=== PATIENT | female | born 1955 | race Caucasian/White ===

== ENCOUNTER → 2016-09-02 | Outpatient (CLI) | payer BC ==
[~2016-09-02] MED LIST: ACDPT PO; ACHD5005 PO; ALBU8.5H2 IH; ALPR.25T PO; ATR20T PO; AZIT-21 PO; AZTH250C PO; CLAR-19 PO; CLARITIN; CODE-54 PO; DIPH1TAB25 PO; FLC100T1 PO; HYDR-3720 PO; HYDR-700 PO; HYDR-707 PO; HYDR-757 PO; IBP200T PO; LEVO500T69 PO; LNZ600T PO; LTRS15C TOP; MAGN300S PO; METF-380 PO; NF-ESOM40C PO; NFPRILOC40 PO; OMEP20CA12 PO; ONDA8TAB13 PO; OXYC-12 PO; OXYC-197 PO; POLY119P PO; PRCD5U PO; PRD20T PO; PROP1TAB77 PO; SMV20T PO; TR1C15 TOP
[2016-09-02 07:05] LABS: ALANINE AMINOTRANSFERASE 11 U/L (0-55); ALBUMIN 4.5 G/DL (3.2-4.5); ANION GAP 13 MMOL/L (5-14); ASPARTATE AMINO TRANSFERASE 16 U/L (5-34); BILIRUBIN,TOTAL 0.6 MG/DL (0.1-1.0); BLOOD UREA NITROGEN 7 MG/DL (7-18); BUN/CREATININE RATIO 10; CALCIUM 9.3 MG/DL (8.5-10.1); CARBON DIOXIDE 21 MMOL/L (21-32); CHLORIDE 106 MMOL/L (98-107); CHOLESTEROL 189 MG/DL (< 200); CREATININE SERUM 0.71 MG/DL (0.60-1.30); DIRECT LDL 87 MG/DL (1-129); GFR ESTIMATED > 60; GLUCOSE 147 MG/DL (70-105); POTASSIUM 3.9 MMOL/L (3.6-5.0); SODIUM 140 MMOL/L (135-145); TOTAL PROTEIN 7.5 G/DL (6.4-8.2); TRIGLYCERIDES 277 MG/DL (<150); VLDL CHOLESTEROL 55 MG/DL (5-40)
== END ==
LOC: LAB 06:18
PROVIDERS: ATTEND Family Medicine
DX: E11.9 Type 2 diabetes mellitus without complications (principal); N15.9 Renal tubulo-interstitial disease, unspecified
CPT/HCPCS: 36415; 80053; 80061; 83036

== ENCOUNTER → 2016-09-07 | Outpatient (CLI) | payer BC ==
[~2016-09-07] MED LIST changes: +CATHETER FLUSH 10 ML SYR IV PRN; +IOHEXOL 350 MG/ML 100 ML (OMNIPAQUE 350) VIAL IV ONE; +NS 100 ML (IVPB) BAG IV ONE
--- NOTE | 2016-09-07 11:05 | Diagnostic Imaging Report ---
PROCEDURE: CT chest with contrast only. TECHNIQUE: Multiple contiguous axial images were obtained through the chest after administration of intravenous contrast. INDICATION: Pulmonary nodule followup. 75 mL of Omnipaque 350 is administered intravenously. COMPARISON: 10/01/2014 FINDINGS: There are new nodules when compared to 2015 exam measuring up to 5 mm seen in the right upper lobe with small surrounding halo around these nodules. Such halo is in favor of an infectious process. There are nodules in the medial aspect of the right lower lobe measuring up to 1.4 cm in size without change from prior studies compatible with benign etiology. There is no solid consolidation. The mediastinum demonstrate no mass or significantly enlarged lymph nodes. No axillary lymphadenopathy. There are minimally enlarged lymph nodes in the right hilum up to 1 cm in size similar to 2015 of questionable significance. The heart size is normal. No pericardial or pleural effusion. Coronary artery calcifications are seen. The thoracic aorta is normal in caliber. The osseous structures appear grossly unremarkable. The sections in the upper abdomen appear grossly unremarkable. IMPRESSION: 1. There are right upper lobe pulmonary nodules up to 5 mm in size with surrounding halo not seen on the prior exam, may relate to an atypical infection. Correlate clinically. 2. Previously seen right lower lobe pulmonary nodules up to 1.4 cm in size are stable from prior exams compatible with benign etiology. Dictated by: Dictated on workstation # [id number]
== END ==
LOC: RAD 09:49
PROVIDERS: ATTEND Family Medicine
DX: R91.8 Other nonspecific abnormal finding of lung field (principal)
CPT/HCPCS: 71260

== ENCOUNTER → 2016-09-11 | Outpatient (CLI) | payer BC ==
[~2016-09-11] MED LIST changes: -CATHETER FLUSH 10 ML SYR IV PRN; -IOHEXOL 350 MG/ML 100 ML (OMNIPAQUE 350) VIAL IV ONE; -NS 100 ML (IVPB) BAG IV ONE
== END ==
LOC: PREOP 06:16
PROVIDERS: ATTEND Surgery
DX: Z01.818 Encounter for other preprocedural examination (principal); K22.2 Esophageal obstruction; R13.10 Dysphagia, unspecified

== ENCOUNTER 2016-09-14 06:47 | Day surgery (SDC) | payer BC ==
[~2016-09-14] VITALS: Ht 167.6 cm; Wt 59.0 kg
[2016-09-14] MEDS ORDERED: MIDAZOLAM 2 MG/2 ML (VERSED) VIAL IVP PRN (07:00)
[2016-09-14] MEDS ORDERED: NALOXONE 0.4 MG/ML 1 ML (NARCAN) VIAL IVP PRN (07:00)
[2016-09-14] MEDS ORDERED: NS IV 500 ML 500 ML IV SCH (07:00)
[2016-09-14] MEDS ORDERED: FLUMAZENIL (ROMAZICON) 0.1 MG/ML 5 ML VIAL INJ PRN (07:00)
[2016-09-14] MEDS ORDERED: HURRICAINE EXT TUBE (BENZOCAINE) XX PRN (07:00)
[2016-09-14] MEDS ORDERED: fentaNYL INJECTION 100 MCG/2 ML AMP IVP PRN (07:00)
[2016-09-14] MEDS ORDERED: NS IV 500 ML 500 ML ONE (07:02)
[2016-09-14] MEDS ORDERED: proPOfol 200 MG/20 ML (DIPRIVAN) VIAL IV ONE (07:19)
[2016-09-14 07:20] VITALS: BP 150/85
[2016-09-14] MEDS ORDERED: LIDOCAINE PF 2% 5 ML (XYLOCAINE) VIAL ONE (07:20)
[2016-09-14] MEDS ORDERED: HURRICAINE EXT TUBE (BENZOCAINE) ONE (08:11)
--- NOTE | 2016-09-14 08:32 | Endoscopy Procedure Report ---
Endoscopy Report Date: Sep 14, 2016 Preoperative Diagnosis: dysphagia. Allan's esophagitis Study Performed: Upper Endoscopy Procedure Instrument: Endoscope Endo Procedure/Findings Findings 1.: Hiatal Hernia, Stricture, Allan's Esophagus Copy Copies To 1: VLADIMIR GALO XAVIER M MD Sep 14, 2016 8:32 am
[2016-09-14 08:35] VITALS: BP 137/72
--- NOTE | 2016-09-14 08:35 | Discharge Inst-Simple/Standard ---
Discharge Inst-Standard Discharge Medications New, Converted or Re-Newed RX: Other Patient Instructions/Follow Up Plan of Care/Instructions/FU: follow-up with her primary Activity as Tolerated: Yes Discharge Diet: No Restrictions BERE ROSARIO MD Sep 14, 2016 8:35 am
[2016-09-14 09:05] VITALS: BP 146/83
[2016-09-14 09:20] VITALS: BP 146/83
--- NOTE | 2016-09-14 09:50 | OPERATIVE REPORT ---
DATE OF SERVICE: 09/14/2016 PROCEDURES: 1. Upper GI endoscopy with antral biopsy. 2. Balloon dilatation of esophageal stricture. 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 She presented with dysphagia, possibly due to a stricture. Therefore, an upper endoscopy with potential balloon dilatation was felt to be reasonable. Informed consent was obtained after reviewing the procedure in detail. DESCRIPTION OF PROCEDURE: She was placed in left lateral decubitus position and her vital signs were monitored. Conscious sedation was achieved using propofol infusion by our [employer]. The flexible gastroscope was then introduced down the esophagus, past the stomach, into the proximal duodenum. FINDINGS: ESOPHAGUS: Changes of previous Allan esophagitis with a smooth stricture at the end. It was dilated to 20 mm with the balloon. STOMACH: Multiple erosions were found along the distal stomach. An antral biopsy was obtained for Helicobacter status. DUODENUM: Shallow ulcers and erosions were found. She tolerated the procedure well and was taken back to the nursing area in a stable condition. IMPRESSION: Allan esophagitis with stricture. Balloon dilation completed. Job ID: [id number] DocumentID: [id number] Dictated Date: 09/14/2016 08:31:18 [employer] Date: 09/14/2016 09:50:23 Dictated By: BERE ROSARIO MD [facility]
== END 2016-09-14 09:20 | disposition home or self-care (01) ==
LOC: ENDO 06:47
PROVIDERS: ATTEND Surgery
DX: K22.70 Barrett's esophagus without dysplasia (principal); K22.2 Esophageal obstruction; Z79.899 Other long term (current) drug therapy; F17.210 Nicotine dependence, cigarettes, uncomplicated

== ENCOUNTER 2016-10-20 10:50 | Outpatient (CLI) | payer BC, OTHER ==
[~2016-10-20] VITALS: Ht 167.6 cm; Wt 61.2 kg
[2016-10-20] MEDS ORDERED: CYCL10TA9 PO ×2 (14:09)
[2016-10-20] MEDS ORDERED: LORA10TA7 PO ×2 (14:09)
[2016-10-20] MEDS ORDERED: NF-ESOM40C PO ×2 (14:09)
[2016-10-20] MEDS ORDERED: HYDR-3816 PO ×2 (14:10)
== END 2016-10-20 14:11 ==
LOC: PREOP 10:50
PROVIDERS: ATTEND Internal Medicine Critical Care Medicine
DX: Z01.818 Encounter for other preprocedural examination (principal); R91.8 Other nonspecific abnormal finding of lung field

== ENCOUNTER 2016-10-21 06:48 | Day surgery (SDC) | payer BC, OTHER ==
[~2016-10-21] VITALS: Ht 167.6 cm; Wt 61.2 kg
[~2016-10-21 06:48] MED LIST changes: +CYCL10TA9 PO; +HYDR-3816 PO; +LORA10TA7 PO
[2016-10-21] MEDS ORDERED: NS IV 1000 ML 1,000 ML IV STA (06:58)
[2016-10-21] MEDS ORDERED: FLUMAZENIL (ROMAZICON) 0.1 MG/ML 5 ML VIAL INJ PRN (07:00)
[2016-10-21] MEDS ORDERED: MIDAZOLAM 2 MG/2 ML (VERSED) VIAL IVP PRN (07:00)
[2016-10-21] MEDS ORDERED: NALOXONE 0.4 MG/ML 1 ML (NARCAN) VIAL IVP PRN (07:00)
[2016-10-21] MEDS ORDERED: LIDOCAINE 4% INJ (XYLOCAINE) 5ML AMP INH ONE (07:12)
[2016-10-21] MEDS ORDERED: RT-ALBUTEROL SULF 2.5 MG/3 ML PRE-MIX VIAL IH SCH (07:15)
[2016-10-21 07:18] VITALS: BP 151/82
[2016-10-21] MEDS ORDERED: RT-ALBUTEROL SULF 2.5 MG/3 ML PRE-MIX VIAL ONE (07:18)
[2016-10-21] MEDS ORDERED: MIDAZOLAM 2 MG/2 ML (VERSED) VIAL ONE (07:19)
--- NOTE | 2016-10-21 07:28 | Pre-Op Note & Conscious Sedat ---
Pre-Operative Progress Note H&P Reviewed The H&P was reviewed, patient examined and no changes noted. Date H&P Reviewed: Oct 21, 2016 Time H&P Reviewed: 07:28 Conscious Sedation Pre-Proced Time Reviewed: ASA Class: 3 Airway Mallampati Classification: ([place] appropriate class) I. II. III, IV Lungs Heart ASA score ASA 1: a normal healthy patient ASA 2: a patient with a mild systemic disease (mid diabetes, controlled hypertension, obesity ASA 3: a patient with a severe systemic disease that limits activity (angina , COPD, prior Myocardial infarction) ASA 4: a patient with an incapacitating disease that is a constant threat to life (CHF, renal failure) ASA 5: a moribund patient not expected to survive 24 hrs. (ruptured aneurysm) ASA 6: a declared brain patient whose organs are being harvested. For emergent operations, add the letter E after the classification Grade 3 Sedation Plan: Analgesia, Amnesia, Plan communicated to team members, Discussed options with patient/fam, Discussed risks with patient/fam Note The patient is an appropriate candidate to undergo the planned procedure, sedation, and anesthesia. The patient immediately re-assessed prior to indication. ODETTE FERNANDEZ DO Oct 21, 2016 07:28
--- NOTE | 2016-10-21 07:28 | Progress Note-Pre Operative ---
Pre-Operative Progress Note H&P Reviewed The H&P was reviewed, patient examined and no changes noted. Date Seen by Provider: Oct 21, 2016 Time Seen by Provider: : Date H&P Reviewed: Oct 21, 2016 Time H&P Reviewed: : Pre-Operative Diagnosis: ODETTE Luna DO Oct 21, 2016 07:28
[2016-10-21] MEDS ORDERED: proPOfol 200 MG/20 ML (DIPRIVAN) VIAL IV ONE (07:41)
[2016-10-21] MEDS: fentaNYL INJECTION 100 MCG/2 ML AMP IVP PRN ×2 (07:47→07:56)
[2016-10-21 08:30] VITALS: BP 140/78
[2016-10-21] MEDS ORDERED: LIDOCAINE PF 1% 2 ML AMP IJ ONE (08:44)
[2016-10-21] MEDS ORDERED: LIDOCAINE JELLY 2% (XYLOCAINE) 30 ML TUBE TOP ONE (08:44)
[2016-10-21] MEDS ORDERED: LIDOCAINE 4% INJ (XYLOCAINE) 5ML AMP INJ ONE (08:44)
[2016-10-21 09:00] VITALS: BP 126/77
--- NOTE | 2016-10-21 09:15 | Diagnostic Imaging Report ---
Supine portable radiograph of the chest. INDICATION: Pulmonary nodule. Bronchoscopy performed. FINDINGS: There is right upper lobe patchy consolidation. The left lung is clear. The heart size is normal. No effusion or pneumothorax. The mediastinum and leonarda appear unremarkable. IMPRESSION: Right upper lobe consolidation. Dictated by: Dictated on workstation # [id number]
[2016-10-21 09:29] VITALS: BP 126/77
--- NOTE | 2016-10-21 18:06 | Diagnostic Imaging Report ---
EXAMINATION: Intraoperative view of the chest. FLUOROSCOPY TIME: 42 seconds. INDICATION: Pulmonary nodule. IMPRESSION: Provided image demonstrates bronchoscope projecting over the right upper lobe. Dictated by: Dictated on workstation # [id number]
--- OUTSIDE RECORDS SUMMARY | 2016-10-28 21:34 | XMS REPORT | Continuity of Care Document ---
Author Author [facility] Organization [facility] Address Unknown Phone Unavailable Allergies Active Description Code Type Severity Reaction Onset Reported/Identified Relationship to Patient Clinical Status Yes Doxycycline Doxycycline Moderate tongue swelling 09/14/2011 Yes Levaquin Levaquin Moderate Tongue swelling 09/14/2011 Yes doxycycline [id number] Drug Allergy Severe TONGUE SWELLING 10/20/2016 Yes levofloxacin [id number] Drug Allergy Severe TONGUE SWELLING 10/20/2016 Yes aspirin [id number] Drug Allergy Mild advised not to 10/20/2016 Yes ibuprofen [id number] Drug Allergy Mild advised not to 10/20/2016 Yes sumatriptan [id number] Drug Allergy Unknown N/A 10/20/2016 Medications Problems Date Dx Coded Attending Type Code Diagnosis Diagnosed By 03/20/2011 Ot 173.31 BASAL CELL CARCINOMA OF SKIN OF OTH UN 03/25/2011 Ot 250.00 DIAB BLANCA WO COMPL, TYPE II OR UNSPEC TY 03/25/2011 Ot 682.3 CELLULITIS OF ARM 03/25/2011 Ot 998.59 OTH POSTOPER INFECTION 03/25/2011 Ot V58.69 OT MED,LT,CURRENT USE 04/16/2011 Ot 782.0 SKIN SENSATION DISTURB 04/16/2011 Ot E930.1 ADV EFF ANTIFUNG ANTBIOT 04/16/2011 Ot E930.8 ADV EFF ANTIBIOTICS NEC 09/14/2011 Ot 787.91 DIARRHEA 10/19/2011 Ot 530.85 VALDIVIA'S ESOPHAGUS 10/19/2011 Ot 787.91 DIARRHEA 10/19/2011 Ot V12.72 PERSONAL HISTORY OF COLONIC POLYPS 10/19/2011 Ot V58.69 OTH MED,LT,CURRENT USE 12/14/2011 Ot 787.91 DIARRHEA 02/26/2012 Ot 466.0 ACUTE BRONCHITIS 02/26/2012 Ot 786.50 CHEST PAIN NOS 02/26/2012 Ot 786.52 PAINFUL RESPIRATION 02/26/2012 Ot 793.19 OTHER NONSPECIFIC ABNORMAL FINDING OF OSMIN 05/03/2012 Ot 305.1 TOBACCO USE DISORDER 05/03/2012 Ot 490 BRONCHITIS NOS 05/03/2012 Ot 786.2 COUGH 09/10/2012 GE MARTIN MD Ot 786.50 CHEST PAIN NOS 09/10/2012 MARIO MULLIGAN, GE Mckinney Ot V58.69 OT MED,LT,CURRENT USE 10/24/2012 ABRAHAM MULLIGAN, BERE Jacobson Ot 530.85 VALDIVIA'S ESOPHAGUS 10/24/2012 COLTEN MULLIGAN, KELLY Glez Ot 250.00 10/24/2012 COLTEN MULLIGAN, KELLY Glez Ot 305.1 10/24/2012 COLTEN MULLIGAN, KELLY Glez Ot 346.90 10/24/2012 COLTEN MULLIGAN, KELLY Glez Ot 473.9 10/24/2012 COLTEN MULLIGAN, KELLY Glez Ot 530.81 10/24/2012 COLTEN MULLIGAN, KELLY Glez Ot 530.85 10/24/2012 COLTEN MULLIGAN, KELLY Glez Ot 786.50 01/06/2013 ANNIE MEHTA MD Ot 490 BRONCHITIS NOS 01/06/2013 ANNIE MEHTA MD Ot 786.2 COUGH 06/14/2013 ROSE MARIE WILD DO Ot 250.00 DIAB BLANCA WO COMPL, TYPE II OR UNSPEC TY 06/14/2013 ROSE MARIE WILD DO Ot 305.1 TOBACCO USE DISORDER 06/14/2013 ROSE MARIE WILD DO Ot 530.81 ESOPHAGEAL REFLUX 06/14/2013 ROSE MARIE WILD DO Ot 575.0 ACUTE CHOLECYSTITIS 10/09/2013 ROSE MARIE WILD DO Ot 787.91 DIARRHEA 10/09/2013 ROSE MARIE WILD DO Ot 789.00 ABDOMINAL PAIN, UNSPECIFIED SITE 01/03/2014 DINA LEOS Ot 564.00 UNSPEC CONSTIPATION 01/03/2014 DINA LEOS Ot 724.2 LUMBAGO 01/03/2014 DINA LEOS Ot 789.00 ABDOMINAL PAIN, UNSPECIFIED SITE 04/17/2014 Ot 250.00 04/17/2014 Ot 791.9 04/17/2014 Ot 173.31 04/17/2014 Ot V72.63 04/17/2014 Ot V74.8 04/17/2014 Ot V58.31 04/17/2014 Ot 250.00 04/17/2014 Ot V72.84 04/17/2014 Ot 787.91 04/17/2014 Ot 518.89 04/17/2014 LEAH CARTER, NEGRITO Mckinney Ot 793.11 04/17/2014 GELLENDER DO, VLADIMIR Nunez Ot 250.00 04/17/2014 GELLENDER DO, VLADIMIR Nunez Ot 783.21 04/17/2014 GELLENDER DO, VLADIMIR Nunez Ot 786.9 04/17/2014 ABRAHAM MULLIGAN, BERE Jacobson Ot V72.84 04/17/2014 GELLENDER DO, VLADIMIR Nunez Ot 250.00 04/17/2014 GELLENDER DO, VLADIMIR Nunez Ot 786.2 04/17/2014 GELLENDER DO, VLADIMIR Nunez Ot 783.21 04/17/2014 GELLENDER DO, VLADIMIR Nunez Ot 793.19 04/17/2014 Ot 787.91 04/17/2014 Ot 789.00 04/17/2014 SULEMA ROBB APPRAISER Ot 250.00 DIAB BLANCA WO COMPL, TYPE II OR UNSPEC TY 04/17/2014 SULEMA ROBB APPRAISER Ot 723.4 BRACHIAL NEURITIS NOS 04/17/2014 SULEMA ROBB APPRAISER Ot 729.5 PAIN IN LIMB 05/21/2014 Ot 518.89 05/21/2014 GELLENDER DO, VLADIMIR Nunez Ot 250.00 05/21/2014 GELLENDER DO, VLADIMIR Nunez Ot 783.21 05/21/2014 GELLENDER DO, VLADIMIR Nunez Ot 786.9 05/21/2014 GELLENDER DO, VLADIMIR Nunez Ot 250.00 05/21/2014 GELLENDER DO, VLADIMIR Nunez Ot 786.2 05/21/2014 GELLENDER DO, VLADIMIR Nunez Ot 783.21 05/21/2014 GELLENDER DO, VLADIMIR Nunez Ot 793.19 05/21/2014 Ot 787.91 05/21/2014 Ot 789.00 06/25/2014 Ot 250.00 06/25/2014 Ot 791.9 06/25/2014 Ot 173.31 06/25/2014 Ot V72.63 06/25/2014 Ot V74.8 06/25/2014 Ot V58.31 06/25/2014 Ot 250.00 06/25/2014 Ot V72.84 06/25/2014 Ot 787.91 06/25/2014 Ot 518.89 06/25/2014 NEGRITO STRANGE Ot 793.11 06/25/2014 GELLENDER DO, VLADIMIR A Ot 250.00 06/25/2014 GELLENDER DO, VLADIMIR A Ot 783.21 06/25/2014 GELLENDER DO, VLADIMIR A Ot 786.9 06/25/2014 ABRAHAM MULLIGAN, BERE Jacobson Ot V72.84 06/25/2014 GELLENDER DO, VLADIMIR Nunez Ot 250.00 06/25/2014 GELLENDER DO, VLADIMIR A Ot 786.2 06/25/2014 GELLENDER DO, VLADIMIR A Ot 783.21 06/25/2014 GELLENDER DO, VLADIMIR Nunez Ot 793.19 06/25/2014 Ot 787.91 06/25/2014 Ot 789.00 07/02/2014 Ot 787.91 07/02/2014 Ot 787.91 07/02/2014 Ot 789.00 09/19/2014 Ot 250.00 09/19/2014 Ot 791.9 09/19/2014 Ot 173.31 09/19/2014 Ot V72.63 09/19/2014 Ot V74.8 09/19/2014 Ot V58.31 09/19/2014 Ot 250.00 09/19/2014 Ot V72.84 09/19/2014 Ot 787.91 09/19/2014 Ot 518.89 09/19/2014 NEGRITO STRANGE Ot 793.11 09/19/2014 GELLENDER DO, VLADIMIR Nunez Ot 250.00 09/19/2014 GELLENDER DO, VLADIMIR A Ot 783.21 09/19/2014 GELLENDER DO, VLADIMIR A Ot 786.9 09/19/2014 ABRAHAM MULLIGAN, BERE Jacobson Ot V72.84 09/19/2014 GELLENDER DO, VLADIMIR Nunez Ot 250.00 09/19/2014 GELLENDER DO, VLADIMIR A Ot 786.2 09/19/2014 GELLENDER DO, VLADIMIR A Ot 783.21 09/19/2014 GELLENDER DO, VLADIMIR Nunez Ot 793.19 09/19/2014 Ot 787.91 09/19/2014 Ot 789.00 09/19/2014 GELLENDER DO, VLADIMIR Nunez Ot 723.0 09/19/2014 GELLENDER DO, VLADIMIR Nunez Ot 723.1 09/19/2014 GELLENDER DO, VLADIMIR Nunez Ot 784.2 09/19/2014 GELLENDER DO, VLADIMIR Nunez Ot 593.9 09/20/2014 Ot 250.00 09/20/2014 Ot 791.9 09/20/2014 Ot 173.31 09/20/2014 Ot V72.63 09/20/2014 Ot V74.8 09/20/2014 Ot V58.31 09/20/2014 Ot 250.00 09/20/2014 Ot V72.84 09/20/2014 Ot 787.91 09/20/2014 Ot 518.89 09/20/2014 LEAH CARTER, NEGRITO Mckinney Ot 793.11 09/20/2014 GELLENDER DO, VLADIMIR Nunez Ot 250.00 09/20/2014 GELLENDER DO, VLADIMIR Nunez Ot 783.21 09/20/2014 GELLENDER DO, VLADIMIR Nunez Ot 786.9 09/20/2014 ABRAHAM MULLIGAN, BERE Jacobson Ot V72.84 09/20/2014 GELLENDER DO, VLADIMIR Nunez Ot 250.00 09/20/2014 GELLENDER DO, VLADIMIR Nunez Ot 786.2 09/20/2014 GELLENDER DO, VLADIMIR Nunez Ot 783.21 09/20/2014 GELLENDER DO, VLADIMIR Nunez Ot 793.19 09/20/2014 Ot 787.91 09/20/2014 Ot 789.00 09/20/2014 GELLENDER DO, VLADIMIR Nunez Ot 723.0 09/20/2014 GELLENDER DO, VLADIMIR Nunez Ot 723.1 09/20/2014 GELLENDER DO, VLADIMIR Nunez Ot 784.2 09/20/2014 GELLENDER DO, VLADIMIR Nunez Ot 593.9 10/02/2014 GELLENDER DO, VLADIMIR Nunez Ot 593.9 10/02/2014 GELLENDER DO, VLADIMIR Nunez Ot 793.19 10/19/2014 GELLENDER DO, VLADIMIR Nunez Ot 593.9 10/19/2014 GELLENDER DO, VLADIMIR Nunez Ot 793.19 04/20/2015 Ot 250.00 04/20/2015 Ot 791.9 04/20/2015 Ot 173.31 04/20/2015 Ot V72.63 04/20/2015 Ot V74.8 04/20/2015 Ot V58.31 04/20/2015 Ot 250.00 04/20/2015 Ot V72.84 04/20/2015 Ot 787.91 04/20/2015 Ot 518.89 04/20/2015 LEAH CARTER, NEGRITO Mckinney Ot 793.11 04/20/2015 GELLENDER DO, VLADIMIR Nunez Ot 250.00 04/20/2015 GELLENDER DO, VLADIMIR Nunez Ot 783.21 04/20/2015 GELLENDER DO, VLADIMIR Nunez Ot 786.9 04/20/2015 ABRAHAM MULLIGAN, BERE M Ot V72.84 04/20/2015 GELLENDER DO, VLADIMIR Nunez Ot 250.00 04/20/2015 GELLENDER DO, VLADIMIR Nunez Ot 786.2 04/20/2015 GELLENDER DO, VLADIMIR Nunez Ot 783.21 04/20/2015 GELLENDER DO, VLADIMIR Nunez Ot 793.19 04/20/2015 Ot 787.91 04/20/2015 Ot 789.00 04/20/2015 GELLENDER DO, VLADIMIR Nunez Ot 723.0 04/20/2015 GELLENDER DO, VLADIMIR Nunez Ot 723.1 04/20/2015 GELLENDER DO, VLADIMIR Nunez Ot 784.2 04/20/2015 GELLENDER DO, VLADIMIR Nunez Ot 593.9 04/20/2015 GELLENDER DO, VLADIMIR Nunez Ot 593.9 04/20/2015 GELLENDER DO, VLADIMIR Nunez Ot 793.19 04/20/2015 DINA LEOS Ot F17.210 NICOTINE DEPENDENCE, CIGARETTES, UNCOMPL 04/20/2015 DINA LEOS Ot G43.909 MIGRAINE, UNSP, NOT INTRACTABLE, WITHOUT 06/24/2015 DINA LEOS Ot F17.210 NICOTINE DEPENDENCE, CIGARETTES, UNCOMPL 06/24/2015 DINA LEOS Ot S82.62XA DISP FX OF LATERAL MALLEOLUS OF LEFT FIB 06/24/2015 DINA LEOS Ot S92.255A NONDISP FX OF NAVICULAR OF LEFT FOOT , IN 06/24/2015 DINA LEOS Ot W17.89XA OTHER FALL FROM ONE LEVEL TO ANOTHER , IN 06/24/2015 DINA LEOS Ot Y92.[address] IN SINGLE-FAMILY (PRIVATE) EPIFANIO 06/24/2015 DENY CARTERDINA Ot Y99.8 OTHER EXTERNAL CAUSE STATUS 06/24/2015 DENY CARTER DINA Pedro Ot Z85.820 PERSONAL HISTORY OF MALIGNANT MELANOMA O 06/26/2015 DENY CARTER DINA Pedro Ot F17.210 06/26/2015 DENY CARTER DINA Pedro Ot S82.62XA 06/26/2015 DENY CARTER DINA Pedro Ot S92.255A 06/26/2015 DENY CARTER DINA Pedro Ot W17.89XA 06/26/2015 DENY CARTER DINA Pedro Ot Y92.018 06/26/2015 DENY CARTER DINA Pedro Ot Y99.8 06/26/2015 DENY CARTER DINA Pedro Ot Z85.820 08/05/2015 SULEMA ROBB APRN Ot S92.252D DISP FX OF NAVICULAR OF LEFT FOOT, SUBS 08/06/2015 SULEMA ROBB APPRAISER Ot S92.252D DISP FX OF NAVICULAR OF LEFT FOOT, SUBS 09/04/2015 Ot 250.00 DIAB BLANCA WO COMPL, TYPE II OR UNSPEC TY 09/04/2015 Ot 791.9 ABN URINE FINDINGS NEC 09/04/2015 Ot 173.31 BASAL CELL CARCINOMA OF SKIN OF OTH UN 09/04/2015 Ot V72.63 PRE-PROCEDURAL LABORATORY EXAMINATION 09/04/2015 Ot V74.8 SCREEN-BACTERIAL DIS NEC 09/04/2015 Ot V58.31 ENCOUNTER FOR CHANGE OR REMOVAL OF SURGI 09/04/2015 Ot 250.00 DIAB BLANCA WO COMPL, TYPE II OR UNSPEC TY 09/04/2015 Ot V72.84 EXAM PRE-OPERATIVE NOS 09/04/2015 Ot 787.91 DIARRHEA 09/04/2015 Ot 518.89 OTHER DISEASES OF LUNG, NEC 09/04/2015 LEAH CARTER, NEGRITO Mckinney Ot 793.11 SOLITARY PULMONARY NODULE 09/04/2015 VLADIMIR GALO DO Ot 250.00 DIAB BLANCA WO COMPL, TYPE II OR UNSPEC TY 09/04/2015 VLADIMIR GALO DO Ot 783.21 LOSS OF WEIGHT 09/04/2015 VLADIMIR GALO DO Ot 786.9 RESP SYS/CHEST SYMP NEC 09/04/2015 ABRAHAM MULLIGAN, BERE Jacobson Ot V72.84 EXAM PRE-OPERATIVE NOS 09/04/2015 GELLENDER DO, VLADIMIR Nunez Ot 250.00 DIAB BLANCA WO COMPL, TYPE II OR UNSPEC TY 09/04/2015 GELLENDER DO, VLADIMIR Nunez Ot 786.2 COUGH 09/04/2015 GELLENDER DO, VLADIMIR Nunez Ot 783.21 LOSS OF WEIGHT 09/04/2015 GELLENDER DO, VLADIMIR Nunez Ot 793.19 OTHER NONSPECIFIC ABNORMAL FINDING OF OSMIN 09/04/2015 Ot 787.91 DIARRHEA 09/04/2015 Ot 789.00 ABDOMINAL PAIN, UNSPECIFIED SITE 09/04/2015 GELLENDER DO, VLADIMIR Nunez Ot 723.0 CERVICAL SPINAL STENOSIS 09/04/2015 GELLENDER DO, VLADIMIR Nunez Ot 723.1 CERVICALGIA 09/04/2015 GELLENDER DO, VLADIMIR Nunez Ot 784.2 SWELLING IN HEAD NECK 09/04/2015 GELLENDER DO, VLADIMIR Nunez Ot 593.9 RENAL URETERAL DIS NOS 09/04/2015 GELLENDER DO, VLADIMIR Nunez Ot 593.9 RENAL URETERAL DIS NOS 09/04/2015 GELLENDER DO, VLADIMIR Nunez Ot 793.19 OTHER NONSPECIFIC ABNORMAL FINDING OF OSMIN 09/05/2015 GELLENDER DO, VLADIMIR Nunez Ot M54.2 CERVICALGIA 09/26/2015 GELLENDER DO, VLADIMIR Nunez Ot M54.2 CERVICALGIA 09/02/2016 Ot 173.31 BASAL CELL CARCINOMA OF SKIN OF OTH UN 09/02/2016 Ot V72.63 PRE-PROCEDURAL LABORATORY EXAMINATION 09/02/2016 Ot V74.8 SCREEN-BACTERIAL DIS NEC 09/02/2016 Ot V58.31 ENCOUNTER FOR CHANGE OR REMOVAL OF SURGI 09/02/2016 Ot 250.00 DIAB BLANCA WO COMPL, TYPE II OR UNSPEC TY 09/02/2016 Ot V72.84 EXAM PRE-OPERATIVE NOS 09/02/2016 Ot 787.91 DIARRHEA 09/02/2016 Ot 518.89 OTHER DISEASES OF LUNG, NEC 09/02/2016 NEGRITO STRANGE Ot 793.11 SOLITARY PULMONARY NODULE 09/02/2016 GELLENDER DO, VLADIMIR Nunez Ot 250.00 DIAB BLANCA WO COMPL, TYPE II OR UNSPEC TY 09/02/2016 GELLENDER DO, VLADIMIR Nunez Ot 783.21 LOSS OF WEIGHT 09/02/2016 GELLENDER DOVLADIMIR Ot 786.9 RESP SYS/CHEST SYMP NEC 09/02/2016 ABRAHAM MULLIGAN, BERE Jacobson Ot V72.84 EXAM PRE-OPERATIVE NOS 09/02/2016 IRAJ JOSEPH, VLADIMIR Nunez Ot 250.00 DIAB BLANCA WO COMPL, TYPE II OR UNSPEC TY 09/02/2016 IRAJ JOSEPHVLADIMIR Ot 786.2 COUGH 09/02/2016 IRAJ JOSEPHVLADIMIR Ot 783.21 LOSS OF WEIGHT 09/02/2016 IRAJ JOSEPHVLADIMIR Ot 793.19 OTHER NONSPECIFIC ABNORMAL FINDING OF OSMIN 09/02/2016 Ot 787.91 DIARRHEA 09/02/2016 Ot 789.00 ABDOMINAL PAIN, UNSPECIFIED SITE 09/02/2016 IRAJ JOSEPHVLADIMIR Ot 723.0 CERVICAL SPINAL STENOSIS 09/02/2016 IRAJ JOSEPHVLADIMIR Ot 723.1 CERVICALGIA 09/02/2016 IRAJ JOSEPHVLADIMIR Ot 784.2 SWELLING IN HEAD NECK 09/02/2016 IRAJ JOSEPHVLADIMIR Ot 593.9 RENAL URETERAL DIS NOS 09/02/2016 IRAJ JOSEPHVLADIMIR Ot 593.9 RENAL URETERAL DIS NOS 09/02/2016 IRAJ JOSEPHVLADIMIR Ot 793.19 OTHER NONSPECIFIC ABNORMAL FINDING OF OSMIN 09/02/2016 IRAJ JOSEPHVLADIMIR Ot M54.2 CERVICALGIA 09/08/2016 IRAJ JOSEPHVLADIMIR Ot R91.8 OTHER NONSPECIFIC ABNORMAL FINDING OF OSMIN 09/14/2016 ABRAHAM MULLIGAN, BERE Jacobson Ot F17.210 NICOTINE DEPENDENCE, CIGARETTES, UNCOMPL 09/14/2016 BERE ROSARIO MD Ot K22.2 ESOPHAGEAL OBSTRUCTION 09/14/2016 BERE ROSARIO MD Ot K22.70 VALDIVIA'S ESOPHAGUS WITHOUT DYSPLASIA 09/14/2016 BERE ROSARIO MD Ot Z79.899 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 SUBSTATION ELECTRICIAN (CURRENT) DRUG THERAPY 09/14/2016 BERE ROSARIO MD Ot K22.2 ESOPHAGEAL OBSTRUCTION 09/14/2016 BERE ROSARIO MD Ot R13.10 DYSPHAGIA, UNSPECIFIED 09/14/2016 BERE ROSARIO MD Ot Z01.818 ENCOUNTER FOR OTHER PREPROCEDURAL EXAMIN 09/15/2016 BERE ROSARIO MD Ot F17.210 NICOTINE DEPENDENCE, CIGARETTES, UNCOMPL 09/15/2016 BERE ROSARIO MD Ot K22.2 ESOPHAGEAL OBSTRUCTION 09/15/2016 ABRAHAM MULLIGAN, BERE Jacobson Ot K22.70 VALDIVIA'S ESOPHAGUS WITHOUT DYSPLASIA 09/15/2016 ABRAHAM MULLIGAN, BERE Jacobson Ot Z79.899 OTHER LONGTERM (CURRENT) DRUG THERAPY 09/16/2016 GELLENDER DO, VLADIMIR Nunez Ot E11.9 TYPE 2 DIABETES MELLITUS WITHOUT COMPLIC 09/16/2016 GELLENDER DO, VLADIMIR Nunez Ot 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, UNSPE 09/24/2016 GELLENDER DO, VLADIMIR Nunez Ot R91.8 OTHER NONSPECIFIC ABNORMAL FINDING OF OSMIN 10/20/2016 GELLENDER DO, VLADIMIR Nunez Ot R91.8 OTHER NONSPECIFIC ABNORMAL FINDING OF OSMIN 10/20/2016 GELLENDER DO, VLADIMIR Nunez Ot E11.9 TYPE 2 DIABETES MELLITUS WITHOUT COMPLIC 10/20/2016 GELLENDER DO, VLADIMIR Nunez Ot 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, UNSPE 10/20/2016 Ot 250.00 DIAB BLANCA WO COMPL, TYPE II OR UNSPEC TY 10/20/2016 Ot V72.84 EXAM PRE-OPERATIVE NOS 10/20/2016 Ot 787.91 DIARRHEA 10/20/2016 Ot 518.89 OTHER DISEASES OF LUNG, NEC 10/20/2016 NEGRITO STRANGE Ot 793.11 SOLITARY PULMONARY NODULE 10/20/2016 GELLENDER DO, VLADIMIR Nunez Ot 250.00 DIAB BLANCA WO COMPL, TYPE II OR UNSPEC TY 10/20/2016 GELLENDER DO, VLADIMIR Nunez Ot 783.21 LOSS OF WEIGHT 10/20/2016 GELLENDER DO, VLADIMIR Nunez Ot 786.9 RESP SYS/CHEST SYMP NEC 10/20/2016 ABRAHAM MULLIGAN, BERE Jacobson Ot V72.84 EXAM PRE-OPERATIVE NOS 10/20/2016 GELLENDER DO, VLADIMIR Nunez Ot 250.00 DIAB BLANCA WO COMPL, TYPE II OR UNSPEC TY 10/20/2016 GELLENDER DO, VLADIMIR Nunez Ot 786.2 COUGH 10/20/2016 GELLENDER DO, VLADIMIR Nunez Ot 783.21 LOSS OF WEIGHT 10/20/2016 GELLENDER DO, VLADIMIR Nunez Ot 793.19 OTHER NONSPECIFIC ABNORMAL FINDING OF OSMIN 10/20/2016 Ot 787.91 DIARRHEA 10/20/2016 Ot 789.00 ABDOMINAL PAIN, UNSPECIFIED SITE 10/20/2016 VLADIMIR GALO DO Ot 723.0 CERVICAL SPINAL STENOSIS 10/20/2016 IRAJ JOSEPH VLADIMIR Nunez Ot 723.1 CERVICALGIA 10/20/2016 IRAJ JOSEPH VLADIMIR Nunez Ot 784.2 SWELLING IN HEAD NECK 10/20/2016 IRAJ JOSEPH VLADIMIR Nunez Ot 593.9 RENAL URETERAL DIS NOS 10/20/2016 VLADIMIR GALO DO Ot 593.9 RENAL URETERAL DIS NOS 10/20/2016 VLADIMIR GALO DO Ot 793.19 OTHER NONSPECIFIC ABNORMAL FINDING OF OSMIN 10/20/2016 VLADIMIR GALO DO Ot M54.2 CERVICALGIA 10/20/2016 IRAJ JOSEPH VLADIMIR Nunez Ot R91.8 OTHER NONSPECIFIC ABNORMAL FINDING OF OSMIN 10/20/2016 IRAJ JOSEPH VLADIMIR Nunez Ot E11.9 TYPE 2 DIABETES MELLITUS WITHOUT COMPLIC 10/20/2016 IRAJ JOSEPH VLADIMIR Enrique Ot 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, UNSPE 10/20/2016 ABRAHAM MULLIGAN, BERE Jacobson Ot K22.2 ESOPHAGEAL OBSTRUCTION 10/20/2016 ABRAHAM MULLIGAN, BERE Jacobson Ot R13.10 DYSPHAGIA, UNSPECIFIED 10/20/2016 ABRAHAM MULLIGAN, BERE Jacobson Ot Z01.818 ENCOUNTER FOR OTHER PREPROCEDURAL EXAMIN 10/20/2016 Ot 787.91 DIARRHEA 10/20/2016 Ot 787.91 DIARRHEA 10/20/2016 Ot 789.00 ABDOMINAL PAIN, UNSPECIFIED SITE 10/22/2016 IRAJ JOSEPH VLADIMIR Nunez Ot R91.8 OTHER NONSPECIFIC ABNORMAL FINDING OF OSMIN 10/22/2016 IRAJ JOSEPH VLADIMIR Nunez Ot E11.9 TYPE 2 DIABETES MELLITUS WITHOUT COMPLIC 10/22/2016 IRAJ JOSEPHVLADIMIR Ot 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, UNSPE Procedures Code Description Performed By Performed On 17.42 LAPAROSCOPIC ROBOTIC ASSISTED PROCEDURE 06/12/2013 51.23 LAPAROSCOPIC CHOLECYSTECTOMY 06/12/2013 Results Test Result Range Comprehensive metabolic panel - 09/02/16 06:34 Serum or plasma sodium measurement (moles/volume) 140 mmol/ L 135-145 Serum or plasma potassium measurement (moles/volume) 3.9 mmol/L 3.6-5.0 Serum or plasma chloride measurement (moles/volume) 106 mmol /L 98-107 Carbon dioxide 21 mmol/L 21-32 Serum or plasma anion gap determination (moles/volume) 13 mmol/L 5-14 Serum or plasma urea nitrogen measurement (mass/volume) 7 mg /dL 7-18 Serum or plasma creatinine measurement (mass/volume) 0.71 mg /dL 0.60-1.30 Serum or plasma urea nitrogen/creatinine mass ratio 10 NRG Serum or plasma creatinine measurement with calculation of estimated glomerular filtration rate > NRG Serum or plasma glucose measurement (mass/volume) 147 mg/dL 70-105 Serum or plasma calcium measurement (mass/volume) 9.3 mg/dL 8.5-10.1 Serum or plasma total bilirubin measurement (mass/volume) 0.6 mg/dL 0.1-1.0 Serum or plasma alkaline phosphatase measurement (enzymatic activity/volume) 59 U/L 40-136 Serum or plasma aspartate aminotransferase measurement (enzymatic activity/ volume) 16 U/L 5-34 Serum or plasma alanine aminotransferase measurement (enzymatic activity/volume ) 11 U/L 0-55 Serum or plasma protein measurement (mass/volume) 7.5 g/dL 6.4-8.2 Serum or plasma albumin measurement (mass/volume) 4.5 g/dL 3.2-4.5 Lipid 1996 panel - 09/02/16 06:34 Serum or plasma triglyceride measurement (mass/volume) 277 mg/dL <150 Serum or plasma cholesterol measurement (mass/volume) 189 mg /dL < 200 Serum or plasma cholesterol in HDL measurement (mass/volume) 42 mg/dL 40-60 Cholesterol in LDL [mass/volume] in serum or plasma by direct assay 87 mg/dL 1-129 Serum or plasma cholesterol in VLDL measurement (mass/volume) 55 mg/dL 5-40 Hemoglobin A1c - 09/02/16 06:34 Hemoglobin A1c 6.7 % 4.5-6.2 Sputum Gram stain - 10/21/16 08:00 GRAM STAIN SPUTUM NO BACTERIA NRG Bacteria identification in bronchial specimen by aerobe culture - 10/21/16 08: 00 QUANTITY OF GROWTH Scant Growth NRG Bacteria identification in bronchial specimen by aerobe culture [id number] NRG FTX;REPORTABLE BETA LACTAMASE POSITIVE NRG FREE TEXT ENTRY 2 NO OTHER ERIC NRG Sputum Gram stain - 10/21/16 08:00 GRAM STAIN SPUTUM NO WBC'S OBSERVED NRG Bacteria identification in bronchial specimen by aerobe culture - 10/21/16 08: 00 QUANTITY OF GROWTH Scant Growth NRG Bacteria identification in bronchial specimen by aerobe culture [id number] NRG FTX;REPORTABLE BETA LACTAMASE POSITIVE NRG FREE TEXT ENTRY 2 NO OTHER ERIC NRG Mycobacterium species detection by organism specific culture - 10/21/16 08:00 Mycobacterium species detection by organism specific culture FOOTNOTE NRG Fungus culture - 10/21/16 08:00 FUNGUS REPORT NO FUNGUS GROWTH OBSERVED NRG Fungus culture - 10/21/16 08:00 FUNGUS REPORT NO FUNGUS GROWTH OBSERVED NRG Encounters ACCT No. Visit Date/Time Discharge Status Pt. Type Provider Facility Loc./Unit Complaint [id number] 10/21/2016 06:48:00 2016 09:30:00 DIS Outpatient ODETTE FERNANDEZ DO [facility] ENDO PULMONARY NODULES [id number] 10/20/2016 10:50:00 2016 14:11:00 DIS Outpatient ODETTE FERNANDEZ DO [facility] PREOP PULMONARY NODULES [id number] 09/14/2016 06:47:00 2016 09:20:00 DIS Outpatient BERE ROSARIO MD [facility] ENDO DYSPHAGIA, ESOPHAGEAL STRICTURE [id number] 08/05/2015 15:48:00 2015 16:20:00 DIS Emergency SULEMA ROBB APRN [facility] ER L ANKLE PAIN [id number] 06/24/2015 15:47:00 2015 17:44:00 DIS Emergency DINA LEOS [facility] ER L ANKLE INJ [id number] 04/20/2015 12:47:00 2015 15:34:00 DIS Emergency DINA LEOS [facility] ER MIGRAINE [id number] 10/01/2014 08:59:00 2014 23:59:59 CLS Outpatient VLAIDMIR GALO DO [facility] RAD PULMONARY NODULES,RENAL INSUF [id number] 07/02/2014 08:34:00 2014 23:59:59 CLS Outpatient VLADIMIR GALO DO [facility] RAD RIGHT NECK PAIN AND SWELLING [id number] 06/29/2014 14:15:00 2014 23:59:59 CLS Outpatient VLADIMIR GALO DO [facility] LAB RENAL INSUF [id number] 06/26/2014 15:02:00 2014 23:59:59 CLS Outpatient VLADIMIR GALO DO [facility] RAD NECK PAIN, TINGLING [id number] 04/17/2014 13:52:00 2014 14:51:00 DIS Emergency SULEMA ROBB APRN [facility] ER RIGHT ARM PAIN/TINGLING [id number] 01/03/2014 14:56:00 2013 17:37:00 DIS Emergency DINA LEOS [facility] ER LOW BACK PAIN RADIATING TO ABDOMEN [id number] 07/12/2013 13:14:00 2013 00:01:00 DIS Outpatient ROSE MARIE WILD DO [facility] RAD ABD PAIN,DIARRHEA [id number] 06/12/2013 13:57:00 2013 14:45:00 DIS Inpatient ROSE MARIE WILD DO [facility] SURGICAL INTRACTABLE RUQ PX, POSTPRANDIAL NAUSEA, DIARRHEA [id number] 04/17/2013 07:54:00 2013 23:59:59 CLS Outpatient VLADIMIR GALO DO [facility] RAD WEIGHT LOSS,PULMONARY NODULES [id number] 04/13/2013 06:38:00 2013 23:59:59 CLS Outpatient VLADIMIR GALO DO [facility] LAB WT LOSS,COUGH [id number] 04/06/2013 14:10:00 2013 23:59:59 CLS Outpatient CARLOSPHANI VLADIMIR JOSEPH [facility] RAD COUGH,CONJESTION [id number] 01/06/2013 18:58:00 2012 20:52:00 DIS Emergency ANNIE MEHTA MD [facility] ER COUGH, CONGESTION, FEVER [id number] 10/24/2012 10:27:00 2012 23:59:59 CLS Outpatient IRAJ VLADIMIR JOSEPH [facility] LAB DM [id number] 10/24/2012 17:00:00 2012 18:17:00 DIS Emergency COLTEN MULLIGAN, KELLY Glez [facility] ER [id number] 10/24/2012 10:22:00 2012 14:20:00 DIS Outpatient BERE ROSARIO MD [facility] SDC BARRETTS ESOPHAGUS [id number] 10/20/2012 11:20:00 2012 23:59:59 CLS Outpatient ABRAHAM MULLIGAN, BERE Jacobson [facility] PREOP BARRX [id number] 09/10/2012 12:12:00 2012 14:45:00 DIS Emergency MARIO MULLIGAN, GE Mckinney [facility] ER CHEST PAIN [id number] 08/18/2012 08:05:00 2012 23:59:59 CLS Outpatient NEGRITO STRANGE [facility] RAD RT LOWER LOBE OF LUNG NODULE [id number] 09/11/2016 06:16:00 ACT Outpatient BERE ROSARIO MD [facility] PREOP EGD [id number] 09/07/2016 09:49:00 ACT Outpatient IRAJ JOSEPH VLADIMIR Nunez [facility] RAD PULMONARY NODULE [id number] 09/02/2016 06:18:00 ACT Outpatient IRAJ JOSEPH VLADIMIR Enrique [facility] LAB DIABETES [id number] 09/04/2015 07:07:00 ACT Outpatient VLADIMIR GALO DO [facility] RAD NECK PAIN [id number] 03/22/2015 12:03:00 ACT Outpatient PETER VILLALOBOS DO [facility] OCC [id number] 10/10/2013 07:45:00 Document Registration [id number] 05/12/2012 08:22:00 Document Registration [id number] 05/03/2012 12:05:00 Document Registration [id number] 02/26/2012 15:00:00 Document Registration [id number] 12/15/2011 00:00:00 Document Registration [id number] 10/19/2011 09:30:00 Document Registration [id number] 10/16/2011 08:34:00 Document Registration [id number] 09/15/2011 05:00:00 Document Registration [id number] 09/14/2011 17:20:00 Document Registration [id number] 06/08/2011 07:25:00 Document Registration [id number] 04/16/2011 14:53:00 Document Registration [id number] 03/21/2011 23:00:00 Document Registration [id number] 03/20/2011 14:18:00 Document Registration [id number] 03/20/2011 05:34:00 Document Registration [id number] 03/18/2011 12:29:00 Document Registration [id number] 11/18/2010 06:47:00 Document Registration
--- NOTE | 2016-11-04 12:02 | Pulmonary Procedures ---
Pulmonary Procedures Date of Procedure Date of Service: Nov 04, 2016 Bronch Bronchoscopy with bronchoalveolar lavage (BAL), transbronchial washes and, brushes. Preop DX mucous plugging Postop DX: same Complications: none After informed consent obtained and formal time out pt was sedated using Fentanyl and Versed. Bronchoscope was advanced through the nare and vocal cords. 1% lidocaine was used to anesthetize vocal cords, epiglottis, gian, and left/right main stem bronchus. An anatomical tour was undertaken down to the segmental bronchi bilaterally. No endobronchial lesions noted. From the RUL a bronchoalveolar lavage (BAL), transbronchial washes and, brushes were obtained. Pt tolerated procedure well. No complications noted. Stat CXR is pending. ODETTE FERNANDEZ DO Nov 04, 2016 12:02
== END 2016-10-21 09:30 | disposition home or self-care (01) ==
LOC: ENDO 06:48
PROVIDERS: ATTEND Internal Medicine Critical Care Medicine
DX: R19.8 Other specified symptoms and signs involving the digestive system and abdomen (principal); F17.210 Nicotine dependence, cigarettes, uncomplicated; K21.9 Gastro-esophageal reflux disease without esophagitis; E11.9 Type 2 diabetes mellitus without complications; J30.2 Other seasonal allergic rhinitis; Z79.899 Other long term (current) drug therapy
CPT/HCPCS: 71010; 87070; 87077; 87101; 87116; 87205; 88112; 88305; 88312; 94640

== ENCOUNTER 2017-06-28 10:21 | Day surgery (SDC) | payer OTHER ==
[~2017-06-28] VITALS: Ht 167.6 cm; Wt 61.2 kg
[~2017-06-28 10:21] MED LIST changes: +HYDR-34 PO; -HYDR-3816 PO
[2017-06-28 10:45] VITALS: BP 128/90
[2017-06-28] MEDS ORDERED: NS IV 500 ML 500 ML IV PRN (10:47)
[2017-06-28] MEDS ORDERED: HURRICAINE EXT TUBE (BENZOCAINE) XX PRN (11:00)
[2017-06-28] MEDS ORDERED: MIDAZOLAM 2 MG/2 ML (VERSED) VIAL IVP PRN (11:00)
[2017-06-28] MEDS ORDERED: fentaNYL INJECTION 100 MCG/2 ML AMP IVP PRN (11:00)
[2017-06-28] MEDS ORDERED: NS IV 500 ML 500 ML ONE (11:20)
--- NOTE | 2017-06-28 12:01 | History & Physicial ---
History of Present Illness History of Present Illness Reason for visit/HPI to undergo an upper endoscopy regarding epigastric pain and symptoms of reflux Date of Admission 06/28/17 Date Seen by Provider: Jun 28, 2017 Time Seen by Provider: 11:59 I consulted on this patient on 06/28/17 11:58 Attending Physician Bere Rosario MD Admitting Physician Homero Ho MD Consult Allergies and Home Medications Allergies Coded Allergies: doxycycline (Unverified Allergy, Severe, TONGUE SWELLING, 10/20/16) levofloxacin (Unverified Allergy, Severe, TONGUE SWELLING, BLISTERS, ) sumatriptan (Verified Allergy, Unknown, 10/20/16) aspirin (Verified Adverse Reaction, Mild, advised not to take after throat surgery, 10/20/16) ibuprofen (Verified Adverse Reaction, Mild, advised not to take after throat surgery, 10/20/16) Home Medications Albuterol 8.5 Gm Hfa.aer.ad, 2 PUFF IH Q4H PRN, (Reported) NEEDED FOR SHORTNESS OF BREATH Alprazolam 0.25 Mg Tablet, 0.25 MG PO BID PRN, (Reported) NEEDED FOR ANXIETY Cyclobenzaprine HCl 10 Mg Tablet, 10 MG PO TID PRN for SPASMS, (Reported) Esomeprazole Magnesium 40 Mg Cap, 40 MG PO DAILY, (Reported) Hydrocodone Bit/Acetaminophen 1 Each Tablet, 1 EACH PO TID PRN for PAIN-MODERATE , (Reported) Loratadine 10 Mg Tablet, 10 MG PO DAILY, (Reported) Metformin Hcl 1,000 Mg Tablet, 1,000 MG PO BID, (Reported) Patient Home Medication List Home Medication List Reviewed: Yes Past Atesbjd-Hdmgrk-Otuddy Hx Patient Social History Marrital Status: Employed/Student: unemployed Alcohol Use: Denies Use Recreational Drug Use: No (tobacco) Smoking Status: Current Everyday Smoker Type Used: Cigarettes Recent Foreign Travel: No Contact w/other who traveled: No Recent Hopitalizations: No Recent Infectious Disease Expo: No Immunizations Up To Date Date of Pneumonia Vaccine: Jun 03, 2013 Date of Influenza Vaccine: Jan 13, 2016 Seasonal Allergies Seasonal Allergies: Yes Surgeries Yes Gallbladder, Hysterectomy, Orthopedic Neurological Yes Headaches /Migraines Reproductive System Hx Reproductive Disorders: No Sexually Transmitted Disease: No HIV/AIDS: No 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 Gastrointestinal Yes Gastroesophageal Reflux, Allan's Esophagus Musculoskeletal Yes Degenerate Disk Disease, Chronic Back Pain Endocrine History of Endocrine Disorders: Yes Endocrine Disorders: Diabetes, Non-Insulin dep HEENT Loss of Vision: Bilateral Hearing Impairment: Denies Cancer Yes Skin, Melanoma Psychosocial History of Psychiatric Problem: Yes Behavioral Health Disorders: Anxiety Blood Transfusions Adverse Reaction to a Blood Tr: No (N/A) Family Medical History Significant Family History: No Pertinent Family Hx Family Hx: Alcoholism 09 BROTHER 09 BROTHER Cancer pa-aunt (breast cancer) Cataract 03 FATHER Chest pain 03 FATHER 09 BROTHER Congenital heart disease 03 MOTHER Congestive heart failure 03 MOTHER Family history: Arthritis 03 FATHER Family history: Breast disease 09 BROTHER 09 SISTER pa-aunt Family history: Cardiovascular disease 03 FATHER 09 BROTHER 09 SISTER Family history: Coronary thrombosis 03 FATHER (WRONG DISEASE CHARTED) 09 BROTHER (WRONG DISEASE CHARTED) 09 SISTER (wrong disease chated) Family history: Diabetes mellitus 03 FATHER Family history: Glaucoma 03 FATHER History of - respiratory disease 03 MOTHER (COPD) 09 SISTER (COPD) Myocardial infarction 03 FATHER 09 BROTHER Seizure disorder NEPHEW ( FROM SEIZURE AT AGE 23 YRS.) No Family History of: Abdominal aortic aneurysm Nelsonia's disease Cancer of colon Constitutional: no symptoms reported EENTM: no symptoms reported Respiratory: no symptoms reported Cardiovascular: no symptoms reported Gastrointestinal: see HPI Genitourinary: no symptoms reported Musculoskeletal: no symptoms reported Skin: no symptoms reported Psychiatric/Neurological: Anxiety Physical Exam Vital Signs Vital Signs - First Documented 06/28/17 10:45 Temp 97.9 Pulse 80 Resp 20 B/P (MAP) 128/90 (103) Pulse Ox 95 O2 Delivery Room Air Capillary Refill : General Appearance: No Apparent Distress Neck: Normal Inspection Respiratory: Lungs Clear Cardiovascular: Regular Rate, Rhythm Gastrointestinal: Non Tender, Soft Neurologic/Psychiatric: Alert, Oriented x3 Skin: Warm/Dry Assessment/Plan Assessment and Plan lady with epigastric pain and symptoms of reflux disease. For upper endoscopy. Problems: Admission Diagnosis Admission Status: Other (Outpt Proc) BERE ROSARIO MD Jun 28, 2017 12:01 pm
--- NOTE | 2017-06-28 12:02 | Conscious Sedation/ASA ---
Conscious Sedation Pre-Proced Time Reviewed: 12:02 ASA Class: 2 Airway Mallampati Classification: (tribal appropriate class) I. II. III, IV Lungs Heart ASA score ASA 1: a normal healthy patient ASA 2: a patient with a mild systemic disease (mid diabetes, controlled hypertension, obesity ASA 3: a patient with a severe systemic disease that limits activity (angina , COPD, prior Myocardial infarction) ASA 4: a patient with an incapacitating disease that is a constant threat to life (CHF, renal failure) ASA 5: a moribund patient not expected to survive 24 hrs. (ruptured aneurysm) ASA 6: a declared brain patient whose organs are being harvested. For emergent operations, add the letter E after the classification Grade 2 Sedation Plan: Discussed options with patient/fam Note The patient is an appropriate candidate to undergo the planned procedure, sedation, and anesthesia. The patient immediately re-assessed prior to indication. BERE ROSARIO MD Jun 28, 2017 12:02 pm
[2017-06-28] MEDS ORDERED: proPOfol 200 MG/20 ML (DIPRIVAN) VIAL IV ONE (12:52)
[2017-06-28] MEDS ORDERED: HURRICAINE EXT TUBE (BENZOCAINE) ONE (12:52)
--- NOTE | 2017-06-28 13:14 | Endo Procedure Record ---
Endo Procedure Report Date of Procedure Last Colonoscopy: Yes (2012) Jun 28, 2017 Surgeon (s) BERE ROSARIO MD Post Procedure/Op Diagnosis Changes of Allan's esophagitis. 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 In September 2016, an associated stricture was dilated with resolution of her symptoms. Distal gastric ulcers were also found. She returned for a follow-up endoscopy with a history of intermittent symptoms. Informed consent was obtained after reviewing the procedure in detail. Description of the procedure: She was placed in left lateral decubitus position and her vital signs were monitored. Conscious sedation was achieved using propofol infusion by our MACHINE MOLDER. The flexible gastroscope was introduced down the esophagus, past the stomach, into the proximal duodenum. Findings: Esophagus: Changes of Allan's esophagitis, with strips of gastric mucosa creeping up the distal esophagus up to about 38 cm. There was no stricture. Stomach and duodenum appeared to be normal, with complete healing of the ulcers noticed before. She tolerated the procedure well and was taken back to the nursing area in a stable condition. Impression: Established Allan's esophagitis. Healed gastric ulcers. No recurrent stricture. Copies To: JARVIS HERNANDEZ MD, XAVIER M MD Jun 28, 2017 1:14 pm
--- NOTE | 2017-06-28 13:15 | Discharge Inst-Simple/Standard ---
Discharge Inst-Standard Discharge Medications New, Converted or Re-Newed RX: Other Patient Instructions/Follow Up Plan of Care/Instructions/FU: Follow-up with her primary Activity as Tolerated: Yes Discharge Diet: No Restrictions BERE ROSARIO MD Jun 28, 2017 1:15 pm
[2017-06-28 13:40] VITALS: BP 124/78
[2017-06-28 14:05] VITALS: BP 150/84
[2017-06-28 14:20] VITALS: BP 150/84
--- NOTE | 2017-06-28 14:44 | Anesthesia-General Post-Op ---
MAC Patient Condition Mental Status/LOC: Same as Preop Cardiovascular: Satisfactory Nausea/Vomiting: Absent Respiratory: Satisfactory Pain: Controlled Complications: Absent Post Op Complications Complications None Follow Up Care/Instructions Patient Instructions None needed. Anesthesiology Discharge Order Discharge Order Patient is doing well, no complaints, stable vital signs, no apparent adverse anesthesia problems. No complications reported per nursing. PK RIDLEY CRNA Jun 28, 2017 14:44
== END 2017-06-28 14:20 | disposition home or self-care (01) ==
LOC: ENDO 10:21
PROVIDERS: ATTEND Surgery
DX: K22.70 Barrett's esophagus without dysplasia (principal); E11.9 Type 2 diabetes mellitus without complications; K21.9 Gastro-esophageal reflux disease without esophagitis; G43.909 Migraine, unspecified, not intractable, without status migrainosus; F17.210 Nicotine dependence, cigarettes, uncomplicated; Z79.84 Long term (current) use of oral hypoglycemic drugs; Z88.1 Allergy status to other antibiotic agents; Z88.8 Allergy status to other drugs, medicaments and biological substances
CPT/HCPCS: 82962

== ENCOUNTER 2018-05-06 16:17 | Inpatient (IN) | payer OTHER ==
[~2018-05-06] VITALS: Ht 167.6 cm; Wt 58.7 kg
[2018-05-06 07:00] VITALS: BP 162/97
[~2018-05-06 16:17] MED LIST changes: -OXYC-197 PO; +OXYC1TAB87 PO
[2018-05-06 16:43] LABS: BASOPHILS % (AUTO) 0 % (0-10); EOSINOPHILS % (AUTO) 0 % (0-10); HEMATOCRIT 38 % (35-52); HEMOGLOBIN 12.7 G/DL (11.5-16.0); LYMPHOCYTES # (AUTO) 2.7 X 10^3 (1.0-4.0); LYMPHOCYTES % (AUTO) 11 % (12-44); MEAN CORPUSCULAR HEMOGLOBIN 31 PG (25-34); MEAN CORPUSCULAR HGB CONC 34 G/DL (32-36); MEAN CORPUSCULAR VOLUME 91 FL (80-99); MEAN PLATELET VOLUME 9.5 FL (7.4-10.4); MONOCYTES # (AUTO) 1.8 X 10^3 (0.0-1.0); MONOCYTES % (AUTO) 7 % (0-12); NEUTROPHILS # (AUTO) 19.9 X 10^3 (1.8-7.8); NEUTROPHILS % (AUTO) 81 % (42-75); PLATELET COUNT 614 10^3/uL (130-400); RED CELL DISTRIBUTION WIDTH 18.2 % (10.0-14.5); WHITE BLOOD COUNT 24.5 10^3/uL (4.3-11.0)
[2018-05-06 16:55] LABS: ALANINE AMINOTRANSFERASE 75 U/L (0-55); ALBUMIN 3.2 GM/DL (3.2-4.5); ALKALINE PHOSPHATASE 1048 U/L (40-136); BILIRUBIN,TOTAL 1.1 MG/DL (0.1-1.0); BUN/CREATININE RATIO 16; CALCIUM 8.8 MG/DL (8.5-10.1); CARBON DIOXIDE 25 MMOL/L (21-32); CHLORIDE 91 MMOL/L (98-107); CREATININE SERUM 0.74 MG/DL (0.60-1.30); GFR ESTIMATED > 60; GLUCOSE 379 MG/DL (70-105); POTASSIUM 3.4 MMOL/L (3.6-5.0); SODIUM 132 MMOL/L (135-145); TOTAL PROTEIN 6.6 GM/DL (6.4-8.2)
[2018-05-06 17:03] LABS: BAND NEUTROPHILS 9 %; BASOPHILS % (MANUAL) 0 %; EOSINOPHILS % (MANUAL) 0 %; LYMPHOCYTES % (MANUAL) 18 %; MONOCYTES % (MANUAL) 4 %; NEUTROPHILS % (MANUAL) 69 %; RBC MORPH NORMAL
--- NOTE | 2018-05-06 17:03 | Diagnostic Imaging Report ---
INDICATION: Shortness of breath. COMPARISON: 10/21/2016. FINDINGS: Single view of the chest demonstrates new infiltrate in the right lung base, likely pneumonia. The heart is prominent without pulmonary edema. There is no pneumothorax or effusion. Osseous structures are normal. IMPRESSION: Right lower lobe pneumonia. Followup recommended. Dictated by: Dictated on workstation # [id number]
--- NOTE | 2018-05-06 17:30 | ED General ---
General Chief Complaint: Respiratory Problems Stated Complaint: SOB/WEAKNESS Nursing Triage Note: Patient advises shortness of breath that began earlier this week that has become progressively worse. She advises swelling and pain to her lower extremities. Nursing Sepsis Screen: No Definite Risk History of Present Illness Date Seen by Provider: May 06, 2018 Time Seen by Provider: 17:25 Initial Comments The patient reports that she had begun to have increasing shortness of breath beginning earlier in the week. She had been to [facility] and they sent her here for further evaluation. She reports that there is right-sided chest pain. She has not been aware of a fever. She also notes that her feet have been swollen for several weeks. They seem to be somewhat less swollen in the morning but increasingly so through the day. Timing/Duration: 3-4 Days Allergies and Home Medications Allergies Coded Allergies: doxycycline (Unverified Allergy, Severe, TONGUE SWELLING, 10/20/16) levofloxacin (Unverified Allergy, Severe, TONGUE SWELLING, BLISTERS, ) sumatriptan (Verified Allergy, Unknown, 10/20/16) aspirin (Verified Adverse Reaction, Mild, advised not to take after throat surgery, 10/20/16) ibuprofen (Verified Adverse Reaction, Mild, advised not to take after throat surgery, 10/20/16) Home Medications Albuterol Sulfate 1 Puff Puff, 2 PUFF IH Q4H PRN for SHORTNESS OF BREATH, ( Reported) 1 PUFF = 90 MCG Atorvastatin Calcium 40 Mg Tablet, 40 MG PO DAILY, (Reported) Glipizide 10 Mg Tablet, 10 MG PO DAILY, (Reported) Loratadine 10 Mg Tablet, 10 MG PO DAILY, (Reported) Metformin HCl 1,000 Mg Tab.er.24, 1,000 MG PO BID, (Reported) Omeprazole 40 Mg Capsule.dr, 40 MG PO DAILY, (Reported) Patient Home Medication List Home Medication List Reviewed: Yes Review of Systems Review of Systems Constitutional: see HPI EENTM: no symptoms reported Respiratory: cough, dyspnea on exertion, short of breath, other (right-sided chest pain) Cardiovascular: no symptoms reported Gastrointestinal: no symptoms reported Genitourinary: no symptoms reported Musculoskeletal: no symptoms reported Skin: no symptoms reported Psychiatric/Neurological: No Symptoms Reported Reports swelling of both ankles for several weeks. This is somewhat less in the morning and increases as the day goes on. There is no pain or warmth. 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 Sexually Transmitted Disease: No HIV/AIDS: No Gastrointestinal: Yes Gastroesophageal Reflux, Allan's Esophagus Musculoskeletal: Yes Degenerate Disk Disease, Chronic Back Pain Endocrine: Yes Diabetes, Non-Insulin dep Loss of Vision: Bilateral Hearing Impairment: Denies Cancer: Yes Skin, Melanoma Psychosocial: Yes Anxiety Adverse Reaction/Blood Tranf: No (N/A) Family Medical History Alcoholism 09 BROTHER 09 BROTHER Cancer pa-aunt (breast cancer) Cataract 03 FATHER Chest pain 03 FATHER 09 BROTHER Congenital heart disease 03 MOTHER Congestive heart failure 03 MOTHER Family history: Arthritis 03 FATHER Family history: Breast disease 09 BROTHER 09 SISTER pa-aunt Family history: Cardiovascular disease 03 FATHER 09 BROTHER 09 SISTER Family history: Coronary thrombosis 03 FATHER (WRONG DISEASE CHARTED) 09 BROTHER (WRONG DISEASE CHARTED) 09 SISTER (wrong disease chated) Family history: Diabetes mellitus 03 FATHER Family history: Glaucoma 03 FATHER History of - respiratory disease 03 MOTHER (COPD) 09 SISTER (COPD) Myocardial infarction 03 FATHER 09 BROTHER Seizure disorder NEPHEW ( FROM SEIZURE AT AGE 23 YRS.) No Family History of: Abdominal aortic aneurysm Randolph's disease Cancer of colon No Pertinent Family Hx Physical Exam Vital Signs Vital Signs - First Documented 05/19/18 05/23/18 00:15 08:22 Temp 97.6 Pulse 82 Resp 20 B/P (MAP) 170/80 (110) Pulse Ox 96 O2 Delivery High Flow N/C O2 Flow Rate 4.00 FiO2 100 Capillary Refill : Less Than 3 Seconds Height, Weight, BMI Height: 5'6.00" Weight: 136lbs. 0.0oz. [id number]; 21.8 BMI Method:Stated General Appearance: Mild Distress Eyes: Bilateral Eye Normal Inspection HEENT: Normal ENT Inspection Neck: Normal Inspection Respiratory: Decreased Breath Sounds (distant) Cardiovascular: Regular Rate, Rhythm, No Edema, No Gallop Gastrointestinal: Normal Bowel Sounds, No Organomegaly, No Pulsatile Mass, Non Tender, Soft Back: Normal Inspection, No CVA Tenderness, No Vertebral Tenderness Neurologic/Psychiatric: Alert, Oriented x3, No Motor/Sensory Deficits, Normal Mood/Affect Skin: Normal Color, Warm/Dry Lymphatic: No Adenopathy Progress/Results/Core Measures Suspected Sepsis Recent Fever Within 48 Hours: No Infection Criteria Present: None New/Unexplained Altered Menta: No Sepsis Screen: No Definite Risk SIRS Temperature:97.8 Pulse: 120 Respiratory Rate: 20 Laboratory Tests 05/24/18 05:17: White Blood Count 2.9L 05/25/18 05:35: White Blood Count 7.4 Blood Pressure 146 /81 Mean: 102 Laboratory Tests 05/24/18 05:17: Creatinine 0.48L, Platelet Count 195, Total Bilirubin 1.0 05/25/18 05:35: Creatinine 0.44L, Platelet Count 267, Total Bilirubin 0.9, INR Comment 1.0 Results/Orders Lab Results Laboratory Tests Test 05/23/18 11:02 05/23/18 15:58 05/23/18 20:56 05/24/18 05:17 Range/Units Glucometer 328 H 352 H 310 H 70-110 MG/DL White Blood Count 2.9 L 4.3-11.0 10^3/uL Red Blood Count 3.25 L 4.35-5.85 10^6/uL Hemoglobin 10.0 L 11.5-16.0 G/DL Hematocrit 29 L 35-52 % Mean Corpuscular Volume 90 80-99 FL Mean Corpuscular Hemoglobin 31 25-34 PG Mean Corpuscular Hemoglobin Concent 34 32-36 G/DL Red Cell Distribution Width 15.1 H 10.0-14.5 % Platelet Count 195 130-400 10^3/uL Mean Platelet Volume 9.5 7.4-10.4 FL Neutrophils (%) (Auto) 26 L 42-75 % Lymphocytes (%) (Auto) 58 H 12-44 % Monocytes (%) (Auto) 15 H 0-12 % Eosinophils (%) (Auto) 1 0-10 % Basophils (%) (Auto) 0 0-10 % Neutrophils # (Auto) 0.7 L 1.8-7.8 X 10^3 Lymphocytes # (Auto) 1.7 1.0-4.0 X 10^3 Monocytes # (Auto) 0.4 0.0-1.0 X 10^3 Eosinophils # (Auto) 0.0 0.0-0.3 10^3/uL Basophils # (Auto) 0.0 0.0-0.1 10^3/uL Sodium Level 125 *L 135-145 MMOL/L Potassium Level 4.1 3.6-5.0 MMOL/L Chloride Level 87 L 98-107 MMOL/L Carbon Dioxide Level 28 21-32 MMOL/L Anion Gap 10 5-14 MMOL/L Blood Urea Nitrogen 7 7-18 MG/DL Creatinine 0.48 L 0.60-1.30 MG/DL Estimat Glomerular Filtration Rate > 60 BUN/Creatinine Ratio 15 Glucose Level 179 H 70-105 MG/DL Calcium Level 8.4 L 8.5-10.1 MG/DL Corrected Calcium 9.3 8.5-10.1 MG/DL Total Bilirubin 1.0 0.1-1.0 MG/DL Aspartate Amino Transf (AST/SGOT) 54 H 5-34 U/L Alanine Aminotransferase (ALT/SGPT) 106 H 0-55 U/L Alkaline Phosphatase 617 H 40-136 U/L Total Protein 5.5 L 6.4-8.2 GM/DL Albumin 2.9 L 3.2-4.5 GM/DL Test 05/24/18 11:11 05/24/18 16:04 05/24/18 16:51 05/24/18 22:01 Range/Units Glucometer 251 H 222 H 227 H 328 H 70-110 MG/DL Test 05/25/18 05:35 Range/Units White Blood Count 7.4 4.3-11.0 10^3/uL Red Blood Count 3.23 L 4.35-5.85 10^6/uL Hemoglobin 9.8 L 11.5-16.0 G/DL Hematocrit 29 L 35-52 % Mean Corpuscular Volume 91 80-99 FL Mean Corpuscular Hemoglobin 30 25-34 PG Mean Corpuscular Hemoglobin Concent 33 32-36 G/DL Red Cell Distribution Width 15.4 H 10.0-14.5 % Platelet Count 267 130-400 10^3/uL Mean Platelet Volume 9.8 7.4-10.4 FL Neutrophils (%) (Auto) 54 42-75 % Lymphocytes (%) (Auto) 32 12-44 % Monocytes (%) (Auto) 14 H 0-12 % Eosinophils (%) (Auto) 1 0-10 % Basophils (%) (Auto) 0 0-10 % Neutrophils # (Auto) 4.0 1.8-7.8 X 10^3 Lymphocytes # (Auto) 2.3 1.0-4.0 X 10^3 Monocytes # (Auto) 1.0 0.0-1.0 X 10^3 Eosinophils # (Auto) 0.0 0.0-0.3 10^3/uL Basophils # (Auto) 0.0 0.0-0.1 10^3/uL Neutrophils % (Manual) 17 % Lymphocytes % (Manual) 39 % Monocytes % (Manual) 12 % Eosinophils % (Manual) 0 % Basophils % (Manual) 0 % Metamyelocytes % 1 % Band Neutrophils 23 % Reactive Lymphocytes 8 % Polychromasia SLIGHT Poikilocytosis SLIGHT Anisocytosis SLIGHT Schistocytes SLIGHT Prothrombin Time 12.7 12.2-14.7 SEC INR Comment 1.0 0.8-1.4 Sodium Level 127 L 135-145 MMOL/L Potassium Level 3.9 3.6-5.0 MMOL/L Chloride Level 90 L 98-107 MMOL/L Carbon Dioxide Level 28 21-32 MMOL/L Anion Gap 9 5-14 MMOL/L Blood Urea Nitrogen 8 7-18 MG/DL Creatinine 0.44 L 0.60-1.30 MG/DL Estimat Glomerular Filtration Rate > 60 BUN/Creatinine Ratio 18 Glucose Level 127 H 70-105 MG/DL Calcium Level 8.5 8.5-10.1 MG/DL Corrected Calcium 9.5 8.5-10.1 MG/DL Total Bilirubin 0.9 0.1-1.0 MG/DL Aspartate Amino Transf (AST/SGOT) 59 H 5-34 U/L Alanine Aminotransferase (ALT/SGPT) 97 H 0-55 U/L Alkaline Phosphatase 583 H 40-136 U/L Total Protein 5.2 L 6.4-8.2 GM/DL Albumin 2.8 L 3.2-4.5 GM/DL My Orders Vital Signs/I&O 05/24/18 05/25/18 05/25/18 05/25/18 23:23 00:00 03:26 06:40 Temp 98.1 Pulse 89 Resp 18 B/P (MAP) 126/62 (83) Pulse Ox 98 97 96 97 O2 Delivery Nasal Cannula High Flow N/C Nasal Cannula O2 Flow Rate 2.00 1.50 2.00 2.00 05/25/18 05/25/18 08:00 08:22 Temp 98.4 Pulse 96 Resp 20 B/P (MAP) 126/62 (83) Pulse Ox 95 96 O2 Delivery High Flow N/C High Flow N/C O2 Flow Rate 1.50 2.00 Capillary Refill : Less Than 3 Seconds Blood Pressure Mean: 102 Departure Communication (Admissions) Chest x-ray shows a right lower lobe pneumonia. The white blood count is 24, 000. Discussed with Dr. Flores who is on-call for [facility] at 1720. The patient will be admitted. Impression Primary Impression: right lower lobe pneumonia Disposition: ADMITTED INPATIENT Condition: Stable/Unchanged Admissions Decision to Admit Reason: Admit from ER (General) Decision to Admit/Date: May 06, 2018 Time/Decision to Admit Time: 17:31 Departure-Patient Inst. Referrals: JARVIS HERNANDEZ MD (PCP/Family) Primary Care Physician Patient Instructions: Acute Bronchitis, Adult (DC) GE MARTIN MD May 06, 2018 17:30
[2018-05-06] MEDS ORDERED: cefTRIAXone FOR IV USE 1,000 MG in WATER (STERILE) FOR INJECTION 50 ML IV ONE (17:45)
[2018-05-06] MEDS ORDERED: AZITHROMYCIN INJECTION 500 MG in NS (IVPB) 250 ML IV ONE (17:45)
[2018-05-06] MEDS ORDERED: NS 100 ML (IVPB) BAG IV ONE (17:45)
[2018-05-06] MEDS ORDERED: diphenhydrAMINE 25 MG TAB (BENADRYL) PO PRN (17:45)
[2018-05-06] MEDS ORDERED: DOCUSATE SODIUM 100 MG (COLACE) CAP PO PRN (17:45)
[2018-05-06] MEDS ORDERED: IOHEXOL 350 MG/ML 100 ML (OMNIPAQUE 350) VIAL IV ONE (17:45)
[2018-05-06] MEDS ORDERED: CALCIUM CARBONATE 500 MG (TUMS) TAB.CHEW PO PRN (17:45)
[2018-05-06] MEDS ORDERED: RECEIVED CONTRAST (Hold Metformin) IV SCH (17:45)
[2018-05-06 17:54] VITALS: BP 155/76
[2018-05-06] MEDS ORDERED: cefTRIAXone FOR IV USE 1,000 MG in NS (IVPB) 50 ML IV ONE (18:00)
[2018-05-06 18:29] LABS: BILIRUBIN,URINE NEGATIVE (NEGATIVE); CLARITY,URINE CLEAR; COLOR,URINE YELLOW; GLUCOSE, URINE (UA) 4+ (NEGATIVE); KETONES,URINE NEGATIVE (NEGATIVE); LEUKOCYTE ESTERASE ,URINE 1+ (NEGATIVE); NITRITE,URINE POSITIVE (NEGATIVE); PH,URINE 6.5 (5-9); PROTEIN,URINE 2+ (NEGATIVE); UROBILINOGEN,URINE 1 MG/DL (NORMAL)
[2018-05-06 18:44] LABS: BACTERIA,URINE FEW /HPF
--- NOTE | 2018-05-06 18:49 | Diagnostic Imaging Report ---
EXAMINATION: CT chest, abdomen, and pelvis, 05/06/2018. TECHNIQUE: Multiple contiguous axial images were obtained through the chest, abdomen, and pelvis after the administration of intravenous contrast. INDICATION: Bilateral foot swelling for the last two weeks. Difficulty breathing for three months. Prior appendectomy, hysterectomy, and cholecystectomy. Three prior esophageal surgeries. Basal cell carcinoma. COMPARISON: CT chest 10/01/2014 and abdomen and pelvis CT 01/03/2014. FINDINGS: CHEST: There is a large airspace opacity noted within the posterior aspect of the right lower lobe. This is most likely diffuse pneumonia, although an underlying metastatic process is not excluded. Similar findings noted throughout the right middle lobe. Tiny nodularity is noted within the superior segment of the right lower lobe as well. Remaining lungs demonstrate coarsened markings bilaterally, likely a chronic process. Very tiny nodules at the left lung base posteriorly noted and nonspecific. These could be reevaluated at the time of followup as well. There is diffuse mediastinal adenopathy with large lymph nodes in the precarinal region and superior mediastinum. These findings have markedly worsened since the previous examination. There is a large subcarinal lymph node. Adenopathy throughout the right hilum is also seen inseparable from the airspace opacities in the right lung. There is a prominent lymph node anterior to the sternum right paracentrally. The axilla is unremarkable. Atherosclerotic disease is seen along the aorta. No significant pericardial effusion or pleural effusions appreciated. The osseous structures demonstrate diffuse degenerative findings. IMPRESSION: 1. Diffuse adenopathy throughout the mediastinum and right hilum likely on the basis of a metastatic process. Diffuse airspace opacities in the right lung could represent pneumonia with a metastatic process not excluded, and followup recommended to assure resolution. If no symptoms of pneumonia, metastatic disease or even primary carcinoma likely. 2. Prominent density in the right aspect of the anterior chest, perhaps an enlarged lymph node although not significantly changed from previous. Other findings as above. CT ABDOMEN AND PELVIS: The liver is markedly enlarged and heterogeneous with innumerable low-density lesions, likely all metastatic lesions. The spleen is unremarkable. Adrenal glands are both prominent. This is a new finding from previous, therefore suspicious for a metastatic process. The pancreas is normal. Kidneys are unremarkable. There is no ascites or free air in the abdomen. Within the pelvis, diffuse narrowing of the distal colon is noted, nonspecific. A stricture is not excluded. No surrounding inflammatory change is seen. There is diffuse atherosclerotic disease in the abdomen. No free fluid in the pelvis. No free air. The osseous structures are intact. IMPRESSION: 1. Hepatomegaly with diffuse suspected metastatic lesions throughout the liver. 2. Enlarged adrenal glands, likely on the basis of a metastatic process as well. 3. Stricture-like appearance to the sigmoid colon which could be due to timing of peristalsis with a true stricture not excluded; correlate with symptoms. No surrounding inflammatory process is appreciated. Other findings as above. Dictated by: Dictated on workstation # [id number]
[2018-05-06 19:00] VITALS: BP 162/97
--- NOTE | 2018-05-06 19:00 | NUR ---
LAN PRADHAN S admitted to room 430-1, with an admitting diagnosis of pneumonia , on 05/06/18 from [place] via , accompanied by STAFF.LAN PRADHAN introduced to surroundings, call light, bed controls, phone, TV, temperature control, lights, meal times, smoking policy, visitor policy, side rail policy, bathrooms and showers. Patient Rights given to patient in the handbook. LAN PRADHAN verbalizes understanding that [facility] is not responsible for the loss or damage to any personal effects or valuables that are kept in the patients posession during their hospitalization.
[2018-05-06] MEDS: HYDROcodone/APAP 5 MG/325 MG (LORTAB) TAB PO PRN (20:15)
[2018-05-06] MEDS: POLYETHYLENE GLYCOL 17 GM (MIRALAX) PACK PO SCH (20:19)
[2018-05-06] MEDS: inSUlin ASPART (NovoLOG) 1 UNIT/0.01 ML (CHARGE PER UNIT) SC SCH (20:19)
[2018-05-06] MEDS ORDERED: NS IV 1000 ML 1,000 ML ONE (21:04)
[2018-05-06] MEDS ORDERED: inSUlin DETERMIR 1 UNIT/0.01 ML (LEVEMIR) CHARGE PER UNIT SQ SCH (21:30)
[2018-05-06] MEDS ORDERED: NS IV 1000 ML 1,000 ML IV SCH (22:15)
--- NOTE | 2018-05-06 23:42 | NUR ---
THIS RN CONTACTED DR. KOWALSKI IN REGARDS TO THE PT'S BLOOD PRESSURE BEING 165/74 AND HEART RATE BEING 112. ORDERS RECEIVED TO MONITOR ONLY, DR. KOWALSKI WILL EVALUATE IN THE AM. WILL CONTINUE TO MONITOR.
[2018-05-06 23:56] VITALS: BP 165/74
[2018-05-07 04:00] VITALS: BP 157/74
[2018-05-07] MEDS: ACETAMINOPHEN 500 MG TAB (TYLENOL) PO PRN (04:31)
[2018-05-07 04:43] LABS: BASOPHILS % (AUTO) 0 % (0-10); EOSINOPHILS % (AUTO) 0 % (0-10); HEMATOCRIT 36 % (35-52); LYMPHOCYTES % (AUTO) 17 % (12-44); MEAN CORPUSCULAR HEMOGLOBIN 30 PG (25-34); MEAN CORPUSCULAR HGB CONC 33 G/DL (32-36); MEAN CORPUSCULAR VOLUME 92 FL (80-99); MEAN PLATELET VOLUME 9.1 FL (7.4-10.4); MONOCYTES # (AUTO) 1.9 X 10^3 (0.0-1.0); MONOCYTES % (AUTO) 8 % (0-12); NEUTROPHILS # (AUTO) 17.1 X 10^3 (1.8-7.8); NEUTROPHILS % (AUTO) 74 % (42-75); PLATELET COUNT 616 10^3/uL (130-400); RED CELL DISTRIBUTION WIDTH 18.4 % (10.0-14.5); WHITE BLOOD COUNT 23.1 10^3/uL (4.3-11.0)
[2018-05-07 04:57] LABS: ALANINE AMINOTRANSFERASE 79 U/L (0-55); ALKALINE PHOSPHATASE 973 U/L (40-136); BILIRUBIN,TOTAL 0.9 MG/DL (0.1-1.0); BUN/CREATININE RATIO 25; CALCIUM 8.7 MG/DL (8.5-10.1); CARBON DIOXIDE 29 MMOL/L (21-32); CHLORIDE 98 MMOL/L (98-107); CREATININE SERUM 0.51 MG/DL (0.60-1.30); GFR ESTIMATED > 60; POTASSIUM 2.7 MMOL/L (3.6-5.0); SODIUM 140 MMOL/L (135-145); TOTAL PROTEIN 6.1 GM/DL (6.4-8.2)
[2018-05-07 05:01] LABS: GLUCOSE 48 MG/DL (70-105)
[2018-05-07] MEDS: inSUlin ASPART (NovoLOG) 1 UNIT/0.01 ML (CHARGE PER UNIT) SC SCH ×5 (05:41→20:56)
--- NOTE | 2018-05-07 05:42 | NUR ---
0500: CRITICAL BLOOD GLUCOSE OF 48 CALLED TO THIS RN. PT GIVEN ORANGE JUICE X2, PEANUT BUTTER X2, MILK CARTON X1, AND BA CRACKERS X2. 0540: FINGER STICK BLOOD GLUCOSE 146.
[2018-05-07] MEDS ORDERED: POTASSIUM CHLORIDE INJ 10 MEQ in NS IV 1000 ML 1,000 ML IV SCH (05:57)
[2018-05-07 08:00] VITALS: BP_SYST 140; BP_SYST 191; BP_DIAS 90; BP_DIAS 98
[2018-05-07] MEDS ORDERED: FLU QUADRIvalent (5+ YOA) 2018-2019 (AFLURIA) 0.5 ML IM ONE (08:15)
[2018-05-07] MEDS: POLYETHYLENE GLYCOL 17 GM (MIRALAX) PACK PO SCH ×2 (08:31→20:57)
[2018-05-07] MEDS: amLODIPine 5 MG (NORVASC) TAB PO SCH (08:31)
[2018-05-07] MEDS ORDERED: meTOprolol TARTRATE 25 MG (LOPRESSOR) TABLET PO SCH (09:00)
--- NOTE | 2018-05-07 10:29 | NUR ---
NOTE THAT PT VOICED SHE WANTED FLU VACCINE BUT NOT TODAY
--- NOTE | 2018-05-07 11:14 | History & Physical-Hospitalist ---
History of Present Illness HPI/Chief Complaint CC: Pneumonia right lower lobe HPI: This is a 63-year-old [facility] with a past medical history of lung nodules with continued smoking who presented to the ER with chest pain who was found to have right lower lobe pneumonia with leukocytosis. Upon further assessment alkaline phosphatase elevation noted with mild elevation of liver enzymes making it suspicious for bone involvement so CT scans were obtained revealing likely primary lung cancer with widespread metastasis. Patient was placed on empiric antibiotics with nebulizer treatments. 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 Source: patient Exam Limitations: no limitations Date Seen 05/07/18 Time Seen by a Provider: 12:00 Attending Physician Mary Lou Flores David F MD Referring Physician Date of Admission May 06, 2018 at 17:00 Home Medications & Allergies Home Medications Reviewed patient Home Medication Reconciliation performed by pharmacy medication reconciliations cryptographic technician and/or nursing. Patients Allergies have been reviewed. Allergies Allergies Coded Allergies doxycycline (Unverified Allergy, Severe, TONGUE SWELLING, 10/20/16) levofloxacin (Unverified Allergy, Severe, TONGUE SWELLING, BLISTERS, 10/20/16) sumatriptan (Verified Allergy, Unknown, 10/20/16) aspirin (Verified Adverse Reaction, Mild, advised not to take after throat surgery, 10/20/16) ibuprofen (Verified Adverse Reaction, Mild, advised not to take after throat surgery, 10/20/16) Past Rpebfhq-Nbilcw-Whukkq Hx Past Med/Social Hx: Reviewed Nursing Past Med/Soc Hx, Reviewed and Corrections made Patient Social History Marrital Status: single Employed/Student: retired Alcohol Use: Denies Use Recreational Drug Use: No Smoking Status: Current Everyday Smoker Type Used: Cigarettes Recent Foreign Travel: No Contact w/other who traveled: No Recent Hopitalizations: No Recent Infectious Disease Expo: No Immunizations Up To Date Date of Pneumonia Vaccine: Jun 03, 2013 Date of Influenza Vaccine: Jan 13, 2016 Seasonal Allergies Seasonal Allergies: Yes Past Medical History Surgeries: Gallbladder, Hysterectomy, Orthopedic Respiratory: COPD, Pneumonia Neurological: Headaches /Migraines : No Reproductive: No Sexually Transmitted Disease: No HIV/AIDS: No Female Reproductive Disorders: Denies Hysterectomy Gastrointestinal: Gastroesophageal Reflux, Allan's Esophagus Musculoskeletal: Degenerate Disk Disease, Chronic Back Pain Endocrine: Diabetes, Non-Insulin dep Loss of Vision: Bilateral Hearing Impairment: Denies Cancer: Skin, Melanoma Psychosocial: Anxiety Adverse Reaction to Blood Martínez: No (N/A) Family History Alcoholism 09 BROTHER 09 BROTHER Cancer pa-aunt (breast cancer) Cataract 03 FATHER Chest pain 03 FATHER 09 BROTHER Congenital heart disease 03 MOTHER Congestive heart failure 03 MOTHER Family history: Arthritis 03 FATHER Family history: Breast disease 09 BROTHER 09 SISTER pa-aunt Family history: Cardiovascular disease 03 FATHER 09 BROTHER 09 SISTER Family history: Coronary thrombosis 03 FATHER (WRONG DISEASE CHARTED) 09 BROTHER (WRONG DISEASE CHARTED) 09 SISTER (wrong disease chated) Family history: Diabetes mellitus 03 FATHER Family history: Glaucoma 03 FATHER History of - respiratory disease 03 MOTHER (COPD) 09 SISTER (COPD) Myocardial infarction 03 FATHER 09 BROTHER Seizure disorder NEPHEW ( FROM SEIZURE AT AGE 22 YRS.) No Family History of: Abdominal aortic aneurysm [place]'s disease Cancer of colon No Pertinent Family Hx Review of Systems Constitutional: see HPI, weakness EENTM: no symptoms reported Respiratory: cough, dyspnea on exertion, short of breath, wheezing Cardiovascular: no symptoms reported Gastrointestinal: loss of appetite Genitourinary: no symptoms reported Musculoskeletal: no symptoms reported Skin: no symptoms reported Psychiatric/Neurological: No Symptoms Reported All Other Systems Reviewed Negative Unless Noted: Yes Physical Exam Physical Exam Vital Signs Vital Signs - First Documented 05/06/18 16:28 Temp 97.8 Pulse 120 Resp 20 B/P (MAP) 146/81 (102) Pulse Ox 94 O2 Delivery Nasal Cannula O2 Flow Rate 2.00 FiO2 100 Capillary Refill : Less Than 3 Seconds Height, Weight, BMI Height: 5'6.00" Weight: 135lbs. 9.0oz. [id number]; 21.9 BMI Method:Stated General Appearance: No Apparent Distress, WD/WN, Chronically ill, Thin Eyes: Bilateral Eye Normal Inspection, Bilateral Eye PERRL HEENT: PERRL/EOMI, Normal ENT Inspection, Pharynx Normal Neck: Full Range of Motion, Normal Inspection, Non Tender, Supple, Carotid Bruit Respiratory: Chest Non Tender, No Accessory Muscle Use, No Respiratory Distress , Decreased Breath Sounds, Wheezing Cardiovascular: Regular Rate, Rhythm, No Edema, No Gallop, No JVD, No Murmur, Normal Peripheral Pulses Gastrointestinal: Normal Bowel Sounds, No Organomegaly, No Pulsatile Mass, Non Tender, Soft Back: Normal Inspection, No CVA Tenderness, No Vertebral Tenderness Extremity: Normal Capillary Refill, Normal Inspection, Normal Range of Motion, Non Tender, No Calf Tenderness, No Pedal Edema Neurologic/Psychiatric: Alert, Oriented x3, No Motor/Sensory Deficits, Normal Mood/Affect Skin: Normal Color, Warm/Dry Lymphatic: No Adenopathy Results Results/Procedures Labs Laboratory Tests 05/06/18 16:28 05/07/18 04:10 Patient resulted labs reviewed. Assessment/Plan Admission Diagnosis Assessment: Right lower lobe pneumonia postobstructive type New diagnosis of presumed lung cancer with widespread metastasis Current smoker Plan: Abx Monitor labs HLIVF Ambulate Lovenox Presumed lung cancer evaluation with biopsy to confirm Admission Status: Inpatient Order (span 2 midnights) Reason for Inpatient Admission: Pneumonia with lung cancer and mets Diagnosis/Problems Diagnosis/Problems (1) Pneumonia Status: Acute Qualifiers: Pneumonia type: due to unspecified organism Laterality: right Lung location: lower lobe of lung Qualified Codes: J18.1 - Lobar pneumonia, unspecified organism (2) Cancer, metastatic to bone Status: Acute (3) Smoker Status: Chronic (4) COPD (chronic obstructive pulmonary disease) Status: Chronic Qualifiers: COPD type: unspecified COPD Qualified Codes: J44.9 - Chronic obstructive pulmonary disease, unspecified (5) Alkaline phosphatase elevation Status: Acute (6) Liver enzyme elevation Status: Acute Clinical Quality Measures DVT/VTE Risk/Contraindication: Risk Factor Score Per Nursin RFS Level Per Nursing on Admit: 4+=Very High MARY LOU FLORES DO May 07, 2018 11:14
[2018-05-07] MEDS: RT-ALBUTEROL SULF 2.5 MG/3 ML PRE-MIX VIAL INH SCH ×3 (11:17→19:14)
[2018-05-07 12:00] VITALS: BP 140/70
[2018-05-07] MEDS: HYDROcodone/APAP 5 MG/325 MG (LORTAB) TAB PO PRN ×3 (12:38→22:04)
[2018-05-07] MEDS: fentaNYL INJECTION 100 MCG/2 ML AMP IVP PRN ×2 (13:26→20:55)
[2018-05-07 15:58] VITALS: BP 148/56
[2018-05-07] MEDS: ENOXAPARIN 40 MG/0.4 ML (LOVENOX) SYR SC SCH (16:38)
--- NOTE | 2018-05-07 18:04 | Consultation-Cardiology ---
HPI-Cardiology Cardiology Consultation: Date of Consultation 05/07/18 Time Seen by a Provider: 17:40 Date of Admission Attending Physician Mary Lou Flores DO Admitting Physician Homero Ho MD Consulting Physician GENA LOPES MD, MA, FACP, FACC, FSCAI, CCDS HPI: Chief Complaint: Reason for consultation: Chest discomfort HPI: 63 yo woman admitted to Dr Flores with chest discomfort: onset 2 weeks ago, continuous, waxes and wanes but does not resolve, mild to mod, present in mid chest, nonradiating, w/o any aggravating or relieving factors, no radiation, not experienced before. Also, chronic, slowly progressive exertional shortness of breath. Chronic intermittent leg swelling. No palp or syncope Review of Systems-Cardiology Review of Systems Constitutional: malaise, tiredness; No weight loss Eyes: No vision change Ears/Nose/Throat: No ear discharge, No nasal drainage, No recent hearing loss Respiratory: As described under HPI Cardiovascular: As described under HPI Gastrointestinal: No diarrhea, No nausea Genitourinary: No dysuria, No flank pain, No urine frequency changes Musculoskeletal: back pain (chronic); No joint pain Psychiatric/Neurological: No focal weakness, No syncope Hematologic: No bleeding abnormalities All Other Systems Reviewed Negative Unless Noted: Yes GZA-Yawema-Kkieyx Hx Patient Social History Marrital Status: single Employed/Student: retired Alcohol Use: Denies Use Recreational Drug Use: No Smoking Status: Current Everyday Smoker Type Used: Cigarettes Recent Foreign Travel: No Recent Infectious Disease Expo: No Immunizations Up To Date Date of Pneumonia Vaccine: Jun 03, 2013 Date of Influenza Vaccine: Jan 13, 2016 Past Medical History PMH As described under Assessment. Family Medical History Family History: Alcoholism 09 BROTHER 09 BROTHER Cancer pa-aunt (breast cancer) Cataract 03 FATHER Chest pain 03 FATHER 09 BROTHER Congenital heart disease 03 MOTHER Congestive heart failure 03 MOTHER Family history: Arthritis 03 FATHER Family history: Breast disease 09 BROTHER 09 SISTER pa-aunt Family history: Cardiovascular disease 03 FATHER 09 BROTHER 09 SISTER Family history: Coronary thrombosis 03 FATHER (WRONG DISEASE CHARTED) 09 BROTHER (WRONG DISEASE CHARTED) 09 SISTER (wrong disease chated) Family history: Diabetes mellitus 03 FATHER Family history: Glaucoma 03 FATHER History of - respiratory disease 03 MOTHER (COPD) 09 SISTER (COPD) Myocardial infarction 03 FATHER 09 BROTHER Seizure disorder NEPHEW ( FROM SEIZURE AT AGE 23 YRS.) No Family History of: Abdominal aortic aneurysm [place]'s disease Cancer of colon Allergies and Home Medications Allergies Coded Allergies: doxycycline (Unverified Allergy, Severe, TONGUE SWELLING, 10/20/16) levofloxacin (Unverified Allergy, Severe, TONGUE SWELLING, BLISTERS, ) sumatriptan (Verified Allergy, Unknown, 10/20/16) aspirin (Verified Adverse Reaction, Mild, advised not to take after throat surgery, 10/20/16) ibuprofen (Verified Adverse Reaction, Mild, advised not to take after throat surgery, 10/20/16) Home Medications Albuterol 8.5 Gm Hfa.aer.ad, 2 PUFF IH Q4H PRN, (Reported) NEEDED FOR SHORTNESS OF BREATH Alprazolam 0.25 Mg Tablet, 0.25 MG PO BID PRN, (Reported) NEEDED FOR ANXIETY Cyclobenzaprine HCl 10 Mg Tablet, 10 MG PO TID PRN for SPASMS, (Reported) Esomeprazole Magnesium 40 Mg Cap, 40 MG PO DAILY, (Reported) Hydrocodone Bit/Acetaminophen 1 Each Tablet, 1 EACH PO TID PRN for PAIN-MODERATE , (Reported) Loratadine 10 Mg Tablet, 10 MG PO DAILY, (Reported) Metformin Hcl 1,000 Mg Tablet, 1,000 MG PO BID, (Reported) Patient Home Medication List Home Medication List Reviewed: Yes Physical Exam-Cardiology Physical Exam Vital Signs/I&O 05/07/18 05/07/18 05/07/18 05/07/18 08:00 08:00 09:06 11:17 Temp 95.3 Pulse 119 103 Resp 18 B/P (MAP) 140/90 (107) Pulse Ox 91 92 89 92 O2 Delivery Room Air Room Air Nasal Cannula O2 Flow Rate 2.00 2.00 FiO2 100 21 05/07/18 05/07/18 05/07/18 05/07/18 12:00 13:26 15:17 15:58 Temp 97.7 95.3 97.2 Pulse 109 65 Resp 18 20 B/P (MAP) 140/70 (93) 148/56 (86) Pulse Ox 92 92 95 O2 Delivery Room Air Nasal Cannula Nasal Cannula O2 Flow Rate 2.00 2.00 05/07/18 00:00 Intake Total 900 ml Balance 900 ml Capillary Refill : Less Than 3 Seconds Constitutional: AAO x 3, well-developed, well-nourished HEENT: PERRL, EOMI; No xanthelasmas are seen Neck: carotid pulses are 2 + bilaterally, with good upstrokes Respiratory: No accessory muscle use; other (fair air entry, diminished at the bases, exp wheezes, prolonged exp) Cardiovascular: regular rate-rhythm, S1 and S2, systolic murmur (faint ABRAHAM at card base) Gastrointestinal: No tender; soft; No guarding, No rebound; audible bowel sounds Extremities: No clubbing, No cyanosis, No significant edema Neurologic/Psychiatric: oriented x 3, grossly intact, power is 5/5 both on sides Skin: No rash on exposed areas, No ulcerations on exposed areas Data Review Labs Laboratory Tests 05/06/18 18:16: Urine Color YELLOW, Urine Clarity CLEAR, Urine pH 6.5, Urine Specific [place] 1.010L, Urine Protein 2+H, Urine Glucose (UA) 4+H, Urine Ketones NEGATIVE, Urine Nitrite POSITIVEH, Urine Bilirubin NEGATIVE, Urine Urobilinogen 1, Urine Leukocyte Esterase 1+H, Urine RBC (Auto) 2+H, Urine RBC 5-10H, Urine WBC 10-25H , Urine Squamous Epithelial Cells 5-10, Urine Crystals NONE, Urine Bacteria FEWH , Urine Casts NONE, Urine Mucus NEGATIVE, Urine Culture Indicated CULTURE PENDING 05/06/18 19:34: Lactic Acid Level 1.74 05/06/18 20:15: Glucometer 369H 05/06/18 22:06: Glucometer 312H 05/07/18 04:10: White Blood Count 23.1H, Red Blood Count 3.97L, Hemoglobin 12.0, Hematocrit 36, Mean Corpuscular Volume 92, Mean Corpuscular Hemoglobin 30, Mean Corpuscular Hemoglobin Concent 33, Red Cell Distribution Width 18.4H, Platelet Count 616H, Mean Platelet Volume 9.1, Neutrophils (%) (Auto) 74, Lymphocytes (%) (Auto) 17, Monocytes (%) (Auto) 8, Eosinophils (%) (Auto) 0, Basophils (%) (Auto) 0, Neutrophils # (Auto) 17.1H, Lymphocytes # (Auto) 4.0, Monocytes # (Auto) 1.9H, Eosinophils # (Auto) 0.0, Basophils # (Auto) 0.0, Sodium Level 140, Potassium Level 2.7L, Chloride Level 98, Carbon Dioxide Level 29, Anion Gap 13, Blood Urea Nitrogen 13, Creatinine 0.51L, Estimat Glomerular Filtration Rate > 60, BUN /Creatinine Ratio 25, Glucose Level 48*L, Calcium Level 8.7, Corrected Calcium 9.5, Total Bilirubin 0.9, Aspartate Amino Transf (AST/SGOT) 133H, Alanine Aminotransferase (ALT/SGPT) 79H, Alkaline Phosphatase 973H, Total Protein 6.1L, Albumin 3.0L 05/07/18 05:39: Glucometer 146H 05/07/18 12:02: Glucometer 301H 05/07/18 16:09: Glucometer 309H Microbiology 05/06/18 Blood Culture - Preliminary, Resulted No growth Laboratory Tests 05/06/18 16:28 05/07/18 04:10 A/P-Cardiology Assessment/Admission Diagnosis Chest discomfort likely due to pneumonia (likely post-obstructive) Metastatic CA of unknown primary, based on w/u by Dr Flores Chronic tobacco use DM II Hypokalemia Sinus arrhythmia and PACs on ECG of 05/06/18 Chronic tobacco use Fam h/o CAD (father had [place] at age 68) Discussion and Recomendations * Multiple issues reviewed and discussed with patient * No evidence of ACS, but does have risk factors * Risk factor mod discussed, including importance of smoking cessation * Treat with ASA and bb * Replenish K * Monitor labs * Echo Clinical Quality Measures DVT/VTE Risk/Contraindication: Risk Factor Score Per Nursin RFS Level Per Nursing on Admit: 4+=Very High GENA LOPES MD FACP FAC CCDS May 07, 2018 18:04
[2018-05-07] MEDS ORDERED: KCL 20 MEQ TAB (K-DUR) PO ONE ×2 (18:15→20:47)
[2018-05-07 20:10] VITALS: BP 163/84
--- NOTE | 2018-05-07 20:15 | NUR ---
THIS RN CALLED DR. KOWALSKI IN REGARDS TO THE PT'S FINGER STICK BLOOD GLUCOSE BEING 408. ORDERS RECEIVED TO GIVE TOP DOSE OF SLIDING SCALE A NOVOLOG, 8 UNITS OF LEVEMIR SQ NOW, 8 UNITS OF LEVEMIR SQ NIGHTLY, AND REMOVE THE CALL PHYSICIAN IF ABOVE 400 ON THE SLIDING SCALE A. ORDERS READ BACK AND VERIFIED.
[2018-05-07] MEDS ORDERED: inSUlin DETERMIR 1 UNIT/0.01 ML (LEVEMIR) CHARGE PER UNIT SQ ONE (20:25)
[2018-05-07] MEDS: ALPRAZolam 0.25 MG (XANAX) TAB PO PRN (21:01)
--- NOTE | 2018-05-07 22:47 | NUR ---
2240: THIS RN ENTERED THE PT'S ROOM TO ANSWER CALL LIGHT, PT REQUESTED TO GO TO THE BATHROOM. PT LEANED FORWARD, EYE FLUTTERED AND LAID BACK DOWN. PT WAS UNRESPONSIVE FOR 10 SECONDS. PT CAME TO AND ASKED WHAT HAPPENED. PT STATED SHE FELT HOT, SWEATY, AND CLAMY. BLOOD PRESSURE: 181/94, HEART RATE: 94, O2 SAT.: 94% ON 2L NC, TEMPERATURE 99.4 TYMPANIC, AND FINGER STICK BLOOD GLUCOSE READ 262. PT ALERT AND ORIENTED X4. 2247: THIS RN NOTIFIED DR. KOWALSKI OF THE SITUATION LISTED ABOVE, ORDERS RECEIVED TO CONTINUE TO MONITOR.
[2018-05-07 23:00] VITALS: BP 161/82
[2018-05-08] MEDS: HYDROcodone/APAP 5 MG/325 MG (LORTAB) TAB PO PRN ×5 (03:10→23:27)
[2018-05-08 03:50] VITALS: BP 153/78
[2018-05-08 04:45] LABS: BASOPHILS % (AUTO) 0 % (0-10); EOSINOPHILS % (AUTO) 0 % (0-10); HEMATOCRIT 34 % (35-52); HEMOGLOBIN 11.3 G/DL (11.5-16.0); LYMPHOCYTES # (AUTO) 2.2 X 10^3 (1.0-4.0); LYMPHOCYTES % (AUTO) 11 % (12-44); MEAN CORPUSCULAR HEMOGLOBIN 31 PG (25-34); MEAN CORPUSCULAR HGB CONC 34 G/DL (32-36); MEAN CORPUSCULAR VOLUME 92 FL (80-99); MEAN PLATELET VOLUME 9.2 FL (7.4-10.4); MONOCYTES # (AUTO) 1.4 X 10^3 (0.0-1.0); MONOCYTES % (AUTO) 7 % (0-12); NEUTROPHILS # (AUTO) 16.4 X 10^3 (1.8-7.8); NEUTROPHILS % (AUTO) 82 % (42-75); PLATELET COUNT 527 10^3/uL (130-400); RED CELL DISTRIBUTION WIDTH 18.2 % (10.0-14.5)
[2018-05-08 05:03] LABS: ALANINE AMINOTRANSFERASE 75 U/L (0-55); ALBUMIN 2.8 GM/DL (3.2-4.5); ALKALINE PHOSPHATASE 976 U/L (40-136); BILIRUBIN,TOTAL 0.9 MG/DL (0.1-1.0); BUN/CREATININE RATIO 24; CALCIUM 8.1 MG/DL (8.5-10.1); CARBON DIOXIDE 28 MMOL/L (21-32); CHLORIDE 94 MMOL/L (98-107); CREATININE SERUM 0.49 MG/DL (0.60-1.30); GFR ESTIMATED > 60; GLUCOSE 172 MG/DL (70-105); POTASSIUM 3.1 MMOL/L (3.6-5.0); SODIUM 135 MMOL/L (135-145); TOTAL PROTEIN 5.5 GM/DL (6.4-8.2)
[2018-05-08] MEDS: fentaNYL INJECTION 100 MCG/2 ML AMP IVP PRN ×6 (05:31→22:17)
[2018-05-08] MEDS: inSUlin ASPART (NovoLOG) 1 UNIT/0.01 ML (CHARGE PER UNIT) SC SCH ×4 (05:32→20:50)
[2018-05-08 07:50] VITALS: BP 164/88
[2018-05-08] MEDS: ALPRAZolam 0.25 MG (XANAX) TAB PO PRN ×2 (07:53→20:53)
[2018-05-08] MEDS: POLYETHYLENE GLYCOL 17 GM (MIRALAX) PACK PO SCH ×2 (08:38→20:49)
[2018-05-08] MEDS: amLODIPine 5 MG (NORVASC) TAB PO SCH (08:38)
[2018-05-08] MEDS ORDERED: MAGNESIUM 1 GM/100 ML IVPB 100 ML IV NR (08:45)
[2018-05-08] MEDS: RT-ALBUTEROL SULF 2.5 MG/3 ML PRE-MIX VIAL INH SCH ×4 (08:54→20:07)
[2018-05-08] MEDS: NS IV 500 ML 500 ML IV SCH (10:06)
[2018-05-08] MEDS: POTASSIUM CL 10MEQ/50ML IVPB 50 ML IV SCH ×4 (11:12→15:34)
[2018-05-08 12:10] VITALS: BP 153/79
--- NOTE | 2018-05-08 12:16 | Progress Note-Hospitalist ---
Subjective HPI/CC On Admission Date Seen by Provider: May 08, 2018 Time Seen by Provider: 11:30 CC: Pneumonia right lower lobe HPI: This is a 63-year-old white female [facility] with a past medical history of lung nodules with continued smoking who presented to the ER with chest pain who was found to have right lower lobe pneumonia with leukocytosis. Upon further assessment alkaline phosphatase elevation noted with mild elevation of liver enzymes making it suspicious for bone involvement so CT scans were obtained revealing likely primary lung cancer with widespread metastasis. Patient was placed on empiric antibiotics with nebulizer treatments. 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 Subjective/Events-last exam Answered a lot of questions Daughter at the bedside Checked meds and labs Pain meds are given Pre-syncope episode noted at times Focused Exam Lactate Level 05/06/18 17:30: Lactic Acid Level 2.32*H 05/06/18 19:34: Lactic Acid Level 1.74 Objective Exam Vital Signs Vital Signs Date Time Temp Pulse Resp B/P (MAP) Pulse Ox O2 Delivery O2 Flow Rate FiO2 05/08/18 12:10 98.5 100 26 153/79 (103) 92 Nasal Cannula 2.00 05/07/18 09:06 21 Capillary Refill : Less Than 3 Seconds General Appearance: No Apparent Distress, WD/WN, Chronically ill Respiratory: Chest Non Tender, No Accessory Muscle Use, No Respiratory Distress , Crackles, Decreased Breath Sounds Cardiovascular: Regular Rate, Rhythm, No Edema, No Gallop, No JVD, No Murmur, Normal Peripheral Pulses Neurologic/Psychiatric: Alert, Oriented x3, No Motor/Sensory Deficits, Normal Mood/Affect Results/Procedures Lab Laboratory Tests 05/08/18 04:30 Patient resulted labs reviewed. Assessment/Plan Assessment and Plan Assess & Plan/Chief Complaint Assessment: Right lower lobe pneumonia postobstructive type New diagnosis of presumed lung cancer with widespread metastasis Current smoker Plan: Abx Monitor labs HLIVF Ambulate Lovenox Presumed lung cancer evaluation with biopsy to confirm Diagnosis/Problems Diagnosis/Problems (1) Pneumonia Status: Acute Qualifiers: Pneumonia type: due to unspecified organism Laterality: right Lung location: lower lobe of lung Qualified Codes: J18.1 - Lobar pneumonia, unspecified organism (2) Cancer, metastatic to bone Status: Acute (3) COPD (chronic obstructive pulmonary disease) Status: Chronic Qualifiers: COPD type: unspecified COPD Qualified Codes: J44.9 - Chronic obstructive pulmonary disease, unspecified (4) Alkaline phosphatase elevation Status: Acute (5) Liver enzyme elevation Status: Acute (6) Chronic GERD (7) Smoker Status: Chronic Clinical Quality Measures DVT/VTE Risk/Contraindication: Risk Factor Score Per Nursin RFS Level Per Nursing on Admit: 4+=Very High SUE KOWALSKI DO May 08, 2018 12:16
[2018-05-08] MEDS: ENOXAPARIN 40 MG/0.4 ML (LOVENOX) SYR SC SCH (12:42)
--- NOTE | 2018-05-08 14:50 | Progress Note-Cardiology ---
Cardiology SOAP Progress Note Subjective: Notes gen malaise and shortness of breath and discomfort in the upper back and in the back of the chest wall (worse with deep insp, at times) No palp or syncope Objective: I&O/Vital Signs 05/08/18 05/08/18 05/08/18 05/08/18 03:50 07:50 08:00 08:30 Temp 97.0 98.2 98.2 Pulse 90 102 Resp 20 22 B/P (MAP) 153/78 (103) 164/88 (113) Pulse Ox 94 92 O2 Delivery Nasal Cannula Nasal Cannula Nasal Cannula O2 Flow Rate 2.00 2.00 2.00 05/08/18 05/08/18 05/08/18 05/08/18 08:55 11:26 11:45 12:10 Temp 98.5 98.5 Pulse 100 Resp 26 B/P (MAP) 153/79 (103) Pulse Ox 90 92 92 O2 Delivery Nasal Cannula Nasal Cannula Nasal Cannula O2 Flow Rate 2.00 2.00 2.00 05/08/18 05/08/18 13:56 14:19 Temp 98.5 Pulse Ox 90 O2 Delivery Nasal Cannula O2 Flow Rate 2.00 05/08/18 00:00 Intake Total 4100 ml Balance 4100 ml Weight (Pounds): 135 Weight (Ounces): 9.0 Weight (Calculated Kilograms): 61.822278 Constitutional: AAO x 3, well-developed, well-nourished Respiratory: No accessory muscle use; other (fair air entry, diminished at the bases, exp wheezes, prolonged exp) Cardiovascular: regular rate-rhythm, S1 and S2, systolic murmur (faint ABRAHAM at card base) Gastrointestional: No tender; soft; No guarding, No rebound; audible bowel sounds Extremities: No clubbing, No cyanosis, No significant edema Neurologic/Psychiatric: oriented x 3, grossly intact, power is 5/5 both on sides Skin: No rash on exposed areas, No ulcerations on exposed areas Results/Procedures: Labs Laboratory Tests 05/07/18 16:09: Glucometer 309H 05/07/18 20:13: Glucometer 408*H 05/07/18 22:36: Glucometer 262H 05/08/18 04:30: White Blood Count 20.0H, Red Blood Count 3.63L, Hemoglobin 11.3L, Hematocrit 34L , Mean Corpuscular Volume 92, Mean Corpuscular Hemoglobin 31, Mean Corpuscular Hemoglobin Concent 34, Red Cell Distribution Width 18.2H, Platelet Count 527H, Mean Platelet Volume 9.2, Neutrophils (%) (Auto) 82H, Lymphocytes (%) (Auto) 11L , Monocytes (%) (Auto) 7, Eosinophils (%) (Auto) 0, Basophils (%) (Auto) 0, Neutrophils # (Auto) 16.4H, Lymphocytes # (Auto) 2.2, Monocytes # (Auto) 1.4H, Eosinophils # (Auto) 0.0, Basophils # (Auto) 0.0, Sodium Level 135, Potassium Level 3.1L, Chloride Level 94L, Carbon Dioxide Level 28, Anion Gap 13, Blood Urea Nitrogen 12, Creatinine 0.49L, Estimat Glomerular Filtration Rate > 60, BUN /Creatinine Ratio 24, Glucose Level 172H, Calcium Level 8.1L, Corrected Calcium 9.1, Magnesium Level 2.0, Total Bilirubin 0.9, Aspartate Amino Transf (AST/SGOT ) 105H, Alanine Aminotransferase (ALT/SGPT) 75H, Alkaline Phosphatase 976H, Total Protein 5.5L, Albumin 2.8L 05/08/18 05:18: Glucometer 155H 05/08/18 11:34: Glucometer 283H Microbiology 05/06/18 Blood Culture - Preliminary, Resulted No growth 05/06/18 Urine Culture - Final, Complete See Report A/P: Assessment: Chest discomfort likely due to pneumonia (likely post-obstructive) Metastatic CA of unknown primary, based on w/u by Dr Flores Chronic tobacco use DM II Hypokalemia Sinus arrhythmia and PACs on ECG of 05/06/18 Hypertension, not well controlled Chronic tobacco use Fam h/o CAD (father had [place] at age 68) Plan: * No evidence of ACS, but does have risk factors * Smoking cessation has been advised * Treat with ASA and bb. Increase bb for better bp control * Replenish K * Monitor labs GENA LOPES MD FACP [facility] CCDS May 08, 2018 14:50
[2018-05-08 16:00] VITALS: BP 147/75
--- NOTE | 2018-05-08 16:27 | NUR ---
NOTE THAT FSBS WAS 410 -- AND DR KOWALSKI STAFF GAVE THE MAXIMUM AMOUNT OF SSI 9 UNITS --
[2018-05-08 19:20] VITALS: BP 129/71
[2018-05-08] MEDS: inSUlin DETERMIR 1 UNIT/0.01 ML (LEVEMIR) CHARGE PER UNIT SQ SCH (20:50)
[2018-05-08] MEDS: cloNIDine 0.1 MG (CATAPRES) TAB PO PRN (23:26)
[2018-05-08 23:33] VITALS: BP 175/78
[2018-05-09] MEDS: fentaNYL INJECTION 100 MCG/2 ML AMP IVP PRN ×7 (02:06→23:35)
[2018-05-09] MEDS: cloNIDine 0.1 MG (CATAPRES) TAB PO PRN (03:47)
[2018-05-09 03:53] VITALS: BP 171/84
[2018-05-09] MEDS: inSUlin ASPART (NovoLOG) 1 UNIT/0.01 ML (CHARGE PER UNIT) SC SCH ×4 (05:24→21:30)
[2018-05-09] MEDS: HYDROcodone/APAP 5 MG/325 MG (LORTAB) TAB PO PRN (06:38)
[2018-05-09] MEDS: RT-ALBUTEROL SULF 2.5 MG/3 ML PRE-MIX VIAL INH SCH ×4 (07:48→20:01)
[2018-05-09] MEDS: POLYETHYLENE GLYCOL 17 GM (MIRALAX) PACK PO SCH ×2 (07:54→09:47)
[2018-05-09] MEDS: meTOproloL SUCCINATE 50 MG (TOPROL XL) TAB PO SCH (07:55)
[2018-05-09] MEDS: ALPRAZolam 0.25 MG (XANAX) TAB PO PRN ×2 (07:55→16:25)
[2018-05-09] MEDS: amLODIPine 5 MG (NORVASC) TAB PO SCH (07:55)
[2018-05-09] MEDS: NS IV 500 ML 500 ML IV SCH ×2 (07:56→18:25)
[2018-05-09 08:00] VITALS: BP 138/77
[2018-05-09 09:17] LABS: BASOPHILS % (AUTO) 0 % (0-10); EOSINOPHILS % (AUTO) 0 % (0-10); HEMATOCRIT 34 % (35-52); HEMOGLOBIN 11.2 G/DL (11.5-16.0); LYMPHOCYTES % (AUTO) 9 % (12-44); MEAN CORPUSCULAR HEMOGLOBIN 30 PG (25-34); MEAN CORPUSCULAR HGB CONC 33 G/DL (32-36); MEAN CORPUSCULAR VOLUME 92 FL (80-99); MEAN PLATELET VOLUME 9.3 FL (7.4-10.4); MONOCYTES # (AUTO) 1.7 X 10^3 (0.0-1.0); MONOCYTES % (AUTO) 8 % (0-12); NEUTROPHILS # (AUTO) 18.3 X 10^3 (1.8-7.8); NEUTROPHILS % (AUTO) 83 % (42-75); PLATELET COUNT 455 10^3/uL (130-400); RED CELL DISTRIBUTION WIDTH 18.1 % (10.0-14.5)
[2018-05-09 09:33] LABS: BUN/CREATININE RATIO 19; CALCIUM 7.9 MG/DL (8.5-10.1); CARBON DIOXIDE 29 MMOL/L (21-32); CHLORIDE 92 MMOL/L (98-107); CREATININE SERUM 0.52 MG/DL (0.60-1.30); GFR ESTIMATED > 60; GLUCOSE 261 MG/DL (70-105); POTASSIUM 3.3 MMOL/L (3.6-5.0); SODIUM 132 MMOL/L (135-145)
[2018-05-09] MEDS ORDERED: KCL 20 MEQ TAB (K-DUR) PO NR (10:15)
--- NOTE | 2018-05-09 11:32 | Progress Note-Cardiology ---
Cardiology SOAP Progress Note Subjective: Shortness of breath improved with supple oxygen No cp or palp or syncope Gen malaise present Objective: I&O/Vital Signs 05/08/18 05/09/18 05/09/18 05/09/18 23:33 03:53 07:48 08:00 Temp 97.2 96.7 96.7 Pulse 88 91 93 Resp 20 20 20 B/P (MAP) 175/78 (110) 171/84 (113) 138/77 (97) Pulse Ox 92 92 93 95 O2 Delivery Nasal Cannula Nasal Cannula Nasal Cannula Nasal Cannula O2 Flow Rate 2.00 2.00 2.00 3.00 05/09/18 08:00 O2 Delivery Nasal Cannula O2 Flow Rate 2.00 05/09/18 00:00 Intake Total 2570 ml Balance 2570 ml Weight (Pounds): 135 Weight (Ounces): 9.0 Weight (Calculated Kilograms): 61.219983 Constitutional: AAO x 3, well-developed, well-nourished Respiratory: No accessory muscle use; other (fair air entry, diminished at the bases, exp wheezes, prolonged exp) Cardiovascular: regular rate-rhythm, S1 and S2, systolic murmur (faint ABRAHAM at card base) Gastrointestional: No tender; soft; No guarding, No rebound; audible bowel sounds Extremities: No clubbing, No cyanosis, No significant edema Neurologic/Psychiatric: oriented x 3, grossly intact, power is 5/5 both on sides Skin: No rash on exposed areas, No ulcerations on exposed areas Results/Procedures: Labs Laboratory Tests 05/08/18 11:34: Glucometer 283H 05/08/18 16:12: Glucometer 429*H 05/08/18 20:36: Glucometer 349H 05/09/18 01:59: Glucometer 218H 05/09/18 05:17: Glucometer 93 05/09/18 09:10: White Blood Count 22.0H, Red Blood Count 3.73L, Hemoglobin 11.2L, Hematocrit 34L , Mean Corpuscular Volume 92, Mean Corpuscular Hemoglobin 30, Mean Corpuscular Hemoglobin Concent 33, Red Cell Distribution Width 18.1H, Platelet Count 455H, Mean Platelet Volume 9.3, Neutrophils (%) (Auto) 83H, Lymphocytes (%) (Auto) 9L , Monocytes (%) (Auto) 8, Eosinophils (%) (Auto) 0, Basophils (%) (Auto) 0, Neutrophils # (Auto) 18.3H, Lymphocytes # (Auto) 2.0, Monocytes # (Auto) 1.7H, Eosinophils # (Auto) 0.0, Basophils # (Auto) 0.0, Sodium Level 132L, Potassium Level 3.3L, Chloride Level 92L, Carbon Dioxide Level 29, Anion Gap 11, Blood Urea Nitrogen 10, Creatinine 0.52L, Estimat Glomerular Filtration Rate > 60, BUN /Creatinine Ratio 19, Glucose Level 261H, Calcium Level 7.9L 05/09/18 11:08: Glucometer 312H Microbiology 05/06/18 Blood Culture - Preliminary, Resulted No growth 05/06/18 Urine Culture - Final, Complete See Report Laboratory Tests 05/08/18 04:30 05/09/18 09:10 A/P: Assessment: Chest discomfort likely due to pneumonia (likely post-obstructive) Metastatic CA of unknown primary, based on w/u by Dr Flores Chronic tobacco use DM II Hypokalemia Sinus arrhythmia and PACs on ECG of 05/06/18 Hypertension, not well controlled Chronic tobacco use Intolerance to aspirin Fam h/o CAD (father had NH at age 68) Plan: * No evidence of ACS, but does have risk factors * Smoking cessation has been advised * She does not wish to take ASA * Replenish K * Monitor labs GENA LOPES MD FACP FAC CCDS May 09, 2018 11:31
[2018-05-09 12:00] VITALS: BP 157/76
--- NOTE | 2018-05-09 12:07 | Progress Note (SOAP) ---
Subjective Subjective/Events-last exam Afebrile, no acute events. She is just wondering what the next step is. She continues to have a lot of right sided chest pain/rib pain as well as her chronic back pain. Review of Systems Date Seen by Provider: May 09, 2018 Time Seen by Provider: 10:20 Focused Exam Lactate Level 05/06/18 17:30: Lactic Acid Level 2.32*H 05/06/18 19:34: Lactic Acid Level 1.74 Objective Exam Last Set of Vital Signs Vital Signs Date Time Temp Pulse Resp B/P (MAP) Pulse Ox O2 Delivery O2 Flow Rate FiO2 05/09/18 11:27 92 Nasal Cannula 2.00 05/09/18 08:00 96.7 93 20 138/77 (97) 05/07/18 09:06 21 Capillary Refill : Less Than 3 Seconds I&O Intake and Output 05/09/18 00:00 Intake Total 2920 ml Balance 2920 ml Intake Oral 2345 ml IV Total 575 ml # Voids 11 # Bowel Movements 5 General: Alert, No Acute Distress Lungs: Other (decreased/nearly absent breath sounds right lower lung field, CTA on left) Heart: Regular Rate, No Murmurs Extremities: No Edema Neuro: Normal Speech Psych/Mental Status: Mental Status NL Results/Procedures Lab Laboratory Tests 05/08/18 16:12: Glucometer 429*H 05/08/18 20:36: Glucometer 349H 05/09/18 01:59: Glucometer 218H 05/09/18 05:17: Glucometer 93 05/09/18 09:10: White Blood Count 22.0H, Red Blood Count 3.73L, Hemoglobin 11.2L, Hematocrit 34L , Mean Corpuscular Volume 92, Mean Corpuscular Hemoglobin 30, Mean Corpuscular Hemoglobin Concent 33, Red Cell Distribution Width 18.1H, Platelet Count 455H, Mean Platelet Volume 9.3, Neutrophils (%) (Auto) 83H, Lymphocytes (%) (Auto) 9L , Monocytes (%) (Auto) 8, Eosinophils (%) (Auto) 0, Basophils (%) (Auto) 0, Neutrophils # (Auto) 18.3H, Lymphocytes # (Auto) 2.0, Monocytes # (Auto) 1.7H, Eosinophils # (Auto) 0.0, Basophils # (Auto) 0.0, Sodium Level 132L, Potassium Level 3.3L, Chloride Level 92L, Carbon Dioxide Level 29, Anion Gap 11, Blood Urea Nitrogen 10, Creatinine 0.52L, Estimat Glomerular Filtration Rate > 60, BUN /Creatinine Ratio 19, Glucose Level 261H, Calcium Level 7.9L 05/09/18 11:08: Glucometer 312H Microbiology 05/06/18 Blood Culture - Preliminary, Resulted No growth 05/06/18 Urine Culture - Final, Complete See Report Assessment/Plan Assessment/Plan (1) Lung mass Status: Acute Assessment & Plan: Suspected malignancy with CT findings concerning for malignancy as well as mediastinal lymphadenopathy, multiple small liver lesions , enlarged adrenals and possible sigmoid stricture. Dr. Anaya consulted, appreciate recommendations, likely bonch with EBUS on Wednesday. (2) Hypertension Status: Chronic Assessment & Plan: No anti-hypertensives noted on home med list, medications started inpatient. Qualifiers: Qualified Codes: I10 - Essential (primary) hypertension (3) Diabetes mellitus Status: Chronic Assessment & Plan: Hold metformin due to contrast. Levemir started. SSI. Qualifiers: Qualified Codes: E11.65 - Type 2 diabetes mellitus with hyperglycemia (4) Pneumonia Status: Acute Assessment & Plan: Initially suspected on admission, but given findings on CT, concern more for malignancy, antibiotics were d/c'd and she remains afebrile and with stable leukocytosis. Will hold antibiotics for now and obtain cultures with bronchoscopy per Dr. Anaya. Qualifiers: Qualified Codes: J18.1 - Lobar pneumonia, unspecified organism (5) Chest pain Status: Acute Assessment & Plan: Suspect secondary to lung mass, Cardiology consulted, appreciate recommendations. Echocardiogram with normal EF and no regional wall abnormalities on 05/08. 05/09 Increase hydrocodone to 7.5/325 which she was on in past for back pain, continue fentanyl for breakthrough and will adjust oral as needed. (6) Hypoxia Status: Acute Assessment & Plan: Requiring 2 lpm supplemental oxygen, not on O2 previously. Suspect due to lung malignancy vs pneumonia as noted above. Will wean as tolerated, may need home O2. (7) DVT prophylaxis Status: Acute Assessment & Plan: Enoxaparin Clinical Quality Measures DVT/VTE Risk/Contraindication: Risk Factor Score Per Nursin RFS Level Per Nursing on Admit: 4+=Very High RUDY MARTINEZ MD May 09, 2018 12:07
[2018-05-09] MEDS: CATHETER FLUSH 10 ML SYR IV PRN (12:15)
[2018-05-09] MEDS: ENOXAPARIN 40 MG/0.4 ML (LOVENOX) SYR SC SCH (12:16)
--- NOTE | 2018-05-09 12:44 | Pulmonary Consultation ---
History of Present Illness History of Present Illness Date of Consultation 05/09/18 12:39 Time Seen by Provider: 12:39 Date of Admission History of Present Illness 63yo with PMH of lung nodules and persistent tobacco use presented to ED secondary to CP and was found to have RLL pneumonia. CT of chest is suggestive of metastatic lung cancer. Pt was admitted to 4th floor and placed on empiric Abx. Allergies and Home Medications Allergies Coded Allergies: doxycycline (Unverified Allergy, Severe, TONGUE SWELLING, 10/20/16) levofloxacin (Unverified Allergy, Severe, TONGUE SWELLING, BLISTERS, ) sumatriptan (Verified Allergy, Unknown, 10/20/16) aspirin (Verified Adverse Reaction, Mild, advised not to take after throat surgery, 10/20/16) ibuprofen (Verified Adverse Reaction, Mild, advised not to take after throat surgery, 10/20/16) Home Medications Albuterol Sulfate 1 Puff Puff, 2 PUFF IH Q4H PRN for SHORTNESS OF BREATH, ( Reported) 1 PUFF = 90 MCG Atorvastatin Calcium 40 Mg Tablet, 40 MG PO DAILY, (Reported) Glipizide 10 Mg Tablet, 10 MG PO DAILY, (Reported) Loratadine 10 Mg Tablet, 10 MG PO DAILY, (Reported) Metformin HCl 1,000 Mg Tab.er.24, 1,000 MG PO BID, (Reported) Omeprazole 40 Mg Capsule.dr, 40 MG PO DAILY, (Reported) Past Prgccut-Jdxmgu-[id number] Hx Past Med/Social Hx: Reviewed Nursing Past Med/Soc Hx, Reviewed and Corrections made Patient Social History Alcohol Use: Denies Use Recreational Drug Use: No Smoking Status: Current Everyday Smoker Type Used: Cigarettes Recent Foreign Travel: No Contact w/Someone Who Travel: No Recent Infectious Disease Expo: No Recent Hopitalizations: No Immunizations Up To Date Date of Pneumonia Vaccine: Jun 03, 2013 Date of Influenza Vaccine: Jan 13, 2016 Seasonal Allergies Seasonal Allergies: Yes Past Medical History Surgeries: Yes Gallbladder, Hysterectomy, Orthopedic Neurological: Yes Headaches /Migraines : No Reproductive Disorders: No Female Reproductive Disorders: 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 Sexually Transmitted Disease: No HIV/AIDS: No Gastrointestinal: Yes Gastroesophageal Reflux, Allan's Esophagus Musculoskeletal: Yes Degenerate Disk Disease, Chronic Back Pain Endocrine: Yes Diabetes, Non-Insulin dep Loss of Vision: Bilateral Hearing Impairment: Denies Cancer: Yes Skin, Melanoma Psychosocial: Yes Anxiety Adverse Reaction/Blood Tranf: No (N/A) Family Medical History Alcoholism 09 BROTHER 09 BROTHER Cancer pa-aunt (breast cancer) Cataract 03 FATHER Chest pain 03 FATHER 09 BROTHER Congenital heart disease 03 MOTHER Congestive heart failure 03 MOTHER Family history: Arthritis 03 FATHER Family history: Breast disease 09 BROTHER 09 SISTER pa-aunt Family history: Cardiovascular disease 03 FATHER 09 BROTHER 09 SISTER Family history: Coronary thrombosis 03 FATHER (WRONG DISEASE CHARTED) 09 BROTHER (WRONG DISEASE CHARTED) 09 SISTER (wrong disease chated) Family history: Diabetes mellitus 03 FATHER Family history: Glaucoma 03 FATHER History of - respiratory disease 03 MOTHER (COPD) 09 SISTER (COPD) Myocardial infarction 03 FATHER 09 BROTHER Seizure disorder NEPHEW ( FROM SEIZURE AT AGE 22 YRS.) No Family History of: Abdominal aortic aneurysm Randolph's disease Cancer of colon No Pertinent Family Hx Review of Systems Time Seen by Provider: 07:46 Sepsis Event Evaluation Height, Weight, BMI Height: 5'6.00" Weight: 135lbs. 9.0oz. 61.604850wm; 21.9 BMI Method:Stated Exam Exam Vital Signs Date Time Temp Pulse Resp B/P (MAP) Pulse Ox O2 Delivery O2 Flow Rate FiO2 05/09/18 12:00 98.2 95 20 157/76 (103) 94 Nasal Cannula 3.00 05/09/18 11:27 92 Nasal Cannula 2.00 05/09/18 08:00 Nasal Cannula 2.00 05/09/18 08:00 96.7 93 20 138/77 (97) 95 Nasal Cannula 3.00 05/09/18 07:48 93 Nasal Cannula 2.00 05/09/18 03:53 96.7 91 20 171/84 (113) 92 Nasal Cannula 2.00 05/08/18 23:33 97.2 88 20 175/78 (110) 92 Nasal Cannula 2.00 05/08/18 20:09 93 Nasal Cannula 2.00 05/08/18 20:00 Nasal Cannula 2.00 05/08/18 19:20 97.6 102 20 129/71 (90) 94 Nasal Cannula 2.00 05/08/18 18:59 98.5 05/08/18 17:30 98.5 05/08/18 16:00 97.4 89 24 147/75 (99) 90 Nasal Cannula 2.00 2/3/19 14:30 98.5 05/08/18 14:19 90 Nasal Cannula 2.00 05/08/18 13:56 98.5 I & O 05/09/18 07:00 Intake Total 2970 ml Balance 2970 ml Height & Weight Height: 5'6.00" Weight: 135lbs. 9.0oz. 61.610347jp; 21.9 BMI Method:Stated General Appearance: No Apparent Distress, WD/WN, Chronically ill HEENT: PERRL/EOMI, Normal ENT Inspection, Pharynx Normal Neck: Full Range of Motion, Normal Inspection, Non Tender, Supple, Carotid Bruit Respiratory: Chest Non Tender, No Accessory Muscle Use, No Respiratory Distress , Crackles, Decreased Breath Sounds Cardiovascular: Regular Rate, Rhythm, No Edema, No Gallop, No JVD, No Murmur, Normal Peripheral Pulses Capillary Refill: Less Than 3 Seconds Extremity: Normal Capillary Refill, Normal Inspection, Normal Range of Motion, Non Tender, No Calf Tenderness, No Pedal Edema Neurologic/Psychiatric: Alert, Oriented x3, No Motor/Sensory Deficits, Normal Mood/Affect Skin: Normal Color, Warm/Dry Lymphatic: No Adenopathy Results Lab Laboratory Tests 05/08/18 04:30 05/09/18 09:10 Assessment/Plan Assessment/Plan Probable metastatic lung cancer with post obstructive pneumonia -Will plan for bronchoscopy with EBUS on Wed. -Pt is not currently on any Abx and appears to be stable. - No fever, leukocytosis continues to improve without Abx -Will see what bronchoscopy cultures out. Tobacco use -Education COPD -Oxygen -ODETTE Wiggins DO May 09, 2018 12:44
[2018-05-09] MEDS: HYDROcodone/APAP 10 MG/325 MG (LORTAB) TAB PO PRN ×2 (13:52→20:54)
[2018-05-09 16:00] VITALS: BP 166/75
[2018-05-09] MEDS ORDERED: PIPERACILLIN/TAZO 4.5 GM/NS 100 ML IV NR ×2 (16:15)
[2018-05-09] MEDS: ACETAMINOPHEN 500 MG TAB (TYLENOL) PO PRN (16:25)
[2018-05-09 20:13] VITALS: BP 156/80
[2018-05-09] MEDS: MELATONIN 3 MG TABLET PO PRN (21:29)
[2018-05-09] MEDS: inSUlin DETERMIR 1 UNIT/0.01 ML (LEVEMIR) CHARGE PER UNIT SQ SCH (21:30)
[2018-05-09] MEDS: PIPERACILLIN SODIUM/TAZOBACTAM 4.5 GM in NS (IVPB) 100 ML IV SCH (22:09)
[2018-05-09 23:57] VITALS: BP 146/71
[2018-05-10] MEDS: fentaNYL INJECTION 100 MCG/2 ML AMP IVP PRN ×7 (02:16→12:59)
[2018-05-10] MEDS: HYDROcodone/APAP 10 MG/325 MG (LORTAB) TAB PO PRN ×3 (03:59→12:59)
[2018-05-10] MEDS: PIPERACILLIN SODIUM/TAZOBACTAM 4.5 GM in NS (IVPB) 100 ML IV SCH ×3 (05:39→21:43)
[2018-05-10] MEDS: inSUlin ASPART (NovoLOG) 1 UNIT/0.01 ML (CHARGE PER UNIT) SC SCH ×4 (05:39→20:23)
[2018-05-10 06:39] LABS: BASOPHILS % (AUTO) 0 % (0-10); EOSINOPHILS % (AUTO) 0 % (0-10); HEMATOCRIT 35 % (35-52); HEMOGLOBIN 11.6 G/DL (11.5-16.0); LYMPHOCYTES # (AUTO) 2.1 X 10^3 (1.0-4.0); LYMPHOCYTES % (AUTO) 9 % (12-44); MEAN CORPUSCULAR HEMOGLOBIN 30 PG (25-34); MEAN CORPUSCULAR HGB CONC 33 G/DL (32-36); MEAN CORPUSCULAR VOLUME 92 FL (80-99); MONOCYTES # (AUTO) 1.8 X 10^3 (0.0-1.0); MONOCYTES % (AUTO) 8 % (0-12); NEUTROPHILS # (AUTO) 18.7 X 10^3 (1.8-7.8); NEUTROPHILS % (AUTO) 83 % (42-75); PLATELET COUNT 500 10^3/uL (130-400); RED CELL DISTRIBUTION WIDTH 18.2 % (10.0-14.5); WHITE BLOOD COUNT 22.6 10^3/uL (4.3-11.0)
[2018-05-10 07:04] LABS: BUN/CREATININE RATIO 22; CALCIUM 8.4 MG/DL (8.5-10.1); CARBON DIOXIDE 28 MMOL/L (21-32); CHLORIDE 92 MMOL/L (98-107); CREATININE SERUM 0.51 MG/DL (0.60-1.30); GFR ESTIMATED > 60; GLUCOSE 97 MG/DL (70-105); POTASSIUM 3.3 MMOL/L (3.6-5.0); SODIUM 135 MMOL/L (135-145)
[2018-05-10 07:55] VITALS: BP 146/71
[2018-05-10] MEDS: RT-ALBUTEROL SULF 2.5 MG/3 ML PRE-MIX VIAL INH SCH ×2 (07:55→19:23)
[2018-05-10 08:00] VITALS: BP 157/75
--- NOTE | 2018-05-10 08:31 | Pulmonary Progress Note ---
Subjective Time Seen by a Provider: 08:38 Subjective/Events-last exam No complications noted. Sepsis Event Evaluation Height, Weight, BMI Height: 5'6.00" Weight: 135lbs. 9.0oz. 61.142215os; 21.9 BMI Method:Stated Exam Exam Vital Signs Date Time Temp Pulse Resp B/P (MAP) Pulse Ox O2 Delivery O2 Flow Rate FiO2 05/10/18 07:55 Nasal Cannula 1.50 93 05/10/18 07:55 98 93 05/10/18 04:00 98.4 93 20 94 Nasal Cannula 2.00 05/09/18 23:57 97.2 87 20 146/71 (96) 95 Nasal Cannula 2.00 05/09/18 20:40 Nasal Cannula 2.00 05/09/18 20:13 98.0 96 18 156/80 (105) 94 Nasal Cannula 3.00 05/09/18 20:01 96 Nasal Cannula 2.00 05/09/18 16:00 97.7 95 18 166/75 (105) 95 Nasal Cannula 2.00 05/09/18 15:19 94 Nasal Cannula 2.00 05/09/18 12:00 98.2 95 20 157/76 (103) 94 Nasal Cannula 3.00 05/09/18 11:27 92 Nasal Cannula 2.00 I & O 05/10/18 07:00 Intake Total 3030 ml Balance 3030 ml Height & Weight Height: 5'6.00" Weight: 135lbs. 9.0oz. 61.414109ss; 21.9 BMI Method:Stated General Appearance: No Apparent Distress, WD/WN, Chronically ill HEENT: PERRL/EOMI, Normal ENT Inspection, Pharynx Normal Neck: Full Range of Motion, Normal Inspection, Non Tender, Supple, Carotid Bruit Respiratory: Chest Non Tender, No Accessory Muscle Use, No Respiratory Distress , Crackles, Decreased Breath Sounds Cardiovascular: Regular Rate, Rhythm, No Edema, No Gallop, No JVD, No Murmur, Normal Peripheral Pulses Capillary Refill: Less Than 3 Seconds Extremity: Normal Capillary Refill, Normal Inspection, Normal Range of Motion, Non Tender, No Calf Tenderness, No Pedal Edema Neurologic/Psychiatric: Alert, Oriented x3, No Motor/Sensory Deficits, Normal Mood/Affect Skin: Normal Color, Warm/Dry Lymphatic: No Adenopathy Results Lab Laboratory Tests 05/09/18 09:10 05/10/18 06:20 Assessment/Plan Assessment/Plan Probable metastatic lung cancer with post obstructive pneumonia -Will plan for bronchoscopy with EBUS on Wed. -Pt is not currently on any Abx and appears to be stable. - No fever, leukocytosis continues to improve without Abx -Will see what bronchoscopy cultures out. Tobacco use -Education COPD -Oxygen -ODETTE Wiggins DO May 10, 2018 08:31
[2018-05-10] MEDS: POLYETHYLENE GLYCOL 17 GM (MIRALAX) PACK PO SCH ×2 (08:41→20:17)
[2018-05-10] MEDS: meTOproloL SUCCINATE 50 MG (TOPROL XL) TAB PO SCH (08:41)
[2018-05-10] MEDS: amLODIPine 5 MG (NORVASC) TAB PO SCH (08:41)
[2018-05-10] MEDS: NS IV 500 ML 500 ML IV SCH (11:45)
[2018-05-10 12:00] VITALS: BP 170/78
--- NOTE | 2018-05-10 13:17 | Progress Note (SOAP) ---
Subjective Subjective/Events-last exam Afebrile, no acute events. Is having a lot of pain in her right chest and back as well as right upper abdomen and bloating in her abdomen. She still feels very weak. Review of Systems Date Seen by Provider: May 10, 2018 Time Seen by Provider: 11:40 Objective Exam Last Set of Vital Signs Vital Signs Date Time Temp Pulse Resp B/P (MAP) Pulse Ox O2 Delivery O2 Flow Rate FiO2 05/10/18 12:00 98.4 82 22 170/78 (108) 95 Nasal Cannula 2.00 05/10/18 08:25 100 Capillary Refill : Less Than 3 Seconds I&O Intake and Output 05/10/18 00:00 Intake Total 2950 ml Balance 2950 ml Intake Oral 2850 ml IV Total 100 ml # Voids 7 # Bowel Movements 3 General: Alert, No Acute Distress Lungs: Other (decreased air movement right base) Heart: Regular Rate, No Murmurs Neuro: Normal Speech Psych/Mental Status: Mental Status NL Results/Procedures Lab Laboratory Tests 05/09/18 16:02: Glucometer 371H 05/09/18 21:13: Glucometer 284H 05/10/18 05:36: Glucometer 61L 05/10/18 06:18: Glucometer 96 05/10/18 06:20: White Blood Count 22.6H, Red Blood Count 3.86L, Hemoglobin 11.6, Hematocrit 35, Mean Corpuscular Volume 92, Mean Corpuscular Hemoglobin 30, Mean Corpuscular Hemoglobin Concent 33, Red Cell Distribution Width 18.2H, Platelet Count 500H, Mean Platelet Volume 9.0, Neutrophils (%) (Auto) 83H, Lymphocytes (%) (Auto) 9L , Monocytes (%) (Auto) 8, Eosinophils (%) (Auto) 0, Basophils (%) (Auto) 0, Neutrophils # (Auto) 18.7H, Lymphocytes # (Auto) 2.1, Monocytes # (Auto) 1.8H, Eosinophils # (Auto) 0.0, Basophils # (Auto) 0.0, Sodium Level 135, Potassium Level 3.3L, Chloride Level 92L, Carbon Dioxide Level 28, Anion Gap 15H, Blood Urea Nitrogen 11, Creatinine 0.51L, Estimat Glomerular Filtration Rate > 60, BUN /Creatinine Ratio 22, Glucose Level 97, Calcium Level 8.4L 05/10/18 11:05: Glucometer 327H Microbiology 05/06/18 Blood Culture - Preliminary, Resulted No growth 05/06/18 Urine Culture - Final, Complete See Report Assessment/Plan Assessment/Plan (1) Lung mass Status: Acute Assessment & Plan: Suspected malignancy with CT findings concerning for malignancy as well as mediastinal lymphadenopathy, multiple small liver lesions , enlarged adrenals and possible sigmoid stricture. Dr. Anaya consulted, appreciate recommendations, likely bonch with EBUS on Wednesday. (2) Hypertension Status: Chronic Assessment & Plan: No anti-hypertensives noted on home med list, medications started inpatient. Qualifiers: Qualified Codes: I10 - Essential (primary) hypertension (3) Diabetes mellitus Status: Chronic Assessment & Plan: Hold metformin due to contrast. Levemir started. SSI. Qualifiers: Qualified Codes: E11.65 - Type 2 diabetes mellitus with hyperglycemia (4) Pneumonia Status: Acute Assessment & Plan: Initially suspected on admission, but given findings on CT, concern more for malignancy, antibiotics were d/c'd and she remains afebrile and with stable leukocytosis. Will hold antibiotics for now and obtain cultures with bronchoscopy per Dr. Anaya. 05/[address] Anaya yesterday pm Qualifiers: Qualified Codes: J18.1 - Lobar pneumonia, unspecified organism (5) Chest pain Status: Acute Assessment & Plan: Suspect secondary to lung mass, Cardiology consulted, appreciate recommendations. Echocardiogram with normal EF and no regional wall abnormalities on 05/08. 05/09 Increase hydrocodone to 7.5/325 which she was on in past for back pain, continue fentanyl for breakthrough and will adjust oral as needed. 05/10 switch to oxycodone, try Toradol as well. (6) Hypoxia Status: Acute Assessment & Plan: Requiring 2 lpm supplemental oxygen, not on O2 previously. Suspect due to lung malignancy vs pneumonia as noted above. Will wean as tolerated, may need home O2. (7) DVT prophylaxis Status: Acute Assessment & Plan: Enoxaparin Clinical Quality Measures DVT/VTE Risk/Contraindication: Risk Factor Score Per Nursin RFS Level Per Nursing on Admit: 4+=Very High RUDY MARTINEZ MD May 10, 2018 13:17
[2018-05-10] MEDS ORDERED: ATOR40TA PO (13:20)
[2018-05-10] MEDS ORDERED: OMEP40CA36 PO (13:20)
[2018-05-10] MEDS ORDERED: RT-ALBUINH IH (13:20)
[2018-05-10] MEDS ORDERED: METF-479 PO (13:23)
[2018-05-10] MEDS ORDERED: GLIP10TA13 PO (13:23)
[2018-05-10] MEDS: ENOXAPARIN 40 MG/0.4 ML (LOVENOX) SYR SC SCH (13:52)
[2018-05-10] MEDS: KETOROLAC 15 MG/ML VIAL IVP PRN ×2 (14:00→20:17)
[2018-05-10] MEDS: ALPRAZolam 0.25 MG (XANAX) TAB PO PRN (14:09)
--- NOTE | 2018-05-10 14:11 | Physical Therapy Evaluation ---
PT Evaluation-General Medical Diagnosis Admission Date May 06, 2018 at 17:00 Medical Diagnosis: Pneumonia Onset Date: May 06, 2018 Therapy Diagnosis Therapy Diagnosis: Weakness, decreased mobility Height/Weight Height (Feet): 5 Height (Inches): 6.00 Weight (Pounds): 135 Weight (Ounces): 9.0 Precautions Precautions/Isolations: Standard Precautions Weight Bear Status Right Lower Extremity: Right Weight Bearing/Tolerated Left Lower Extremity: Left Weight Bearing/Tolerated Referral Physician: Dyan Singh MD Reason for Referral: Evaluation/Treatment Medical History Pertinent Medical History: DM, GERD Additional Medical History Allan's Esophagus, DDD, Chronic Back Pain, Skin CA Current History Pt was sent to ED by [facility] due to c/o SOB and bilateral foot edema. Reviewed History: Yes Social History Home: Single Level Current Living Status: Alone Entry Into Home: Level Entry Prior/Core FIM Prior Level of Function Therapy Code Descriptions/Definitions Functional [place] Measure: 0=Not Assessed/NA 4=Minimal Assistance 1=Total Assistance 5=Supervision or Setup 2=Maximal Assistance 6=Modified [place] 3=Moderate Assistance 7=Complete [place] Therapy Quality Codes: 6 Independent with activity with or without an assistive device 5 Patient requires set up or clean up by helper. Patient completes activity by themselves 4 Supervision or touching assist (CGA). [place] provide cues , steadying assist 3 The helper provides less than half the effort to complete the activity 2 The helper provides more than half the effort to complete the activity 1 Dependent. The helper does all the effort to complete an activity 7 Patient refused to complete or attempt activity 9 The patient did not perform the activity before the current illness or injury 88 Not attempted due to Medical conditions or safety concerns Functional Abilities and Goals: Independent: Patient completed the activities by him/herself, with or without an assistive device, with no assistance from a helper. Needed Some Help: Patient needed partial assistance from another person to complete activities. Dependent: A helper completed the activities for the patient. Unknown: Not Applicable: Bed Mobility: 7 Transfers (B,C,W/C) (FIM): 7 Gait: 7 Indoor Mobility (Ambulation): Independent Stairs: Not [place] Prior Devices Use: None PT Evaluation-Current Subjective Pt was up in recliner with family in room and agreed to PT. Pain Numeric Pain Scale: 7 Location Body Site: Back Pt/Family Goals Pt to return home with support. Objective Patient Orientation: Person, Place, Situation, Normal For Age Attachments: Oxygen (2L) ROM/Strength ROM Lower Extremities WNL Strength Lower Extremities Gross motor LLE (3+/5) RLE (4/5) Integumentary/Posture Bowel Incontinence: No Bladder Incontinence: No Sensory Vision: Wears Glasses Hearing: Functional Sensation Right Lower Extremit: Intact Sensation Left Lower Extremity: Intact Transfers Therapy Code Descriptions/Definitions Functional [place] Measure: 0=Not Assessed/NA 4=Minimal Assistance 1=Total Assistance 5=Supervision or Setup 2=Maximal Assistance 6=Modified [place] 3=Moderate Assistance 7=Complete [place] Transfers (B, C, W/C) (FIM): 4 Sit to/from Stand: 4 Gait Mode of Locomotion: Walk Anticipated Mode of Locomotion: Walk Gait (FIM): 4 Distance (FIM): 3=150 ft Distance: 200' Gait Level of Assist: 4 Gait Persons Needed: 1 Gait Assistive Device: FWW Comments/Gait Description Pt amb with small NICOLE Balance Sitting Static: Good Sitting Dynamic: Good Standing Static: Good Standing Dynamic: Good Assessment/Needs Pt was able to perform sit<>stand transfer to FWW with CGA. Pt able to amb with FWW and CGA with O2 200'. Pt reported pain in back, chest, and BLE. Pt states that her legs were feeling like they would give out toward end of amb. Pt returned to recliner and nurse is in room to give her medication. PT educated pt on energy conservation with use of FWW since pt did not use an AD previous. Rehab Potential: Fair Post Rehab Potential-Barriers: Co-morbidities, lung mass PT Short Term Goals Short Term Goals Time Frame: May 17, 2018 Transfers (B,C,W/C) (FIM): 6 Gait (FIM): 6 Distance (FIM): 3=150 ft Gait Distance Comment: 400' Gait Level of Assist: 5 Gait Assistive Device: FWW PT Plan Problem List Problem List: Activity Tolerance, Functional Strength, Safety, Balance, Gait, Transfer, Bed Mobility, ROM Treatment/Plan Treatment Plan: Continue Plan of Care Treatment Plan: Bed Mobility, Education, Functional Activity Finesse, Functional Strength, Gait, Safety, Therapeutic Exercise, Transfers Treatment Duration: May 17, 2018 Frequency: 6 times per week Estimated Hrs Per Day: .25 hour per day Patient and/or Family Agrees t: Yes Safety Risks/Education Patient Education: Gait Training, Transfer Techniques, Correct Positioning, Safety Issues Teaching Recipient: Patient, Family Teaching Methods: Demonstration, Discussion Discharge Recommendations Therapy D/C Recommendations: Home w/ Family Support Equpiment Recommendations-D/C: Front Wheeled Walker Time/GCodes Time In: 1347 Time Out: 1401 Total Billed Treatment Time: 14 Total Billed Treatment 1 visit EVlowC 14 min EDUARD CARRANZA PT May 10, 2018 14:10
--- NOTE | 2018-05-10 15:17 | NUR ---
Initial visit: pt said that on Wednesday, May 07 the on-call piercer facilitated completion of DPOA and Living Will. Pt states that she found out extent of her illness Wednesday. She tearful shared that she is still grasping the situation, while also grieving for her daughter and family in anticipation of their loss. Pt is also anticipating her own grief through declining health.
--- NOTE | 2018-05-10 15:50 | Diagnostic Imaging Report ---
INDICATION: Abdominal distention. TECHNIQUE: Abdominal series performed in the routine fashion with a frontal chest radiograph and supine and upright abdominal films. FINDINGS: View of the chest demonstrates elevation of the right hemidiaphragm as well as patchy infiltrates throughout both lungs. Abdominal bowel gas pattern shows no evidence of bowel obstruction or ileus. There is a paucity of bowel loops in the right upper quadrant due to the patient's markedly large liver. IMPRESSION: No sign of free air or bowel obstruction. Paucity of bowel loops in the right upper abdomen due to the patient's markedly enlarged liver. Elevation of the right hemidiaphragm with patchy infiltrates in both lungs. Dictated by: Dictated on workstation # [id number]
[2018-05-10 16:09] VITALS: BP 164/89
[2018-05-10 20:11] VITALS: BP 163/78
[2018-05-10] MEDS: inSUlin DETERMIR 1 UNIT/0.01 ML (LEVEMIR) CHARGE PER UNIT SQ SCH (20:23)
[2018-05-10] MEDS: MELATONIN 3 MG TABLET PO PRN (21:51)
[2018-05-11] VITALS (22 sets, daily range): BP systolic 102–190; BP diastolic 57–113
[2018-05-11] MEDS: ACETAMINOPHEN 500 MG TAB (TYLENOL) PO PRN (00:05)
[2018-05-11] MEDS: NS IV 500 ML 500 ML IV SCH (03:26)
[2018-05-11] MEDS: KETOROLAC 15 MG/ML VIAL IVP PRN ×2 (03:29→13:00)
[2018-05-11] MEDS: PIPERACILLIN SODIUM/TAZOBACTAM 4.5 GM in NS (IVPB) 100 ML IV SCH ×3 (05:23→22:30)
[2018-05-11] MEDS: ALPRAZolam 0.25 MG (XANAX) TAB PO PRN ×2 (05:23→17:26)
[2018-05-11] MEDS ORDERED: DEXTROSE 50% 50 ML (IMS) SYR ONE (05:29)
[2018-05-11] MEDS: inSUlin ASPART (NovoLOG) 1 UNIT/0.01 ML (CHARGE PER UNIT) SC SCH ×4 (05:39→21:10)
[2018-05-11 05:49] LABS: HEMOGLOBIN 11.9 G/DL (11.5-16.0); MEAN PLATELET VOLUME 9.2 FL (7.4-10.4); WHITE BLOOD COUNT 25.4 10^3/uL (4.3-11.0)
[2018-05-11] MEDS ORDERED: GLUCAGON EMERGENCY 1 MG/KIT IM PRN (06:00)
[2018-05-11] MEDS ORDERED: DEXTROSE 50% 50 ML (IMS) SYR IV PRN (06:00)
[2018-05-11] MEDS ORDERED: DEXTROSE 10% IV SOLUTION 1,000 ML IV PRN (06:00)
[2018-05-11 06:27] LABS: BUN/CREATININE RATIO 21; CALCIUM 8.4 MG/DL (8.5-10.1); CARBON DIOXIDE 28 MMOL/L (21-32); CHLORIDE 94 MMOL/L (98-107); CREATININE SERUM 0.47 MG/DL (0.60-1.30); GFR ESTIMATED > 60; POTASSIUM 2.7 MMOL/L (3.6-5.0); SODIUM 134 MMOL/L (135-145)
[2018-05-11 06:38] LABS: GLUCOSE 47 MG/DL (70-105)
[2018-05-11] MEDS ORDERED: proPOfol 200 MG/20 ML (DIPRIVAN) VIAL IV ONE (06:44)
[2018-05-11] MEDS ORDERED: fentaNYL INJECTION 100 MCG/2 ML AMP ONE (06:44)
[2018-05-11] MEDS ORDERED: MIDAZOLAM 2 MG/2 ML (VERSED) VIAL ONE ×2 (06:45→07:59)
[2018-05-11] MEDS ORDERED: ONDANSETRON 4 MG/2 ML (SDV) Z0FRAN ONE (06:45)
[2018-05-11] MEDS ORDERED: SUCCINYLCHOLINE INJ 100 MG/5 ML SYR ONE (06:55)
[2018-05-11] MEDS ORDERED: ROCURONIUM 10 MG/ML 5 ML SYRINGE IV ONE (06:58)
--- NOTE | 2018-05-11 07:04 | NUR ---
to [facility] w/c for bronchoscopy at this time.
[2018-05-11] MEDS ORDERED: GLYCOPYRROLATE 0.2 MG/ML (ROBINUL) 2 ML VIAL ONE (07:49)
[2018-05-11] MEDS ORDERED: NEOSTIGMINE 1 MG/ML 5 ML SYRINGE ONE (07:49)
[2018-05-11] MEDS ORDERED: EPINEPHrine INJECTION 1 MG/ML AMP IJ ONE (08:11)
[2018-05-11] MEDS ORDERED: 0.9% SODIUM CHLORIDE PF INJ 10 ML VIAL IV ONE (08:11)
[2018-05-11] MEDS ORDERED: LIDOCAINE PF 1% 2 ML AMP IJ ONE (08:11)
[2018-05-11] MEDS ORDERED: PROPOFOL INJECTION 50 ML IV ONE (08:22)
--- NOTE | 2018-05-11 08:27 | Pulmonary Progress Note ---
Subjective Time Seen by a Provider: 08:24 Subjective/Events-last exam No complications noted. Sepsis Event Evaluation Height, Weight, BMI Height: 5'6.00" Weight: 135lbs. 9.0oz. 61.573352hg; 21.9 BMI Method:Stated Exam Exam Vital Signs Date Time Temp Pulse Resp B/P (MAP) Pulse Ox O2 Delivery O2 Flow Rate FiO2 05/11/18 00:00 97.2 84 20 158/70 (99) 93 Nasal Cannula 2.00 05/10/18 20:11 97.8 61 18 163/78 (106) 95 Nasal Cannula 2.00 05/10/18 19:45 95 Nasal Cannula 2.00 100 05/10/18 16:09 97.6 79 20 164/89 (114) 94 Nasal Cannula 2.00 05/10/18 12:00 98.4 82 22 170/78 (108) 95 Nasal Cannula 2.00 05/10/18 08:25 92 Nasal Cannula 2.00 100 I & O 05/11/18 07:00 Intake Total 3110 ml Balance 3110 ml Height & Weight Height: 5'6.00" Weight: 135lbs. 9.0oz. 61.524829mt; 21.9 BMI Method:Stated General Appearance: No Apparent Distress, WD/WN, Chronically ill HEENT: PERRL/EOMI, Normal ENT Inspection, Pharynx Normal Neck: Full Range of Motion, Normal Inspection, Non Tender, Supple, Carotid Bruit Respiratory: Chest Non Tender, No Accessory Muscle Use, No Respiratory Distress , Crackles, Decreased Breath Sounds Cardiovascular: Regular Rate, Rhythm, No Edema, No Gallop, No JVD, No Murmur, Normal Peripheral Pulses Capillary Refill: Less Than 3 Seconds Extremity: Normal Capillary Refill, Normal Inspection, Normal Range of Motion, Non Tender, No Calf Tenderness, No Pedal Edema Neurologic/Psychiatric: Alert, Oriented x3, No Motor/Sensory Deficits, Normal Mood/Affect Skin: Normal Color, Warm/Dry Lymphatic: No Adenopathy Results Lab Laboratory Tests 05/09/18 09:10 05/10/18 06:20 05/11/18 05:30 Assessment/Plan Assessment/Plan Probable metastatic lung cancer with post obstructive pneumonia -Will plan for bronchoscopy with EBUS today -Pt is not currently on any Abx and appears to be stable. - No fever, leukocytosis continues to improve without Abx -Will see what bronchoscopy cultures out. Tobacco use -Education COPD -Oxygen -ODETTE Wiggins DO May 11, 2018 08:27
[2018-05-11] MEDS ORDERED: morphine INJ 10 MG/ML 1ML (SYR OR VIAL) IVP ONE (08:30)
--- NOTE | 2018-05-11 08:38 | Pulmonary Procedures ---
Pulmonary Procedures Date of Procedure Date of Service: May 11, 2018 Bronch Bronchoscopy with fluoroscopy, bronchial washes, right lung transbronchial brush x2, BAL, transbronchial forcep bx to right lung. EBUS with bx of station 7 lymph nodes using US guidance. Preop DX: mediastinal lymphadenopathy lung mass PostOP DX: same plus endobronchial mass at right bronchus intermedius causing near complete bronchial obstruction. (pictures taken Complications: None Pt was sedated per anesthesia. Bronchoscopy was advanced through the ET tube. Endobronchial mass at right bronchus intermedius causing near complete bronchial obstruction. (pictures taken). Bronchoscopy with fluoroscopy, right lung bronchial washes, right lung transbronchial brush x2, BAL, transbronchial forcep bx to right lung. EBUS with bx of station 7 lymph nodes using US guidance. Pt tolerated procedure well. No complications noted. ODETTE FERNANDEZ DO May 11, 2018 08:38
[2018-05-11] MEDS: POLYETHYLENE GLYCOL 17 GM (MIRALAX) PACK PO SCH ×2 (09:03→21:10)
[2018-05-11] MEDS: meTOproloL SUCCINATE 50 MG (TOPROL XL) TAB PO SCH (09:03)
[2018-05-11] MEDS: amLODIPine 5 MG (NORVASC) TAB PO SCH (09:03)
[2018-05-11] MEDS ORDERED: NS IV 1000 ML 1,000 ML ONE (09:05)
[2018-05-11] MEDS: POTASSIUM CL 10MEQ/50ML IVPB 50 ML IV SCH ×4 (09:12→10:58)
[2018-05-11] MEDS: DEXMEDETOMIDINE INJECTION 200 MCG in NS (IVPB) 50 ML IV SCH (09:24)
--- NOTE | 2018-05-11 09:26 | Diagnostic Imaging Report ---
INDICATION: Post bronchoscopy. Frontal chest obtained at 8:40 a.m. and compared 05/06/2018. FINDINGS: ET tube tip overlies mid trachea. There is cardiomegaly. There is a moderate-sized right pleural effusion. There are worsening bilateral infiltrates compared to the previous study which are predominantly interstitial in nature with some patchy alveolar components. IMPRESSION: Worsening bilateral infiltrates with moderate-sized right pleural effusion. ET tube tip overlying mid to lower trachea. No pneumothorax following bronchoscopy. Dictated by: Dictated on workstation # [id number]
--- NOTE | 2018-05-11 10:08 | Physical Therapy Progress Note ---
Therapy Progress Note Patient transferred to ICU, will await new orders to continue PT after decline in medical status. AKBAR CHANDRA PT May 11, 2018 10:08
--- NOTE | 2018-05-11 10:17 | Diagnostic Imaging Report ---
INDICATION: Fluoroscopy for bronchoscopy. FINDINGS: Fluoroscopy was provided for Dr. Anaya during a bronchoscopy. 5 seconds of fluoroscopy was utilized. IMPRESSION: Fluoroscopy for bronchoscopy. Dictated by: Dictated on workstation # [id number]
--- NOTE | 2018-05-11 10:49 | NUR ---
pt extubated and placed on vapotherm 20lLiters and 75% fio2 pt tolerating well spo2 93%
[2018-05-11] MEDS: RT-ALBUTEROL SULF 2.5 MG/3 ML PRE-MIX VIAL INH SCH ×2 (11:04→19:27)
[2018-05-11] MEDS ORDERED: methylPREDNISolone 125 MG (Solu-MEDROL) VIAL IVP ONE (11:30)
--- NOTE | 2018-05-11 12:24 | Progress Note (SOAP) ---
Subjective Subjective/Events-last exam Bronchoscopy with US and biopsies this am. Remains intubated postprocedure due to bleeding and swelling, plan for extubation tonight or in the am. Yesterday afternoon had worsening abdominal distension without pain, continued to have flatus and small bowel movements. Abd xray without evidence of obstruction. Review of Systems Date Seen by Provider: May 11, 2018 Time Seen by Provider: 09:45 Objective Exam Last Set of Vital Signs Vital Signs Date Time Temp Pulse Resp B/P (MAP) Pulse Ox O2 Delivery O2 Flow Rate FiO2 05/11/18 11:00 72 15 125/67 (86) 95 Vapotherm 75.00 20.00 05/11/18 10:31 60 05/11/18 08:50 96.9 Capillary Refill : Less Than 3 Seconds I&O Intake and Output 05/11/18 00:00 Intake Total 3270 ml Balance 3270 ml Intake Oral 3170 ml IV Total 100 ml # Voids 8 # Bowel Movements 1 General: Other (intubated, sedated) Lungs: Other (decreased air movement) Abdomen: Normal Bowel Sounds, Other (moderate distension, hepatomegaly) Results/Procedures Lab Laboratory Tests 05/10/18 16:12: Glucometer 259H 05/10/18 20:17: Glucometer 352H 05/11/18 05:28: Glucometer 53*L 05/11/18 05:30: White Blood Count 25.4H, Red Blood Count 3.96L, Hemoglobin 11.9, Hematocrit 36, Mean Corpuscular Volume 91, Mean Corpuscular Hemoglobin 30, Mean Corpuscular Hemoglobin Concent 33, Red Cell Distribution Width 18.0H, Platelet Count 557H, Mean Platelet Volume 9.2, Sodium Level 134L, Potassium Level 2.7L, Chloride Level 94L, Carbon Dioxide Level 28, Anion Gap 12, Blood Urea Nitrogen 10, Creatinine 0.47L, Estimat Glomerular Filtration Rate > 60, BUN/Creatinine Ratio 21, Glucose Level 47*L, Calcium Level 8.4L 05/11/18 06:02: Glucometer 156H 05/11/18 09:16: Glucometer 93 05/11/18 11:30: Glucometer 71 Microbiology 05/06/18 Blood Culture - Preliminary, Resulted No growth 05/09/18 MRSA Screen - Final, Complete MRSA not isolated 05/06/18 Urine Culture - Final, Complete See Report Assessment/Plan Assessment/Plan (1) Lung mass Status: Acute Assessment & Plan: Suspected malignancy with CT findings concerning for malignancy as well as mediastinal lymphadenopathy, multiple small liver lesions , enlarged adrenals and possible sigmoid stricture. Dr. Anaya consulted, appreciate recommendations, likely bonch with EBUS on Wednesday. / Bronch done, await biopsies (2) Hypertension Status: Chronic Assessment & Plan: No anti-hypertensives noted on home med list, medications started inpatient. 05/11 increase amlodipine to 10 mg daily. Qualifiers: Qualified Codes: I10 - Essential (primary) hypertension (3) Diabetes mellitus Status: Chronic Assessment & Plan: Hold metformin due to contrast. Levemir started. SSI. Qualifiers: Qualified Codes: E11.65 - Type 2 diabetes mellitus with hyperglycemia (4) Pneumonia Status: Acute Assessment & Plan: Initially suspected on admission, but given findings on CT, concern more for malignancy, antibiotics were d/c'd and she remains afebrile and with stable leukocytosis. Will hold antibiotics for now and obtain cultures with bronchoscopy per Dr. Anaya. 05/[address] Anaya yesterday pm 05/11 continue abx, remains intubated postprocedure per Dr. Anaya. Qualifiers: Qualified Codes: J18.1 - Lobar pneumonia, unspecified organism (5) Chest pain Status: Acute Assessment & Plan: Suspect secondary to lung mass, Cardiology consulted, appreciate recommendations. Echocardiogram with normal EF and no regional wall abnormalities on 05/08. 05/09 Increase hydrocodone to 7.5/325 which she was on in past for back pain, continue fentanyl for breakthrough and will adjust oral as needed. 05/10 switch to oxycodone, try Toradol as well. (6) Hypoxia Status: Acute Assessment & Plan: Requiring 2 lpm supplemental oxygen, not on O2 previously. Suspect due to lung malignancy vs pneumonia as noted above. Will wean as tolerated, may need home O2. 05/11 currently mechanically ventilated s/p bronch, management per Dr. Anaya (7) Abdominal distension Status: Acute Assessment & Plan: Monitor closely, note of sigmoid stricture on CT scan. Currently has bowel sounds and flatus, but will have low threshold for NG placement. (8) DVT prophylaxis Status: Acute Assessment & Plan: Enoxaparin Clinical Quality Measures DVT/VTE Risk/Contraindication: Risk Factor Score Per Nursin RFS Level Per Nursing on Admit: 4+=Very High RUDY MARTINEZ MD May 11, 2018 12:24
--- NOTE | 2018-05-11 13:29 | Pulmonary Progress Note ---
Subjective Time Seen by a Provider: 11:00 Subjective/Events-last exam PT on vent from procedure Sepsis Event Evaluation Height, Weight, BMI Height: 5'6.00" Weight: 135lbs. 9.0oz. 61.435717wb; 21.9 BMI Method:Stated Exam Exam Vital Signs Date Time Temp Pulse Resp B/P (MAP) Pulse Ox O2 Delivery O2 Flow Rate FiO2 05/11/18 12:00 Vapotherm 20.00 75 05/11/18 11:00 72 15 125/67 (86) 95 Vapotherm 75.00 20.00 05/11/18 10:50 Vapotherm 75.00 20.00 05/11/18 10:31 73 18 99 60 05/11/18 10:00 70 21 105/61 (76) 98 Vapotherm 75.00 20.00 05/11/18 09:45 68 21 104/60 (75) 97 Vapotherm 75.00 20.00 05/11/18 09:30 69 24 105/59 (74) 97 Vapotherm 75.00 20.00 05/11/18 09:15 69 23 102/57 (72) 98 Vapotherm 75.00 20.00 05/11/18 09:00 73 05/11/18 08:50 96.9 78 14 113/82 (92) 97 Mechanical Ventilator 60.00 05/11/18 08:50 Mechanical Ventilator 60 05/11/18 08:22 79 19 94 60 05/11/18 07:30 16 05/11/18 00:00 97.2 84 20 158/70 (99) 93 Nasal Cannula 2.00 05/10/18 20:11 97.8 61 18 163/78 (106) 95 Nasal Cannula 2.00 05/10/18 19:45 95 Nasal Cannula 2.00 100 05/10/18 16:09 97.6 79 20 164/89 (114) 94 Nasal Cannula 2.00 I & O 05/11/18 07:00 Intake Total 3110 ml Balance 3110 ml Height & Weight Height: 5'6.00" Weight: 135lbs. 9.0oz. 61.313964zl; 21.9 BMI Method:Stated General Appearance: No Apparent Distress, WD/WN, Chronically ill, Other ( sedated on vent) HEENT: PERRL/EOMI, Normal ENT Inspection, Pharynx Normal Neck: Full Range of Motion, Normal Inspection, Non Tender, Supple, Carotid Bruit Respiratory: Chest Non Tender, No Accessory Muscle Use, No Respiratory Distress , Crackles, Decreased Breath Sounds Cardiovascular: Regular Rate, Rhythm, No Edema, No Gallop, No JVD, No Murmur, Normal Peripheral Pulses Capillary Refill: Less Than 3 Seconds Extremity: Normal Capillary Refill, Normal Inspection, Normal Range of Motion, Non Tender, No Calf Tenderness, No Pedal Edema Neurologic/Psychiatric: Alert, Oriented x3, No Motor/Sensory Deficits, Normal Mood/Affect Skin: Normal Color, Warm/Dry Lymphatic: No Adenopathy Results Lab Laboratory Tests 05/10/18 06:20 05/11/18 05:30 Assessment/Plan Assessment/Plan Acute respiratory failure -During bronchoscopy with EBUS pt was hypoxic with Sp02 in the in the 80's. She was also oozing blood a significant amount from bx areas. We elected to keep pt on ventilator and watch her in the ICU. Probable metastatic lung cancer with post obstructive pneumonia -Will plan for bronchoscopy with EBUS today Tobacco use -Education COPD -Oxygen -SVNs Update: pt appeared to be doing well on vent so will attempt extubation. Critical Care: Critically Ill Patient Time spent with patient (mins): 60 ODETTE FERNANDEZ DO May 11, 2018 13:29
[2018-05-11] MEDS ORDERED: NS 100 ML (IVPB) BAG IV ONE (15:45)
[2018-05-11] MEDS ORDERED: RECEIVED CONTRAST (Hold Metformin) IV SCH (15:45)
[2018-05-11] MEDS ORDERED: IOHEXOL 350 MG/ML 100 ML (OMNIPAQUE 350) VIAL IV ONE (15:45)
--- NOTE | 2018-05-11 16:17 | Diagnostic Imaging Report ---
PROCEDURE: CT head with and without contrast. TECHNIQUE: Multiple contiguous axial images were obtained through the brain before and after the administration of intravenous contrast. INDICATION: Migraine-type head pain with loss of balance. This patient has a lung mass. COMPARISON: No priors. FINDINGS: No mass, mass effect, or abnormal enhancement following contrast was seen. There is borderline mild cerebral cortical atrophy without ludy hydrocephalus. The basilar cisterns are patent and the sulci non-effaced. There is normal enhancement of the major dural venous sinuses. No focal or generalized cerebral edema. No suspicious lytic or sclerotic calvarial lesion. IMPRESSION: Unremarkable pre and post contrast CT head. Dictated by: Dictated on workstation # [id number]
[2018-05-11] MEDS: methylPREDNISolone 40 MG/ML (Solu-MEDROL) VIAL IV SCH ×2 (17:26→17:38)
[2018-05-11] MEDS ORDERED: morphine INJ 4 MG/ML 1 ML (VIAL/SYRINGE) ONE (17:45)
[2018-05-11] MEDS: morphine INJ 4 MG/ML 1 ML (VIAL/SYRINGE) IVP PRN (17:50)
--- NOTE | 2018-05-11 19:02 | CONSULTATION REPORT ---
DATE OF SERVICE: 05/11/2018 REFERRING PHYSICIAN: Gunnar Anaya DO. PRIMARY CARE PHYSICIAN: Homero Ho MD. The patient is admitted to ICU bed 5. HISTORY: This is a 63-year-old female admitted to the hospital with 2-week history of worsening shortness of breath and chest discomfort. She came to the emergency room and was evaluated. Workup showed possible pneumonia in the right lower lobe. CT scan showed evidence of postobstructive atelectasis in the right middle and lower lobe as well as right hilar and mediastinal lymphadenopathy. Cardiac evaluation showed no cardiac etiology for the chest pain. She had CT scans of the abdomen and pelvis, which showed numerous liver lesions and bilateral adrenal lesions, which are suspicious for metastatic disease. She underwent bronchoscopy with biopsy of intrabronchial lesions. An oncology consultation was requested for concurrent management. The patient was intubated after the procedure because of hypoxia, but she is extubated at this time. She is awake and alert and able to answer questions. Her daughter who is a nurse working at [employer], was present for the interview also. She complained of not feeling well for the last few months with recurrent respiratory symptoms. She gives history of one episode of hemoptysis within the last few weeks. She has had a right-sided chest discomfort for the last 2 or 3 months, but did not seek medical attention for this. She also complained of 10-pound weight loss over the last six months which was not intentional. Complained of loss of balance with a tendency to stumble towards her left side. She complained of slight left-sided weakness since the last two weeks. She has chronic migraine type headaches which is different than her current headaches. PAST MEDICAL HISTORY: Significant for diabetes mellitus type 2, diagnosed in 2002 and has been on oral agents. She gives a history of hypercholesterolemia and is on treatment. She has history of COPD and has been using bronchodilator intermittently.She had a basal cell carcinoma removed from the right side of her nose with skin grafting in the past. 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 Her last EGD was in 2017, which was verbally reported as stable. PAST SURGICAL HISTORY: Includes cholecystectomy in 2013, hysterectomy in the distant past and bronchoscopy with EBUS and biopsy today. SOCIAL HISTORY: The patient is and lives by herself in [place], [place]. Her daughter lives close by who is her only close relative in [place]. She has two sons from a previous marriage both of whom are adults and live in [place], [place]. The patient does not have any significant contacts with them. She previously worked at [employer] for three to four years and prior to that worked at [email or web address] in [place] for over 8 years. She retired in 2017. She has been smoking since the age of 21, averaging a pack a day. More recently, she was smoking half pack of cigarettes a day. She denied any significant alcohol or other recreational drug use. FAMILY HISTORY: Significant for paternal aunt with a history of breast cancer at 32 years. Maternal aunt with a history of lung cancer. No other malignancies in the family that the patient knows of. PHYSICAL EXAMINATION: GENERAL: Today showed an elderly female, well developed and nourished, awake and oriented, in no acute distress. VITAL SIGNS: Her temperature was 99.1, pulse rate of 96, respirations 26, blood pressure 155/84, and pulse oximetry showed oxygen saturation of 91% by Vapotherm. HEENT: Normocephalic, extraocular muscles intact, conjunctivae pink, oral mucosa is moist. NECK: Supple, with no JVD. No cervical, supraclavicular or axillary lymphadenopathy palpable. CHEST: Symmetrical. LUNGS: With diminished breath sounds in the right base. Rest of the lung santillan were fairly clear to auscultation without wheezes or rales. CARDIOVASCULAR: Regular in rate and rhythm. No murmurs or gallops heard. ABDOMEN: Slightly distended, soft, nontender with no hepatosplenomegaly or other masses palpable. EXTREMITIES: Showed trace edema around the ankles. NEUROLOGIC: Showed motor strength of 4/5 on the left upper extremity. Rest of the extremities with 5/5 strength. LABORATORY DATA: CBC done today showed WBC of 25.4, hemoglobin 11.9, and platelet count of 557,000. BMP today showed a sodium level of 134 and potassium 2.7. BUN was 10 and creatinine 0.47 with GFR more than 60 mL per minute. Fasting glucose was 47. CMP done on 05/08/2018 showed AST elevated at 105, ALT elevated at 75, alkaline phosphatase elevated at 976 and albumin level of 2.8. Total bilirubin was 0.9. Chest x-ray done on 05/06/2018 at the time of admission showed a new infiltrate in the right lung base, likely pneumonia. CT scan of the chest, abdomen and pelvis done later the same day showed diffuse adenopathy throughout the mediastinum and right hilum with a constriction of the right main stem bronchus. Diffuse airspace opacities in the right lung which could represent pneumonia. Prominent density in the right aspect of anterior chest, which has not changed from previous scans from 2015. CT scan of the abdomen and pelvis showed hepatomegaly with diffuse suspected metastatic lesions throughout the liver. Enlarged adrenal glands bilaterally, probably related to metastatic process as well. Stricture like appearance to the sigmoid colon, which could be related to peristalsis or a true stricture. The patient underwent bronchoscopy with biopsies today with the pathology results pending. IMPRESSION: 1. Right lung mass versus atelectasis with significant right hilar and mediastinal lymphadenopathy causing postobstructive atelectasis or pneumonia. 2. Status post bronchoscopy with biopsy of bronchial lesions with pathology report pending. 3. Extensive lesions in the liver and bilateral adrenal glands suspicious for metastatic disease. 4. Extensive tobacco use history. 5. Diabetes mellitus, type 2. RECOMMENDATIONS: 1. I will obtain a CT scan of the head today to rule out any intracranial lesion, especially with her history of loss of balance and left-sided weakness. 2. Complete staging studies with a whole body bone scan within the next few days. 3. Once the pathology report is available, I will discuss this with the patient and her daughter. We will discuss the prognosis and treatment options at that time. 4. Continue management of other medical problems as you are doing. 5. I will follow the patient with you. Job ID: [id number] DocumentID: [id number] Dictated Date: 05/11/2018 15:09:42 Lead Producer Date: 05/11/2018 19:02:11 Dictated By: ADIEL PARRA MD MTDNewton
--- NOTE | 2018-05-11 19:50 | NUR ---
CALLED [facility] AND INFORMED THEM THAT PATIENT WAS VERY ANXIOUS WITH RESP OF 30 AND C/O SOA WITH BLOOD PRESSURE OF 190/90 AND HR OF 118. ALSO INFORMED THEM THAT PATIENT'S BREATH SOUNDS WERE NOW COARSE AND THAT SHE WAS NOW RECEIVING A BREATHING TX. RECEIVED ORDERS TO D/C IV FLUIDS, ADMINISTER LASIX, ATIVAN AND XANAX AND TO PLACE MCNAIR. SEE EMAR FOR DETAILS. DISCUSSED MCNAIR WITH PATIENT AND EXPLAINED THAT IT WOULD ASSIST US IN OBTAINING ACCURATE INTAKE AND OUTPUT. PATIENT VERBALIZES UNDERSTANDING AND AGREES TO ALLOW MCNAIR PLACEMENT. WILL CONTINUE TO MONITOR.
[2018-05-11] MEDS ORDERED: ALPRAZolam 0.25 MG (XANAX) TAB PO NR (20:32)
[2018-05-11] MEDS ORDERED: LORazepam INJ 2 MG/ML (ATIVAN) VIAL IV NR (20:32)
[2018-05-11] MEDS ORDERED: FUROSEMIDE 40 MG/4 ML INJ (LASIX) IV NR (20:32)
[2018-05-11] MEDS ORDERED: NS IV 1000 ML 1,000 ML IV SCH (21:00)
[2018-05-11] MEDS ORDERED: NS IV 500 ML 500 ML IV ONE (21:00)
[2018-05-11] MEDS: inSUlin DETERMIR 1 UNIT/0.01 ML (LEVEMIR) CHARGE PER UNIT SQ SCH (21:21)
[2018-05-12] VITALS (29 sets, daily range): BP systolic 96–181; BP diastolic 59–121
[2018-05-12] MEDS: methylPREDNISolone 40 MG/ML (Solu-MEDROL) VIAL IV SCH ×4 (00:43→18:55)
[2018-05-12] MEDS: RT-ALBUTEROL SULF 2.5 MG/3 ML PRE-MIX VIAL INH PRN ×3 (01:06→07:03)
[2018-05-12] MEDS: KETOROLAC 15 MG/ML VIAL IVP PRN (01:28)
[2018-05-12] MEDS: morphine INJ 4 MG/ML 1 ML (VIAL/SYRINGE) IVP PRN ×2 (02:42→06:57)
[2018-05-12] MEDS: ALPRAZolam 0.25 MG (XANAX) TAB PO PRN (02:42)
--- NOTE | 2018-05-12 03:50 | NUR ---
CALLED [facility]-ICU AND INFORMED THEM THAT PATIENT HAD SLEPT WELL UNTIL 0100 AND THAT SHE IS CURRENTLY SOA AND VERY ANXIOUS AGAIN. ALSO INFORMED THEM THAT PATIENT HAD 1100CC URINE OUT SINCE 1900 AND THAT PATIENT STILL HAS COARSE BREATH SOUNDS. RECEIVED ORDER FOR ATIVAN AND LASIX. SEE EMAR FOR DETAILS. [id number]. FERNANDEZ TO FLOOR TO ASSESS PATIENT. RECEIVED ORDERS FOR NG TUBE PLACEMENT AND BIPAP. 714-CALLED PATIENT'S DAUGHTER, LLOYD, AND INFORMED HER THAT PATIENT IS CURRENTLY ON BIPAP AND THAT NG TUBE WAS PLACED.
[2018-05-12] MEDS ORDERED: LORazepam INJ 2 MG/ML (ATIVAN) VIAL ONE (03:59)
[2018-05-12] MEDS ORDERED: FUROSEMIDE 40 MG/4 ML INJ (LASIX) ONE (03:59)
[2018-05-12 04:04] LABS: BASOPHILS % (AUTO) 0 % (0-10); EOSINOPHILS % (AUTO) 0 % (0-10); HEMATOCRIT 35 % (35-52); HEMOGLOBIN 11.6 G/DL (11.5-16.0); LYMPHOCYTES # (AUTO) 1.1 X 10^3 (1.0-4.0); LYMPHOCYTES % (AUTO) 4 % (12-44); MEAN CORPUSCULAR HEMOGLOBIN 30 PG (25-34); MEAN CORPUSCULAR HGB CONC 33 G/DL (32-36); MEAN CORPUSCULAR VOLUME 93 FL (80-99); MEAN PLATELET VOLUME 9.4 FL (7.4-10.4); MONOCYTES # (AUTO) 1.5 X 10^3 (0.0-1.0); MONOCYTES % (AUTO) 6 % (0-12); NEUTROPHILS # (AUTO) 22.1 X 10^3 (1.8-7.8); NEUTROPHILS % (AUTO) 90 % (42-75); PLATELET COUNT 569 10^3/uL (130-400); RED CELL DISTRIBUTION WIDTH 18.1 % (10.0-14.5); WHITE BLOOD COUNT 24.7 10^3/uL (4.3-11.0)
[2018-05-12] MEDS ORDERED: FUROSEMIDE 40 MG/4 ML INJ (LASIX) IV ONE (04:30)
[2018-05-12] MEDS ORDERED: LORazepam INJ 2 MG/ML (ATIVAN) VIAL IV ONE (04:30)
[2018-05-12 05:02] LABS: ANISOCYTOSIS SLIGHT; BAND NEUTROPHILS 5 %; BASOPHILS % (MANUAL) 0 %; EOSINOPHILS % (MANUAL) 0 %; HYPOCHROMASIA SLIGHT; LYMPHOCYTES % (MANUAL) 4 %; MONOCYTES % (MANUAL) 3 %; NEUTROPHILS % (MANUAL) 86 %; POLYCHROMASIA SLIGHT; REACTIVE LYMPHOCYTES 2 %; TARGET CELLS SLIGHT
[2018-05-12 05:05] LABS: ALANINE AMINOTRANSFERASE 80 U/L (0-55); ALBUMIN 2.7 GM/DL (3.2-4.5); ALKALINE PHOSPHATASE 803 U/L (40-136); BILIRUBIN,TOTAL 1.7 MG/DL (0.1-1.0); BUN/CREATININE RATIO 22; CALCIUM 7.9 MG/DL (8.5-10.1); CARBON DIOXIDE 26 MMOL/L (21-32); CHLORIDE 93 MMOL/L (98-107); CREATININE SERUM 0.54 MG/DL (0.60-1.30); GFR ESTIMATED > 60; GLUCOSE 213 MG/DL (70-105); MAGNESIUM 1.6 MG/DL (1.8-2.4); POTASSIUM 3.3 MMOL/L (3.6-5.0); SODIUM 132 MMOL/L (135-145); TOTAL PROTEIN 5.4 GM/DL (6.4-8.2)
--- NOTE | 2018-05-12 05:26 | Pulmonary Progress Note ---
Subjective Time Seen by a Provider: 06:42 Subjective/Events-last exam PT is currently on Vapotherm 90% and has increased WOB Sepsis Event Evaluation Height, Weight, BMI Height: 5'6.00" Weight: 135lbs. 9.0oz. 61.604261ox; 21.9 BMI Method:Stated Exam Exam Vital Signs Date Time Temp Pulse Resp B/P (MAP) Pulse Ox O2 Delivery O2 Flow Rate FiO2 05/12/18 05:08 89 Vapotherm 35.00 90 05/12/18 04:00 101 32 169/90 (116) 92 Vapotherm 90.00 35.00 05/12/18 03:00 107 23 167/88 (114) 91 Vapotherm 90.00 35.00 05/12/18 02:06 96 21 90 Vapotherm 90.00 35.00 05/12/18 02:04 87 Vapotherm 25.00 80 05/12/18 02:00 97 20 142/78 (99) 87 Vapotherm 80.00 25.00 05/12/18 01:24 108 25 167/96 (119) Vapotherm 80.00 25.00 05/12/18 01:07 89 Vapotherm 25.00 80 05/12/18 01:00 94 05/12/18 00:00 85 20 138/74 (95) 92 Vapotherm 80.00 25.00 05/12/18 00:00 Vapotherm 25.00 80 05/11/18 23:00 80 19 130/76 (94) 92 Vapotherm 80.00 25.00 05/11/18 22:00 101 23 116/90 (99) 90 Vapotherm 80.00 25.00 05/11/18 21:30 88 19 136/88 (104) 89 Vapotherm 80.00 25.00 05/11/18 21:00 86 27 154/95 (114) 91 Vapotherm 80.00 25.00 05/11/18 20:00 96 28 151/83 (105) 89 Vapotherm 80.00 25.00 05/11/18 20:00 Vapotherm 25.00 80 05/11/18 19:53 92 27 157/91 (113) 89 Vapotherm 80.00 25.00 05/11/18 19:28 89 Vapotherm 25.00 80 05/11/18 19:18 120 28 190/107 (134) 89 Vapotherm 80.00 25.00 05/11/18 19:00 126 42 188/113 (138) 88 Vapotherm 80.00 25.00 05/11/18 19:00 132 05/11/18 18:54 Vapotherm 80.00 25.00 05/11/18 16:00 100 33 138/89 (105) 90 Vapotherm 75.00 20.00 05/11/18 16:00 Vapotherm 20.00 75 05/11/18 15:00 91 25 149/77 (101) 92 Vapotherm 75.00 20.00 05/11/18 14:00 96 26 155/84 (107) 91 Vapotherm 75.00 20.00 05/11/18 13:00 86 05/11/18 13:00 92 24 138/74 (95) 92 Vapotherm 75.00 20.00 05/11/18 12:30 99.1 05/11/18 12:00 Vapotherm 20.00 75 05/11/18 12:00 83 20 135/59 (84) 94 Vapotherm 75.00 20.00 05/11/18 11:00 72 15 125/67 (86) 95 Vapotherm 75.00 20.00 05/11/18 10:50 Vapotherm 75.00 20.00 05/11/18 10:31 73 18 99 60 05/11/18 10:00 70 21 105/61 (76) 98 Vapotherm 75.00 20.00 05/11/18 09:45 68 21 104/60 (75) 97 Vapotherm 75.00 20.00 05/11/18 09:30 69 24 105/59 (74) 97 Vapotherm 75.00 20.00 05/11/18 09:15 69 23 102/57 (72) 98 Vapotherm 75.00 20.00 05/11/18 09:00 73 05/11/18 08:50 96.9 78 14 113/82 (92) 97 Mechanical Ventilator 60.00 05/11/18 08:50 Mechanical Ventilator 60 05/11/18 08:22 79 19 94 60 05/11/18 07:30 16 I & O 05/12/18 07:00 Intake Total 2280 ml Output Total 1100 ml Balance 1180 ml Height & Weight Height: 5'6.00" Weight: 135lbs. 9.0oz. 61.134725fi; 21.9 BMI Method:Stated General Appearance: WD/WN, Anxious, Chronically ill, Moderate Distress HEENT: PERRL/EOMI, Normal ENT Inspection, Pharynx Normal Neck: Full Range of Motion, Normal Inspection, Non Tender, Supple, Carotid Bruit Respiratory: Chest Non Tender, Accessory Muscle Use, Crackles, Decreased Breath Sounds, Respiratory Distress Cardiovascular: Regular Rate, Rhythm, No Edema, No Gallop, No JVD, No Murmur, Normal Peripheral Pulses Capillary Refill: Less Than 3 Seconds Extremity: Normal Capillary Refill, Normal Inspection, Normal Range of Motion, Non Tender, No Calf Tenderness, No Pedal Edema Neurologic/Psychiatric: Alert, Oriented x3, No Motor/Sensory Deficits, Normal Mood/Affect Skin: Normal Color, Warm/Dry Lymphatic: No Adenopathy Results Lab Laboratory Tests 05/10/18 06:20 05/11/18 05:30 05/12/18 03:35 Assessment/Plan Assessment/Plan Acute respiratory failure -pt extubated yesterday post bronch with EBUS. She is currently requiring 90 % fi02 via Vapotherm -Check ABG -Place pt on BiPAP -D/C MAT protocol and change SVNS to Q4 and Q2 PRN Persistent leukocytosis (pt was just started on solumedrol yesterday) -Change Abx to Merrem -Repeat UA and await bronch cultures -MRSA swab is negative Ileus with abdominal distention r/o obstruction - Contributing to respiratory failure -Place NG -Start mag citrate -Mineral oil enema -NPO until BM -PT had a CT of abdo/pelvis shows sig stricture lung mass with probable metastatic lung cancer with post obstructive pneumonia s /p bronch with EBUS Tobacco use -Education COPD -Oxygen -SVNs ODETTE FERNANDEZ DO May 12, 2018 05:26
[2018-05-12] MEDS ORDERED: MEROPENEM 1,000 MG in WATER (STERILE) FOR INJECTION 20 ML IV SCH (05:30)
[2018-05-12 05:43] LABS: ABG BASE EXCESS 8.1 MMOL/L (-2.5-2.5); ABG OXYGEN SATURATION 92 % (94-100); ABG PCO2 40 MMHG (35-45); ABG PH 7.51 (7.37-7.43); ABG PO2 57 MMHG (79-93); ABG TCO2 32.8 MMOL/L (21.0-31.0)
[2018-05-12 05:44] LABS: ALLENS TEST YES-POS
[2018-05-12 05:45] LABS: INSPIRED O2 35L 90% VAPO; PATIENT TEMP 98.5; VENTILATOR NO
[2018-05-12] MEDS ORDERED: WATER (STERILE) FOR INJECTION 10 ML ONE ×2 (05:45→05:52)
[2018-05-12] MEDS ORDERED: MEROPENEM 500 MG VIAL (MERREM) IV ONE ×2 (05:45→05:52)
[2018-05-12] MEDS: KCL 20 MEQ TAB (K-DUR) PO SCH (06:00)
[2018-05-12] MEDS: POTASSIUM CL 10MEQ/50ML IVPB 50 ML IV SCH ×5 (06:00→14:07)
--- NOTE | 2018-05-12 06:40 | Diagnostic Imaging Report ---
Indication: Abdominal distention. Comparison: 05/10/2018. Findings: No free intraperitoneal air. There are a few gas-filled but nondilated loops of colon in the left hemiabdomen. Paucity of bowel gas in the right hemiabdomen is unchanged and may relate to hepatomegaly. Diffuse bilateral pulmonary opacities have not changed. Stable regional skeleton. Impression: 1. Gas pattern with gas filled but nondilated colon. 2. No free intraperitoneal air. 3. Unchanged pulmonary opacities. Dictated by: Dictated on workstation # [id number]
[2018-05-12] MEDS: inSUlin ASPART (NovoLOG) 1 UNIT/0.01 ML (CHARGE PER UNIT) SC SCH ×4 (06:57→20:21)
[2018-05-12] MEDS: MAGNESIUM 1 GM/100 ML IVPB 100 ML IV SCH ×3 (07:04→08:37)
[2018-05-12] MEDS: CATHETER FLUSH 10 ML SYR IV PRN ×2 (07:28→07:29)
--- NOTE | 2018-05-12 07:58 | Diagnostic Imaging Report ---
INDICATION: Dyspnea. COMPARISON: 05/11/2018. FINDINGS: ET tube has been removed. Diffuse bilateral pulmonary opacities are unchanged. Asymmetric elevation right hemidiaphragm is similar. Grossly stable cardiomediastinal silhouette. IMPRESSION: Interval extubation without additional change. Dictated by: Dictated on workstation # [id number]
[2018-05-12 08:09] LABS: BILIRUBIN,URINE NEGATIVE (NEGATIVE); CLARITY,URINE CLEAR; COLOR,URINE YELLOW; GLUCOSE, URINE (UA) 1+ (NEGATIVE); KETONES,URINE NEGATIVE (NEGATIVE); LEUKOCYTE ESTERASE ,URINE 2+ (NEGATIVE); NITRITE,URINE NEGATIVE (NEGATIVE); PH,URINE 5 (5-9); PROTEIN,URINE 2+ (NEGATIVE); UROBILINOGEN,URINE 1 MG/DL (NORMAL)
[2018-05-12 08:18] LABS: BACTERIA,URINE FEW /HPF; SQUAMOUS EPITHELIAL CELL,UR 0-2 /HPF
[2018-05-12 08:19] LABS: CALCIUM OXALATE CRYSTALS,UR RARE /LPF
[2018-05-12] MEDS ORDERED: morphine INJ 10 MG/ML 1ML (SYR OR VIAL) IVP PRN (08:30)
[2018-05-12] MEDS ORDERED: LACTULOSE SYRUP 10GM/15ML (ENULOSE) 30ML UDC PO PRN (09:00)
[2018-05-12] MEDS ORDERED: MINERAL OIL ENEMA 133 ML BTL PR ONE (09:00)
[2018-05-12] MEDS ORDERED: MAGNESIUM CITRATE 300 ML BTL PO ONE (09:00)
[2018-05-12 09:32] LABS: AMYLASE 70 U/L (25-125); LIPASE 49 U/L (8-78)
[2018-05-12] MEDS: meTOproloL SUCCINATE 50 MG (TOPROL XL) TAB PO SCH (09:44)
[2018-05-12] MEDS: amLODIPine 5 MG (NORVASC) TAB PO SCH (09:44)
--- NOTE | 2018-05-12 09:54 | Physical Therapy Progress Note ---
Therapy Progress Note PT will require new orders to continue with therapy as per physician's discretion. EDUARD CARRANZA PT May 12, 2018 09:54
--- NOTE | 2018-05-12 10:13 | Anesthesia-General Post-Op ---
General Patient Condition Mental Status/LOC: Same as Preop Cardiovascular: Satisfactory Nausea/Vomiting: Absent Respiratory: Unsatisfactory Pain: Controlled Complications: Absent Post Op Complications Complications None Follow Up Care/Instructions Patient Instructions None needed. Anesthesia/Patient Condition Patient Condition patient of [place]. KRISTEN FOX CRNA May 12, 2018 10:13
--- NOTE | 2018-05-12 10:19 | Progress Note (SOAP) ---
Subjective Subjective/Events-last exam Overnight became more anxious and short of breath. Given lasix, ativan and d/c IVF overnight per eICU and cisneros placed for monitoring. This am with worsening shortness of breath/respiratory status started on bipap and NG placed to help with abdominal distension. She states she is feeling okay, about the same. Continues to have a lot of chest pain. She does not want to be intubated again. Review of Systems Date Seen by Provider: May 12, 2018 Time Seen by Provider: 07:25 Objective Exam Last Set of Vital Signs Vital Signs Date Time Temp Pulse Resp B/P (MAP) Pulse Ox O2 Delivery O2 Flow Rate FiO2 05/12/18 08:48 92 18 91 50.00 05/12/18 08:00 97.3 05/12/18 08:00 NIV Bilevel 50 05/12/18 08:00 118/62 (80) Capillary Refill : Less Than 3 Seconds I&O Intake and Output 05/12/18 00:00 Intake Total 2500 ml Output Total 1100 ml Balance 1400 ml Intake Oral 1200 ml IV Total 1300 ml Output Urine Total 1100 ml # Voids 4 General: Alert, Mild Distress Lungs: Other (decreased air movement) Heart: Regular Rate, No Murmurs Abdomen: Normal Bowel Sounds, Other (induration to right side of abdomen, left with mild to moderate distension and tenderness) Neuro: Normal Speech Psych/Mental Status: Mental Status NL Results/Procedures Lab Laboratory Tests 05/11/18 11:30: Glucometer 71 05/11/18 17:25: Glucometer 368H 05/11/18 20:26: Glucometer 216H 05/12/18 03:35: White Blood Count 24.7H, Red Blood Count 3.81L, Hemoglobin 11.6, Hematocrit 35, Mean Corpuscular Volume 93, Mean Corpuscular Hemoglobin 30, Mean Corpuscular Hemoglobin Concent 33, Red Cell Distribution Width 18.1H, Platelet Count 569H, Mean Platelet Volume 9.4, Neutrophils (%) (Auto) 90H, Lymphocytes (%) (Auto) 4L , Monocytes (%) (Auto) 6, Eosinophils (%) (Auto) 0, Basophils (%) (Auto) 0, Neutrophils # (Auto) 22.1H, Lymphocytes # (Auto) 1.1, Monocytes # (Auto) 1.5H, Eosinophils # (Auto) 0.0, Basophils # (Auto) 0.0, Neutrophils % (Manual) 86, Lymphocytes % (Manual) 4, Monocytes % (Manual) 3, Eosinophils % (Manual) 0, Basophils % (Manual) 0, Band Neutrophils 5, Reactive Lymphocytes 2, Polychromasia SLIGHT, Hypochromasia SLIGHT, Anisocytosis SLIGHT, Macrocytosis SLIGHT, Target Cells SLIGHT, Sodium Level 132L, Potassium Level 3.3L, Chloride Level 93L, Carbon Dioxide Level 26, Anion Gap 13, Blood Urea Nitrogen 12, Creatinine 0.54L, Estimat Glomerular Filtration Rate > 60, BUN/Creatinine Ratio 22, Glucose Level 213H, Calcium Level 7.9L, Corrected Calcium 8.9, Phosphorus Level 3.0, Magnesium Level 1.6L, Total Bilirubin 1.7H, Aspartate Amino Transf ( AST/SGOT) 96H, Alanine Aminotransferase (ALT/SGPT) 80H, Alkaline Phosphatase 803H, Total Protein 5.4L, Albumin 2.7L, Amylase Level 70, Lipase 49 05/12/18 05:35: Blood Gas Puncture Site L RAD, Blood Gas Patient Temperature 98.5, Arterial Blood pH 7.51H, Arterial Blood Partial Pressure CO2 40, Arterial Blood Partial Pressure O2 57L, Arterial Blood HCO3 32H, Arterial Blood Total CO2 32.8H, Arterial Blood Oxygen Saturation 92L, Arterial Blood Base Excess 8.1H, Franco Test YES-POS, Blood Gas Ventilator Setting NO, Blood Gas Inspired Oxygen 35L 90 % VAPO 05/12/18 07:20: Urine Color YELLOW, Urine Clarity CLEAR, Urine pH 5, Urine Specific [place] 1.020, Urine Protein 2+H, Urine Glucose (UA) 1+H, Urine Ketones NEGATIVE, Urine Nitrite NEGATIVE, Urine Bilirubin NEGATIVE, Urine Urobilinogen 1, Urine Leukocyte Esterase 2+H, Urine RBC (Auto) 3+H, Urine RBC 10-25H, Urine WBC 10-25H , Urine Squamous Epithelial Cells 0-2, Urine Crystals PRESENTH, Urine Calcium Oxalate Crystals RAREH, Urine Bacteria FEWH, Urine Casts PRESENT, Urine Hyaline Casts 5-10H, Urine Mucus SMALLH, Urine Culture Indicated YES Microbiology 05/06/18 Blood Culture - Preliminary, Resulted No growth 05/09/18 MRSA Screen - Final, Complete MRSA not isolated 05/06/18 Urine Culture - Final, Complete See Report Assessment/Plan Assessment/Plan (1) Lung mass Status: Acute Assessment & Plan: Suspected malignancy with CT findings concerning for malignancy as well as mediastinal lymphadenopathy, multiple small liver lesions , enlarged adrenals and possible sigmoid stricture. Dr. Anaya consulted, appreciate recommendations, likely bonch with EBUS on Wednesday. 05/11 Bronch done, await biopsies 05/12 Dr. Cavazos consulted yesterday, CT head done without masses seen and bone scan ordered. Path pending. (2) Hypertension Status: Chronic Assessment & Plan: No anti-hypertensives noted on home med list, medications started inpatient. 05/11 increase amlodipine to 10 mg daily. 05/12 increase metoprolol to 100 mg daily Qualifiers: Qualified Codes: I10 - Essential (primary) hypertension (3) Diabetes mellitus Status: Chronic Assessment & Plan: Hold metformin due to contrast. Levemir started. SSI. Qualifiers: Qualified Codes: E11.65 - Type 2 diabetes mellitus with hyperglycemia (4) Pneumonia Status: Acute Assessment & Plan: Initially suspected on admission, but given findings on CT, concern more for malignancy, antibiotics were d/c'd and she remains afebrile and with stable leukocytosis. Will hold antibiotics for now and obtain cultures with bronchoscopy per Dr. Anaya. 05/[address] Anaya yesterday pm 05/11 continue abx, remains intubated postprocedure per Dr. Anaya. 05/12 abx changed to meropenem per Dr. Anaya. Extubated yesterday, but now requiring bipap this am. Discussed with family possible need for re-intubation if status worsens. Qualifiers: Qualified Codes: J18.1 - Lobar pneumonia, unspecified organism (5) Chest pain Status: Acute Assessment & Plan: Suspect secondary to lung mass, Cardiology consulted, appreciate recommendations. Echocardiogram with normal EF and no regional wall abnormalities on 05/08. 05/09 Increase hydrocodone to 7.5/325 which she was on in past for back pain, continue fentanyl for breakthrough and will adjust oral as needed. 05/10 switch to oxycodone, try Toradol as well. 05/12 d/c toradol given hypertension and minimal benefit noted. Holding oxycodone and increase IV morphine dosing given NG placement. (6) Hypoxia Status: Acute Assessment & Plan: Requiring 2 lpm supplemental oxygen, not on O2 previously. Suspect due to lung malignancy vs pneumonia as noted above. Will wean as tolerated, may need home O2. 2/6 currently mechanically ventilated s/p bronch, management per Dr. Anaya 2/ requiring bipap this morning, management per Dr. Anaya (7) Abdominal distension Status: Acute Assessment & Plan: Monitor closely, note of sigmoid stricture on CT scan. Currently has bowel sounds and flatus, but will have low threshold for NG placement. 2/ NG placed this am with minimal return noted. Repeat x-ray this am without evidence of obstruction. Bowel regimen started. (8) Liver enzyme elevation Status: Acute Assessment & Plan: AST/ALT stable since admission, bilirubin up. Suspect due to liver metastases. (9) DVT prophylaxis Status: Acute Assessment & Plan: Enoxaparin (10) Advance care planning Status: Acute Assessment & Plan: Discussed with family the risk that if she worsens, she may need re-intubation before definitive answers are known about pathology and treatment options, and they plan to discuss further today. Currently is DNI. Clinical Quality Measures DVT/VTE Risk/Contraindication: Risk Factor Score Per Nursin RFS Level Per Nursing on Admit: 4+=Very High RUDY MARTINEZ MD May 12, 2018 10:19
[2018-05-12] MEDS: DEXMEDETOMIDINE INJECTION 200 MCG in NS (IVPB) 50 ML IV SCH ×3 (11:14→22:00)
[2018-05-12] MEDS: RT-ALBUTEROL/IPRATROPIUM 3 ML (DUONEB) VIAL INH SCH ×4 (11:58→22:34)
--- NOTE | 2018-05-12 12:06 | Diagnostic Imaging Report ---
Indication: Elevated elevated alkaline phosphatase as well as lung and liver masses. Patient was administered 26.3 mCi technetium 99m MDP intravenously and whole body imaging was performed after a three-hour delay. No prior bone scans are available for comparison. There is normal uptake of activity by the axial and appendicular skeleton. There is uptake by both kidneys with some excretion into the urinary bladder. Patient has indwelling Corado catheter with activity identified in the Corado tubing. 2 tiny foci are identified in the midline of the mid to upper abdomen, overlying the lower thoracic spine, indeterminate. This is only seen on the frontal view. No other suspicious foci are identified. Impression: Unremarkable whole body bone scan with the exception of 2 tiny foci of activity projected over the midline of the upper abdomen at the level of the lower thoracic spine. Continued followup could be obtained. Dictated by: Dictated on workstation # [id number]
--- NOTE | 2018-05-12 13:28 | Diagnostic Imaging Report ---
PROCEDURE: US abdomen complete. TECHNIQUE: Multiple real-time grayscale images were obtained over the abdomen in various projections. INDICATION: Lung cancer with abdominal distention. FINDINGS: The enlarged liver measures greater than 28 cm and is nearly replaced by innumerable space-occupying lesions, presumptively widespread involvement by metastatic disease. The extrahepatic duct is obscured from visualization as was the pancreas. No intrahepatic dilatation. The proximal middle third of the aorta is nonaneurysmal. The distal third is obscured by gas. The kidneys are unobstructed and there is no ascites. The gallbladder is surgically absent. No perihepatic fluid collection. IMPRESSION: Presumed widespread hepatic metastatic disease. No free fluid apparent. Unobstructed kidneys with no intrahepatic biliary dilatation. Dictated by: Dictated on workstation # [id number]
[2018-05-12] MEDS ORDERED: NS IV 500 ML (CANCER CENTER) 500 ML ONE (14:04)
[2018-05-12] MEDS: MEROPENEM 500 MG/SWFI 10 ML IV PUSH IV SCH ×4 (14:07→18:55)
[2018-05-12] MEDS: morphine INJ 10 MG/ML 1ML (SYR OR VIAL) IVP PRN ×2 (14:08→20:17)
[2018-05-12] MEDS ORDERED: FOSAPREPITANT DIMEGLUMINE 150 MG in NS (IVPB) CANCER CENTER ONLY 150 ML IV SCH (14:15)
[2018-05-12] MEDS ORDERED: NS IV 1000 ML (CANCER CTR) IV SCH (14:15)
[2018-05-12] MEDS ORDERED: ONDANSETRON MDV (CANCER CENTER 16 MG, DEXAMETHASONE INJECTION 10 MG in NS (IVPB) CANCER... IV SCH (14:15)
[2018-05-12] MEDS ORDERED: NORMAL SALINE IV SCH (14:30)
[2018-05-12] MEDS ORDERED: ETOPOSIDE IV SCH (14:30)
[2018-05-12] MEDS ORDERED: DIATRIZOATE MEGLUM/SODIUM 37% 120 ML (GASTROGRAFIN) RC ONE (15:00)
[2018-05-12] MEDS: POLYETHYLENE GLYCOL 17 GM (MIRALAX) PACK PO SCH ×2 (15:15→20:21)
--- NOTE | 2018-05-12 15:23 | Diagnostic Imaging Report ---
INDICATION: Abdominal distention. Recent CT demonstrated a long segment of luminal narrowing of the distal colon. This study was performed for further evaluation. Gastrografin contrast was infused into the colon in a retrograde fashion through a rectal tip. Spot films of the distal colon were obtained. The overall study is limited. The patient did experience episodes of desaturation during the exam. Therefore, examination was terminated early. A total of 2 minutes and 37 seconds of fluoroscopy was utilized. The preliminary radiograph of the abdomen shows an NG tube in the left abdomen. There is some moderate gaseous distention to the distal colon and sigmoid. No definite wall thickening or pneumatosis is identified. Limited imaging of the rectum, sigmoid and descending colon were obtained. No obstructing lesion is identified. No apple core lesion or evidence of intrinsic or exophytic mass is seen. IMPRESSION: Limited Gastrografin enema, as described. Distal colon appears to be widely patent. Dictated by: Dictated on workstation # [id number]
--- NOTE | 2018-05-12 16:18 | NUR ---
Follow up visit with pt, rufino Ko and son in law Anthony. Offered active listening and compassionate presence. Maikel said small cell lung cancer was confirmed. Karina Hodgson present starting pt's chemo treatment.
--- NOTE | 2018-05-12 16:51 | Progress Note-Standard ---
Standard Progress Note Progress Notes/Assess & Plan Date Seen by a Provider: May 12, 2018 Time Seen by a Provider: 16:45 Progress/Assessment & Plan 63-year-old female admitted to the hospital with increasing shortness of breath and found to have near obstructing lesion in the right mainstem bronchus with hilar and mediastinal lymphadenopathy as well as extensive liver metastasis and adrenal masses. Patient completed bronchoscopy with biopsies yesterday. Preliminary verbal report today was that of small cell lung cancer. Final pathology report pending. Patient is having increasing shortness of breath and hypoxia. She is on 100 percent FiO2 by Vapotherm with oxygen saturation dropping into the mid 80s. She was also complaining of abdominal distention and completed a Gastrografin enema with no evidence of obstruction. I discussed the diagnosis with the patient and her daughter and answered their questions. Because of rapidly worsening symptoms, I would recommend starting chemotherapy with carboplatinum and etoposide regimen today. Patient and her family wanted to proceed with this. Orders will return for carboplatinum AUC 5 on day 1 and etoposide at 100 mg/m on days 1 through 3 with appropriate premedications. Because of extensive stage small cell lung cancer with liver and adrenal metastasis, treatment is palliative in nature and not curative. Initial response rate is in the 80 to 90 percent range. LDH obtained today was in the 900+ range. Monitor labs in ADIEL Powell May 12, 2018 16:51
[2018-05-12] MEDS: inSUlin DETERMIR 1 UNIT/0.01 ML (LEVEMIR) CHARGE PER UNIT SQ SCH (20:21)
[2018-05-13] VITALS (26 sets, daily range): BP systolic 91–156; BP diastolic 61–117
[2018-05-13] MEDS: morphine INJ 10 MG/ML 1ML (SYR OR VIAL) IVP PRN ×8 (00:20→23:16)
[2018-05-13] MEDS: DEXMEDETOMIDINE INJECTION 200 MCG in NS (IVPB) 50 ML IV SCH ×3 (00:53→09:26)
[2018-05-13] MEDS: MEROPENEM 500 MG/SWFI 10 ML IV PUSH IV SCH ×8 (00:56→17:26)
[2018-05-13] MEDS: methylPREDNISolone 40 MG/ML (Solu-MEDROL) VIAL IV SCH ×4 (00:56→17:26)
[2018-05-13] MEDS: RT-ALBUTEROL/IPRATROPIUM 3 ML (DUONEB) VIAL INH SCH ×6 (02:12→22:05)
[2018-05-13 04:06] LABS: BASOPHILS % (AUTO) 0 % (0-10); EOSINOPHILS % (AUTO) 0 % (0-10); HEMATOCRIT 36 % (35-52); HEMOGLOBIN 11.8 G/DL (11.5-16.0); LYMPHOCYTES # (AUTO) 0.9 X 10^3 (1.0-4.0); LYMPHOCYTES % (AUTO) 5 % (12-44); MEAN CORPUSCULAR HEMOGLOBIN 31 PG (25-34); MEAN CORPUSCULAR HGB CONC 33 G/DL (32-36); MEAN CORPUSCULAR VOLUME 93 FL (80-99); MEAN PLATELET VOLUME 9.4 FL (7.4-10.4); MONOCYTES % (AUTO) 5 % (0-12); NEUTROPHILS # (AUTO) 17.4 X 10^3 (1.8-7.8); NEUTROPHILS % (AUTO) 90 % (42-75); PLATELET COUNT 525 10^3/uL (130-400); RED CELL DISTRIBUTION WIDTH 18.5 % (10.0-14.5); WHITE BLOOD COUNT 19.4 10^3/uL (4.3-11.0)
[2018-05-13 04:27] LABS: BUN/CREATININE RATIO 42; CALCIUM 8.1 MG/DL (8.5-10.1); CARBON DIOXIDE 30 MMOL/L (21-32); CHLORIDE 96 MMOL/L (98-107); CREATININE SERUM 0.53 MG/DL (0.60-1.30); GFR ESTIMATED > 60; GLUCOSE 83 MG/DL (70-105); MAGNESIUM 2.8 MG/DL (1.8-2.4); POTASSIUM 5.1 MMOL/L (3.6-5.0); SODIUM 138 MMOL/L (135-145)
[2018-05-13] MEDS: MAGNESIUM 1 GM/100 ML IVPB 100 ML IV SCH (04:48)
[2018-05-13] MEDS: KCL 20 MEQ TAB (K-DUR) PO SCH (04:48)
[2018-05-13] MEDS: POTASSIUM CL 10MEQ/50ML IVPB 50 ML IV SCH (04:48)
[2018-05-13] MEDS: inSUlin ASPART (NovoLOG) 1 UNIT/0.01 ML (CHARGE PER UNIT) SC SCH ×4 (04:49→20:52)
[2018-05-13] MEDS ORDERED: FLUCONAZOLE 200 MG/100 ML 100 ML IV ONE (05:45)
[2018-05-13] MEDS ORDERED: FUROSEMIDE 40 MG/4 ML INJ (LASIX) IVP ONE (05:45)
--- NOTE | 2018-05-13 05:57 | Pulmonary Progress Note ---
Subjective Time Seen by a Provider: 05:59 Subjective/Events-last exam Currently on Bipap at 70% fi02. Dr. Bush is planning on placing mediport today. Abd is distended. No nausea or abd pain Sepsis Event Evaluation Height, Weight, BMI Height: 5'6.00" Weight: 135lbs. 9.0oz. 61.886414sy; 21.9 BMI Method:Stated Exam Exam Vital Signs Date Time Temp Pulse Resp B/P (MAP) Pulse Ox O2 Delivery O2 Flow Rate FiO2 05/13/18 04:30 65 14 93 75.00 05/13/18 04:12 96.6 05/13/18 04:00 93 NIV Bilevel 75 05/13/18 03:00 74 34 133/81 (98) 89 NIV Bilevel 75.00 05/13/18 02:15 72 29 94 75.00 05/13/18 02:00 66 14 91/61 (71) 94 NIV Bilevel 75.00 05/13/18 01:00 72 23 123/76 (92) 93 NIV Bilevel 75.00 05/13/18 01:00 72 05/13/18 00:09 71 30 94 75.00 05/13/18 00:00 91 NIV Bilevel 75 05/13/18 00:00 76 32 126/78 (94) 91 NIV Bilevel 75.00 05/13/18 00:00 98.1 05/12/18 23:00 70 16 96/59 (71) 94 NIV Bilevel 75.00 05/12/18 22:41 69 19 92 75.00 05/12/18 22:00 67 16 100/59 (73) 91 NIV Bilevel 75.00 05/12/18 21:00 70 17 104/61 (75) 90 NIV Bilevel 75.00 05/12/18 20:17 76 24 89 75.00 05/12/18 20:05 79 28 125/71 (89) 90 NIV Bilevel 75.00 05/12/18 20:01 97.8 05/12/18 20:00 91 NIV Bilevel 75 05/12/18 19:00 71 05/12/18 19:00 71 18 91 NIV Bilevel 75.00 05/12/18 18:42 72 18 92 75.00 05/12/18 18:00 68 16 91 NIV Bilevel 75.00 05/12/18 17:10 69 16 90 75.00 05/12/18 17:00 71 16 113/71 (85) 90 NIV Bilevel 75.00 05/12/18 16:10 97.9 05/12/18 16:00 80 26 120/66 (84) 90 NIV Bilevel 75.00 05/12/18 16:00 NIV Bilevel 75 05/12/18 15:15 73 16 92 75.00 05/12/18 15:00 80 27 135/115 (122) 85 NIV Bilevel 50.00 05/12/18 14:00 73 23 110/72 (85) 92 NIV Bilevel 50.00 05/12/18 13:00 77 20 116/70 (85) 90 NIV Bilevel 50.00 05/12/18 13:00 77 05/12/18 12:00 67 32 131/81 (98) 92 NIV Bilevel 50.00 05/12/18 12:00 NIV Bilevel 60 05/12/18 11:59 75 24 92 60.00 05/12/18 11:00 96 36 166/88 (114) 88 NIV Bilevel 50.00 05/12/18 10:00 82 23 144/80 (101) 90 NIV Bilevel 50.00 05/12/18 09:00 84 22 142/84 (103) 92 NIV Bilevel 50.00 05/12/18 08:48 92 18 91 50.00 05/12/18 08:00 97.3 05/12/18 08:00 NIV Bilevel 50 05/12/18 08:00 76 18 118/62 (80) 93 NIV Bilevel 50.00 05/12/18 07:50 94 05/12/18 07:03 91 21 91 50.00 05/12/18 07:00 98 30 144/75 (98) 90 NIV Bilevel 50.00 05/12/18 07:00 NIV Bilevel 50.00 05/12/18 06:00 99 20 135/82 (99) 90 Vapotherm 90.00 35.00 I & O 05/13/18 06:59 Intake Total 780 ml Output Total 690 ml Balance 90 ml Height & Weight Height: 5'6.00" Weight: 135lbs. 9.0oz. 61.564396jp; 21.9 BMI Method:Stated General Appearance: WD/WN, Anxious, Chronically ill, Moderate Distress HEENT: PERRL/EOMI, Normal ENT Inspection, Pharynx Normal Neck: Full Range of Motion, Normal Inspection, Non Tender, Supple, Carotid Bruit Respiratory: Chest Non Tender, Accessory Muscle Use, Crackles, Decreased Breath Sounds, Respiratory Distress Cardiovascular: Regular Rate, Rhythm, No Edema, No Gallop, No JVD, No Murmur, Normal Peripheral Pulses Capillary Refill: Less Than 3 Seconds Gastrointestinal: non tender, distended; No guarding, No rebound, No tenderness Extremity: Normal Capillary Refill, Normal Inspection, Normal Range of Motion, Non Tender, No Calf Tenderness, No Pedal Edema Neurologic/Psychiatric: Alert, Oriented x3, No Motor/Sensory Deficits, Normal Mood/Affect Skin: Normal Color, Warm/Dry Lymphatic: No Adenopathy Results Lab Laboratory Tests 05/12/18 03:35 05/13/18 03:43 Assessment/Plan Assessment/Plan Acute on chronic respiratory failure -Currently on BiPAP -Trial off Bipap today to vapotherm -Give 60mg of lasix x 1 -Continue SVNS to Q4 and Q2 PRN 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 Bush is going to place mediport -Dr. Cavazos is going to start chemo Persistent leukocytosis (pt was just started on solumedrol yesterday) -Continue Merrem -MRSA swab is negative Atelectasis secondary to endobronchial mass and gastric distention Ileus with abdominal distention r/o obstruction - Contributing to respiratory failure -Place NG -Check gastric occult -Dr. Bush is following -Possible sigmoidoscopy -Lactulose BID -Pt has small BM yesterday -PT had a CT of abdo/pelvis shows sig stricture -US of abd show mets to liter Tobacco use -Education Anxiety -Ativan -Add PRN Haldol -Morphine Hyperkalemia, Hypermag, hyperphos -Give lasix x 1 -Repeat labs i question error COPDAE -Oxygen -SVNs -Solumedrol ODETTE FERNANDEZ DO May 13, 2018 05:57
[2018-05-13 06:36] LABS: BUN/CREATININE RATIO 43; CALCIUM 8.2 MG/DL (8.5-10.1); CARBON DIOXIDE 31 MMOL/L (21-32); CHLORIDE 95 MMOL/L (98-107); CREATININE SERUM 0.53 MG/DL (0.60-1.30); GFR ESTIMATED > 60; GLUCOSE 81 MG/DL (70-105); POTASSIUM 5.1 MMOL/L (3.6-5.0); SODIUM 138 MMOL/L (135-145)
--- NOTE | 2018-05-13 08:44 | Diagnostic Imaging Report ---
INDICATION: Pneumonia. Followup. COMPARISON: 05/12/2018 FINDINGS: Single frontal radiographic view of the chest was obtained and demonstrates indwelling gastric tube extending inferiorly beyond the uobbd-co-ydud. Lungs continue to show asymmetric elevation of right hemidiaphragm with diffuse interstitial infiltrates throughout. Overall, aeration may be slightly improved. There is no large effusion or pneumothorax. Cardiac silhouette and pulmonary vasculature within normal limits. IMPRESSION: 1. Persistent, although possibly slightly improved diffuse interstitial infiltrates. Dictated by: Dictated on workstation # [id number]
[2018-05-13] MEDS: LACTULOSE SYRUP 10GM/15ML (ENULOSE) 30ML UDC PO SCH ×2 (08:45→20:51)
[2018-05-13] MEDS: meTOproloL SUCCINATE 50 MG (TOPROL XL) TAB PO SCH (09:00)
[2018-05-13] MEDS: amLODIPine 5 MG (NORVASC) TAB PO SCH (09:00)
[2018-05-13] MEDS: POLYETHYLENE GLYCOL 17 GM (MIRALAX) PACK PO SCH ×2 (09:06→20:51)
--- NOTE | 2018-05-13 09:08 | Progress Note-Standard ---
Standard Progress Note Progress Notes/Assess & Plan Date Seen by a Provider: May 13, 2018 Time Seen by a Provider: 09:07 Progress/Assessment & Plan patient just diagnosed with metastatic small cell lung carcinoma. Systemic chemotherapy initiated yesterday. [id number] reasonable. Scheduled for Wednesday. Details discussed thoroughly. Abdominal distention much improved and soft on examination. Final Diagnosis metastatic small cell carcinoma of the lung BERE ROSARIO MD May 13, 2018 09:08
--- NOTE | 2018-05-13 10:33 | Progress Note-Standard ---
Standard Progress Note Progress Notes/Assess & Plan Date Seen by a Provider: May 13, 2018 Time Seen by a Provider: 10:24 Progress/Assessment & Plan 63-year-old female admitted to the hospital with increasing shortness of breath and found to have near obstructing lesion in the right mainstem bronchus with hilar and mediastinal lymphadenopathy as well as extensive liver metastasis and adrenal masses. Bronchoscopy with biopsies reported as small cell lung cancer. Final pathology report pending. Because of worsening shortness of breath and hypoxia in spite of BiPAP and 100 percent FiO2, it was decided to start chemotherapy with carboplatinum and paclitaxel regimen on 05/12/18. Patient tolerated the treatment well. She is feeling much better today and sitting up in a chair. She is on Vapotherm at 35 L with the 75 percent FiO2 with saturations of 95 percent. This is being weaned by RT. Abdominal distention has improved significantly and stomach is soft. Patient still has an NG tube which could be clamped today and if no worsening of abdominal symptoms, may be discontinued. Patient is due for day 2 of chemotherapy with etoposide today. She will receive day 3 of etoposide tomorrow orally with appropriate premedications. If the NG tube is not discontinued by tomorrow, this needs to be clamped at least 3 hours when the oral chemotherapy is administered. Monitor labs in a.m. Dr. Ortiz covering this weekend. ADIEL PARRA May 13, 2018 10:33
--- NOTE | 2018-05-13 12:08 | NUR ---
Met dtr Maikel in the hallway as a friend was giving her a card and sharma for the pt. Maikel said the reason she requested pt be confidential is due to concerns that specific family members may try to visit pt late at night and/or "stir up drama."
--- NOTE | 2018-05-13 14:31 | Progress Note (SOAP) ---
Subjective Subjective/Events-last exam Afebrile. Feeling better this morning and more positive. Started chemotherapy last night. Still having a lot of pain and has trouble getting out of bed. She had small BM yesterday. Abdominal distension is improved with NG tube, but she is nervous it will recur if the tube is removed. Review of Systems Date Seen by Provider: May 13, 2018 Time Seen by Provider: 11:17 Objective Exam Last Set of Vital Signs Vital Signs Date Time Temp Pulse Resp B/P (MAP) Pulse Ox O2 Delivery O2 Flow Rate FiO2 05/13/18 13:46 93 Vapotherm 25.00 75 05/13/18 13:00 78 05/13/18 08:00 33 111/64 (80) 05/13/18 04:12 96.6 Capillary Refill : Less Than 3 Seconds I&O Intake and Output 05/13/18 00:00 Intake Total 1420 ml Output Total 1690 ml Balance -270 ml Intake Oral 540 ml IV Total 530 ml Other 350 ml Output Urine Total 1690 ml # Bowel Movements 2 General: Alert, No Acute Distress Lungs: Other (decreased air movement) Heart: Regular Rate, No Murmurs Abdomen: Other (NG in place draining dark fluid. Left abd less distended. Hepatomegaly) Extremities: No Edema Neuro: Normal Speech Psych/Mental Status: Mental Status NL Results/Procedures Lab Laboratory Tests 05/12/18 16:14: Glucometer 125H 05/12/18 20:20: Glucometer 118H 05/13/18 03:43: White Blood Count 19.4H, Red Blood Count 3.86L, Hemoglobin 11.8, Hematocrit 36, Mean Corpuscular Volume 93, Mean Corpuscular Hemoglobin 31, Mean Corpuscular Hemoglobin Concent 33, Red Cell Distribution Width 18.5H, Platelet Count 525H, Mean Platelet Volume 9.4, Neutrophils (%) (Auto) 90H, Lymphocytes (%) (Auto) 5L , Monocytes (%) (Auto) 5, Eosinophils (%) (Auto) 0, Basophils (%) (Auto) 0, Neutrophils # (Auto) 17.4H, Lymphocytes # (Auto) 0.9L, Monocytes # (Auto) 1.0, Eosinophils # (Auto) 0.0, Basophils # (Auto) 0.0, Sodium Level 138, Potassium Level 5.1H, Chloride Level 96L, Carbon Dioxide Level 30, Anion Gap 12, Blood Urea Nitrogen 22H, Creatinine 0.53L, Estimat Glomerular Filtration Rate > 60, BUN/Creatinine Ratio 42, Glucose Level 83, Calcium Level 8.1L, Phosphorus Level 5.0H, Magnesium Level 2.8H 05/13/18 06:10: Sodium Level 138, Potassium Level 5.1H, Chloride Level 95L, Carbon Dioxide Level 31, Anion Gap 12, Blood Urea Nitrogen 23H, Creatinine 0.53L, Estimat Glomerular Filtration Rate > 60, BUN/Creatinine Ratio 43, Glucose Level 81, Calcium Level 8.2L 05/13/18 11:06: Glucometer 84 Microbiology 05/06/18 Blood Culture - Final, Complete No growth 05/11/18 Mycobacterial Culture - Preliminary, Resulted See Comments 05/12/18 Urine Culture - Final, Complete NO GROWTH Assessment/Plan Assessment/Plan (1) Lung mass Status: Acute Assessment & Plan: Suspected malignancy with CT findings concerning for malignancy as well as mediastinal lymphadenopathy, multiple small liver lesions , enlarged adrenals and possible sigmoid stricture. Dr. Anaya consulted, appreciate recommendations, likely bonch with EBUS on Wednesday. 05/11 Bronch done, await biopsies 05/12 Dr. Cavazos consulted yesterday, CT head done without masses seen and bone scan ordered. Path pending. 05/13 prelim yesterday with small cell carcinoma, chemotherapy started, management per Dr. Cavazos (2) Hypertension Status: Chronic Assessment & Plan: No anti-hypertensives noted on home med list, medications started inpatient. 05/11 increase amlodipine to 10 mg daily. 05/12 increase metoprolol to 100 mg daily Qualifiers: Qualified Codes: I10 - Essential (primary) hypertension (3) Diabetes mellitus Status: Chronic Assessment & Plan: Hold metformin due to contrast. Levemir started. SSI. Qualifiers: Qualified Codes: E11.65 - Type 2 diabetes mellitus with hyperglycemia (4) Pneumonia Status: Acute Assessment & Plan: Initially suspected on admission, but given findings on CT, concern more for malignancy, antibiotics were d/c'd and she remains afebrile and with stable leukocytosis. Will hold antibiotics for now and obtain cultures with bronchoscopy per Dr. Anaya. 05/[address] Anaya yesterday pm 05/11 continue abx, remains intubated postprocedure per Dr. Anaya. 05/12 abx changed to meropenem per Dr. Anaya. Extubated yesterday, but now requiring bipap this am. Discussed with family possible need for re-intubation if status worsens. Qualifiers: Qualified Codes: J18.1 - Lobar pneumonia, unspecified organism (5) Chest pain Status: Acute Assessment & Plan: Suspect secondary to lung mass, Cardiology consulted, appreciate recommendations. Echocardiogram with normal EF and no regional wall abnormalities on 05/08. 05/09 Increase hydrocodone to 7.5/325 which she was on in past for back pain, continue fentanyl for breakthrough and will adjust oral as needed. 05/10 switch to oxycodone, try Toradol as well. 05/12 d/c toradol given hypertension and minimal benefit noted. Holding oxycodone and increase IV morphine dosing given NG placement. 05/13 improved clinical condition, will resume oral and try to find effective dosing (6) Hypoxia Status: Acute Assessment & Plan: Requiring 2 lpm supplemental oxygen, not on O2 previously. Suspect due to lung malignancy vs pneumonia as noted above. Will wean as tolerated, may need home O2. 05/11 currently mechanically ventilated s/p bronch, management per Dr. Anaya 05/12 requiring bipap this morning, management per Dr. Anaya 05/13- tolerating vapotherm, but requiring 75% FiO2. (7) Abdominal distension Status: Acute Assessment & Plan: Monitor closely, note of sigmoid stricture on CT scan. Currently has bowel sounds and flatus, but will have low threshold for NG placement. 05/12 NG placed this am with minimal return noted. Repeat x-ray this am without evidence of obstruction. Bowel regimen started. (8) Liver enzyme elevation Status: Acute Assessment & Plan: AST/ALT stable since admission, bilirubin up. Suspect due to liver metastases. (9) DVT prophylaxis Status: Acute Assessment & Plan: Enoxaparin (10) Advance care planning Status: Acute Assessment & Plan: Discussed with family the risk that if she worsens, she may need re-intubation before definitive answers are known about pathology and treatment options, and they plan to discuss further today. Currently is DNI. 05/13 chemotherapy started, planning per Dr. Cavazos at this point. Clinical Quality Measures DVT/VTE Risk/Contraindication: Risk Factor Score Per Nursin RFS Level Per Nursing on Admit: 4+=Very High JUAN,RUDY N MD May 13, 2018 14:30
[2018-05-13] MEDS: HALOPERIDOL 5 MG/ML (HALDOL) AMP IV PRN (17:25)
[2018-05-13] MEDS: inSUlin DETERMIR 1 UNIT/0.01 ML (LEVEMIR) CHARGE PER UNIT SQ SCH (20:44)
[2018-05-13] MEDS: ALPRAZolam 0.25 MG (XANAX) TAB PO PRN (21:28)
[2018-05-14] VITALS (24 sets, daily range): BP systolic 128–175; BP diastolic 72–118
[2018-05-14] MEDS: methylPREDNISolone 40 MG/ML (Solu-MEDROL) VIAL IV SCH ×4 (00:03→18:27)
[2018-05-14] MEDS: MEROPENEM 500 MG/SWFI 10 ML IV PUSH IV SCH ×8 (00:04→18:27)
[2018-05-14] MEDS: RT-ALBUTEROL/IPRATROPIUM 3 ML (DUONEB) VIAL INH SCH ×6 (01:10→22:07)
[2018-05-14] MEDS: morphine INJ 10 MG/ML 1ML (SYR OR VIAL) IVP PRN ×2 (01:33→03:43)
[2018-05-14] MEDS: HALOPERIDOL 5 MG/ML (HALDOL) AMP IV PRN (01:34)
[2018-05-14 03:54] LABS: BASOPHILS % (AUTO) 0 % (0-10); EOSINOPHILS % (AUTO) 0 % (0-10); HEMATOCRIT 36 % (35-52); HEMOGLOBIN 11.6 G/DL (11.5-16.0); LYMPHOCYTES # (AUTO) 0.4 X 10^3 (1.0-4.0); LYMPHOCYTES % (AUTO) 2 % (12-44); MEAN CORPUSCULAR HEMOGLOBIN 30 PG (25-34); MEAN CORPUSCULAR HGB CONC 32 G/DL (32-36); MEAN CORPUSCULAR VOLUME 93 FL (80-99); MEAN PLATELET VOLUME 9.2 FL (7.4-10.4); MONOCYTES # (AUTO) 0.5 X 10^3 (0.0-1.0); MONOCYTES % (AUTO) 2 % (0-12); NEUTROPHILS # (AUTO) 19.9 X 10^3 (1.8-7.8); NEUTROPHILS % (AUTO) 96 % (42-75); PLATELET COUNT 599 10^3/uL (130-400); WHITE BLOOD COUNT 20.8 10^3/uL (4.3-11.0)
[2018-05-14 04:08] LABS: BUN/CREATININE RATIO 53; CALCIUM 7.9 MG/DL (8.5-10.1); CARBON DIOXIDE 30 MMOL/L (21-32); CHLORIDE 93 MMOL/L (98-107); CREATININE SERUM 0.58 MG/DL (0.60-1.30); GFR ESTIMATED > 60; GLUCOSE 262 MG/DL (70-105); MAGNESIUM 2.5 MG/DL (1.8-2.4); PHOSPHORUS 4.4 MG/DL (2.3-4.7); POTASSIUM 3.9 MMOL/L (3.6-5.0); SODIUM 135 MMOL/L (135-145)
[2018-05-14] MEDS: POTASSIUM CL 10MEQ/50ML IVPB 50 ML IV SCH (04:18)
[2018-05-14] MEDS: KCL 20 MEQ TAB (K-DUR) PO SCH (04:19)
[2018-05-14] MEDS: MAGNESIUM 1 GM/100 ML IVPB 100 ML IV SCH (04:19)
--- NOTE | 2018-05-14 06:34 | Pulmonary Progress Note ---
Subjective Time Seen by a Provider: 06:46 Subjective/Events-last exam PT still SOB and still requiring high flow oxygen via Vapotherm. Urine is red. Sepsis Event Evaluation Height, Weight, BMI Height: 5'6.00" Weight: 135lbs. 9.0oz. 61.947152tg; 21.9 BMI Method:Stated Exam Exam Vital Signs Date Time Temp Pulse Resp B/P (MAP) Pulse Ox O2 Delivery O2 Flow Rate FiO2 05/14/18 06:00 92 16 175/96 (122) 91 Vapotherm 75.00 35.00 05/14/18 05:00 80 11 141/82 (101) 92 Vapotherm 75.00 35.00 05/14/18 04:44 96.9 05/14/18 04:44 Vapotherm 05/14/18 04:00 81 12 149/88 (108) 92 Vapotherm 75.00 35.00 05/14/18 03:00 80 11 133/75 (94) 94 Vapotherm 75.00 35.00 05/14/18 02:00 97 14 131/118 (122) 90 Vapotherm 75.00 35.00 05/14/18 01:10 92 Vapotherm 25.00 75 05/14/18 01:00 84 05/14/18 01:00 84 13 145/75 (98) 93 Vapotherm 75.00 35.00 05/14/18 00:10 Vapotherm 05/14/18 00:05 97.6 05/14/18 00:00 86 17 143/78 (99) 93 Vapotherm 75.00 35.00 05/13/18 23:00 89 12 150/77 (101) 93 Vapotherm 75.00 35.00 05/13/18 22:05 91 Vapotherm 25.00 75 05/13/18 22:00 103 26 144/92 (109) 90 Vapotherm 75.00 35.00 05/13/18 21:00 103 26 144/92 (109) 90 Vapotherm 75.00 35.00 05/13/18 20:41 97.9 05/13/18 20:30 Vapotherm 05/13/18 20:00 101 24 135/71 (92) 92 Vapotherm 75.00 35.00 05/13/18 19:00 102 05/13/18 19:00 99 17 156/87 (110) 91 Vapotherm 75.00 35.00 05/13/18 18:37 92 Vapotherm 25.00 75 05/13/18 18:00 81 22 153/77 (102) 95 Vapotherm 75.00 35.00 05/13/18 17:00 85 18 155/87 (109) Vapotherm 75.00 35.00 05/13/18 16:00 96 Vapotherm 35.00 75 05/13/18 16:00 92 45 152/117 (129) Vapotherm 75.00 35.00 05/13/18 15:00 86 24 135/117 (123) Vapotherm 75.00 35.00 05/13/18 14:00 82 29 128/74 (92) Vapotherm 75.00 35.00 05/13/18 13:46 93 Vapotherm 25.00 75 05/13/18 13:00 78 05/13/18 13:00 80 28 130/72 (91) Vapotherm 75.00 35.00 05/13/18 12:00 96 Vapotherm 35.00 75 05/13/18 12:00 76 28 115/68 (84) 92 Vapotherm 75.00 35.00 05/13/18 11:00 76 19 113/75 (88) 92 Vapotherm 75.00 35.00 05/13/18 10:11 93 Vapotherm 25.00 75 05/13/18 10:00 73 37 123/70 (87) 95 Vapotherm 75.00 35.00 05/13/18 09:00 72 25 125/64 (84) 94 Vapotherm 75.00 35.00 05/13/18 08:00 75 33 111/64 (80) 90 Vapotherm 75.00 35.00 05/13/18 08:00 96 Vapotherm 35.00 75 05/13/18 07:00 75 23 129/70 (89) 90 Vapotherm 75.00 35.00 05/13/18 07:00 73 05/13/18 06:53 71 25 92 Vapotherm 75.00 35.00 05/13/18 06:52 92 Vapotherm 35.00 75 05/13/18 06:41 68 24 96 65.00 I & O 05/14/18 07:00 Intake Total 700 ml Output Total 2500 ml Balance -1800 ml Height & Weight Height: 5'6.00" Weight: 135lbs. 9.0oz. 61.257365oz; 21.9 BMI Method:Stated General Appearance: WD/WN, Anxious, Chronically ill, Moderate Distress HEENT: PERRL/EOMI, Normal ENT Inspection, Pharynx Normal Neck: Full Range of Motion, Normal Inspection, Non Tender, Supple, Carotid Bruit Respiratory: Chest Non Tender, Accessory Muscle Use, Crackles, Decreased Breath Sounds, Respiratory Distress Cardiovascular: Regular Rate, Rhythm, No Edema, No Gallop, No JVD, No Murmur, Normal Peripheral Pulses Capillary Refill: Less Than 3 Seconds Gastrointestinal: non tender, distended; No guarding, No rebound, No tenderness Extremity: Normal Capillary Refill, Normal Inspection, Normal Range of Motion, Non Tender, No Calf Tenderness, No Pedal Edema Neurologic/Psychiatric: Alert, Oriented x3, No Motor/Sensory Deficits, Normal Mood/Affect Skin: Normal Color, Warm/Dry Lymphatic: No Adenopathy Results Lab Laboratory Tests 05/13/18 03:43 05/13/18 06:10 05/14/18 03:40 Assessment/Plan Assessment/Plan Acute on chronic respiratory failure -Currently on vapotherm -Continue SVNS to Q4 and Q2 PRN 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 Bush is going to place mediport -Dr. Cavazos is going to start chemo Hematuria -repeat UA -Pt may need cystoscopy -UO is good Persistent leukocytosis (pt was just started on solumedrol yesterday) -Continue Merrem -MRSA swab is negative Atelectasis secondary to endobronchial mass and gastric distention Ileus with abdominal distention r/o obstruction - Contributing to respiratory failure -Dr. Bush is following -PT had a CT of abdo/pelvis shows sig stricture -US of abd show mets to liter Tobacco use -Education Anxiety -Ativan -Add PRN Haldol -Morphine COPDAE -Oxygen -SVNs -Solumedrol ODETTE FERNANDEZ DO May 14, 2018 06:34
[2018-05-14] MEDS: inSUlin ASPART (NovoLOG) 1 UNIT/0.01 ML (CHARGE PER UNIT) SC SCH ×4 (06:36→21:04)
[2018-05-14] MEDS: LACTULOSE SYRUP 10GM/15ML (ENULOSE) 30ML UDC PO SCH ×2 (08:29→18:29)
[2018-05-14] MEDS: POLYETHYLENE GLYCOL 17 GM (MIRALAX) PACK PO SCH ×2 (08:29→18:29)
[2018-05-14] MEDS: ALPRAZolam 0.25 MG (XANAX) TAB PO PRN (08:45)
[2018-05-14] MEDS: meTOproloL SUCCINATE 50 MG (TOPROL XL) TAB PO SCH (08:46)
[2018-05-14] MEDS: FLUCONAZOLE 200 MG/100 ML 50 ML, EMPTY IV BAG (PVC) 1 EA IV SCH ×2 (08:46)
[2018-05-14] MEDS: amLODIPine 5 MG (NORVASC) TAB PO SCH (08:46)
--- NOTE | 2018-05-14 09:41 | Diagnostic Imaging Report ---
Indication: Pneumonia. Time of exam: 3:46 AM Correlation is made with prior study from one day earlier. Heart size is stable. Right hemidiaphragm is elevated. Bilateral interstitial and airspace infiltrates persist. No effusion or pneumothorax is seen. Impression: Removal of nasogastric tube since prior study. Bilateral infiltrates are similar to examination from one day earlier. Dictated by: Dictated on workstation # [id number]
[2018-05-14] MEDS ORDERED: diphenhydrAMINE 50 MG/ML INJ (BENADRYL) IV PRN (09:45)
[2018-05-14] MEDS ORDERED: NALOXONE 0.4 MG/ML 1 ML (NARCAN) VIAL IV PRN (09:45)
--- NOTE | 2018-05-14 09:50 | Physician Progress Note ---
Progress Note Assessment/Plan Date Seen by Provider: May 14, 2018 Time Seen by Provider: 09:42 Events since last exam Cover for Dr Cavazos. Pt is doing better. NG tube out, able to handle clear liquid so far. Sitting up in the chair on O2 NC, O2 sat 92% Need better pain control Laboratory Tests 05/14/18 03:40 Assessment/Plan A/P 1. Small cell lung cancer extensive disease. Day 3 chemo VP16 PO today. Pre-med before chemo 2. [employer] for pain control. Dr Singh to choose the setting 3. Leukocytosis, 2nd to steroid which can be wean off after today 4. Thrombocytosis, reactive, just watch for now 5. Consider removing [place] and physical therapy. Vitals Last set of Vitals Signs Vital Signs Date Time Temp Pulse Resp B/P (MAP) Pulse Ox O2 Delivery O2 Flow Rate FiO2 05/14/18 09:00 93 17 153/79 (103) 91 Vapotherm 75.00 35.00 05/14/18 06:42 75 05/14/18 04:44 96.9 I&O I&O Intake and Output 05/14/18 00:00 Intake Total 500 ml Output Total 2725 ml Balance -2225 ml Intake Oral 500 ml Output Urine Total 1625 ml Gastric Drainage Total 1100 ml # Bowel Movements 1 Labs Laboratory Tests 05/13/18 11:06: Glucometer 84 05/13/18 15:55: Glucometer 92 05/13/18 20:42: Glucometer 346H 05/14/18 03:40: White Blood Count 20.8H, Red Blood Count 3.86L, Hemoglobin 11.6, Hematocrit 36, Mean Corpuscular Volume 93, Mean Corpuscular Hemoglobin 30, Mean Corpuscular Hemoglobin Concent 32, Red Cell Distribution Width 18.0H, Platelet Count 599H, Mean Platelet Volume 9.2, Neutrophils (%) (Auto) 96H, Lymphocytes (%) (Auto) 2L , Monocytes (%) (Auto) 2, Eosinophils (%) (Auto) 0, Basophils (%) (Auto) 0, Neutrophils # (Auto) 19.9H, Lymphocytes # (Auto) 0.4L, Monocytes # (Auto) 0.5, Eosinophils # (Auto) 0.0, Basophils # (Auto) 0.0, Sodium Level 135, Potassium Level 3.9, Chloride Level 93L, Carbon Dioxide Level 30, Anion Gap 12, Blood Urea Nitrogen 31H, Creatinine 0.58L, Estimat Glomerular Filtration Rate > 60, BUN/Creatinine Ratio 53, Glucose Level 262H, Calcium Level 7.9L, Phosphorus Level 4.4, Magnesium Level 2.5H 05/14/18 06:26: Glucometer 188H Microbiology 05/06/18 Blood Culture - Final, Complete No growth 05/11/18 Mycobacterial Culture - Preliminary, Resulted See Comments 05/12/18 Urine Culture - Final, Complete NO GROWTH Clinical Quality Measures DVT/VTE Risk/Contraindication: Risk Factor Score Per Nursin RFS Level Per Nursing on Admit: 4+=Very High BETTY MENDEZ MD May 14, 2018 09:50
--- NOTE | 2018-05-14 10:45 | Progress Note (SOAP) ---
Subjective Subjective/Events-last exam Afebrile. NG tube removed. Having a lot of pain and anxiety. Review of Systems Date Seen by Provider: May 14, 2018 Time Seen by Provider: 09:45 Objective Exam Last Set of Vital Signs Vital Signs Date Time Temp Pulse Resp B/P (MAP) Pulse Ox O2 Delivery O2 Flow Rate FiO2 05/14/18 09:00 93 17 153/79 (103) 91 Vapotherm 75.00 35.00 05/14/18 06:42 75 05/14/18 04:44 96.9 Capillary Refill : Less Than 3 Seconds I&O Intake and Output 05/14/18 00:00 Intake Total 500 ml Output Total 2725 ml Balance -2225 ml Intake Oral 500 ml Output Urine Total 1625 ml Gastric Drainage Total 1100 ml # Bowel Movements 1 General: Alert, No Acute Distress Lungs: Other (decreased air movement, but improved from prior) Heart: Regular Rate, No Murmurs Abdomen: Normal Bowel Sounds Neuro: Normal Speech Psych/Mental Status: Mood NL Results/Procedures Lab Laboratory Tests 05/13/18 11:06: Glucometer 84 05/13/18 15:55: Glucometer 92 05/13/18 20:42: Glucometer 346H 05/14/18 03:40: White Blood Count 20.8H, Red Blood Count 3.86L, Hemoglobin 11.6, Hematocrit 36, Mean Corpuscular Volume 93, Mean Corpuscular Hemoglobin 30, Mean Corpuscular Hemoglobin Concent 32, Red Cell Distribution Width 18.0H, Platelet Count 599H, Mean Platelet Volume 9.2, Neutrophils (%) (Auto) 96H, Lymphocytes (%) (Auto) 2L , Monocytes (%) (Auto) 2, Eosinophils (%) (Auto) 0, Basophils (%) (Auto) 0, Neutrophils # (Auto) 19.9H, Lymphocytes # (Auto) 0.4L, Monocytes # (Auto) 0.5, Eosinophils # (Auto) 0.0, Basophils # (Auto) 0.0, Sodium Level 135, Potassium Level 3.9, Chloride Level 93L, Carbon Dioxide Level 30, Anion Gap 12, Blood Urea Nitrogen 31H, Creatinine 0.58L, Estimat Glomerular Filtration Rate > 60, BUN/Creatinine Ratio 53, Glucose Level 262H, Calcium Level 7.9L, Phosphorus Level 4.4, Magnesium Level 2.5H 05/14/18 06:26: Glucometer 188H Microbiology 05/06/18 Blood Culture - Final, Complete No growth 05/11/18 Mycobacterial Culture - Preliminary, Resulted See Comments 05/12/18 Urine Culture - Final, Complete NO GROWTH Assessment/Plan Assessment/Plan (1) Lung mass Status: Acute Assessment & Plan: Suspected malignancy with CT findings concerning for malignancy as well as mediastinal lymphadenopathy, multiple small liver lesions , enlarged adrenals and possible sigmoid stricture. Dr. Anaya consulted, appreciate recommendations, likely bonch with EBUS on Wednesday. 05/11 Bronch done, await biopsies 05/12 Dr. Cavazos consulted yesterday, CT head done without masses seen and bone scan ordered. Path pending. 05/13 prelim yesterday with small cell carcinoma, chemotherapy started, management per Dr. Cavazos (2) Hypertension Status: Chronic Assessment & Plan: No anti-hypertensives noted on home med list, medications started inpatient. 05/11 increase amlodipine to 10 mg daily. 05/12 increase metoprolol to 100 mg daily Qualifiers: Qualified Codes: I10 - Essential (primary) hypertension (3) Diabetes mellitus Status: Chronic Assessment & Plan: Hold metformin due to contrast. Levemir started. SSI. Qualifiers: Qualified Codes: E11.65 - Type 2 diabetes mellitus with hyperglycemia (4) Pneumonia Status: Acute Assessment & Plan: Initially suspected on admission, but given findings on CT, concern more for malignancy, antibiotics were d/c'd and she remains afebrile and with stable leukocytosis. Will hold antibiotics for now and obtain cultures with bronchoscopy per Dr. Anaya. 05/[address] Anaya yesterday pm 05/11 continue abx, remains intubated postprocedure per Dr. Anaya. 05/12 abx changed to meropenem per Dr. Anaya. Extubated yesterday, but now requiring bipap this am. Discussed with family possible need for re-intubation if status worsens. 05/14 continued on meropenem per Dr. Anaya and diflucan added yesterday with positive BAL for yeast. Remains on solumedrol q6, discussed with Oncology and will continue at same dose for today given need to keep down oral chemo, consider tapering tomorrow. Qualifiers: Qualified Codes: J18.1 - Lobar pneumonia, unspecified organism (5) Chest pain Status: Acute Assessment & Plan: Suspect secondary to lung mass, Cardiology consulted, appreciate recommendations. Echocardiogram with normal EF and no regional wall abnormalities on 05/08. 05/09 Increase hydrocodone to 7.5/325 which she was on in past for back pain, continue fentanyl for breakthrough and will adjust oral as needed. 05/10 switch to oxycodone, try Toradol as well. 05/12 d/c toradol given hypertension and minimal benefit noted. Holding oxycodone and increase IV morphine dosing given NG placement. 05/13 improved clinical condition, will resume oral and try to find effective dosing 05/14 continues to have marked pain, will try morphine SERVICES REP (6) Hypoxia Status: Acute Assessment & Plan: Requiring 2 lpm supplemental oxygen, not on O2 previously. Suspect due to lung malignancy vs pneumonia as noted above. Will wean as tolerated, may need home O2. 05/11 currently mechanically ventilated s/p bronch, management per Dr. Anaya 05/12 requiring bipap this morning, management per Dr. Anaya 05/13- tolerating vapotherm, but requiring 75% FiO2. (7) Abdominal distension Status: Acute Assessment & Plan: Monitor closely, note of sigmoid stricture on CT scan. Currently has bowel sounds and flatus, but will have low threshold for NG placement. 05/12 NG placed this am with minimal return noted. Repeat x-ray this am without evidence of obstruction. Bowel regimen started. 05/14 NG d/c'd and has had 2 bowel movements, distension not increased today (8) Liver enzyme elevation Status: Acute Assessment & Plan: AST/ALT stable since admission, bilirubin up. Suspect due to liver metastases. (9) Anxiety Status: Chronic Assessment & Plan: Home alprazolam had been continued, but she remains markedly anxious, will try longer acting benzo. (10) DVT prophylaxis Status: Acute Assessment & Plan: Enoxaparin (11) Advance care planning Status: Acute Assessment & Plan: Discussed with family the risk that if she worsens, she may need re-intubation before definitive answers are known about pathology and treatment options, and they plan to discuss further today. Currently is DNI. 05/13 chemotherapy started, planning per Dr. Cavazos at this point. Clinical Quality Measures DVT/VTE Risk/Contraindication: Risk Factor Score Per Nursin RFS Level Per Nursing on Admit: 4+=Very High RUDY MARTINEZ MD May 14, 2018 10:45
[2018-05-14] MEDS: SENNA W/DOCUSATE (SENOKOT S) TABLET PO SCH (10:58)
[2018-05-14] MEDS: NS IV 1000 ML 1,000 ML IV SCH (10:59)
[2018-05-14] MEDS: morphine PCA 100 MG/100 ML BAG IV PRN (11:21)
[2018-05-14] MEDS ORDERED: PALONOSETRON HCL 0.25 MG, DEXAMETHASONE INJECTION 10 MG in NS (IVPB) CANCER CENTER 50 ML IV ONE (13:00)
[2018-05-14] MEDS: METOCLOPRAMIDE INJ 10 MG/2 ML (REGLAN) IV PRN (13:21)
[2018-05-14] MEDS: ONDANSETRON 4 MG/2 ML (SDV) Z0FRAN IVP PRN (13:21)
[2018-05-14] MEDS ORDERED: ETOPOSIDE 50 MG PO ONE (14:00)
[2018-05-14] MEDS: inSUlin DETERMIR 1 UNIT/0.01 ML (LEVEMIR) CHARGE PER UNIT SQ SCH (21:04)
[2018-05-14] MEDS: LORazepam 1 MG (ATIVAN) TAB PO PRN (21:12)
[2018-05-15] VITALS (26 sets, daily range): BP systolic 67–166; BP diastolic 48–100
[2018-05-15] MEDS: methylPREDNISolone 40 MG/ML (Solu-MEDROL) VIAL IV SCH ×4 (00:16→18:00)
[2018-05-15] MEDS: MEROPENEM 500 MG/SWFI 10 ML IV PUSH IV SCH ×8 (00:16→18:00)
[2018-05-15] MEDS: RT-ALBUTEROL/IPRATROPIUM 3 ML (DUONEB) VIAL INH SCH ×6 (01:53→22:16)
[2018-05-15] MEDS: HALOPERIDOL 5 MG/ML (HALDOL) AMP IV PRN (02:33)
[2018-05-15 03:44] LABS: BASOPHILS % (AUTO) 0 % (0-10); EOSINOPHILS % (AUTO) 0 % (0-10); HEMATOCRIT 36 % (35-52); HEMOGLOBIN 11.8 G/DL (11.5-16.0); LYMPHOCYTES # (AUTO) 0.3 X 10^3 (1.0-4.0); LYMPHOCYTES % (AUTO) 1 % (12-44); MEAN CORPUSCULAR HEMOGLOBIN 31 PG (25-34); MEAN CORPUSCULAR HGB CONC 33 G/DL (32-36); MEAN CORPUSCULAR VOLUME 93 FL (80-99); MEAN PLATELET VOLUME 9.4 FL (7.4-10.4); MONOCYTES # (AUTO) 0.1 X 10^3 (0.0-1.0); MONOCYTES % (AUTO) 0 % (0-12); NEUTROPHILS # (AUTO) 19.1 X 10^3 (1.8-7.8); NEUTROPHILS % (AUTO) 98 % (42-75); PLATELET COUNT 499 10^3/uL (130-400); RED CELL DISTRIBUTION WIDTH 17.2 % (10.0-14.5); WHITE BLOOD COUNT 19.5 10^3/uL (4.3-11.0)
[2018-05-15 04:01] LABS: BUN/CREATININE RATIO 45; CALCIUM 7.9 MG/DL (8.5-10.1); CARBON DIOXIDE 29 MMOL/L (21-32); CHLORIDE 94 MMOL/L (98-107); CREATININE SERUM 0.51 MG/DL (0.60-1.30); GFR ESTIMATED > 60; GLUCOSE 259 MG/DL (70-105); MAGNESIUM 1.9 MG/DL (1.8-2.4); PHOSPHORUS 3.1 MG/DL (2.3-4.7); POTASSIUM 3.6 MMOL/L (3.6-5.0); SODIUM 136 MMOL/L (135-145)
[2018-05-15] MEDS ORDERED: KCL 20 MEQ TAB (K-DUR) PO ONE (04:15)
[2018-05-15] MEDS: inSUlin ASPART (NovoLOG) 1 UNIT/0.01 ML (CHARGE PER UNIT) SC SCH ×4 (06:36→23:02)
[2018-05-15] MEDS: POTASSIUM CL 10MEQ/50ML IVPB 50 ML IV SCH (06:49)
[2018-05-15] MEDS: MAGNESIUM 1 GM/100 ML IVPB 100 ML IV SCH (06:49)
[2018-05-15] MEDS: KCL 20 MEQ TAB (K-DUR) PO SCH (06:49)
--- NOTE | 2018-05-15 08:02 | Pulmonary Progress Note ---
Subjective Time Seen by a Provider: 08:17 Subjective/Events-last exam PT is still requiring Vapotherm at 65%. Sepsis Event Evaluation Height, Weight, BMI Height: 5'6.00" Weight: 167lbs. 5.0oz. 75.495201wa; 21.9 BMI Method:Stated Exam Exam Vital Signs Date Time Temp Pulse Resp B/P (MAP) Pulse Ox O2 Delivery O2 Flow Rate FiO2 05/15/18 07:26 95 Vapotherm 25.00 65 05/15/18 05:00 75 12 145/87 (106) 93 Vapotherm 70.00 25.00 05/15/18 04:07 Vapotherm 25.00 65 05/15/18 04:00 84 12 153/88 (109) 91 Vapotherm 70.00 25.00 05/15/18 03:00 87 18 156/80 (105) 91 Vapotherm 70.00 25.00 05/15/18 02:00 80 13 166/100 (122) 91 Vapotherm 70.00 25.00 05/15/18 01:53 95 Vapotherm 25.00 65 05/15/18 01:00 73 12 134/77 (96) 94 Vapotherm 70.00 25.00 05/15/18 01:00 78 05/15/18 00:11 Vapotherm 25.00 65 05/15/18 00:00 80 13 154/89 (110) 90 Vapotherm 70.00 25.00 05/14/18 23:59 95.9 05/14/18 23:00 77 12 128/74 (92) 93 Vapotherm 70.00 25.00 05/14/18 22:07 65 Vapotherm 25.00 70 05/14/18 22:00 77 12 134/77 (96) 93 Vapotherm 70.00 25.00 05/14/18 21:00 18 05/14/18 21:00 89 17 138/82 (100) 94 Vapotherm 70.00 25.00 05/14/18 20:02 98.7 90 15 162/90 (114) 93 Vapotherm 70.00 25.00 05/14/18 20:00 Vapotherm 25.00 75 05/14/18 19:07 95 Vapotherm 25.00 75 05/14/18 19:00 83 16 138/73 (94) 96 Vapotherm 75.00 25.00 05/14/18 19:00 84 05/14/18 18:00 90 23 151/88 (109) 94 Vapotherm 75.00 25.00 05/14/18 17:00 84 15 140/87 (104) 93 Vapotherm 75.00 25.00 05/14/18 16:00 80 19 148/83 (104) 93 Vapotherm 75.00 25.00 05/14/18 15:27 96 Vapotherm 25.00 75 05/14/18 15:00 77 10 128/72 (90) 97 Vapotherm 75.00 25.00 05/14/18 14:09 96 Vapotherm 25.00 75 05/14/18 14:00 77 12 133/79 (97) 97 Vapotherm 75.00 25.00 05/14/18 13:00 86 22 146/84 (104) 92 Vapotherm 75.00 35.00 05/14/18 13:00 87 05/14/18 12:00 96 Vapotherm 25.00 75 05/14/18 12:00 87 22 155/80 (105) 91 Vapotherm 75.00 35.00 05/14/18 11:00 92 17 167/85 (112) 93 Vapotherm 75.00 35.00 05/14/18 10:53 91 Vapotherm 25.00 75 05/14/18 10:00 90 20 167/89 (115) 91 Vapotherm 75.00 35.00 05/14/18 09:00 93 17 153/79 (103) 91 Vapotherm 75.00 35.00 I & O 05/15/18 07:00 Intake Total 1765 ml Output Total 2500 ml Balance -735 ml Height & Weight Height: 5'6.00" Weight: 167lbs. 5.0oz. 75.020670ur; 21.9 BMI Method:Stated General Appearance: WD/WN, Anxious, Chronically ill, Mild Distress HEENT: PERRL/EOMI, Normal ENT Inspection, Pharynx Normal Neck: Full Range of Motion, Normal Inspection, Non Tender, Supple, Carotid Bruit Respiratory: Chest Non Tender, Accessory Muscle Use, Crackles, Decreased Breath Sounds, Respiratory Distress Cardiovascular: Regular Rate, Rhythm, No Edema, No Gallop, No JVD, No Murmur, Normal Peripheral Pulses Capillary Refill: Less Than 3 Seconds Gastrointestinal: non tender, distended; No guarding, No rebound, No tenderness Extremity: Normal Capillary Refill, Normal Inspection, Normal Range of Motion, Non Tender, No Calf Tenderness, No Pedal Edema Neurologic/Psychiatric: Alert, Oriented x3, No Motor/Sensory Deficits, Normal Mood/Affect Skin: Normal Color, Warm/Dry Lymphatic: No Adenopathy Results Lab Laboratory Tests 05/14/18 03:40 05/15/18 03:16 Assessment/Plan Assessment/Plan Acute on chronic respiratory failure -Currently on vapotherm -Continue SVNS to Q4 and Q2 PRN 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 Bush is going to place mediport -Dr. Cavazos is going to start chemo Hematuria -repeat UA -Pt may need cystoscopy -UO is good Persistent leukocytosis (pt was just started on solumedrol yesterday) -Continue Merrem -MRSA swab is negative Atelectasis secondary to endobronchial mass and gastric distention Ileus with abdominal distention r/o obstruction - Contributing to respiratory failure -Dr. Bush is following -PT had a CT of abdo/pelvis shows sig stricture -US of abd show mets to liter Tobacco use -Education Anxiety -Ativan -Add PRN Haldol -Morphine COPDAE -Oxygen -SVNs -Solumedrol ODETTE FERNANDEZ DO May 15, 2018 08:02
[2018-05-15] MEDS: LACTULOSE SYRUP 10GM/15ML (ENULOSE) 30ML UDC PO SCH ×2 (08:26→21:39)
[2018-05-15] MEDS: POLYETHYLENE GLYCOL 17 GM (MIRALAX) PACK PO SCH ×2 (08:26→21:40)
[2018-05-15] MEDS: SENNA W/DOCUSATE (SENOKOT S) TABLET PO SCH (08:26)
[2018-05-15] MEDS: amLODIPine 5 MG (NORVASC) TAB PO SCH (08:48)
[2018-05-15] MEDS: meTOproloL SUCCINATE 50 MG (TOPROL XL) TAB PO SCH (08:48)
[2018-05-15] MEDS: LORazepam 1 MG (ATIVAN) TAB PO PRN (08:48)
[2018-05-15] MEDS: FLUCONAZOLE 200 MG/100 ML 50 ML, EMPTY IV BAG (PVC) 1 EA IV SCH ×2 (08:48)
[2018-05-15] MEDS ORDERED: LORazepam 1 MG (ATIVAN) TAB PO PRN (09:45)
--- NOTE | 2018-05-15 10:48 | Diagnostic Imaging Report ---
Indication: Pneumonia. Time of exam: 2:59 AM Correlation is made with prior study one day earlier. Heart size is normal. Right hemidiaphragm remains elevated. Bilateral pulmonary infiltrates persist and show no real change. There is no effusion or pneumothorax. Impression: Stable bilateral infiltrates when compared with examination one day earlier. Dictated by: Dictated on workstation # [id number]
--- NOTE | 2018-05-15 13:35 | Progress Note (SOAP) ---
Subjective Subjective/Events-last exam Afebrile, feeling okay. Decreased FiO2 requirement. Still pretty anxious, lorazepam helped but not enough. Review of Systems Date Seen by Provider: May 15, 2018 Time Seen by Provider: 06:40 Objective Exam Last Set of Vital Signs Vital Signs Date Time Temp Pulse Resp B/P (MAP) Pulse Ox O2 Delivery O2 Flow Rate FiO2 05/15/18 10:21 93 Vapotherm 25.00 65 05/15/18 10:00 74 11 121/68 (85) 05/14/18 23:59 95.9 Capillary Refill : Less Than 3 Seconds I&O Intake and Output 05/15/18 00:00 Intake Total 1725 ml Output Total 2250 ml Balance -525 ml Intake Oral 1525 ml Tube Feeding 200 ml Output Urine Total 2250 ml # Bowel Movements 2 General: Alert, Mild Distress Lungs: Other (decreased air movement) Heart: Regular Rate, No Murmurs Abdomen: Normal Bowel Sounds, Soft Psych/Mental Status: Mental Status NL, Mood NL Results/Procedures Lab Laboratory Tests 05/14/18 16:34: Glucometer 151H 05/14/18 20:13: Glucometer 390H 05/15/18 03:16: White Blood Count 19.5H, Red Blood Count 3.86L, Hemoglobin 11.8, Hematocrit 36, Mean Corpuscular Volume 93, Mean Corpuscular Hemoglobin 31, Mean Corpuscular Hemoglobin Concent 33, Red Cell Distribution Width 17.2H, Platelet Count 499H, Mean Platelet Volume 9.4, Neutrophils (%) (Auto) 98H, Lymphocytes (%) (Auto) 1L , Monocytes (%) (Auto) 0, Eosinophils (%) (Auto) 0, Basophils (%) (Auto) 0, Neutrophils # (Auto) 19.1H, Lymphocytes # (Auto) 0.3L, Monocytes # (Auto) 0.1, Eosinophils # (Auto) 0.0, Basophils # (Auto) 0.0, Sodium Level 136, Potassium Level 3.6, Chloride Level 94L, Carbon Dioxide Level 29, Anion Gap 13, Blood Urea Nitrogen 23H, Creatinine 0.51L, Estimat Glomerular Filtration Rate > 60, BUN/Creatinine Ratio 45, Glucose Level 259H, Calcium Level 7.9L, Phosphorus Level 3.1, Magnesium Level 1.9 05/15/18 06:21: Glucometer 287H 2/10/19 10:55: Glucometer 237H Microbiology 05/06/18 Blood Culture - Final, Complete No growth 05/11/18 Mycobacterial Culture - Preliminary, Resulted See Comments 05/12/18 Urine Culture - Final, Complete NO GROWTH Assessment/Plan Assessment/Plan (1) Lung mass Status: Acute Assessment & Plan: Suspected malignancy with CT findings concerning for malignancy as well as mediastinal lymphadenopathy, multiple small liver lesions , enlarged adrenals and possible sigmoid stricture. Dr. Anaya consulted, appreciate recommendations, likely bonch with EBUS on Wednesday. 05/11 Bronch done, await biopsies 05/12 Dr. Cavazos consulted yesterday, CT head done without masses seen and bone scan ordered. Path pending. 05/13 prelim yesterday with small cell carcinoma, chemotherapy started, management per Dr. Cavazos (2) Hypertension Status: Chronic Assessment & Plan: No anti-hypertensives noted on home med list, medications started inpatient. 05/11 increase amlodipine to 10 mg daily. 05/12 increase metoprolol to 100 mg daily Qualifiers: Qualified Codes: I10 - Essential (primary) hypertension (3) Diabetes mellitus Status: Chronic Assessment & Plan: Hold metformin due to contrast. Levemir started. SSI. Qualifiers: Qualified Codes: E11.65 - Type 2 diabetes mellitus with hyperglycemia (4) Pneumonia Status: Acute Assessment & Plan: Initially suspected on admission, but given findings on CT, concern more for malignancy, antibiotics were d/c'd and she remains afebrile and with stable leukocytosis. Will hold antibiotics for now and obtain cultures with bronchoscopy per Dr. Anaya. 05/[address] Anaya yesterday pm 05/11 continue abx, remains intubated postprocedure per Dr. Anaya. 05/12 abx changed to meropenem per Dr. Anaya. Extubated yesterday, but now requiring bipap this am. Discussed with family possible need for re-intubation if status worsens. 05/14 continued on meropenem per Dr. Anaya and diflucan added yesterday with positive BAL for yeast. Remains on solumedrol q6, discussed with Oncology and will continue at same dose for today given need to keep down oral chemo, consider tapering tomorrow. 05/15- FiO2 requirement decreased, taper steroid when okay with Dr. Anaya. Qualifiers: Qualified Codes: J18.1 - Lobar pneumonia, unspecified organism (5) Chest pain Status: Acute Assessment & Plan: Suspect secondary to lung mass, Cardiology consulted, appreciate recommendations. Echocardiogram with normal EF and no regional wall abnormalities on 05/08. 05/09 Increase hydrocodone to 7.5/325 which she was on in past for back pain, continue fentanyl for breakthrough and will adjust oral as needed. 05/10 switch to oxycodone, try Toradol as well. 05/12 d/c toradol given hypertension and minimal benefit noted. Holding oxycodone and increase IV morphine dosing given NG placement. 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 Suspect due to lung malignancy vs pneumonia as noted above. Will wean as tolerated, may need home O2. 05/11 currently mechanically ventilated s/p bronch, management per Dr. Anaya 05/12 requiring bipap this morning, management per Dr. Anaya 05/13- tolerating vapotherm, but requiring 75% FiO2. (7) Abdominal distension Status: Acute Assessment & Plan: Monitor closely, note of sigmoid stricture on CT scan. Currently has bowel sounds and flatus, but will have low threshold for NG placement. 05/12 NG placed this am with minimal return noted. Repeat x-ray this am without evidence of obstruction. Bowel regimen started. 05/14 NG d/c'd and has had 2 bowel movements, distension not increased today 05/15 advance diet (8) Liver enzyme elevation Status: Acute Assessment & Plan: AST/ALT stable since admission, bilirubin up. Suspect due to liver metastases. (9) Anxiety Status: Chronic Assessment & Plan: Home alprazolam had been continued, but she remains markedly anxious, will try longer acting benzo. 05/15 improved with lorazepam but still fairly anxious, increase to 2 mg TID prn. (10) DVT prophylaxis Status: Acute Assessment & Plan: Enoxaparin (11) Advance care planning Status: Acute Assessment & Plan: Discussed with family the risk that if she worsens, she may need re-intubation before definitive answers are known about pathology and treatment options, and they plan to discuss further today. Currently is DNI. 05/13 chemotherapy started, planning per Dr. Cavazos at this point. Clinical Quality Measures DVT/VTE Risk/Contraindication: Risk Factor Score Per Nursin RFS Level Per Nursing on Admit: 4+=Very High RUDY MARTINEZ MD May 15, 2018 13:35
--- NOTE | 2018-05-15 19:47 | Physician Progress Note ---
Progress Note Assessment/Plan Date Seen by Provider: May 15, 2018 Time Seen by Provider: 19:44 Events since last exam Pt is doing better. No nausea vomiting, tolerating clear liquid diet. Pain under reasonable control with PAVING MACHINE OPERATOR Port placement tomorrow Am. Laboratory Tests 05/15/18 03:16 Assessment/Plan A/P 1. Small cell lung cancer extensive disease. Finished 1st course of chemo. Did well so far. 2. PAVING MACHINE OPERATOR for pain control. Dr Singh to choose the setting 3. Leukocytosis, 2nd to steroid which can be wean off after today 4. Thrombocytosis, reactive, just watch for now 5. Consider removing [place] and physical therapy. 6. Port placement tomorrow. Vitals Last set of Vitals Signs Vital Signs Date Time Temp Pulse Resp B/P (MAP) Pulse Ox O2 Delivery O2 Flow Rate FiO2 05/15/18 19:23 96 Vapotherm 30.00 100 05/15/18 18:00 96 164/94 (117) 05/15/18 16:00 96.9 05/15/18 15:00 12 I&O I&O Intake and Output 05/15/18 00:00 Intake Total 1725 ml Output Total 2250 ml Balance -525 ml Intake Oral 1525 ml Tube Feeding 200 ml Output Urine Total 2250 ml # Bowel Movements 2 Labs Laboratory Tests 05/14/18 20:13: Glucometer 390H 05/15/18 03:16: White Blood Count 19.5H, Red Blood Count 3.86L, Hemoglobin 11.8, Hematocrit 36, Mean Corpuscular Volume 93, Mean Corpuscular Hemoglobin 31, Mean Corpuscular Hemoglobin Concent 33, Red Cell Distribution Width 17.2H, Platelet Count 499H, Mean Platelet Volume 9.4, Neutrophils (%) (Auto) 98H, Lymphocytes (%) (Auto) 1L , Monocytes (%) (Auto) 0, Eosinophils (%) (Auto) 0, Basophils (%) (Auto) 0, Neutrophils # (Auto) 19.1H, Lymphocytes # (Auto) 0.3L, Monocytes # (Auto) 0.1, Eosinophils # (Auto) 0.0, Basophils # (Auto) 0.0, Sodium Level 136, Potassium Level 3.6, Chloride Level 94L, Carbon Dioxide Level 29, Anion Gap 13, Blood Urea Nitrogen 23H, Creatinine 0.51L, Estimat Glomerular Filtration Rate > 60, BUN/Creatinine Ratio 45, Glucose Level 259H, Calcium Level 7.9L, Phosphorus Level 3.1, Magnesium Level 1.9 05/15/18 06:21: Glucometer 287H 05/15/18 10:55: Glucometer 237H 05/15/18 15:36: Glucometer 277H Microbiology 05/06/18 Blood Culture - Final, Complete No growth 05/11/18 Mycobacterial Culture - Preliminary, Resulted See Comments 05/12/18 Urine Culture - Final, Complete NO GROWTH Clinical Quality Measures DVT/VTE Risk/Contraindication: Risk Factor Score Per Nursin RFS Level Per Nursing on Admit: 4+=Very High BETTY MENDEZ MD May 15, 2018 19:47
[2018-05-15] MEDS: inSUlin DETERMIR 1 UNIT/0.01 ML (LEVEMIR) CHARGE PER UNIT SQ SCH (21:38)
[2018-05-16] VITALS (15 sets, daily range): BP systolic 121–170; BP diastolic 61–98
[2018-05-16] MEDS: methylPREDNISolone 40 MG/ML (Solu-MEDROL) VIAL IV SCH ×4 (00:01→21:53)
[2018-05-16] MEDS: MEROPENEM 500 MG/SWFI 10 ML IV PUSH IV SCH ×8 (00:01→17:49)
[2018-05-16] MEDS: RT-ALBUTEROL/IPRATROPIUM 3 ML (DUONEB) VIAL INH SCH ×5 (01:45→22:32)
[2018-05-16 03:12] LABS: BASOPHILS % (AUTO) 0 % (0-10); EOSINOPHILS % (AUTO) 0 % (0-10); HEMATOCRIT 34 % (35-52); HEMOGLOBIN 11.3 G/DL (11.5-16.0); LYMPHOCYTES # (AUTO) 0.4 X 10^3 (1.0-4.0); LYMPHOCYTES % (AUTO) 2 % (12-44); MEAN CORPUSCULAR HEMOGLOBIN 31 PG (25-34); MEAN CORPUSCULAR HGB CONC 33 G/DL (32-36); MEAN CORPUSCULAR VOLUME 94 FL (80-99); MEAN PLATELET VOLUME 8.8 FL (7.4-10.4); MONOCYTES % (AUTO) 0 % (0-12); NEUTROPHILS # (AUTO) 17.7 X 10^3 (1.8-7.8); NEUTROPHILS % (AUTO) 97 % (42-75); PLATELET COUNT 451 10^3/uL (130-400); RED CELL DISTRIBUTION WIDTH 16.9 % (10.0-14.5); WHITE BLOOD COUNT 18.1 10^3/uL (4.3-11.0)
[2018-05-16 03:32] LABS: BUN/CREATININE RATIO 39; CALCIUM 7.8 MG/DL (8.5-10.1); CARBON DIOXIDE 30 MMOL/L (21-32); CHLORIDE 94 MMOL/L (98-107); CREATININE SERUM 0.44 MG/DL (0.60-1.30); GFR ESTIMATED > 60; GLUCOSE 161 MG/DL (70-105); MAGNESIUM 1.9 MG/DL (1.8-2.4); PHOSPHORUS 3.1 MG/DL (2.3-4.7); POTASSIUM 3.9 MMOL/L (3.6-5.0); SODIUM 136 MMOL/L (135-145)
[2018-05-16] MEDS: POTASSIUM CL 10MEQ/50ML IVPB 50 ML IV SCH (04:16)
[2018-05-16] MEDS: MAGNESIUM 1 GM/100 ML IVPB 100 ML IV SCH (04:17)
[2018-05-16] MEDS: KCL 20 MEQ TAB (K-DUR) PO SCH (04:17)
[2018-05-16] MEDS ORDERED: LACTATED RINGERS 1,000 ML IV PRN ×2 (06:49→09:09)
[2018-05-16] MEDS ORDERED: BUP/EPI 0.5% 1:200,000 (SENSORCAINE) 30 ML VIAL ONE (07:02)
[2018-05-16] MEDS ORDERED: HEParin (CENTRAL IV FLUSH) 500 UNIT/5 ML SYR ONE (07:03)
[2018-05-16] MEDS ORDERED: 0.9% SODIUM CHLORIDE PF INJ 20 ML VIAL ONE (07:03)
--- NOTE | 2018-05-16 07:20 | Diagnostic Imaging Report ---
INDICATION: Pneumonia. COMPARISON: 05/15/2018 FINDINGS: Single frontal radiographic view of the chest was obtained and again demonstrates bilateral pulmonary infiltrates. There may be some improved aeration in the right base, but interval progression of infiltrates in the left mid and lower lung field. No large effusion or pneumothorax is seen. Cardiac silhouette and pulmonary vasculature is stable. Bony structures are stable as well. IMPRESSION: 1. Persistent bilateral infiltrates with mixed interval change as described above. Continued followup is recommended. Dictated by: Dictated on workstation # [id number]
[2018-05-16] MEDS: inSUlin ASPART (NovoLOG) 1 UNIT/0.01 ML (CHARGE PER UNIT) SC SCH ×4 (07:21→21:54)
--- NOTE | 2018-05-16 07:44 | Pulmonary Progress Note ---
Subjective Time Seen by a Provider: 07:43 Subjective/Events-last exam Currently on BiPAP Sepsis Event Evaluation Height, Weight, BMI Height: 5'6.00" Weight: 169lbs. 3.0oz. 76.542719qf; 21.9 BMI Method:Stated Exam Exam Vital Signs Date Time Temp Pulse Resp B/P (MAP) Pulse Ox O2 Delivery O2 Flow Rate FiO2 05/16/18 06:00 80 26 170/98 (122) 94 NIV Bilevel 40.00 05/16/18 05:35 84 23 142/97 (112) 93 NIV Bilevel 40.00 05/16/18 05:00 81 95 NIV Bilevel 40.00 05/16/18 04:00 72 131/79 (96) 94 NIV Bilevel 40.00 05/16/18 03:48 70 16 93 40.00 05/16/18 03:00 72 136/81 (99) 95 NIV Bilevel 40.00 05/16/18 02:00 70 131/78 (95) 94 NIV Bilevel 40.00 05/16/18 01:45 72 17 95 40.00 05/16/18 01:00 71 05/16/18 01:00 71 121/73 (89) 94 NIV Bilevel 40.00 05/16/18 00:03 96.4 05/16/18 00:00 75 124/73 (90) 94 NIV Bilevel 40.00 05/15/18 23:06 75 97 NIV Bilevel 40.00 05/15/18 23:06 83 29 97 50.00 05/15/18 23:00 75 122/84 (97) 95 NIV Bilevel 50.00 05/15/18 22:16 77 25 98 50.00 05/15/18 22:16 70 97 NIV Bilevel 50.00 05/15/18 22:00 82 134/86 (102) 95 Vapotherm 90.00 30.00 05/15/18 21:00 79 146/94 (111) 95 Vapotherm 90.00 30.00 05/15/18 21:00 Vapotherm 25.00 100 05/15/18 20:00 79 125/76 (92) 95 Vapotherm 90.00 30.00 05/15/18 19:44 96.7 05/15/18 19:35 92 94 Vapotherm 90.00 30.00 05/15/18 19:23 96 Vapotherm 30.00 100 05/15/18 19:00 88 155/88 (110) 97 Vapotherm 100.00 30.00 05/15/18 19:00 88 05/15/18 18:00 96 164/94 (117) 94 Vapotherm 100.00 30.00 05/15/18 17:15 99 150/87 (108) 93 Vapotherm 100.00 30.00 05/15/18 17:00 84 67/48 (54) 94 Vapotherm 100.00 30.00 05/15/18 16:00 96.9 05/15/18 16:00 93 117/80 (92) 94 Vapotherm 100.00 30.00 05/15/18 15:00 81 12 139/82 (101) 95 Vapotherm 100.00 30.00 05/15/18 14:02 92 Vapotherm 25.00 85 05/15/18 14:00 85 19 139/86 (103) 88 Vapotherm 100.00 30.00 05/15/18 13:11 79 05/15/18 13:00 83 14 116/65 (82) Vapotherm 70.00 25.00 05/15/18 12:00 107 14 132/77 (95) 89 Vapotherm 70.00 25.00 05/15/18 11:00 89 16 139/79 (99) 89 Vapotherm 70.00 25.00 05/15/18 10:21 93 Vapotherm 25.00 65 05/15/18 10:00 74 11 121/68 (85) 94 Vapotherm 70.00 25.00 05/15/18 09:00 96 15 146/87 (106) 93 Vapotherm 70.00 25.00 05/15/18 08:00 95 19 133/77 (95) 93 Vapotherm 70.00 25.00 05/15/18 08:00 92 Vapotherm 25.00 65 I & O 05/16/18 07:00 Intake Total 1165 ml Output Total 3775 ml Balance -2610 ml Height & Weight Height: 5'6.00" Weight: 169lbs. 3.0oz. 76.046856dy; 21.9 BMI Method:Stated General Appearance: WD/WN, Anxious, Chronically ill, Mild Distress HEENT: PERRL/EOMI, Normal ENT Inspection, Pharynx Normal Neck: Full Range of Motion, Normal Inspection, Non Tender, Supple, Carotid Bruit Respiratory: Chest Non Tender, Accessory Muscle Use, Crackles, Decreased Breath Sounds, Respiratory Distress Cardiovascular: Regular Rate, Rhythm, No Edema, No Gallop, No JVD, No Murmur, Normal Peripheral Pulses Capillary Refill: Less Than 3 Seconds Gastrointestinal: non tender, distended; No guarding, No rebound, No tenderness Extremity: Normal Capillary Refill, Normal Inspection, Normal Range of Motion, Non Tender, No Calf Tenderness, No Pedal Edema Neurologic/Psychiatric: Alert, Oriented x3, No Motor/Sensory Deficits, Normal Mood/Affect Skin: Normal Color, Warm/Dry Lymphatic: No Adenopathy Results Lab Laboratory Tests 05/15/18 03:16 05/16/18 02:50 Assessment/Plan Assessment/Plan Acute on chronic respiratory failure -Currently on vapotherm BIPAP PRN -Continue SVNS to Q4 and Q2 PRN 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 Bush is going to place [facility] -Dr. Cavazos following and currently rx chemo Persistent leukocytosis (pt was just started on solumedrol yesterday) -Continue Merrem -MRSA swab is negative Atelectasis secondary to endobronchial mass and gastric distention Ileus with abdominal distention r/o obstruction - Contributing to respiratory failure -Dr. Bush is following -US of abd show mets to liter Tobacco use -Education Anxiety -Ativan -Add PRN Haldol -Morphine COPDAE -Oxygen -SVNs -Solumedrol ODETTE FERNANDEZ DO May 16, 2018 07:44
[2018-05-16] MEDS ORDERED: LIDOCAINE PF 2% 5 ML (XYLOCAINE) VIAL ONE (08:16)
[2018-05-16] MEDS ORDERED: proPOfol 200 MG/20 ML (DIPRIVAN) VIAL IV ONE (08:16)
[2018-05-16] MEDS ORDERED: KETAMINE HCL 100 MG/ML 5 ML VIAL ONE (08:17)
[2018-05-16] MEDS ORDERED: MIDAZOLAM 2 MG/2 ML (VERSED) VIAL ONE ×2 (08:17)
--- NOTE | 2018-05-16 08:35 | NUR ---
PT LEAVING UNIT VIA BED ACCOMPANIED BY SURGERY STAFF. PT ON BIPAP.
[2018-05-16] MEDS ORDERED: ceFAZolin INJECTION 1,000 MG ONE (08:36)
--- NOTE | 2018-05-16 08:53 | Progress Note-Hospitalist ---
Subjective HPI/CC On Admission Date Seen by Provider: May 16, 2018 Time Seen by Provider: 09:30 CC: Pneumonia right lower lobe HPI: This is a 63-year-old white female Former[facility] with a past medical history of lung nodules with continued smoking who presented to the ER with chest pain who was found to have right lower lobe pneumonia with leukocytosis. Upon further assessment alkaline phosphatase elevation noted with mild elevation of liver enzymes making it suspicious for bone involvement so CT scans were obtained revealing likely primary lung cancer with widespread metastasis. Patient was placed on empiric antibiotics with nebulizer treatments. 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 Subjective/Events-last exam Patient had a port placed today without complication Patient feels much better Still on Vapotherm but off BiPAP Denies any pain except for the port was inserted Updated daughter answered all of her questions Palliative chemotherapy started Bowels are moving well Review of Systems General: Fatigue Pulmonary: Dyspnea Objective Exam Vital Signs Vital Signs Date Time Temp Pulse Resp B/P (MAP) Pulse Ox O2 Delivery O2 Flow Rate FiO2 05/16/18 18:00 20 05/16/18 16:36 92 Vapotherm 20.00 70 05/16/18 15:56 98.4 87 145/67 (93) Capillary Refill : Less Than 3 Seconds General Appearance: WD/WN, Anxious, Chronically ill, Mild Distress HEENT: PERRL/EOMI, Normal ENT Inspection, Pharynx Normal Neck: Full Range of Motion, Normal Inspection, Non Tender, Supple, Carotid Bruit Respiratory: Chest Non Tender, Accessory Muscle Use, Crackles, Decreased Breath Sounds, Respiratory Distress Cardiovascular: Regular Rate, Rhythm, No Edema, No Gallop, No JVD, No Murmur, Normal Peripheral Pulses Gastrointestinal: Normal Bowel Sounds, No Organomegaly, No Pulsatile Mass, Non Tender, Soft Back: Normal Inspection, No CVA Tenderness, No Vertebral Tenderness Extremity: Normal Capillary Refill, Normal Inspection, Normal Range of Motion, Non Tender, No Calf Tenderness, No Pedal Edema Neurologic/Psychiatric: Alert, Oriented x3, No Motor/Sensory Deficits, Normal Mood/Affect Skin: Normal Color, Warm/Dry Lymphatic: No Adenopathy Results/Procedures Lab Laboratory Tests 05/16/18 02:50 Patient resulted labs reviewed. Assessment/Plan Assessment and Plan Assess & Plan/Chief Complaint Assessment: Right lower lobe pneumonia postobstructive type New diagnosis of small lung cancer with widespread metastasis Current smoker Plan: Abx Monitor labs HLIVF Ambulate Lovenox Vapotherm Critical Care Critically Ill Patient Diagnosis/Problems Diagnosis/Problems (1) Pneumonia Status: Acute Qualifiers: Pneumonia type: due to unspecified organism Laterality: right Lung location: lower lobe of lung Qualified Codes: J18.1 - Lobar pneumonia, unspecified organism (2) Cancer, metastatic to bone Status: Acute (3) COPD (chronic obstructive pulmonary disease) Status: Chronic Qualifiers: COPD type: unspecified COPD Qualified Codes: J44.9 - Chronic obstructive pulmonary disease, unspecified (4) Alkaline phosphatase elevation Status: Acute (5) Liver enzyme elevation Status: Acute (6) Chronic GERD Status: Chronic (7) Smoker Status: Chronic (8) Small cell lung cancer Status: Acute Clinical Quality Measures DVT/VTE Risk/Contraindication: Risk Factor Score Per Nursin RFS Level Per Nursing on Admit: 4+=Very High SUE KOWALSKI DO May 16, 2018 08:53
[2018-05-16] MEDS ORDERED: ESMOLOL 100 MG/10 ML (BREVIBLOC) VIAL ONE (08:59)
[2018-05-16] MEDS: LACTULOSE SYRUP 10GM/15ML (ENULOSE) 30ML UDC PO SCH ×2 (09:00→21:54)
[2018-05-16] MEDS: POLYETHYLENE GLYCOL 17 GM (MIRALAX) PACK PO SCH ×2 (09:00→21:54)
[2018-05-16] MEDS ORDERED: ceFAZolin INJECTION 1,000 MG VIAL IV ONE (09:00)
[2018-05-16] MEDS: SENNA W/DOCUSATE (SENOKOT S) TABLET PO SCH (09:00)
--- NOTE | 2018-05-16 09:34 | Operative Report ---
Operative Report Date of Procedure/Surgery May 16, 2018 Surgeon (s) BERE ROSARIO MD Hot Top Liner (s): N/A Post-Operative Diagnosis metastatic small cell carcinoma of the lung Procedure Performed Qdivpq-u-Dmes placement Description of Procedure Anesthesia Type: MAC Estimated blood loss (mL): minimal Specimen(s) collected/removed None Description of the Procedure Indication for the procedure: This lady has just been diagnosed with small cell carcinoma of the lung with systemic metastasis. To facilitate administering chemotherapy, placing an Xigrlg-g-Uvjt was felt to be reasonable. Informed consent was obtained after reviewing the operative details and complications of hematoma , bacteremia and the malfunction of the catheter requiring replacement. Description of the procedure: She was placed supine on the operating table and our anesthesiologist administered sedation, monitoring her vital signs. A gram of Ancef was administered intravenously as prophylaxis against wound infection; sequential compression devices were placed around her legs, to minimize the risk of venous thrombosis. Her neck and upper chest were prepared and draped in the usual sterile manner. Right internal jugular vein was localized using the 12 MHz ultrasound probe and a floppy guidewire introduced into the heart, under fluoroscopy. A subcutaneous pocket was created over the infraclavicular fossa and the Stephane catheter brought into the neck, in a retrograde fashion. It was then advanced into the heart, under fluoroscopy, using the peel-away sheath. The catheter was then pulled back to the superior vena cava, under fluoroscopy and connected to the Yyljdd-o-Twqh, that had been primed with heparinized saline. I was able to aspirate and flush the system without any difficulty. The port was then secured to the pectoralis tissue using 2-0 Prolene sutures. The incision was then closed using 3-0 Vicryl for the dermal layer and 4-0 Vicryl for skin, in a subcuticular fashion. Steri-Strips and a nonadherent dressing was then applied. The port was accessed at the end of the operation. She tolerated the procedure well and was taken to the recovery room in a stable condition. Findings of the Procedure See op report Allergies and Home Medications Allergies Coded Allergies: doxycycline (Unverified Allergy, Severe, TONGUE SWELLING, 10/20/16) levofloxacin (Unverified Allergy, Severe, TONGUE SWELLING, BLISTERS, ) sumatriptan (Verified Allergy, Unknown, 10/20/16) aspirin (Verified Adverse Reaction, Mild, advised not to take after throat surgery, 10/20/16) ibuprofen (Verified Adverse Reaction, Mild, advised not to take after throat surgery, 10/20/16) Home Medications Albuterol Sulfate 1 Puff Puff, 2 PUFF IH Q4H PRN for SHORTNESS OF BREATH, ( Reported) 1 PUFF = 90 MCG Atorvastatin Calcium 40 Mg Tablet, 40 MG PO DAILY, (Reported) Glipizide 10 Mg Tablet, 10 MG PO DAILY, (Reported) Loratadine 10 Mg Tablet, 10 MG PO DAILY, (Reported) Metformin HCl 1,000 Mg Tab.er.24, 1,000 MG PO BID, (Reported) Omeprazole 40 Mg Capsule.dr, 40 MG PO DAILY, (Reported) Patient Home Medication List Home Medication List Reviewed: Yes BERE ROSARIO MD May 16, 2018 09:34
[2018-05-16] MEDS ORDERED: fentaNYL INJECTION 100 MCG/2 ML AMP IVP PRN (09:45)
[2018-05-16] MEDS ORDERED: ONDANSETRON 4 MG/2 ML (SDV) Z0FRAN IVP PRN (09:45)
[2018-05-16] MEDS ORDERED: fentaNYL INJECTION 100 MCG/2 ML AMP IVP ONE (09:45)
--- NOTE | 2018-05-16 10:15 | NUR ---
RECEIVED REPORT FROM JACKELINE BOWERS FROM RECOVERY, PATIENT ALERT, DRESSING DRY AND INTACT TO RIGHT CHEST, ICE PACK INTACT TO RIGHT CHEST INCISION, VAPOTHERM ON, IV SITE WITHOUT REDNESS OR SWELLING IN LEFT FOREARM, MCNAIR PATENT WITH CLEAR YELLOW URINE, SCD'S APPLIED, DAUGHTER AT BEDSIDE. CALL LIGHT WITHIN REACH.
--- NOTE | 2018-05-16 10:15 | Diagnostic Imaging Report ---
Indication: Groshong catheter placement Fluoroscopy was provided for Dr. Bush in the OR during Groshong catheter placement. 31 seconds of fluoroscopy was utilized. Images over the right chest show a right-sided Groshong catheter. Impression: Fluoroscopy for Groshong catheter placement. Dictated by: Dictated on workstation # [id number]
--- NOTE | 2018-05-16 10:30 | NUR ---
MORPHINE ENAMEL BUFFER CONNECTED AND PATIENT INSTRUCTED ON USE, RATES PAIN 7 ON PAIN SCALE, NS INFUSING AT 30ML HOUR.
[2018-05-16] MEDS: amLODIPine 5 MG (NORVASC) TAB PO SCH (10:40)
[2018-05-16] MEDS: NS IV 1000 ML 1,000 ML IV SCH (10:40)
[2018-05-16] MEDS: meTOproloL SUCCINATE 50 MG (TOPROL XL) TAB PO SCH (10:41)
[2018-05-16] MEDS: FLUCONAZOLE 200 MG/100 ML 50 ML, EMPTY IV BAG (PVC) 1 EA IV SCH ×2 (10:49)
[2018-05-16] MEDS: morphine PCA 100 MG/100 ML BAG IV PRN (11:12)
--- NOTE | 2018-05-16 14:12 | Anesthesia-General Post-Op ---
MAC Patient Condition Mental Status/LOC: Same as Preop Cardiovascular: Satisfactory Nausea/Vomiting: Absent Respiratory: Satisfactory Pain: Controlled Complications: Absent Post Op Complications Complications None Follow Up Care/Instructions Patient Instructions None needed. Anesthesiology Discharge Order Discharge Order Patient is doing well, no complaints, stable vital signs, no apparent adverse anesthesia problems. No complications reported per nursing. PK RIDLEY CRNA May 16, 2018 14:12
--- NOTE | 2018-05-16 16:32 | NUR ---
1:1 visit with pt who shared about her [place] in [place], her plans to pursue treatment, plans to enjoy activities with her grand children while she still has the energy to enjoy time together. Her brother Abdifatah arrived and also engaged supportively.
[2018-05-16] MEDS: RT-ALBUTEROL/IPRATROPIUM 3 ML (DUONEB) VIAL INH PRN (16:36)
--- NOTE | 2018-05-16 17:00 | NUR ---
DR PARRA HERE, ORDERED FOR NURSE TO DC ATIVAN AND FENTANYL, DAUGHTER AT BEDSIDE
--- NOTE | 2018-05-16 17:36 | Progress Note-Standard ---
Standard Progress Note Progress Notes/Assess & Plan Date Seen by a Provider: May 16, 2018 Time Seen by a Provider: 17:36 Progress/Assessment & Plan 63-year-old female admitted to the hospital with increasing shortness of breath and found to have near obstructing lesion in the right mainstem bronchus with hilar and mediastinal lymphadenopathy as well as extensive liver metastasis and adrenal masses. Bronchoscopy with biopsies showed small cell lung cancer. Status post chemotherapy with carboplatinum and paclitaxel regimen from 05/12/18 - 05/14/18. Patient tolerated the treatment well and denied any nausea or vomiting. She is feeling better and was moved out of ICU to [facility]. She still complained of right-sided chest discomfort and is on morphine MOTORCYCLE RACER with 1 mg bolus when necessary. She has been using 2-3 mg/h today. Oxygen has been weaned to 15 L at 65 percent FiO2 by Vapotherm. O2 sats ranging between mid 80s to low 90s. Lab work monitored. CBC and BMP stable. Chest x-ray with the right lower lobe atelectasis/pneumonia. Currently on meropenem and fluconazole. Continue. Patient completed port placement today. Medications reviewed. Will DC fentanyl when necessary, Ativan when necessary and reduce Solu-Medrol to Q8 hours. I advised her to do incentive spirometry. As her activity level is improving, we will discontinue more medications. Will follow patient with you. ADIEL PARRA May 16, 2018 17:36
[2018-05-16] MEDS: inSUlin DETERMIR 1 UNIT/0.01 ML (LEVEMIR) CHARGE PER UNIT SQ SCH (21:54)
[2018-05-17] VITALS: BP 142/68
[2018-05-17] MEDS: MEROPENEM 500 MG/SWFI 10 ML IV PUSH IV SCH ×12 (00:16→23:58)
[2018-05-17] MEDS: RT-ALBUTEROL/IPRATROPIUM 3 ML (DUONEB) VIAL INH SCH ×6 (03:23→23:13)
[2018-05-17 04:00] VITALS: BP 159/79
[2018-05-17] MEDS: methylPREDNISolone 40 MG/ML (Solu-MEDROL) VIAL IV SCH ×3 (06:24→21:52)
[2018-05-17] MEDS: inSUlin ASPART (NovoLOG) 1 UNIT/0.01 ML (CHARGE PER UNIT) SC SCH ×4 (06:31→21:53)
[2018-05-17 06:37] LABS: BASOPHILS # (AUTO) 0.1 10^3/uL (0.0-0.1); BASOPHILS % (AUTO) 1 % (0-10); EOSINOPHILS % (AUTO) 0 % (0-10); HEMATOCRIT 34 % (35-52); LYMPHOCYTES % (AUTO) 6 % (12-44); MEAN CORPUSCULAR HEMOGLOBIN 31 PG (25-34); MEAN CORPUSCULAR HGB CONC 33 G/DL (32-36); MEAN CORPUSCULAR VOLUME 93 FL (80-99); MEAN PLATELET VOLUME 8.7 FL (7.4-10.4); MONOCYTES % (AUTO) 0 % (0-12); NEUTROPHILS # (AUTO) 15.4 X 10^3 (1.8-7.8); NEUTROPHILS % (AUTO) 93 % (42-75); PLATELET COUNT 382 10^3/uL (130-400); RED CELL DISTRIBUTION WIDTH 16.3 % (10.0-14.5); WHITE BLOOD COUNT 16.6 10^3/uL (4.3-11.0)
[2018-05-17] MEDS ORDERED: FUROSEMIDE 40 MG/4 ML INJ (LASIX) IVP NR (06:45)
--- NOTE | 2018-05-17 06:47 | Pulmonary Progress Note ---
Sepsis Event Evaluation Height, Weight, BMI Height: 5'6.00" Weight: 169lbs. 3.0oz. 76.283006ef; 21.9 BMI Method:Stated Exam Exam Vital Signs Date Time Temp Pulse Resp B/P (MAP) Pulse Ox O2 Delivery O2 Flow Rate FiO2 05/17/18 04:00 97.9 76 22 159/79 (105) 92 Vapotherm 65.00 15.00 05/17/18 03:23 90 Vapotherm 15.00 60 05/17/18 00:00 97.4 84 22 142/68 (92) 92 Vapotherm 65.00 15.00 05/16/18 22:32 92 Vapotherm 15.00 65 05/16/18 21:00 Vapotherm 25.00 100 05/16/18 20:00 98.0 90 22 122/61 (81) 92 Vapotherm 70.00 20.00 05/16/18 18:00 20 05/16/18 16:36 92 Vapotherm 20.00 70 05/16/18 15:56 98.4 87 22 145/67 (93) 95 Vapotherm 70.00 20.00 05/16/18 12:01 Vapotherm 25.00 100 05/16/18 12:00 98.3 87 24 166/86 (112) 94 NIV Bilevel 40.00 05/16/18 11:58 20 05/16/18 11:12 20 05/16/18 11:05 95 Vapotherm 30.00 80 05/16/18 08:00 83 27 154/93 (113) 94 NIV Bilevel 40.00 05/16/18 08:00 97.0 05/16/18 08:00 NIV Bilevel 40 05/16/18 07:48 86 21 94 40.00 05/16/18 07:00 86 25 158/95 (116) 95 NIV Bilevel 40.00 05/16/18 07:00 79 I & O 05/17/18 07:00 Intake Total 2300 ml Output Total 3835 ml Balance -1535 ml Height & Weight Height: 5'6.00" Weight: 169lbs. 3.0oz. 76.140564rp; 21.9 BMI Method:Stated General Appearance: WD/WN, Anxious, Chronically ill, Mild Distress HEENT: PERRL/EOMI, Normal ENT Inspection, Pharynx Normal Neck: Full Range of Motion, Normal Inspection, Non Tender, Supple, Carotid Bruit Respiratory: Chest Non Tender, Accessory Muscle Use, Crackles, Decreased Breath Sounds, Respiratory Distress Cardiovascular: Regular Rate, Rhythm, No Edema, No Gallop, No JVD, No Murmur, Normal Peripheral Pulses Capillary Refill: Less Than 3 Seconds Gastrointestinal: non tender, distended; No guarding, No rebound, No tenderness Extremity: Normal Capillary Refill, Normal Inspection, Normal Range of Motion, Non Tender, No Calf Tenderness, No Pedal Edema Neurologic/Psychiatric: Alert, Oriented x3, No Motor/Sensory Deficits, Normal Mood/Affect Skin: Normal Color, Warm/Dry Lymphatic: No Adenopathy Results Lab Laboratory Tests 05/16/18 02:50 05/17/18 06:30 Assessment/Plan Assessment/Plan Acute on chronic respiratory failure -Currently on vapotherm BIPAP PRN -Continue SVNS to Q4 and Q2 PRN -Labs pending -Give lasix IV X 1 40mg 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 Bush is going to place [facility] -Dr. Cavazos following and currently rx chemo Persistent leukocytosis (pt was just started on solumedrol yesterday) -Continue Merrem -MRSA swab is negative Atelectasis secondary to endobronchial mass and gastric distention Ileus with abdominal distention r/o obstruction - Contributing to respiratory failure -Dr. Bush is following -US of abd show mets to liter Tobacco use -Education Anxiety -Ativan -Add PRN Haldol -Morphine COPDAE -Oxygen -SVNs -Solumedrol ODETTE FERNANDEZ DO May 17, 2018 06:47
[2018-05-17 07:08] LABS: BUN/CREATININE RATIO 41; CALCIUM 7.8 MG/DL (8.5-10.1); CARBON DIOXIDE 34 MMOL/L (21-32); CHLORIDE 91 MMOL/L (98-107); CREATININE SERUM 0.46 MG/DL (0.60-1.30); GFR ESTIMATED > 60; GLUCOSE 173 MG/DL (70-105); MAGNESIUM 1.7 MG/DL (1.8-2.4); PHOSPHORUS 3.4 MG/DL (2.3-4.7); POTASSIUM 3.5 MMOL/L (3.6-5.0); SODIUM 134 MMOL/L (135-145)
[2018-05-17 07:38] VITALS: BP 158/68
--- NOTE | 2018-05-17 08:15 | NUR ---
LASIX 40MG IV PER ORDER. OXYIR 10 PO FOR C/O PAIN.
--- NOTE | 2018-05-17 09:36 | Progress Note-Hospitalist ---
Subjective HPI/CC On Admission Date Seen by Provider: May 17, 2018 Time Seen by Provider: 09:30 CC: Pneumonia right lower lobe HPI: This is a 63-year-old white female [facility], [facility] with a past medical history of lung nodules with continued smoking who presented to the ER with chest pain who was found to have right lower lobe pneumonia with leukocytosis. Upon further assessment alkaline phosphatase elevation noted with mild elevation of liver enzymes making it suspicious for bone involvement so CT scans were obtained revealing likely primary lung cancer with widespread metastasis. Patient was placed on empiric antibiotics with nebulizer treatments. 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 Subjective/Events-last exam Pt doing much better Lung sounds are much improved today Overall much improved and off Vapotherm on high flow oxygen Once oxygen requirements improve will be able to DC her whether that be going home or to a facility Palliative chemotherapy maintained Review of Systems General: Fatigue Pulmonary: Dyspnea Objective Exam Vital Signs Vital Signs Date Time Temp Pulse Resp B/P (MAP) Pulse Ox O2 Delivery O2 Flow Rate FiO2 05/17/18 19:32 96.0 91 16 145/81 (102) 95 05/17/18 11:58 Nasal Cannula 10.00 05/17/18 07:08 65 Capillary Refill : Less Than 3 Seconds General Appearance: No Apparent Distress, WD/WN, Anxious, Chronically ill HEENT: PERRL/EOMI, Normal ENT Inspection, Pharynx Normal Neck: Full Range of Motion, Normal Inspection, Non Tender, Supple, Carotid Bruit Respiratory: Chest Non Tender, Accessory Muscle Use, Crackles, Decreased Breath Sounds, Respiratory Distress Cardiovascular: Regular Rate, Rhythm, No Edema, No Gallop, No JVD, No Murmur, Normal Peripheral Pulses Gastrointestinal: Normal Bowel Sounds, No Organomegaly, No Pulsatile Mass, Non Tender, Soft Back: Normal Inspection, No CVA Tenderness, No Vertebral Tenderness Extremity: Normal Capillary Refill, Normal Inspection, Normal Range of Motion, Non Tender, No Calf Tenderness, No Pedal Edema Neurologic/Psychiatric: Alert, Oriented x3, No Motor/Sensory Deficits, Normal Mood/Affect Skin: Normal Color, Warm/Dry Lymphatic: No Adenopathy Results/Procedures Lab Laboratory Tests 05/17/18 06:30 Patient resulted labs reviewed. Assessment/Plan Assessment and Plan Assess & Plan/Chief Complaint Assessment: Right lower lobe pneumonia postobstructive type New diagnosis of small lung cancer with widespread metastasis Current smoker Plan: Abx Monitor labs HLIVF Ambulate Lovenox O2 Critical Care Critically Ill Patient Diagnosis/Problems Diagnosis/Problems (1) Pneumonia Status: Acute Qualifiers: Pneumonia type: due to unspecified organism Laterality: right Lung location: lower lobe of lung Qualified Codes: J18.1 - Lobar pneumonia, unspecified organism (2) Small cell lung cancer Status: Acute (3) Cancer, metastatic to bone Status: Acute (4) COPD (chronic obstructive pulmonary disease) Status: Chronic Qualifiers: COPD type: unspecified COPD Qualified Codes: J44.9 - Chronic obstructive pulmonary disease, unspecified (5) Alkaline phosphatase elevation Status: Acute (6) Liver enzyme elevation Status: Acute (7) Chronic GERD Status: Chronic (8) Smoker Status: Chronic Clinical Quality Measures DVT/VTE Risk/Contraindication: Risk Factor Score Per Nursin RFS Level Per Nursing on Admit: 4+=Very High SUE KOWALSKI DO May 17, 2018 09:36
[2018-05-17] MEDS: LACTULOSE SYRUP 10GM/15ML (ENULOSE) 30ML UDC PO SCH ×2 (09:38→17:53)
[2018-05-17] MEDS: POLYETHYLENE GLYCOL 17 GM (MIRALAX) PACK PO SCH ×2 (09:38→17:53)
[2018-05-17] MEDS: SENNA W/DOCUSATE (SENOKOT S) TABLET PO SCH (09:38)
[2018-05-17] MEDS: amLODIPine 5 MG (NORVASC) TAB PO SCH (09:48)
[2018-05-17] MEDS: FLUCONAZOLE 200 MG/100 ML 50 ML, EMPTY IV BAG (PVC) 1 EA IV SCH ×2 (09:48)
[2018-05-17] MEDS: meTOproloL SUCCINATE 50 MG (TOPROL XL) TAB PO SCH (09:48)
--- NOTE | 2018-05-17 10:53 | Diagnostic Imaging Report ---
INDICATION: Pneumonia. TECHNIQUE: Single view chest at 3:17 AM. CORRELATION STUDY: 05/16/2018. FINDINGS: Right IJ Thaflh-z-Ezbi catheter has been placed since the prior study with the tip at the cavoatrial junction. Heart size is enlarged and mediastinum is stable. Vasculature is unchanged. Scattered pulmonary/parenchymal densities with mixed alveolar and interstitial infiltrates present but overall appear somewhat improved. IMPRESSION: 1. Bilateral mixed alveolar and interstitial infiltrates persist but overall do appear to be slightly diminished and improved. 2. Interval placement of a right IJ central line. Dictated by: Dictated on workstation # [id number]
[2018-05-17 11:10] VITALS: BP 156/73
--- NOTE | 2018-05-17 13:20 | NUR ---
OXYIR 10 PO FOR PAIN.
--- NOTE | 2018-05-17 15:39 | NUR ---
THIS RN TO ASSUME PATIENT CARE.
[2018-05-17 16:08] VITALS: BP 169/73
--- NOTE | 2018-05-17 16:54 | NUR ---
Met with pt and daughter to discuss continued care plans. Financial Services initiating an expedited Social security disability claim and Medicaid application. Pt's daughter is nurse on our staff and very supportive and is also her DPOA for Health Care decisions
--- NOTE | 2018-05-17 17:06 | Progress Note-Standard ---
Standard Progress Note Progress Notes/Assess & Plan Date Seen by a Provider: May 17, 2018 Time Seen by a Provider: 16:59 Progress/Assessment & Plan 63-year-old female admitted to the hospital with increasing shortness of breath and found to have near obstructing lesion in the right mainstem bronchus with hilar and mediastinal lymphadenopathy as well as extensive liver metastasis and adrenal masses. Bronchoscopy with biopsies showed small cell lung cancer. Status post chemotherapy with carboplatinum and paclitaxel regimen from 05/12/18 - 05/14/18. Patient tolerated the treatment well and denied any nausea or vomiting. She is feeling better and oxygen has been weaned to 8 L by nasal cannula with O2 sats in the mid 90s. She still complained of right-sided chest discomfort and is using morphine MANAGER LOCATION with 1 mg bolus as needed. She has used 26 mg from today morning until 4 p.m. averaging 2.5-3 mg/h. She is also using occasional oxycodone. Lab work monitored. CBC and BMP stable. Chest x-ray with overall improvement compared to before. Currently on meropenem and fluconazole. Continue. I will decrease the morphine MANAGER LOCATION to 1 mg every 30 minutes as needed and eventually switch this to oral. I advised her to do incentive spirometry. May consider physical therapy consult for strengthening and ambulation. Will obtain CMP and LDH in a.m. Will follow patient with you. ADIEL PARRA May 17, 2018 17:06
[2018-05-17 19:32] VITALS: BP 145/81
[2018-05-17] MEDS: inSUlin DETERMIR 1 UNIT/0.01 ML (LEVEMIR) CHARGE PER UNIT SQ SCH (21:53)
[2018-05-18] VITALS: BP 143/70
[2018-05-18] MEDS: RT-ALBUTEROL/IPRATROPIUM 3 ML (DUONEB) VIAL INH SCH ×6 (02:53→22:13)
[2018-05-18 03:29] LABS: BASOPHILS % (AUTO) 0 % (0-10); EOSINOPHILS % (AUTO) 0 % (0-10); HEMATOCRIT 33 % (35-52); HEMOGLOBIN 10.8 G/DL (11.5-16.0); LYMPHOCYTES # (AUTO) 0.6 X 10^3 (1.0-4.0); LYMPHOCYTES % (AUTO) 5 % (12-44); MEAN CORPUSCULAR HEMOGLOBIN 30 PG (25-34); MEAN CORPUSCULAR HGB CONC 32 G/DL (32-36); MEAN CORPUSCULAR VOLUME 93 FL (80-99); MEAN PLATELET VOLUME 8.6 FL (7.4-10.4); MONOCYTES % (AUTO) 0 % (0-12); NEUTROPHILS % (AUTO) 95 % (42-75); PLATELET COUNT 351 10^3/uL (130-400); RED CELL DISTRIBUTION WIDTH 15.9 % (10.0-14.5); WHITE BLOOD COUNT 11.6 10^3/uL (4.3-11.0)
[2018-05-18 03:47] LABS: MAGNESIUM 1.8 MG/DL (1.8-2.4); PHOSPHORUS 3.3 MG/DL (2.3-4.7)
[2018-05-18 04:00] VITALS: BP 155/78
[2018-05-18 04:00] LABS: ALANINE AMINOTRANSFERASE 80 U/L (0-55); ALBUMIN 2.8 GM/DL (3.2-4.5); ALKALINE PHOSPHATASE 762 U/L (40-136); BILIRUBIN,TOTAL 1.9 MG/DL (0.1-1.0); BUN/CREATININE RATIO 48; CARBON DIOXIDE 30 MMOL/L (21-32); CHLORIDE 89 MMOL/L (98-107); CREATININE SERUM 0.46 MG/DL (0.60-1.30); GFR ESTIMATED > 60; GLUCOSE 197 MG/DL (70-105); POTASSIUM 3.8 MMOL/L (3.6-5.0); SODIUM 132 MMOL/L (135-145); TOTAL PROTEIN 5.3 GM/DL (6.4-8.2)
[2018-05-18] MEDS: inSUlin ASPART (NovoLOG) 1 UNIT/0.01 ML (CHARGE PER UNIT) SC SCH ×4 (05:21→20:23)
[2018-05-18] MEDS: methylPREDNISolone 40 MG/ML (Solu-MEDROL) VIAL IV SCH (05:23)
[2018-05-18] MEDS: MEROPENEM 500 MG/SWFI 10 ML IV PUSH IV SCH ×6 (05:23→17:29)
[2018-05-18 07:42] VITALS: BP 163/74
--- NOTE | 2018-05-18 08:08 | Pulmonary Progress Note ---
Subjective Time Seen by a Provider: 09:17 Subjective/Events-last exam Pt is doing much better from pulmonary standpoint. Sepsis Event Evaluation Height, Weight, BMI Height: 5'6.00" Weight: 160lbs. 0.0oz. 72.581548as; 21.9 BMI Method:Stated Exam Exam Vital Signs Date Time Temp Pulse Resp B/P (MAP) Pulse Ox O2 Delivery O2 Flow Rate FiO2 05/18/18 07:42 98.4 96 18 163/74 (103) 91 High Flow N/C 3.00 05/18/18 07:30 97 Nasal Cannula 4.00 05/18/18 07:00 18 05/18/18 04:00 97.6 86 18 155/78 (103) 94 High Flow N/C 5.00 05/18/18 02:53 97 Nasal Cannula 5.00 05/18/18 00:00 97.4 79 16 143/70 (94) 96 High Flow N/C 5.00 05/17/18 23:13 97 Nasal Cannula 7.00 05/17/18 21:30 96 High Flow N/C 7.00 05/17/18 21:00 18 05/17/18 19:32 96.0 91 16 145/81 (102) 95 05/17/18 19:26 97 Nasal Cannula 8.00 05/17/18 16:08 96.4 84 16 169/73 (105) 92 05/17/18 11:58 94 Nasal Cannula 10.00 05/17/18 11:10 97.5 81 22 156/73 (100) 96 High Flow N/C 10.00 I & O 05/18/18 07:00 Intake Total 2855 ml Output Total 7425 ml Balance -4570 ml Height & Weight Height: 5'6.00" Weight: 160lbs. 0.0oz. 72.292392eq; 21.9 BMI Method:Stated General Appearance: No Apparent Distress, WD/WN, Anxious, Chronically ill HEENT: PERRL/EOMI, Normal ENT Inspection, Pharynx Normal Neck: Full Range of Motion, Normal Inspection, Non Tender, Supple, Carotid Bruit Respiratory: Chest Non Tender, Accessory Muscle Use, Crackles, Decreased Breath Sounds, Respiratory Distress Cardiovascular: Regular Rate, Rhythm, No Edema, No Gallop, No JVD, No Murmur, Normal Peripheral Pulses Capillary Refill: Less Than 3 Seconds Gastrointestinal: non tender, distended; No guarding, No rebound, No tenderness Extremity: Normal Capillary Refill, Normal Inspection, Normal Range of Motion, Non Tender, No Calf Tenderness, No Pedal Edema Neurologic/Psychiatric: Alert, Oriented x3, No Motor/Sensory Deficits, Normal Mood/Affect Skin: Normal Color, Warm/Dry Lymphatic: No Adenopathy Results Lab Laboratory Tests 05/17/18 06:30 05/18/18 03:20 Assessment/Plan Assessment/Plan Acute on chronic respiratory failure- improving -Change Solumedrol to prednisone taper. -Continue SVNS to Q4 and Q2 PRN -Labs pending -Respiratory status is improving 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 Cavazos following and currently rx chemo Persistent leukocytosis (pt was just started on solumedrol yesterday) -Continue Merrem -MRSA swab is negative Atelectasis secondary to endobronchial mass and gastric distention Ileus with abdominal distention r/o obstruction - Contributing to respiratory failure -Dr. Bush is following -US of abd show mets to liter Tobacco use -Education Anxiety -Ativan -Add PRN Haldol -Morphine COPDAE -Oxygen -SVNs -Solumedrol ODETTE FERNANDEZ DO May 18, 2018 08:08
[2018-05-18] MEDS: meTOproloL SUCCINATE 50 MG (TOPROL XL) TAB PO SCH (08:25)
[2018-05-18] MEDS: amLODIPine 5 MG (NORVASC) TAB PO SCH (08:25)
[2018-05-18] MEDS: FLUCONAZOLE 200 MG/100 ML 50 ML, EMPTY IV BAG (PVC) 1 EA IV SCH ×2 (08:26)
[2018-05-18] MEDS: LACTULOSE SYRUP 10GM/15ML (ENULOSE) 30ML UDC PO SCH ×2 (08:27→20:14)
[2018-05-18] MEDS: SENNA W/DOCUSATE (SENOKOT S) TABLET PO SCH (08:27)
[2018-05-18] MEDS: POLYETHYLENE GLYCOL 17 GM (MIRALAX) PACK PO SCH ×2 (08:27→20:15)
--- NOTE | 2018-05-18 09:38 | Diagnostic Imaging Report ---
Indication: Pneumonia. Time of exam 3:58 AM Correlation is made with prior study one day earlier. A right chest wall port has tip overlying the SVC. There has been some improved aeration to both lungs with some reduction in pulmonary infiltrates. There continues to be some pleural fluid in the right base. No pneumothorax is seen. Impression: There has been some generalized improved aeration of both lungs when compared to examination one day earlier. Dictated by: Dictated on workstation # [id number]
--- NOTE | 2018-05-18 10:36 | Progress Note-Hospitalist ---
Subjective HPI/CC On Admission Date Seen by Provider: May 18, 2018 Time Seen by Provider: 10:00 CC: Pneumonia right lower lobe HPI: This is a 63-year-old white female [facility] with a past medical history of lung nodules with continued smoking who presented to the ER with chest pain who was found to have right lower lobe pneumonia with leukocytosis. Upon further assessment alkaline phosphatase elevation noted with mild elevation of liver enzymes making it suspicious for bone involvement so CT scans were obtained revealing likely primary lung cancer with widespread metastasis. Patient was placed on empiric antibiotics with nebulizer treatments. 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 Subjective/Events-last exam Pt will discontinue catheter today. Requiring less oxygen now. Pain medication has been changed to decrease dependency. Pt may need swing bed or rehab or nursing facility. Nebulizer treatments maintained. Bowels are moving. Review of Systems Pulmonary: Dyspnea Neurological: Weakness Objective Exam Vital Signs Vital Signs Date Time Temp Pulse Resp B/P (MAP) Pulse Ox O2 Delivery O2 Flow Rate FiO2 05/18/18 18:00 18 05/18/18 18:00 94 High Flow N/C 4.00 05/18/18 15:21 98.6 83 158/71 (100) 05/17/18 07:08 65 Capillary Refill : Less Than 3 SecondsLess Than 3 Seconds General Appearance: No Apparent Distress, WD/WN, Chronically ill HEENT: PERRL/EOMI, Normal ENT Inspection, Pharynx Normal Neck: Full Range of Motion, Normal Inspection, Non Tender, Supple, Carotid Bruit Respiratory: Chest Non Tender, Decreased Breath Sounds Cardiovascular: Regular Rate, Rhythm, No Edema, No Gallop, No JVD, No Murmur, Normal Peripheral Pulses Gastrointestinal: Normal Bowel Sounds, No Organomegaly, No Pulsatile Mass, Non Tender, Soft Back: Normal Inspection, No CVA Tenderness, No Vertebral Tenderness Extremity: Normal Capillary Refill, Normal Inspection, Normal Range of Motion, Non Tender, No Calf Tenderness, No Pedal Edema Neurologic/Psychiatric: Alert, Oriented x3, No Motor/Sensory Deficits, Normal Mood/Affect Skin: Normal Color, Warm/Dry Lymphatic: No Adenopathy Results/Procedures Lab Laboratory Tests 05/18/18 03:20 Patient resulted labs reviewed. Assessment/Plan Assessment and Plan Assess & Plan/Chief Complaint Assessment: Right lower lobe pneumonia postobstructive type New diagnosis of small lung cancer with widespread metastasis Current smoker Plan: Abx Monitor labs HLIVF Ambulate Lovenox O2 DC catheter PT/OT Critical Care Critically Ill Patient Diagnosis/Problems Diagnosis/Problems (1) Pneumonia Status: Acute Qualifiers: Pneumonia type: due to unspecified organism Laterality: right Lung location: lower lobe of lung Qualified Codes: J18.1 - Lobar pneumonia, unspecified organism (2) Small cell lung cancer Status: Acute (3) Cancer, metastatic to bone Status: Acute (4) COPD (chronic obstructive pulmonary disease) Status: Chronic Qualifiers: COPD type: unspecified COPD Qualified Codes: J44.9 - Chronic obstructive pulmonary disease, unspecified (5) Alkaline phosphatase elevation Status: Acute (6) Liver enzyme elevation Status: Acute (7) Chronic GERD Status: Chronic (8) Smoker Status: Chronic Clinical Quality Measures DVT/VTE Risk/Contraindication: Risk Factor Score Per Nursin RFS Level Per Nursing on Admit: 4+=Very High SUE KOWALSKI DO May 18, 2018 10:36
[2018-05-18 11:29] VITALS: BP 156/61
[2018-05-18] MEDS: predniSONE 10 MG TAB PO SCH (11:53)
[2018-05-18 15:21] VITALS: BP 158/71
--- NOTE | 2018-05-18 16:39 | Progress Note-Standard ---
Standard Progress Note Progress Notes/Assess & Plan Date Seen by a Provider: May 18, 2018 Time Seen by a Provider: 16:35 Progress/Assessment & Plan 63-year-old female admitted to the hospital with increasing shortness of breath and found to have near obstructing lesion in the right mainstem bronchus with hilar and mediastinal lymphadenopathy as well as extensive liver metastasis and adrenal masses. Bronchoscopy with biopsies showed small cell lung cancer. Status post chemotherapy with carboplatinum and paclitaxel regimen from 05/12/18 - 05/14/18. Patient tolerated the treatment well and denied any nausea or vomiting. She is feeling better and oxygen has been weaned to 2 L by nasal cannula. She still complained of right-sided chest discomfort and is using oxycodone every 6 hours. She has only used 2 boluses of morphine by AGRICULTURAL PRODUCE WASHER since this morning. Lab work monitored. CBC stable. CMP showed elevated LFTs probably related to medications. Chest x-ray with overall improvement compared to yesterday. Currently on meropenem and fluconazole. May change fluconazole to oral. If she is not needing morphine significantly, I will DC the AGRICULTURAL PRODUCE WASHER tomorrow. I advised her to continue incentive spirometry. Physical therapy consult for strengthening and ambulation. Will follow patient with you. ADIEL PARRA May 18, 2018 16:39
[2018-05-18] MEDS: ONDANSETRON 4 MG/2 ML (SDV) Z0FRAN IVP PRN (17:28)
[2018-05-18] MEDS: METOCLOPRAMIDE INJ 10 MG/2 ML (REGLAN) IV PRN (18:31)
[2018-05-18 19:50] VITALS: BP 137/68
[2018-05-18] MEDS: inSUlin DETERMIR 1 UNIT/0.01 ML (LEVEMIR) CHARGE PER UNIT SQ SCH (20:22)
[2018-05-19 00:15] VITALS: BP 170/80
[2018-05-19] MEDS: MEROPENEM 500 MG/SWFI 10 ML IV PUSH IV SCH ×2 (00:24)
[2018-05-19] MEDS: cloNIDine 0.1 MG (CATAPRES) TAB PO PRN (00:24)
[2018-05-19] MEDS: RT-ALBUTEROL/IPRATROPIUM 3 ML (DUONEB) VIAL INH SCH ×6 (01:52→21:50)
[2018-05-19 04:00] VITALS: BP 138/74
[2018-05-19] MEDS: NS IV 1000 ML 1,000 ML IV SCH (04:04)
[2018-05-19 05:30] LABS: BASOPHILS # (AUTO) 0.1 10^3/uL (0.0-0.1); BASOPHILS % (AUTO) 1 % (0-10); EOSINOPHILS % (AUTO) 0 % (0-10); HEMATOCRIT 32 % (35-52); HEMOGLOBIN 10.4 G/DL (11.5-16.0); LYMPHOCYTES # (AUTO) 1.8 X 10^3 (1.0-4.0); LYMPHOCYTES % (AUTO) 22 % (12-44); MEAN CORPUSCULAR HEMOGLOBIN 30 PG (25-34); MEAN CORPUSCULAR HGB CONC 33 G/DL (32-36); MEAN CORPUSCULAR VOLUME 92 FL (80-99); MEAN PLATELET VOLUME 8.7 FL (7.4-10.4); MONOCYTES % (AUTO) 0 % (0-12); NEUTROPHILS # (AUTO) 6.2 X 10^3 (1.8-7.8); NEUTROPHILS % (AUTO) 77 % (42-75); PLATELET COUNT 262 10^3/uL (130-400); RED CELL DISTRIBUTION WIDTH 15.2 % (10.0-14.5); WHITE BLOOD COUNT 8.1 10^3/uL (4.3-11.0)
[2018-05-19 05:50] LABS: ALANINE AMINOTRANSFERASE 97 U/L (0-55); ALBUMIN 2.7 GM/DL (3.2-4.5); ALKALINE PHOSPHATASE 725 U/L (40-136); BILIRUBIN,TOTAL 1.5 MG/DL (0.1-1.0); BUN/CREATININE RATIO 36; CALCIUM 7.9 MG/DL (8.5-10.1); CARBON DIOXIDE 32 MMOL/L (21-32); CHLORIDE 87 MMOL/L (98-107); CREATININE SERUM 0.45 MG/DL (0.60-1.30); GFR ESTIMATED > 60; GLUCOSE 249 MG/DL (70-105); MAGNESIUM 1.9 MG/DL (1.8-2.4); PHOSPHORUS 2.8 MG/DL (2.3-4.7); POTASSIUM 3.5 MMOL/L (3.6-5.0); SODIUM 128 MMOL/L (135-145); TOTAL PROTEIN 5.5 GM/DL (6.4-8.2)
--- NOTE | 2018-05-19 06:21 | Diagnostic Imaging Report ---
INDICATION: Lower respiratory infection. Portable chest 4:21 AM FINDINGS: Right IJ Port-A-Cath tip projects over the SVC. There is right pleural effusion. There is some perihilar interstitial infiltrate on the left. IMPRESSION: Left perihilar interstitial infiltrate and small right pleural effusion. No significant change from previous day. Dictated by: Dictated on workstation # [id number]
[2018-05-19] MEDS: inSUlin ASPART (NovoLOG) 1 UNIT/0.01 ML (CHARGE PER UNIT) SC SCH ×4 (06:35→21:40)
[2018-05-19 08:00] VITALS: BP 151/70
[2018-05-19] MEDS: meTOproloL SUCCINATE 50 MG (TOPROL XL) TAB PO SCH (08:17)
[2018-05-19] MEDS: SENNA W/DOCUSATE (SENOKOT S) TABLET PO SCH (08:18)
[2018-05-19] MEDS: amLODIPine 5 MG (NORVASC) TAB PO SCH (08:18)
[2018-05-19] MEDS: LACTULOSE SYRUP 10GM/15ML (ENULOSE) 30ML UDC PO SCH ×2 (08:19→20:23)
[2018-05-19] MEDS: POLYETHYLENE GLYCOL 17 GM (MIRALAX) PACK PO SCH ×2 (08:19→20:23)
[2018-05-19] MEDS: fluCOnazole (DIFLUCAN) 100 MG TAB PO SCH (08:21)
[2018-05-19] MEDS: RT-ALBUTEROL/IPRATROPIUM 3 ML (DUONEB) VIAL INH PRN (08:53)
--- NOTE | 2018-05-19 09:17 | Progress Note-Hospitalist ---
Subjective HPI/CC On Admission Date Seen by Provider: May 19, 2018 Time Seen by Provider: 10:00 CC: Pneumonia right lower lobe HPI: This is a 63-year-old white female [facility]ly [facility], [facility] with a past medical history of lung nodules with continued smoking who presented to the ER with chest pain who was found to have right lower lobe pneumonia with leukocytosis. Upon further assessment alkaline phosphatase elevation noted with mild elevation of liver enzymes making it suspicious for bone involvement so CT scans were obtained revealing likely primary lung cancer with widespread metastasis. Patient was placed on empiric antibiotics with nebulizer treatments. 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 Subjective/Events-last exam Patient getting around a lot better Pain issues persist and I will switch to PO long acting to facilitate preparations for DC IVP Morphine will still be available in case Lungs are clear today Patient may need NHP O2 will need to be set up as outpatient Review of Systems General: Fatigue Pulmonary: Dyspnea Musculoskeletal: back pain Objective Exam Vital Signs Vital Signs Date Time Temp Pulse Resp B/P (MAP) Pulse Ox O2 Delivery O2 Flow Rate FiO2 05/19/18 11:52 97 Nasal Cannula 3.00 05/19/18 08:00 98.5 90 18 151/70 (97) 05/17/18 07:08 65 Capillary Refill : Less Than 3 SecondsLess Than 3 Seconds General Appearance: No Apparent Distress, WD/WN, Chronically ill HEENT: PERRL/EOMI, Normal ENT Inspection, Pharynx Normal Neck: Full Range of Motion, Normal Inspection, Non Tender, Supple, Carotid Bruit Respiratory: Chest Non Tender, Lungs Clear, Normal Breath Sounds Cardiovascular: Regular Rate, Rhythm, No Edema, No Gallop, No JVD, No Murmur, Normal Peripheral Pulses Gastrointestinal: Normal Bowel Sounds, No Organomegaly, No Pulsatile Mass, Non Tender, Soft Back: Normal Inspection, No CVA Tenderness, No Vertebral Tenderness Extremity: Normal Capillary Refill, Normal Inspection, Normal Range of Motion, Non Tender, No Calf Tenderness, No Pedal Edema Neurologic/Psychiatric: Alert, Oriented x3, No Motor/Sensory Deficits, Normal Mood/Affect Skin: Normal Color, Warm/Dry Lymphatic: No Adenopathy Results/Procedures Lab Laboratory Tests 05/19/18 05:22 Patient resulted labs reviewed. Assessment/Plan Assessment and Plan Assess & Plan/Chief Complaint Assessment: Right lower lobe pneumonia postobstructive type New diagnosis of small lung cancer with widespread metastasis Current smoker Plan: HLIVF Ambulate Lovenox O2 DC catheter PT/OT DC planning Critical Care Critically Ill Patient Diagnosis/Problems Diagnosis/Problems (1) Pneumonia Status: Acute Qualifiers: Pneumonia type: due to unspecified organism Laterality: right Lung location: lower lobe of lung Qualified Codes: J18.1 - Lobar pneumonia, unspecified organism (2) Small cell lung cancer Status: Acute (3) Cancer, metastatic to bone Status: Acute (4) COPD (chronic obstructive pulmonary disease) Status: Chronic Qualifiers: COPD type: unspecified COPD Qualified Codes: J44.9 - Chronic obstructive pulmonary disease, unspecified (5) Alkaline phosphatase elevation Status: Acute (6) Liver enzyme elevation Status: Acute (7) Chronic GERD Status: Chronic (8) Smoker Status: Chronic Clinical Quality Measures DVT/VTE Risk/Contraindication: Risk Factor Score Per Nursin RFS Level Per Nursing on Admit: 4+=Very High SUE KOWALSKI DO May 19, 2018 09:17
--- NOTE | 2018-05-19 09:47 | Pulmonary Progress Note ---
Subjective Time Seen by a Provider: 09:29 Subjective/Events-last exam Pt wants to go home. She feels improved. Sepsis Event Evaluation Height, Weight, BMI Height: 5'6.00" Weight: 139lbs. 14.4oz. 63.688815ts; 21.9 BMI Method:Stated Exam Exam Vital Signs Date Time Temp Pulse Resp B/P (MAP) Pulse Ox O2 Delivery O2 Flow Rate FiO2 05/19/18 08:53 93 Nasal Cannula 4.00 05/19/18 05:37 18 05/19/18 04:00 97.3 72 20 138/74 (95) 91 High Flow N/C 4.00 05/19/18 01:52 97 Nasal Cannula 4.00 05/19/18 00:15 97.6 82 20 170/80 (110) 96 High Flow N/C 4.00 05/18/18 22:13 96 Nasal Cannula 4.00 05/18/18 19:50 97.9 81 20 137/68 (91) 95 High Flow N/C 4.00 05/18/18 19:50 95 High Flow N/C 4.00 05/18/18 18:00 18 05/18/18 18:00 94 High Flow N/C 4.00 05/18/18 17:50 88 High Flow N/C 3.00 05/18/18 15:21 98.6 83 18 158/71 (100) 91 High Flow N/C 3.00 05/18/18 15:10 98 Nasal Cannula 4.00 05/18/18 11:29 98.2 95 18 156/61 (92) 91 High Flow N/C 3.00 05/18/18 11:13 89 Nasal Cannula 4.00 I & O 05/19/18 07:00 Intake Total 2060 ml Output Total 6525 ml Balance -4465 ml Height & Weight Height: 5'6.00" Weight: 139lbs. 14.4oz. 63.384436vw; 21.9 BMI Method:Stated General Appearance: No Apparent Distress, WD/WN, Chronically ill HEENT: PERRL/EOMI, Normal ENT Inspection, Pharynx Normal Neck: Full Range of Motion, Normal Inspection, Non Tender, Supple, Carotid Bruit Respiratory: Chest Non Tender, Decreased Breath Sounds Cardiovascular: Regular Rate, Rhythm, No Edema, No Gallop, No JVD, No Murmur, Normal Peripheral Pulses Capillary Refill: Less Than 3 Seconds Gastrointestinal: non tender, distended; No guarding, No rebound, No tenderness Extremity: Normal Capillary Refill, Normal Inspection, Normal Range of Motion, Non Tender, No Calf Tenderness, No Pedal Edema Neurologic/Psychiatric: Alert, Oriented x3, No Motor/Sensory Deficits, Normal Mood/Affect Skin: Normal Color, Warm/Dry Lymphatic: No Adenopathy Results Lab Laboratory Tests 05/18/18 03:20 05/19/18 05:22 Assessment/Plan Assessment/Plan Acute on chronic respiratory failure- improving - prednisone taper. -Continue SVNS to Q4 and Q2 PRN -Labs pending -Respiratory status is improving 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 Cavazos following and currently rx chemo PNeumonia -On Merrem and Diflucan Tobacco use -Education Anxiety -Ativan -Morphine COPDAE -Oxygen -SVNs ODETTE FERNANDEZ DO May 19, 2018 09:47
--- NOTE | 2018-05-19 09:54 | Physical Therapy Evaluation ---
PT Evaluation-General Medical Diagnosis Admission Date May 06, 2018 at 17:00 Medical Diagnosis: Pneumonia Onset Date: May 06, 2018 Therapy Diagnosis Therapy Diagnosis: weakness, decreased mobility Height/Weight Height (Feet): 5 Height (Inches): 6.00 Weight (Pounds): 139 Weight (Ounces): 14.4 Precautions Precautions/Isolations: Fall Prevention, Pressure Ulcer Weight Bear Status Right Lower Extremity: Right Weight Bearing/Tolerated Left Lower Extremity: Left Weight Bearing/Tolerated Referral Physician: Dyan Singh MD Reason for Referral: Evaluation/Treatment Medical History Pertinent Medical History: DM, GERD, HTN, Smoking Reviewed History: Yes Social History Home: Single Level Current Living Status: Alone Entry Into Home: Level Entry Prior/Core FIM Prior Level of Function Therapy Code Descriptions/Definitions Functional [place] Measure: 0=Not Assessed/NA 4=Minimal Assistance 1=Total Assistance 5=Supervision or Setup 2=Maximal Assistance 6=Modified [place] 3=Moderate Assistance 7=Complete [place] Therapy Quality Codes: 6 Independent with activity with or without an assistive device 5 Patient requires set up or clean up by helper. Patient completes activity by themselves 4 Supervision or touching assist (CGA). [place] provide cues , steadying assist 3 The helper provides less than half the effort to complete the activity 2 The helper provides more than half the effort to complete the activity 1 Dependent. The helper does all the effort to complete an activity 7 Patient refused to complete or attempt activity 9 The patient did not perform the activity before the current illness or injury 88 Not attempted due to Medical conditions or safety concerns Functional Abilities and Goals: Independent: Patient completed the activities by him/herself, with or without an assistive device, with no assistance from a helper. Needed Some Help: Patient needed partial assistance from another person to complete activities. Dependent: A helper completed the activities for the patient. Unknown: Not Applicable: Bed Mobility: 7 Transfers (B,C,W/C) (FIM): 7 Gait: 7 Indoor Mobility (Ambulation): Independent Stairs: Not [place] Prior Devices Use: None PT Evaluation-Current Subjective Pt in recliner and had just finished with RT. Pt agrees to PT. Pain Numeric Pain Scale: 0-No Pain Location: No Pain Reported Pt/Family Goals Pt to go home. Objective Patient Orientation: Person, Place, Situation, Normal For Age Attachments: Oxygen (3L), [place] Catheter, IV ROM/Strength ROM Lower Extremities WNL Strength Lower Extremities RLE quad (4/5), hamstrings (3+/5), DF/PF (4/5); LLE quad (4+/5), hamstrings (3+/ 5), DF/PF (4/5) Integumentary/Posture Bowel Incontinence: No Bladder Incontinence: [place] Cath Sensory Vision: Wears Glasses Hearing: Functional Sensation Right Lower Extremit: Intact Sensation Left Lower Extremity: Intact Sensation Lower Extremities Pt does reports in LLE 4th phalange feels numb. Transfers Therapy Code Descriptions/Definitions Functional [place] Measure: 0=Not Assessed/NA 4=Minimal Assistance 1=Total Assistance 5=Supervision or Setup 2=Maximal Assistance 6=Modified [place] 3=Moderate Assistance 7=Complete [place] Transfers (B, C, W/C) (FIM): 4 Scootin Gait Mode of Locomotion: Walk Anticipated Mode of Locomotion: Walk Gait (FIM): 2 Distance (FIM): 7=479-78 ft Distance: 50' Gait Level of Assist: 4 Gait Persons Needed: 1 Gait Assistive Device: FWW Comments/Gait Description Pt has small step length and slow gait speed. Balance Sitting Static: Good Sitting Dynamic: Good Standing Static: Good Standing Dynamic: Good Assessment/Needs Pt is able to perform sit<>stand transfer to FWW with CGA for safety. Pt able to amb 50' with 1 turn with FWW and CGA for safety pt on 3L O2. Pt returned to recliner, fatigued. Pt requires VC for hand placement for safety. Pt has all needs met. Rehab Potential: Fair Post Rehab Potential-Barriers: co-morbidities PT Short Term Goals Short Term Goals Time Frame: May 26, 2018 Transfers (B,C,W/C) (FIM): 6 Gait (FIM): 2 Distance (FIM): 4=499-10 ft Gait Distance Comment: 100' Gait Level of Assist: 5 Gait Assistive Device: FWW PT Plan Problem List Problem List: Activity Tolerance, Functional Strength, Safety, Balance, Gait, Transfer, Bed Mobility, ROM Treatment/Plan Treatment Plan: Continue Plan of Care Treatment Plan: Bed Mobility, Education, Functional Activity Finesse, Functional Strength, Gait, Safety, Therapeutic Exercise, Transfers Treatment Duration: May 17, 2018 Frequency: 6 times per week Estimated Hrs Per Day: .25 hour per day Patient and/or Family Agrees t: Yes Discharge Recommendations Therapy D/C Recommendations: Acute Rehab, Home w/ Family Support Time/GCodes Time In: 900 Time Out: 915 Total Billed Treatment Time: 15 Total Billed Treatment 1 visit EVM 15 min EDUARD CARRANZA PT May 19, 2018 09:54
[2018-05-19] MEDS: predniSONE 10 MG TAB PO SCH (11:44)
[2018-05-19] MEDS: morphine ER 15 MG (MS CONTIN) TAB PO SCH ×4 (11:44→21:00)
--- NOTE | 2018-05-19 12:00 | NUR ---
DC'd IT BUSINESS SYSTEMS ANALYST wasted 15ml with ELISSA Brooks.
[2018-05-19 13:00] VITALS: BP 137/69
--- NOTE | 2018-05-19 14:26 | NUR ---
PT EATING WELL, 75% MEALS. WEIGHT FLUCTUATING DUE TO FLUID RETENTION. INTAKE MEETING NEEDS AT THIS TIME. CONT TO FOLLOW.
[2018-05-19 16:27] VITALS: BP 165/72
--- NOTE | 2018-05-19 17:03 | Occupational Therapy Eval ---
OT Evaluation-General/PLF Medical Diagnosis Admission Date May 06, 2018 at 17:00 Medical Diagnosis: Pneumonia Onset Date: May 06, 2018 Therapy Diagnosis Therapy Diagnosis: Weakness Height/Weight Height (Feet): 5 Height (Inches): 6.00 Weight (Pounds): 139 Weight (Ounces): 14.4 Precautions Precautions/Isolations: Fall Prevention, Standard Precautions Safety Interventions: None Weight Bear Status Weight Bearing Restriction: Weight Bearing/Tolerated Referral Physician: Dyan Singh MD Referral Reason: Activity Tolerance, Self Care, Evaluation/Treatment, Strengthening/ROM Medical History Pertinent Medical History: COPD, DM, GERD, HTN, Smoking Current History New Dx presumed lung CA with widespread metastasis Reviewed History: Yes Social History Home: Single Level Current Living Status: Alone Entry Into Home: Level Entry ADL-Prior Level of Function Therapy Code Descriptions/Definitions Functional [place] Measure: 0=Not Assessed/NA 4=Minimal Assistance 1=Total Assistance 5=Supervision or Setup 2=Maximal Assistance 6=Modified [place] 3=Moderate Assistance 7=Complete [place] Therapy Quality Codes: 6 Independent with activity with or without an assistive device 5 Patient requires set up or clean up by helper. Patient completes activity by themselves 4 Supervision or touching assist (CGA). [place] provide cues , steadying assist 3 The helper provides less than half the effort to complete the activity 2 The helper provides more than half the effort to complete the activity 1 Dependent. The helper does all the effort to complete an activity 7 Patient refused to complete or attempt activity 9 The patient did not perform the activity before the current illness or injury 88 Not attempted due to Medical conditions or safety concerns Functional Abilities and Goals: Independent: Patient completed the activities by him/herself, with or without an assistive device, with no assistance from a helper. Needed Some Help: Patient needed partial assistance from another person to complete activities. Dependent: A helper completed the activities for the patient. Unknown: Not Applicable: Self Care: Independent Functional Cognition: Independent Drive Self: Yes OT Current Status Subjective No pain reported. Appearance Pt. up on side of bed. Agrees to treatment. Mental Status/Objective Patient Orientation: Person, Place, Time, Situation Attachments: IV, Oxygen Current Upper Extremity ROM WFL ADL-Treatment Therapy Code Descriptions/Definitions Functional [place] Measure: 0=Not Assessed/NA 4=Minimal Assistance 1=Total Assistance 5=Supervision or Setup 2=Maximal Assistance 6=Modified [place] 3=Moderate Assistance 7=Complete [place] Therapy Quality Codes: 6 Independent with activity with or without an assistive device 5 Patient requires set up or clean up by helper. Patient completes activity by themselves 4 Supervision or touching assist (CGA). [place] provide cues , steadying assist 3 The helper provides less than half the effort to complete the activity 2 The helper provides more than half the effort to complete the activity 1 Dependent. The helper does all the effort to complete an activity 7 Patient refused to complete or attempt activity 9 The patient did not perform the activity before the current illness or injury 88 Not attempted due to Medical conditions or safety concerns Toileting (FIM): 4 (CGA in stance to pull pants over hips.) Transfers (B, C, W/C) (FIM): 4 (CGA sit-stand from bed.) Toilet/Commode Transfer (FIM): 3 (Mod assist to stand from toilet due to low surface. OT placed BSC over toilet afterwards.) Education OT Patient Education: Correct positioning, Modified ADL techniques, Progress toward Goal/Update tx plan, Purpose of tx/functional activities, Reviewed precautions, Rehab process, Transfer techniques Teaching Recipient: Patient Teaching Methods: Demonstration, Discussion Response to Teaching: Verbalize Understanding, Return Demonstration OT Short Term Goals Short Term Goals Transfers (B,C,W/C) (FIM): 6 1=Demonstrate adherence to instructed precautions during ADL tasks. 2=Patient will verbalize/demonstrate understanding of assistive devices/ modifications for ADL. 3=Patient will improve strength/tolerance for activity to enable patient to perform ADL's. OT Button Cutting Machine Operator Goals Jail Goals Time Frame: Jun 02, 2018 Eating (FIM): 7 Grooming(FIM): 6 Bathing(FIM): 5 Upper Body Dressing(FIM): 6 Lower Body Dressing(FIM): 6 Toileting(FIM): 6 Transfers (B,C,W/C) (FIM): 6 Toilet/Commode Transfer(FIM): 6 Shower Transfer(FIM): 5 Additional Goals: 1-Demonstrate ADL Tasks, 2-Verbalize Understanding, 3- ImproveStrength/Finesse 1=Demonstrate adherence to instructed precautions during ADL tasks. 2=Patient will verbalize/demonstrate understanding of assistive devices/ modifications for ADL. 3=Patient will improve strength/tolerance for activity to enable patient to perform ADL's. OT Education/Plan Problem List/Assessment Assessment: Decreased Activ Tolerance, Dependent Transfers, Impaired I ADL's, Impaired Self-Care Skills Discharge Recommendations Plan/Recommendations: Continue POC Therapy D/C Recommendations: Home w/ Family Support, Occupational Therapy Home Care Treatment Plan/Plan of Care Treatment,Training & Education: Yes Patient would benefit from OT for education, treatment and training to promote independence in ADL's, mobility, safety and/or upper extremity function for ADL' s. Plan of Care: ADL Retraining, Functional Mobility, UE Funct Exercise/Act Treatment Duration: Jun 02, 2018 Frequency: 5 times per week Estimated Hrs Per Day: .5 hour per day Agreement: Yes Rehab Potential: Good Time/GCodes Start Time: 14:30 Stop Time: 14:45 Total Time Billed (hr/min): 15 Billed Treatment Time 1, YENIFER SARAVIA OT May 19, 2018 17:03
--- NOTE | 2018-05-19 18:05 | Progress Note-Standard ---
Standard Progress Note Progress Notes/Assess & Plan Date Seen by a Provider: May 19, 2018 Time Seen by a Provider: 17:53 Progress/Assessment & Plan 63-year-old female admitted to the hospital with increasing shortness of breath and found to have near obstructing lesion in the right mainstem bronchus with hilar and mediastinal lymphadenopathy as well as extensive liver metastasis and adrenal masses. Bronchoscopy with biopsies showed small cell lung cancer. Status post chemotherapy with carboplatinum and paclitaxel regimen from 05/12/18 - 05/14/18. Patient tolerated the treatment well and is continuing to improve. She is feeling better and oxygen has been weaned to 2 L by nasal cannula. She has right-sided chest discomfort and Morphine ASSET PROTECTION OFFICER has been d/allyson. She was started on morphine ER 15 mg every 12 hours with oxycodone for breakthrough. Lab work monitored. CBC stable. CMP showed improving LFTs. Physical therapy started today and patient did well. She complained of reflux like symptoms and nausea last night which was controlled with antiemetics. She has h/o GERD and Barretts esophagus in the past. Will order Protonix daily. D/C IV fluids. Will ask drug abuse social worker to help with d/c planning. If she needs PT/OT, may consider rehab. If not, home health with PT and OT is another option. If continuing to improve, d/c next week. Will follow patient with you. ADIEL PARRA May 19, 2018 18:05
[2018-05-19] MEDS: PANTOPRAZOLE 40 MG (PROTONIX) TAB PO SCH (18:24)
[2018-05-19] MEDS: morphine INJ 10 MG/ML 1ML (SYR OR VIAL) IV PRN ×2 (18:25→22:04)
--- NOTE | 2018-05-19 21:00 | NUR ---
Morphine Sulfate 15mg po not given due to frequency change from q 8 hr to BID and pt has already had two doses today. Wasted with ELISSA Correa.
[2018-05-19] MEDS: inSUlin DETERMIR 1 UNIT/0.01 ML (LEVEMIR) CHARGE PER UNIT SQ SCH (21:40)
[2018-05-19 23:04] VITALS: BP 123/70
[2018-05-20] MEDS: RT-ALBUTEROL/IPRATROPIUM 3 ML (DUONEB) VIAL INH SCH ×6 (02:40→21:56)
[2018-05-20] MEDS: morphine INJ 10 MG/ML 1ML (SYR OR VIAL) IV PRN ×3 (03:03→18:31)
[2018-05-20 04:58] LABS: BASOPHILS % (AUTO) 0 % (0-10); EOSINOPHILS % (AUTO) 0 % (0-10); HEMATOCRIT 32 % (35-52); HEMOGLOBIN 10.7 G/DL (11.5-16.0); LYMPHOCYTES # (AUTO) 1.9 X 10^3 (1.0-4.0); LYMPHOCYTES % (AUTO) 40 % (12-44); MEAN CORPUSCULAR HEMOGLOBIN 30 PG (25-34); MEAN CORPUSCULAR HGB CONC 33 G/DL (32-36); MEAN CORPUSCULAR VOLUME 91 FL (80-99); MEAN PLATELET VOLUME 8.9 FL (7.4-10.4); MONOCYTES % (AUTO) 1 % (0-12); NEUTROPHILS # (AUTO) 2.8 X 10^3 (1.8-7.8); NEUTROPHILS % (AUTO) 60 % (42-75); PLATELET COUNT 207 10^3/uL (130-400); RED CELL DISTRIBUTION WIDTH 14.9 % (10.0-14.5); WHITE BLOOD COUNT 4.7 10^3/uL (4.3-11.0)
[2018-05-20 05:14] LABS: BUN/CREATININE RATIO 33; CALCIUM 8.2 MG/DL (8.5-10.1); CARBON DIOXIDE 30 MMOL/L (21-32); CHLORIDE 87 MMOL/L (98-107); CREATININE SERUM 0.46 MG/DL (0.60-1.30); GFR ESTIMATED > 60; GLUCOSE 202 MG/DL (70-105); MAGNESIUM 1.9 MG/DL (1.8-2.4); PHOSPHORUS 2.7 MG/DL (2.3-4.7); POTASSIUM 3.6 MMOL/L (3.6-5.0); SODIUM 129 MMOL/L (135-145)
[2018-05-20] MEDS: inSUlin ASPART (NovoLOG) 1 UNIT/0.01 ML (CHARGE PER UNIT) SC SCH ×4 (05:33→21:27)
[2018-05-20] MEDS: PANTOPRAZOLE 40 MG (PROTONIX) TAB PO SCH (05:34)
[2018-05-20] MEDS: meTOproloL SUCCINATE 50 MG (TOPROL XL) TAB PO SCH (07:56)
[2018-05-20] MEDS: amLODIPine 5 MG (NORVASC) TAB PO SCH (07:56)
[2018-05-20] MEDS: SENNA W/DOCUSATE (SENOKOT S) TABLET PO SCH (07:56)
[2018-05-20] MEDS: fluCOnazole (DIFLUCAN) 100 MG TAB PO SCH (07:56)
[2018-05-20 08:00] VITALS: BP 157/79
[2018-05-20] MEDS: morphine ER 15 MG (MS CONTIN) TAB PO SCH ×2 (08:04→21:27)
--- NOTE | 2018-05-20 08:59 | Diagnostic Imaging Report ---
INDICATION: Followup pneumonia. TIME OF EXAMINATION: 4:19 AM. COMPARISON: 05/19/2018. FINDINGS: The right chest wall port has its tip overlying the SVC. There continues to be some mild infiltrate or atelectasis in the right base partially obscuring the right heart border. There may be some mild infiltrate in the left lung as well. No significant effusion is seen. There is no pneumothorax. IMPRESSION: Overall stable appearance of the chest since the exam of one day earlier. Dictated by: Dictated on workstation # [id number]
--- NOTE | 2018-05-20 09:09 | Physical Therapy Daily Note ---
PT Daily Note-Current Subjective Pt is in recliner and agrees to PT. Reports she is feeling better and yesterday she was walking to the bathroom quite a bit. Mental Status Patient Orientation: Person, Place, Situation, Normal For Age Attachments: Oxygen (2L) Transfers Therapy Code Descriptions/Definitions Functional [place] Measure: 0=Not Assessed/NA 4=Minimal Assistance 1=Total Assistance 5=Supervision or Setup 2=Maximal Assistance 6=Modified [place] 3=Moderate Assistance 7=Complete [place] Therapy Quality Codes: 6 Independent with activity with or without an assistive device 5 Patient requires set up or clean up by helper. Patient completes activity by themselves 4 Supervision or touching assist (CGA). [place] provide cues , steadying assist 3 The helper provides less than half the effort to complete the activity 2 The helper provides more than half the effort to complete the activity 1 Dependent. The helper does all the effort to complete an activity 7 Patient refused to complete or attempt activity 9 The patient did not perform the activity before the current illness or injury 88 Not attempted due to Medical conditions or safety concerns Transfers (B, C, W/C) (FIM): 4 Scootin Sit to/from Stand: 4 Weight Bearing Right Lower Extremity: Right Weight Bearing/Tolerated Left Lower Extremity: Left Weight Bearing/Tolerated Gait Training Gait (FIM): 2 Distance (FIM): 5=271-95 ft Distance: 80' Gait Level of Assist: 4 Gait Persons Needed: 1 Gait Assistive Device: FWW Exercises Seated Therapy Exercises: Ankle pumps, Long arc quads (5 reps) Seated Reps: 10 Assessment Current Status: Fair Progress Pt is able to perform sit<>stand transfer from recliner to FWW with CGA for safety. Pt is able to amb 80' with FWW and 2L O2 and CGA for safety. Pt returned to recliner in room and was able to perform seated LE ex to help move fluid out of LE and strengthen LE. Pt has all needs met and daughter is in room. PT Short Term Goals Short Term Goals Time Frame: May 26, 2018 Transfers (B,C,W/C) (FIM): 6 Gait (FIM): 2 Distance (FIM): 2=060-78 ft Gait Distance Comment: 100' Gait Level of Assist: 5 Gait Assistive Device: FWW PT Plan Problem List Problem List: Activity Tolerance, Functional Strength, Safety, Balance, Gait, Transfer, Bed Mobility, ROM Treatment/Plan Treatment Plan: Continue Plan of Care Treatment Plan: Bed Mobility, Education, Functional Activity Finesse, Functional Strength, Gait, Safety, Therapeutic Exercise, Transfers Treatment Duration: May 17, 2018 Frequency: 6 times per week Estimated Hrs Per Day: .25 hour per day Patient and/or Family Agrees t: Yes Time/GCodes Time In: 831 Time Out: 842 Total Billed Treatment Time: 11 Total Billed Treatment 1 visit FA 11 min EDUARD CARRANZA PT May 20, 2018 09:09
[2018-05-20] MEDS: LACTULOSE SYRUP 10GM/15ML (ENULOSE) 30ML UDC PO SCH ×2 (09:18→21:19)
[2018-05-20] MEDS: POLYETHYLENE GLYCOL 17 GM (MIRALAX) PACK PO SCH ×2 (09:19→21:19)
[2018-05-20] MEDS: HALOPERIDOL 5 MG/ML (HALDOL) AMP IV PRN (11:10)
--- NOTE | 2018-05-20 11:10 | Progress Note-Hospitalist ---
Subjective HPI/CC On Admission Date Seen by Provider: May 20, 2018 Time Seen by Provider: 10:00 CC: Pneumonia right lower lobe HPI: This is a 63-year-old white female [facility] with a past medical history of lung nodules with continued smoking who presented to the ER with chest pain who was found to have right lower lobe pneumonia with leukocytosis. Upon further assessment alkaline phosphatase elevation noted with mild elevation of liver enzymes making it suspicious for bone involvement so CT scans were obtained revealing likely primary lung cancer with widespread metastasis. Patient was placed on empiric antibiotics with nebulizer treatments. 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 Subjective/Events-last exam patient much improved today HLIVF and moving around better Needs home O2 at DC DC planned for home and d/w daughter for Wednesday Review of Systems General: Fatigue Pulmonary: Dyspnea Objective Exam Vital Signs Vital Signs Date Time Temp Pulse Resp B/P (MAP) Pulse Ox O2 Delivery O2 Flow Rate FiO2 05/20/18 16:00 97.8 81 20 150/73 (98) 92 High Flow N/C 1.00 05/17/18 07:08 65 Capillary Refill : Less Than 3 SecondsLess Than 3 Seconds General Appearance: No Apparent Distress, WD/WN, Chronically ill, Other (much improved today Wednesday) HEENT: PERRL/EOMI, Normal ENT Inspection, Pharynx Normal Neck: Full Range of Motion, Normal Inspection, Non Tender, Supple, Carotid Bruit Respiratory: Chest Non Tender, Lungs Clear, Normal Breath Sounds Cardiovascular: Regular Rate, Rhythm, No Edema, No Gallop, No JVD, No Murmur, Normal Peripheral Pulses Gastrointestinal: Normal Bowel Sounds, No Organomegaly, No Pulsatile Mass, Non Tender, Soft Back: Normal Inspection, No CVA Tenderness, No Vertebral Tenderness Extremity: Normal Capillary Refill, Normal Inspection, Normal Range of Motion, Non Tender, No Calf Tenderness, No Pedal Edema Neurologic/Psychiatric: Alert, Oriented x3, No Motor/Sensory Deficits, Normal Mood/Affect Skin: Normal Color, Warm/Dry Lymphatic: No Adenopathy Results/Procedures Lab Laboratory Tests 05/20/18 04:50 Patient resulted labs reviewed. Assessment/Plan Assessment and Plan Assess & Plan/Chief Complaint Assessment: Right lower lobe pneumonia postobstructive type New diagnosis of small lung cancer with widespread metastasis Current smoker Plan: HLIVF Ambulate Lovenox O2 PT/OT DC planning for Wednesday home with HH and home O2 Critical Care Critically Ill Patient Diagnosis/Problems Diagnosis/Problems (1) Pneumonia Status: Acute Qualifiers: Pneumonia type: due to unspecified organism Laterality: right Lung location: lower lobe of lung Qualified Codes: J18.1 - Lobar pneumonia, unspecified organism (2) Small cell lung cancer Status: Acute (3) Cancer, metastatic to bone Status: Acute (4) COPD (chronic obstructive pulmonary disease) Status: Chronic Qualifiers: COPD type: unspecified COPD Qualified Codes: J44.9 - Chronic obstructive pulmonary disease, unspecified (5) Alkaline phosphatase elevation Status: Acute (6) Liver enzyme elevation Status: Acute (7) Chronic GERD Status: Chronic (8) Smoker Status: Chronic Clinical Quality Measures DVT/VTE Risk/Contraindication: Risk Factor Score Per Nursin RFS Level Per Nursing on Admit: 4+=Very High SUE KOWALSKI DO May 20, 2018 11:10
[2018-05-20] MEDS: predniSONE 10 MG TAB PO SCH (11:12)
--- NOTE | 2018-05-20 12:45 | Occ Therapy Progress Note ---
Therapy Progress Note Attempted OT treatment x2 this date. Pt resting in bed, states she is not having a good day and declined to participate in therapy. States she would like to rest at this time. Pt denied needs. Will continue to monitor and complete treatment as pt able to tolerate and participate. 1, visit BROOK ROONEY OT May 20, 2018 12:45
--- NOTE | 2018-05-20 13:50 | NUR ---
Discharge planning initiated. Met with pt's daughter to discuss continued care needs. Pt lives alone in a rented duplex and daughter worried how pt will manage safely alone. Daughter is able to assist her during evening and night hours but is worried about days as pt's daughter Maikel is employed full-time as a nurse at our hospital. Tentatively plans are in process for pt to be discharged on Wednesday to her home with Home Health Care to follow. Daughter chose [facility] and would like her to have senior care, and Physical and Occupational therapies to continue with bathing assistance. Will refer pt to [facility] [employer] [facility] Coordinator to see if pt would like Meals on Wheels. DME equipment needs were discussed and it is recommended that she have a Front Wheel walker, Bedside Commode, and will likely require Home Oxygen. Will follow and assist.
--- NOTE | 2018-05-20 15:00 | Progress Note-Standard ---
Standard Progress Note Progress Notes/Assess & Plan Date Seen by a Provider: May 20, 2018 Time Seen by a Provider: 14:57 Progress/Assessment & Plan 63-year-old female admitted to the hospital with increasing shortness of breath and found to have near obstructing lesion in the right mainstem bronchus with hilar and mediastinal lymphadenopathy as well as extensive liver metastasis and adrenal masses. Bronchoscopy with biopsies showed small cell lung cancer. Status post chemotherapy with carboplatinum and paclitaxel regimen from 05/12/18 - 05/14/18. Patient tolerated the treatment well and is continuing to improve. She is feeling better and oxygen has been weaned to 2 L by nasal cannula. 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 She was started on morphine ER 15 mg every 12 hours with oxycodone for breakthrough. She complained of reflux like symptoms and inability to rest. She did not sleep well last night. Increased right-sided chest pain today and took 1 dose of Haldol which made her very sleepy. I will decrease the dose of prednisone and administer it with breakfast. Continue physical therapy for strengthening and ambulation. I will recheck CMP tomorrow to evaluate liver function studies. If continuing to improve, d/c next week. Will follow patient with you. ADIEL PARRA May 20, 2018 15:00
[2018-05-20 16:00] VITALS: BP 150/73
--- NOTE | 2018-05-20 16:14 | NUR ---
Follow up with pt as she sat in easy chair with lights dimmed. Pt demonstrated positive attitude, expressed gratitude to God and said she will to continue fighting for her health as long as she has energy to do so.
[2018-05-20] MEDS: inSUlin DETERMIR 1 UNIT/0.01 ML (LEVEMIR) CHARGE PER UNIT SQ SCH (21:28)
[2018-05-20 23:49] VITALS: BP 115/56
[2018-05-21] MEDS: RT-ALBUTEROL/IPRATROPIUM 3 ML (DUONEB) VIAL INH SCH ×5 (01:50→19:38)
[2018-05-21] MEDS: morphine INJ 10 MG/ML 1ML (SYR OR VIAL) IV PRN ×5 (02:09→22:25)
[2018-05-21 04:39] LABS: BASOPHILS % (AUTO) 0 % (0-10); EOSINOPHILS % (AUTO) 0 % (0-10); HEMATOCRIT 30 % (35-52); HEMOGLOBIN 10.2 G/DL (11.5-16.0); LYMPHOCYTES # (AUTO) 1.3 X 10^3 (1.0-4.0); LYMPHOCYTES % (AUTO) 48 % (12-44); MEAN CORPUSCULAR HEMOGLOBIN 30 PG (25-34); MEAN CORPUSCULAR HGB CONC 34 G/DL (32-36); MEAN CORPUSCULAR VOLUME 90 FL (80-99); MEAN PLATELET VOLUME 9.3 FL (7.4-10.4); MONOCYTES # (AUTO) 0.1 X 10^3 (0.0-1.0); MONOCYTES % (AUTO) 2 % (0-12); NEUTROPHILS # (AUTO) 1.4 X 10^3 (1.8-7.8); NEUTROPHILS % (AUTO) 49 % (42-75); PLATELET COUNT 180 10^3/uL (130-400); RED CELL DISTRIBUTION WIDTH 14.8 % (10.0-14.5); WHITE BLOOD COUNT 2.7 10^3/uL (4.3-11.0)
[2018-05-21] MEDS: predniSONE 10 MG TAB PO SCH (05:39)
[2018-05-21] MEDS: PANTOPRAZOLE 40 MG (PROTONIX) TAB PO SCH (05:39)
[2018-05-21] MEDS: inSUlin ASPART (NovoLOG) 1 UNIT/0.01 ML (CHARGE PER UNIT) SC SCH ×4 (05:39→20:27)
[2018-05-21 05:40] LABS: ALANINE AMINOTRANSFERASE 106 U/L (0-55); ALBUMIN 2.9 GM/DL (3.2-4.5); ALKALINE PHOSPHATASE 642 U/L (40-136); BILIRUBIN,TOTAL 1.2 MG/DL (0.1-1.0); BUN/CREATININE RATIO 30; CALCIUM 8.2 MG/DL (8.5-10.1); CARBON DIOXIDE 30 MMOL/L (21-32); CHLORIDE 86 MMOL/L (98-107); CREATININE SERUM 0.46 MG/DL (0.60-1.30); GFR ESTIMATED > 60; GLUCOSE 242 MG/DL (70-105); MAGNESIUM 1.8 MG/DL (1.8-2.4); PHOSPHORUS 2.7 MG/DL (2.3-4.7); POTASSIUM 3.8 MMOL/L (3.6-5.0); SODIUM 126 MMOL/L (135-145); TOTAL PROTEIN 5.6 GM/DL (6.4-8.2)
--- NOTE | 2018-05-21 06:49 | Diagnostic Imaging Report ---
INDICATION: Followup pneumonia. COMPARISON: 05/20/2018. FINDINGS: Single frontal radiographic view of the chest was obtained and demonstrates stable cardiac silhouette and pulmonary vasculature. Lungs continue to show diffuse coarse interstitial opacities. There may be small residual effusion within the minor fissure on the right. There may be some more prominent infiltrate within the lateral left mid to lower lung field. No large effusion is seen on the left. No pneumothorax is identified on either side. Right-sided Port-A-Cath is noted with tip in the SVC. Bony structures show no acute abnormalities. IMPRESSION: 1. Persistent diffuse coarse interstitial opacities with perhaps a more focal area of superimposed infiltrate in the lateral left mid to lower lung field. 2. Probable small right effusion. Dictated by: Dictated on workstation # [id number]
[2018-05-21 08:00] VITALS: BP 160/72
[2018-05-21] MEDS: SENNA W/DOCUSATE (SENOKOT S) TABLET PO SCH (08:16)
[2018-05-21] MEDS: meTOproloL SUCCINATE 50 MG (TOPROL XL) TAB PO SCH (08:16)
[2018-05-21] MEDS: amLODIPine 5 MG (NORVASC) TAB PO SCH (08:16)
[2018-05-21] MEDS: morphine ER 15 MG (MS CONTIN) TAB PO SCH ×2 (08:16→20:27)
[2018-05-21] MEDS: fluCOnazole (DIFLUCAN) 100 MG TAB PO SCH (08:16)
[2018-05-21] MEDS: LACTULOSE SYRUP 10GM/15ML (ENULOSE) 30ML UDC PO SCH ×2 (08:22→20:26)
[2018-05-21] MEDS: POLYETHYLENE GLYCOL 17 GM (MIRALAX) PACK PO SCH ×2 (08:22→20:26)
--- NOTE | 2018-05-21 09:04 | Pulmonary Progress Note ---
Subjective Time Seen by a Provider: 09:30 Subjective/Events-last exam NO complications noted. Sepsis Event Evaluation Height, Weight, BMI Height: 5'6.00" Weight: 130lbs. 3.0oz. 59.048179nu; 21.9 BMI Method:Stated Exam Exam Vital Signs Date Time Temp Pulse Resp B/P (MAP) Pulse Ox O2 Delivery O2 Flow Rate FiO2 05/21/18 08:00 97.2 93 18 160/72 (101) 96 High Flow N/C 2.00 05/21/18 07:56 93 Nasal Cannula 2.00 05/21/18 01:50 95 Nasal Cannula 2.00 05/20/18 23:49 97.7 82 18 115/56 (75) 96 High Flow N/C 2.00 05/20/18 21:56 88 Nasal Cannula 1.00 05/20/18 20:00 High Flow N/C 2.00 05/20/18 16:00 97.8 81 20 150/73 (98) 92 High Flow N/C 1.00 05/20/18 15:25 91 Nasal Cannula 1.00 05/20/18 11:43 98 Nasal Cannula 2.00 I & O 05/21/18 07:00 Intake Total 1570 ml Balance 1570 ml Height & Weight Height: 5'6.00" Weight: 130lbs. 3.0oz. 59.974070lh; 21.9 BMI Method:Stated General Appearance: No Apparent Distress, WD/WN, Chronically ill HEENT: PERRL/EOMI, Normal ENT Inspection, Pharynx Normal Neck: Full Range of Motion, Normal Inspection, Non Tender, Supple, Carotid Bruit Respiratory: Chest Non Tender, Decreased Breath Sounds Cardiovascular: Regular Rate, Rhythm, No Edema, No Gallop, No JVD, No Murmur, Normal Peripheral Pulses Capillary Refill: Less Than 3 Seconds Gastrointestinal: non tender, distended; No guarding, No rebound, No tenderness Extremity: Normal Capillary Refill, Normal Inspection, Normal Range of Motion, Non Tender, No Calf Tenderness, No Pedal Edema Neurologic/Psychiatric: Alert, Oriented x3, No Motor/Sensory Deficits, Normal Mood/Affect Skin: Normal Color, Warm/Dry Lymphatic: No Adenopathy Results Lab Laboratory Tests 05/20/18 04:50 05/21/18 04:30 Assessment/Plan Assessment/Plan Acute on chronic respiratory failure- improving - prednisone taper. -Continue SVNS to Q4 and Q2 PRN -Labs pending -Respiratory status is improving 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 Cavazos following and currently rx chemo PNeumonia -On Merrem and Diflucan Tobacco use -Education Anxiety -Morphine COPDAE -Oxygen -SVNs ODETTE FERNANDEZ DO May 21, 2018 09:04
[2018-05-21] MEDS ORDERED: MEROPENEM 500 MG in WATER (STERILE) FOR INJECTION 10 ML IV SCH (09:15)
[2018-05-21] MEDS ORDERED: FUROSEMIDE 40 MG/4 ML INJ (LASIX) IVP NR (09:41)
[2018-05-21] MEDS: POTASSIUM CL 10MEQ/50ML IVPB 50 ML IV SCH ×4 (10:24→12:32)
--- NOTE | 2018-05-21 11:10 | Progress Note-Hospitalist ---
Subjective HPI/CC On Admission Date Seen by Provider: May 21, 2018 Time Seen by Provider: 11:30 CC: Pneumonia right lower lobe HPI: This is a 63-year-old white female [facility] with a past medical history of lung nodules with continued smoking who presented to the ER with chest pain who was found to have right lower lobe pneumonia with leukocytosis. Upon further assessment alkaline phosphatase elevation noted with mild elevation of liver enzymes making it suspicious for bone involvement so CT scans were obtained revealing likely primary lung cancer with widespread metastasis. Patient was placed on empiric antibiotics with nebulizer treatments. 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 Subjective/Events-last exam Patient doing well today Concerned about a mole on her left flank and noted nevi Patient with mets cancer and appears to have some denial in the process Daughter at the bedside Needs DC home soon on O2 Appears frightened of the thought of going home Review of Systems General: Fatigue Pulmonary: Dyspnea Focused Exam Lactate Level 05/21/18 10:25: Lactic Acid Level 1.53 Lactic Acid Level Objective Exam Vital Signs Vital Signs Date Time Temp Pulse Resp B/P (MAP) Pulse Ox O2 Delivery O2 Flow Rate FiO2 05/21/18 19:40 96 Nasal Cannula 2.00 05/21/18 16:39 97.4 90 20 153/73 (99) 05/17/18 07:08 65 Capillary Refill : Less Than 3 SecondsLess Than 3 Seconds General Appearance: No Apparent Distress, WD/WN, Chronically ill HEENT: PERRL/EOMI, Normal ENT Inspection, Pharynx Normal Neck: Full Range of Motion, Normal Inspection, Non Tender, Supple, Carotid Bruit Respiratory: Chest Non Tender, Decreased Breath Sounds Cardiovascular: Regular Rate, Rhythm, No Edema, No Gallop, No JVD, No Murmur, Normal Peripheral Pulses Gastrointestinal: Normal Bowel Sounds, No Organomegaly, No Pulsatile Mass, Non Tender, Soft Back: Normal Inspection, No CVA Tenderness, No Vertebral Tenderness Extremity: Normal Capillary Refill, Normal Inspection, Normal Range of Motion, Non Tender, No Calf Tenderness, No Pedal Edema Neurologic/Psychiatric: Alert, Oriented x3, No Motor/Sensory Deficits, Normal Mood/Affect Skin: Normal Color, Warm/Dry Lymphatic: No Adenopathy Results/Procedures Lab Laboratory Tests 05/21/18 04:30 Patient resulted labs reviewed. Assessment/Plan Assessment and Plan Assess & Plan/Chief Complaint Assessment: Right lower lobe pneumonia postobstructive type New diagnosis of small lung cancer with widespread metastasis Current smoker Plan: HLIVF Ambulate Lovenox O2 PT/OT DC planning for Wednesday home with HH and home O2 Critical Care Critically Ill Patient Diagnosis/Problems Diagnosis/Problems (1) Pneumonia Status: Acute Qualifiers: Pneumonia type: due to unspecified organism Laterality: right Lung location: lower lobe of lung Qualified Codes: J18.1 - Lobar pneumonia, unspecified organism (2) Small cell lung cancer Status: Acute (3) Cancer, metastatic to bone Status: Acute (4) COPD (chronic obstructive pulmonary disease) Status: Chronic Qualifiers: COPD type: unspecified COPD Qualified Codes: J44.9 - Chronic obstructive pulmonary disease, unspecified (5) Alkaline phosphatase elevation Status: Acute (6) Liver enzyme elevation Status: Acute (7) Chronic GERD Status: Chronic (8) Smoker Status: Chronic Clinical Quality Measures DVT/VTE Risk/Contraindication: Risk Factor Score Per Nursin RFS Level Per Nursing on Admit: 4+=Very High SUE KOWALSKI DO May 21, 2018 11:10
--- NOTE | 2018-05-21 11:29 | Physical Therapy Daily Note ---
PT Daily Note-Current Subjective Pain rated 6/10 in torso. Pt says"I am doing better today. I am over my pity democrat." Pt agreeable and ready to walk. Transfers Therapy Code Descriptions/Definitions Functional Lipscomb Measure: 0=Not Assessed/NA 4=Minimal Assistance 1=Total Assistance 5=Supervision or Setup 2=Maximal Assistance 6=Modified Lipscomb 3=Moderate Assistance 7=Complete Lipscomb Therapy Quality Codes: 6 Independent with activity with or without an assistive device 5 Patient requires set up or clean up by helper. Patient completes activity by themselves 4 Supervision or touching assist (CGA). [place] provide cues , steadying assist 3 The helper provides less than half the effort to complete the activity 2 The helper provides more than half the effort to complete the activity 1 Dependent. The helper does all the effort to complete an activity 7 Patient refused to complete or attempt activity 9 The patient did not perform the activity before the current illness or injury 88 Not attempted due to Medical conditions or safety concerns Weight Bearing Right Lower Extremity: Right Weight Bearing/Tolerated Left Lower Extremity: Left Weight Bearing/Tolerated Gait Training Gait Assistive Device: FWW Pt amb with FWW and CGA, O2 2L/min x 150ft Exercises Seated Therapy Exercises: Ankle pumps, Long arc quads Seated Reps: 20 Assessment Current Status: Good Progress Pt ramón well. Pt back to chair with call light and all needs met. O2 insitu. PT Short Term Goals Short Term Goals Time Frame: May 26, 2018 Transfers (B,C,W/C) (FIM): 6 Gait (FIM): 2 Distance (FIM): 9=643-17 ft Gait Distance Comment: 100' Gait Level of Assist: 5 Gait Assistive Device: FWW PT Plan Treatment/Plan Treatment Plan: Continue Plan of Care Treatment Plan: Bed Mobility, Education, Functional Activity Finesse, Functional Strength, Gait, Safety, Therapeutic Exercise, Transfers Treatment Duration: May 17, 2018 Frequency: 6 times per week Estimated Hrs Per Day: .25 hour per day Patient and/or Family Agrees t: Yes Time/GCodes Time In: 950 Time Out: 1005 Total Billed Treatment Time: 15 Total Billed Treatment crow Luke 15' MARITZA DISLA CPTA May 21, 2018 11:29
[2018-05-21 11:46] LABS: BILIRUBIN,URINE NEGATIVE (NEGATIVE); COLOR,URINE YELLOW; GLUCOSE, URINE (UA) 3+ (NEGATIVE); KETONES,URINE NEGATIVE (NEGATIVE); LEUKOCYTE ESTERASE ,URINE NEGATIVE (NEGATIVE); NITRITE,URINE NEGATIVE (NEGATIVE); PH,URINE 8 (5-9); PROTEIN,URINE NEGATIVE (NEGATIVE); UROBILINOGEN,URINE NORMAL (NORMAL)
--- NOTE | 2018-05-21 11:56 | Progress Note-Standard ---
Standard Progress Note Progress Notes/Assess & Plan Date Seen by a Provider: May 21, 2018 Time Seen by a Provider: 11:51 Progress/Assessment & Plan 63-year-old female admitted to the hospital with increasing shortness of breath and found to have near obstructing lesion in the right mainstem bronchus with hilar and mediastinal lymphadenopathy as well as extensive liver metastasis and adrenal masses. Bronchoscopy with biopsies showed small cell lung cancer. Status post chemotherapy with carboplatinum and paclitaxel regimen from 05/12/18 - 05/14/18. Patient tolerated the treatment well and is continuing to improve. She is feeling better and oxygen has been weaned to 2 L by nasal cannula. 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 She was started on morphine ER 15 mg every 12 hours with oxycodone for breakthrough. She had slight hypoxia and shortness of breath last night after using the restroom. She was on oxygen 1 L by nasal cannula which has been increased to 2 L. Franco cultures were repeated this morning and patient started back on meropenem. She did sleep well last night. Few bilateral wheezes on examination today. Receiving bronchodilators by nebulizer every 4 hours. Also received 1 dose of Lasix today. Continue physical therapy for strengthening and ambulation. Lab work reviewed with decrease in WBC and ANC probably related to chemotherapy. Liver function studies better than before. Monitor CBC and chest x-ray in AM. Continue to wean prednisone. Focused Exam Lactate Level 05/21/18 10:25: Lactic Acid Level 1.53 Lactic Acid Level Laboratory Tests Test 05/21/18 10:25 Lactic Acid Level 1.53 MMOL/L (0.50-2.00) ADIEL PARRA May 21, 2018 11:56
[2018-05-21 12:29] LABS: BACTERIA,URINE TRACE /HPF; RBC,URINE 0 /HPF; WBC,URINE 0 /HPF
[2018-05-21 12:31] LABS: CLARITY,URINE CLEAR
[2018-05-21 16:39] VITALS: BP 153/73
[2018-05-21] MEDS: inSUlin DETERMIR 1 UNIT/0.01 ML (LEVEMIR) CHARGE PER UNIT SQ SCH (20:27)
[2018-05-21 23:51] VITALS: BP 40/86
[2018-05-22] MEDS: ONDANSETRON 4 MG/2 ML (SDV) Z0FRAN IVP PRN (01:05)
[2018-05-22] MEDS: RT-ALBUTEROL/IPRATROPIUM 3 ML (DUONEB) VIAL INH SCH ×5 (03:19→15:06)
[2018-05-22] MEDS: morphine INJ 10 MG/ML 1ML (SYR OR VIAL) IV PRN ×5 (03:26→19:09)
[2018-05-22 04:13] LABS: BASOPHILS % (AUTO) 0 % (0-10); EOSINOPHILS # (AUTO) 0.1 10^3/uL (0.0-0.3); EOSINOPHILS % (AUTO) 2 % (0-10); HEMATOCRIT 30 % (35-52); HEMOGLOBIN 10.4 G/DL (11.5-16.0); LYMPHOCYTES # (AUTO) 1.8 X 10^3 (1.0-4.0); LYMPHOCYTES % (AUTO) 62 % (12-44); MEAN CORPUSCULAR HEMOGLOBIN 31 PG (25-34); MEAN CORPUSCULAR HGB CONC 34 G/DL (32-36); MEAN CORPUSCULAR VOLUME 90 FL (80-99); MEAN PLATELET VOLUME 9.5 FL (7.4-10.4); MONOCYTES # (AUTO) 0.1 X 10^3 (0.0-1.0); MONOCYTES % (AUTO) 4 % (0-12); NEUTROPHILS # (AUTO) 0.9 X 10^3 (1.8-7.8); NEUTROPHILS % (AUTO) 33 % (42-75); PLATELET COUNT 153 10^3/uL (130-400); RED CELL DISTRIBUTION WIDTH 14.7 % (10.0-14.5); WHITE BLOOD COUNT 2.9 10^3/uL (4.3-11.0)
[2018-05-22 04:35] LABS: BUN/CREATININE RATIO 26; CALCIUM 8.3 MG/DL (8.5-10.1); CARBON DIOXIDE 28 MMOL/L (21-32); CHLORIDE 84 MMOL/L (98-107); CREATININE SERUM 0.43 MG/DL (0.60-1.30); GFR ESTIMATED > 60; GLUCOSE 151 MG/DL (70-105); MAGNESIUM 1.8 MG/DL (1.8-2.4); PHOSPHORUS 2.9 MG/DL (2.3-4.7); POTASSIUM 4.1 MMOL/L (3.6-5.0)
[2018-05-22 04:42] LABS: SODIUM 123 MMOL/L (135-145)
[2018-05-22] MEDS: inSUlin ASPART (NovoLOG) 1 UNIT/0.01 ML (CHARGE PER UNIT) SC SCH ×4 (05:33→21:18)
[2018-05-22] MEDS: PANTOPRAZOLE 40 MG (PROTONIX) TAB PO SCH (05:36)
[2018-05-22] MEDS: predniSONE 10 MG TAB PO SCH (05:36)
[2018-05-22] MEDS: HALOPERIDOL 5 MG/ML (HALDOL) AMP IV PRN ×2 (06:12→16:06)
[2018-05-22] MEDS: fluCOnazole (DIFLUCAN) 100 MG TAB PO SCH (07:35)
[2018-05-22] MEDS: meTOproloL SUCCINATE 50 MG (TOPROL XL) TAB PO SCH (07:35)
[2018-05-22] MEDS: morphine ER 15 MG (MS CONTIN) TAB PO SCH ×2 (07:35→21:18)
[2018-05-22] MEDS: amLODIPine 5 MG (NORVASC) TAB PO SCH (07:35)
[2018-05-22 08:00] VITALS: BP 139/69
[2018-05-22] MEDS: LACTULOSE SYRUP 10GM/15ML (ENULOSE) 30ML UDC PO SCH ×2 (08:55→21:08)
[2018-05-22] MEDS: SENNA W/DOCUSATE (SENOKOT S) TABLET PO SCH (08:55)
[2018-05-22] MEDS: POLYETHYLENE GLYCOL 17 GM (MIRALAX) PACK PO SCH ×2 (08:55→21:08)
--- NOTE | 2018-05-22 10:03 | Diagnostic Imaging Report ---
INDICATION: Pneumonia FINDINGS: Upright portable chest shows normal heart size and vascularity. There are patchy bilateral interstitial infiltrates with no alveolar consolidation seen. There is no effusion or pneumothorax. Port-A-Cath is present. IMPRESSION: There are persistent bilateral infiltrates. There has been slight improved aeration of the right perihilar region; otherwise, there is no significant change from 05/21/2018. Dictated by: Dictated on workstation # [id number]
--- NOTE | 2018-05-22 11:55 | Progress Note-Standard ---
Standard Progress Note Progress Notes/Assess & Plan Date Seen by a Provider: May 22, 2018 Time Seen by a Provider: 11:50 Progress/Assessment & Plan 63-year-old female admitted to the hospital with increasing shortness of breath and found to have near obstructing lesion in the right mainstem bronchus with hilar and mediastinal lymphadenopathy as well as extensive liver metastasis and adrenal masses. Bronchoscopy with biopsies showed small cell lung cancer. Status post chemotherapy with carboplatinum and paclitaxel regimen from 05/12/18 - 05/14/18. Patient tolerated the treatment well and is continuing to improve. She is feeling better and oxygen has been weaned to 2 L by nasal cannula. She has right-sided chest discomfort and Morphine [employer] has been d/allyson. She was started on morphine ER 15 mg every 12 hours with oxycodone for breakthrough. She is slightly better than yesterday. No fevers or chills. She did sleep well last night. Oxygen level stable last night. Continues with cough productive of scanty sputum. Receiving bronchodilators by nebulizer every 4 hours. Continue physical therapy for strengthening and ambulation. Lab work reviewed with decrease in ANC to 0.9 (grade 3) probably related to chemotherapy. Sodium level has dropped probably related to SIADH. On free water restriction. I will add Granix 300 g subcutaneous daily to prevent neutropenia because of the possible ongoing upper respiratory infection. Repeat lab work in a.m. Continue to wean prednisone. Will follow patient with you. Focused Exam Lactate Level 05/21/18 10:25: Lactic Acid Level 1.53 ADIEL PARRA May 22, 2018 11:55
--- NOTE | 2018-05-22 12:05 | Progress Note-Hospitalist ---
Subjective HPI/CC On Admission Date Seen by Provider: May 22, 2018 Time Seen by Provider: 11:15 CC: Pneumonia right lower lobe HPI: This is a 63-year-old white female [facility] with a past medical history of lung nodules with continued smoking who presented to the ER with chest pain who was found to have right lower lobe pneumonia with leukocytosis. Upon further assessment alkaline phosphatase elevation noted with mild elevation of liver enzymes making it suspicious for bone involvement so CT scans were obtained revealing likely primary lung cancer with widespread metastasis. Patient was placed on empiric antibiotics with nebulizer treatments. 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 Subjective/Events-last exam Hyponatremia due to small cell noted so placed on fluid restriction Complains of multiple vague complaints including nausea and non-specific pain Appears to be frightened about going home May need NHP + edema in feet Review of Systems General: Fatigue Pulmonary: Cough Focused Exam Lactate Level 05/21/18 10:25: Lactic Acid Level 1.53 Objective Exam Vital Signs Vital Signs Date Time Temp Pulse Resp B/P (MAP) Pulse Ox O2 Delivery O2 Flow Rate FiO2 05/22/18 11:23 91 Nasal Cannula 1.00 05/22/18 08:00 98.0 91 18 139/69 (92) 05/17/18 07:08 65 Capillary Refill : Less Than 3 SecondsLess Than 3 Seconds General Appearance: No Apparent Distress, WD/WN, Chronically ill HEENT: PERRL/EOMI, Normal ENT Inspection, Pharynx Normal Neck: Full Range of Motion, Normal Inspection, Non Tender, Supple, Carotid Bruit Respiratory: Chest Non Tender, Decreased Breath Sounds Cardiovascular: Regular Rate, Rhythm, No Gallop, No JVD, No Murmur, Normal Peripheral Pulses Gastrointestinal: Normal Bowel Sounds, No Organomegaly, No Pulsatile Mass, Non Tender, Soft Back: Normal Inspection, No CVA Tenderness, No Vertebral Tenderness Extremity: Normal Capillary Refill, Normal Inspection, Normal Range of Motion, Non Tender, No Calf Tenderness, Pedal Edema Neurologic/Psychiatric: Alert, Oriented x3, No Motor/Sensory Deficits, Normal Mood/Affect Skin: Normal Color, Warm/Dry Lymphatic: No Adenopathy Results/Procedures Lab Laboratory Tests 05/22/18 04:05 Patient resulted labs reviewed. Assessment/Plan Assessment and Plan Assess & Plan/Chief Complaint Assessment: Right lower lobe pneumonia postobstructive type New diagnosis of small lung cancer with widespread metastasis Current smoker Hyponatremia likely due to Small cell lung cancer Plan: HLIVF Fluid restriction Ambulate Lovenox O2 PT/OT DC planning for Wednesday home with HH and home O2 Critical Care Critically Ill Patient Diagnosis/Problems Diagnosis/Problems (1) Pneumonia Status: Acute Qualifiers: Pneumonia type: due to unspecified organism Laterality: right Lung location: lower lobe of lung Qualified Codes: J18.1 - Lobar pneumonia, unspecified organism (2) Small cell lung cancer Status: Acute (3) Cancer, metastatic to bone Status: Acute (4) COPD (chronic obstructive pulmonary disease) Status: Chronic Qualifiers: COPD type: unspecified COPD Qualified Codes: J44.9 - Chronic obstructive pulmonary disease, unspecified (5) Alkaline phosphatase elevation Status: Acute (6) Liver enzyme elevation Status: Acute (7) Chronic GERD Status: Chronic (8) Smoker Status: Chronic (9) Hyponatremia Status: Acute Clinical Quality Measures DVT/VTE Risk/Contraindication: Risk Factor Score Per Nursin RFS Level Per Nursing on Admit: 4+=Very High SUE KOWALSKI DO May 22, 2018 12:05
[2018-05-22] MEDS: TBO-FILGRASTIM 300 MCG/0.5 ML (GRANIX) SQ SCH (12:19)
--- NOTE | 2018-05-22 12:56 | Pulmonary Progress Note ---
Subjective Time Seen by a Provider: 09:31 Subjective/Events-last exam No complications noted. Sepsis Event Evaluation Height, Weight, BMI Height: 5'6.00" Weight: 130lbs. 3.0oz. [id number]; 21.9 BMI Method:Stated Focused Exam Lactate Level 05/21/18 10:25: Lactic Acid Level 1.53 Exam Exam Vital Signs Date Time Temp Pulse Resp B/P (MAP) Pulse Ox O2 Delivery O2 Flow Rate FiO2 05/22/18 11:23 91 Nasal Cannula 1.00 05/22/18 08:00 98.0 91 18 139/69 (92) 96 High Flow N/C 2.00 05/22/18 07:37 96 Nasal Cannula 1.00 05/22/18 03:22 96 Nasal Cannula 1.00 05/21/18 23:51 97.0 85 20 40/86 (71) 93 High Flow N/C 2.00 05/21/18 20:00 High Flow N/C 2.00 05/21/18 19:40 96 Nasal Cannula 2.00 05/21/18 16:39 97.4 90 20 153/73 (99) 94 High Flow N/C 2.00 05/21/18 14:50 97 Nasal Cannula 2.00 I & O 05/22/18 07:00 Intake Total 1530 ml Balance 1530 ml Height & Weight Height: 5'6.00" Weight: 130lbs. 3.0oz. 58.701957is; 21.9 BMI Method:Stated General Appearance: No Apparent Distress, WD/WN, Chronically ill HEENT: PERRL/EOMI, Normal ENT Inspection, Pharynx Normal Neck: Full Range of Motion, Normal Inspection, Non Tender, Supple, Carotid Bruit Respiratory: Chest Non Tender, Decreased Breath Sounds Cardiovascular: Regular Rate, Rhythm, No Edema, No Gallop, No JVD, No Murmur, Normal Peripheral Pulses Capillary Refill: Less Than 3 Seconds Gastrointestinal: non tender, distended; No guarding, No rebound, No tenderness Extremity: Normal Capillary Refill, Normal Inspection, Normal Range of Motion, Non Tender, No Calf Tenderness, No Pedal Edema Neurologic/Psychiatric: Alert, Oriented x3, No Motor/Sensory Deficits, Normal Mood/Affect Skin: Normal Color, Warm/Dry Lymphatic: No Adenopathy Results Lab Laboratory Tests 05/21/18 04:30 05/22/18 04:05 Assessment/Plan Assessment/Plan Acute on chronic respiratory failure- improving - prednisone taper. -SVNS to Q4 and Q2 PRN -Respiratory status is improving 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 Cavazos following and currently rx chemo PNeumonia -On Merrem and Diflucan Tobacco use -Education Anxiety -Morphine COPDAE -Oxygen -SVNs ODETTE FERNANDEZ DO May 22, 2018 12:56
[2018-05-22 16:28] VITALS: BP 133/63
[2018-05-22] MEDS ORDERED: morphine INJ 4 MG/ML 1 ML (VIAL/SYRINGE) IVP PRN (18:45)
[2018-05-22] MEDS ORDERED: CATHETER FLUSH 10 ML SYR IV PRN (21:00)
[2018-05-22] MEDS ORDERED: NS 100 ML (IVPB) BAG IV ONE (21:00)
[2018-05-22] MEDS ORDERED: RECEIVED CONTRAST (Hold Metformin) IV SCH (21:00)
[2018-05-22] MEDS ORDERED: IOHEXOL 350 MG/ML 100 ML (OMNIPAQUE 350) VIAL IV ONE (21:00)
--- NOTE | 2018-05-22 21:17 | Diagnostic Imaging Report ---
PROCEDURE: CT angiography of the chest with contrast. TECHNIQUE: Multiple contiguous axial images were obtained through the chest after uneventful bolus administration of intravenous contrast. 2D reconstructed CTA MIP acquisitions were also performed. INDICATION: Chest pain. History of cancer. COMPARISON: CT chest, abdomen and pelvis from 05/06/2018. FINDINGS: Vasculature: No pulmonary emboli. No CT evidence of pulmonary hypertension or right ventricular strain. Thoracic aorta is normal in caliber. No aortic dissection or pseudoaneurysm. Heart and mediastinum: Visualized thyroid is normal. No supraclavicular or axillary lymphadenopathy. Extensive mediastinal lymphadenopathy has not substantially changed. This includes a 2.0 x 2.1 cm lower right paratracheal lymph node. Subcarinal lymph node measures 2.4 x 3.1 cm (previously 2.2 x 3.5 cm). Right hilar lymphadenopathy is similar. Stable cardiomegaly. No pericardial effusion. Pleura: Trace right pleural effusion. Lungs and airway: No endoluminal lesion in the trachea or central bronchi. Luminal narrowing of the right interlobar bronchus is similar due to circumferential encasement by the right perihilar soft tissue mass lesion/confluent lymphadenopathy. New bilateral groundglass attenuation. There are also new airspace consolidations throughout all five lobes. Nodular consolidations are present in the right lower lobe with the dominant measuring 1.2 cm. Upper abdomen: Extensive metastatic disease throughout the liver is not substantially changed allowing for differences in phase of contrast between the two examinations. Musculoskeletal: Metastatic lesion within the T11 vertebral body is similar in appearance. IMPRESSION: 1. No pulmonary emboli. 2. New multifocal groundglass opacities and consolidations are likely due to infection. 3. Right perihilar mass and/or confluent lymphadenopathy invading the mediastinum is unchanged. 4. Extensive hepatic metastases are also not substantially changed. Dictated by: Dictated on workstation # [id number]
[2018-05-22] MEDS: inSUlin DETERMIR 1 UNIT/0.01 ML (LEVEMIR) CHARGE PER UNIT SQ SCH (21:18)
--- NOTE | 2018-05-22 21:39 | NUR ---
Dr. Cavazos informed at 2134 of impression of STAT chest angio to check for possible PE. Only change noted in impression is new opacities in lungs indicating infection. Dr. Cavazos gave this RN TORB to restart Meropenum IV 500mg Q6H. Daughter [place] notified at this time of CT results and order for ABT.
[2018-05-22] MEDS: MEROPENEM 500 MG in WATER (STERILE) FOR INJECTION 10 ML IV SCH (22:53)
[2018-05-22 23:39] VITALS: BP 133/75
[2018-05-23] MEDS: RT-ALBUTEROL/IPRATROPIUM 3 ML (DUONEB) VIAL INH SCH ×7 (00:16→21:57)
[2018-05-23] MEDS: MEROPENEM 500 MG in WATER (STERILE) FOR INJECTION 10 ML IV SCH ×4 (04:24→21:10)
[2018-05-23] MEDS: morphine INJ 10 MG/ML 1ML (SYR OR VIAL) IV PRN ×2 (04:40→11:48)
[2018-05-23] MEDS: inSUlin ASPART (NovoLOG) 1 UNIT/0.01 ML (CHARGE PER UNIT) SC SCH ×4 (05:11→21:17)
[2018-05-23] MEDS: predniSONE 10 MG TAB PO SCH (06:12)
[2018-05-23] MEDS: PANTOPRAZOLE 40 MG (PROTONIX) TAB PO SCH (06:12)
[2018-05-23 08:00] VITALS: BP 139/64
[2018-05-23] MEDS: morphine ER 15 MG (MS CONTIN) TAB PO SCH ×2 (08:23→21:11)
[2018-05-23] MEDS: POLYETHYLENE GLYCOL 17 GM (MIRALAX) PACK PO SCH ×2 (08:24→19:40)
[2018-05-23] MEDS: fluCOnazole (DIFLUCAN) 100 MG TAB PO SCH (08:24)
[2018-05-23] MEDS: SENNA W/DOCUSATE (SENOKOT S) TABLET PO SCH (08:24)
[2018-05-23] MEDS: meTOproloL SUCCINATE 50 MG (TOPROL XL) TAB PO SCH (08:24)
[2018-05-23] MEDS: LACTULOSE SYRUP 10GM/15ML (ENULOSE) 30ML UDC PO SCH ×2 (08:24→19:40)
[2018-05-23] MEDS: TBO-FILGRASTIM 300 MCG/0.5 ML (GRANIX) SQ SCH (08:39)
--- NOTE | 2018-05-23 10:02 | Physical Therapy Daily Note ---
PT Daily Note-Current Subjective Pt in recliner and agrees to PT. Mental Status Patient Orientation: Person, Place, Situation, Normal For Age Attachments: Oxygen (2L) Transfers Therapy Code Descriptions/Definitions Functional [place] Measure: 0=Not Assessed/NA 4=Minimal Assistance 1=Total Assistance 5=Supervision or Setup 2=Maximal Assistance 6=Modified [place] 3=Moderate Assistance 7=Complete [place] Therapy Quality Codes: 6 Independent with activity with or without an assistive device 5 Patient requires set up or clean up by helper. Patient completes activity by themselves 4 Supervision or touching assist (CGA). [place] provide cues , steadying assist 3 The helper provides less than half the effort to complete the activity 2 The helper provides more than half the effort to complete the activity 1 Dependent. The helper does all the effort to complete an activity 7 Patient refused to complete or attempt activity 9 The patient did not perform the activity before the current illness or injury 88 Not attempted due to Medical conditions or safety concerns Transfers (B, C, W/C) (FIM): 4 Sit to/from Stand: 4 Weight Bearing Right Lower Extremity: Right Weight Bearing/Tolerated Left Lower Extremity: Left Weight Bearing/Tolerated Gait Training Gait (FIM): 4 Distance (FIM): 3=150 ft Distance: 225' Gait Level of Assist: 4 Gait Persons Needed: 1 Gait Assistive Device: FWW Exercises Seated Therapy Exercises: Ankle pumps, Sit to stand (2 reps), Long arc quads, Hip flexion Seated Reps: 15 Assessment Current Status: Good Progress Pt was able to perform sit<>stand transfer with CGA to FWW. Pt amb 225' with FWW , CGA and O2 2L. Pt performed seated LE ex of AP, LAQ, hip flexion of 15 reps and 2 reps of sit<>stand. Pt fatigued at end of tx. Pt has all needs met and is in recliner. PT Short Term Goals Short Term Goals Time Frame: May 26, 2018 Transfers (B,C,W/C) (FIM): 6 Gait (FIM): 2 Distance (FIM): 0=598-10 ft Gait Distance Comment: 100' Gait Level of Assist: 5 Gait Assistive Device: FWW PT Plan Problem List Problem List: Activity Tolerance, Functional Strength, Safety, Balance, Gait, Transfer, Bed Mobility, ROM Treatment/Plan Treatment Plan: Continue Plan of Care Treatment Plan: Bed Mobility, Education, Functional Activity Finesse, Functional Strength, Gait, Safety, Therapeutic Exercise, Transfers Treatment Duration: May 28, 2018 Frequency: 6 times per week Estimated Hrs Per Day: .25 hour per day Patient and/or Family Agrees t: Yes Time/GCodes Time In: 850 Time Out: 902 Total Billed Treatment Time: 12 Total Billed Treatment 1 visit FA 12 min EDUARD CARRANZA PT May 23, 2018 10:02
[2018-05-23] MEDS: amLODIPine 5 MG (NORVASC) TAB PO SCH (10:28)
--- NOTE | 2018-05-23 11:12 | Pulmonary Progress Note ---
Subjective Time Seen by a Provider: 11:22 Subjective/Events-last exam Pt complains of SOB however still improving Sepsis Event Evaluation Height, Weight, BMI Height: 5'6.00" Weight: 129lbs. 2.0oz. 58.619482je; 21.9 BMI Method:Stated Focused Exam Lactate Level 05/21/18 10:25: Lactic Acid Level 1.53 Exam Exam Vital Signs Date Time Temp Pulse Resp B/P (MAP) Pulse Ox O2 Delivery O2 Flow Rate FiO2 05/23/18 08:22 95 High Flow N/C 2.00 100 05/23/18 08:00 96.7 100 16 139/64 (89) 95 High Flow N/C 2.00 05/23/18 07:11 95 Nasal Cannula 2.00 05/23/18 03:08 95 Nasal Cannula 2.00 05/22/18 23:39 98.0 76 16 133/75 (94) 94 High Flow N/C 2.00 05/22/18 20:00 High Flow N/C 2.00 05/22/18 16:28 97.2 91 16 133/63 (86) 100 Nasal Cannula 2.00 05/22/18 15:06 95 Nasal Cannula 1.00 05/22/18 11:23 91 Nasal Cannula 1.00 I & O 05/23/18 07:00 Intake Total 460 ml Balance 460 ml Height & Weight Height: 5'6.00" Weight: 129lbs. 2.0oz. 58.190913dj; 21.9 BMI Method:Stated General Appearance: No Apparent Distress, WD/WN, Chronically ill HEENT: PERRL/EOMI, Normal ENT Inspection, Pharynx Normal Neck: Full Range of Motion, Normal Inspection, Non Tender, Supple, Carotid Bruit Respiratory: Chest Non Tender, Decreased Breath Sounds Cardiovascular: Regular Rate, Rhythm, No Gallop, No JVD, No Murmur, Normal Peripheral Pulses Capillary Refill: Less Than 3 Seconds Gastrointestinal: non tender, distended; No guarding, No rebound, No tenderness Extremity: Normal Capillary Refill, Normal Inspection, Normal Range of Motion, Non Tender, No Calf Tenderness, Pedal Edema Neurologic/Psychiatric: Alert, Oriented x3, No Motor/Sensory Deficits, Normal Mood/Affect Skin: Normal Color, Warm/Dry Lymphatic: No Adenopathy Results Lab Laboratory Tests 05/22/18 04:05 Assessment/Plan Assessment/Plan Acute on chronic respiratory failure- -SVNS to Q4 and Q2 PRN -Respiratory status is improving 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 Cavazos following and currently rx chemo PNeumonia -On Merrem and Diflucan Tobacco use -Education Anxiety -Morphine COPDAE -Oxygen -SVNs ODETTE FERNANDEZ DO May 23, 2018 11:12
--- NOTE | 2018-05-23 14:00 | Occupational Ther Daily Note ---
OT Current Status-Daily Note Subjective Pt in room ,seated in Recliner, cheerful mood, alert, cooperative & oriented x 3 . Pt agree for OT treatment. Pain Numeric Pain Scale: 0-No Pain Location: No Pain Reported Mental Status/Objective Patient Orientation: Person, Place, Time, Eyes Open, Situation Therapy Code Descriptions/Definitions Functional [place] Measure: 0=Not Assessed/NA 4=Minimal Assistance 1=Total Assistance 5=Supervision or Setup 2=Maximal Assistance 6=Modified [place] 3=Moderate Assistance 7=Complete [place] Attachments: Central Line, Saline Lock ADL-Treatment Pt participated in sit to stand , func mobility, & strengthening ex to BUE . Pt O2 dependent . Endurance fair. Pt needs Min A - SBA in sit to stand due to marked weakness in BLE . Pt completed 20 reps x 2 sets x 2 lb wts flex/ext of both elbow & shoulders, 30 reps using red theraband to BUE in all plane of motion. 30 reps with Hand gripper to strengthen hand science technician . Pt fatigue soon & requires frequent rest periods between each activity. Eating (FIM): 7 Grooming (FIM): 7 Bathing (FIM): 4 (Pt said, she took shower this AM by herself under aids supervision, washed my UB,LB , back & front , brushed hairs & dress with SBA .) Bathing Location: L Arm, R Arm, L Upper Leg, R Upper Leg, L Lower Leg ( including foot), R Lower Leg (including foot), Chest, Abdomen, Buttocks, Perineal Area Upper Body (FIM): 5 Lower Body Dressing (FIM): 5 Toileting (FIM): 7 Transfers (B, C, W/C) (FIM): 4 Toilet/Commode Transfer (FIM): 4 Tub Transfer(FIM): 0 Shower Transfer(FIM): 0 Education OT Patient Education: Correct positioning, Safety issues Teaching Recipient: Patient Teaching Methods: Demonstration Response to Teaching: Verbalize Understanding OT Short Term Goals Short Term Goals Transfers (B,C,W/C) (FIM): 6 1=Demonstrate adherence to instructed precautions during ADL tasks. 2=Patient will verbalize/demonstrate understanding of assistive devices/ modifications for ADL. 3=Patient will improve strength/tolerance for activity to enable patient to perform ADL's. OT Hospitality Internship Goals Hospitality Internship Goals Time Frame: Jun 02, 2018 Eating (FIM): 7 Grooming(FIM): 6 Bathing(FIM): 5 Upper Body Dressing(FIM): 6 Lower Body Dressing(FIM): 6 Toileting(FIM): 6 Transfers (B,C,W/C) (FIM): 6 Toilet/Commode Transfer(FIM): 6 Shower Transfer(FIM): 5 Additional Goals: 1-Demonstrate ADL Tasks, 2-Verbalize Understanding, 3- ImproveStrength/Finesse 1=Demonstrate adherence to instructed precautions during ADL tasks. 2=Patient will verbalize/demonstrate understanding of assistive devices/ modifications for ADL. 3=Patient will improve strength/tolerance for activity to enable patient to perform ADL's. OT Education/Plan Problem List/Assessment Assessment: Decreased Activ Tolerance, Decreased Safety Aware, Decreased UE Strength, Dependent Transfers, Impaired Bed Mobility, Impaired Funct Balance, Impaired Self-Care Skills Discharge Recommendations Plan/Recommendations: Continue POC Therapy D/C Recommendations: Home w/ Family Support, Occupational Therapy Home Care Equpiment Recommendations-D/C: Extended Bath Bench, Extended Shower Sprayer, Copy Reader Patient/Family Goals To return home with my daughter with AD. Treatment Plan/Plan of Care Treatment,Training & Education: Yes Patient would benefit from OT for education, treatment and training to promote independence in ADL's, mobility, safety and/or upper extremity function for ADL' s. Plan of Care: ADL Retraining, Functional Mobility, UE Funct Exercise/Act Treatment Duration: Jun 02, 2018 Frequency: 5 times per week Estimated Hrs Per Day: .5 hour per day Agreement: Yes Rehab Potential: Good Time/GCodes Start Time: 13:05 Stop Time: 13:29 Total Time Billed (hr/min): 24 Billed Treatment Time 1, FA 24 min. SARTHAK FOLEY OT May 23, 2018 13:59
--- NOTE | 2018-05-23 14:29 | NUR ---
1400 PT ASKING ABOUT PAIN MEDICATIONS PT STATES PAIN IS IN HER RIGHT LOWER CHEST UNDERNEATH RIGHT BREAST AND RADIATES TO RIGHT LOWER BACK AND CHOWDHURY. PT INFORMED THAT PAIN MEDICATION NOT DUE UNTIL 1500, HOWEVER THIS RN WILL TALK TO DR RENNER REGARDING PAIN MEDICATIONS. THIS RN LEFT MESSAGE WITH DR RENNER [id number] DR RENNER TELEPHONE AND NEW ORDER RECEIVED TO GIVE A ONE TIME DOSE OF GI COCKTAIL AND IF THAT DOESN'T HELP TO LET DR KNOW. ORDERS READ BACK AND ENTERED.
[2018-05-23] MEDS ORDERED: LIDOCAINE 2% VISCOUS 15 ML UDC PO NR (14:30)
[2018-05-23] MEDS ORDERED: ANTACID SUSP 30 ML UDC (MYLANTA) PO NR (14:30)
[2018-05-23 16:00] VITALS: BP 122/70
--- NOTE | 2018-05-23 16:55 | NUR ---
Pt states she is ready for discharge home possibly tomorrow. Pt will need Home Health Orders for Custodial,Physical therapy and Occupational Therapy. She will also need a order for a Front wheel walker and Home Oxygen. Pt is uninsured and has Medicaid pending and will see if [facility] can assist with medications and will supplement with prescription assistance program. Will follow and assist upon discharge. Meals On Wheels Coordinator will also talk with her about Meals on Wheels program for her noon meal. Pt lives alone and daughter works full-time as a nurse rn case manager hospice at this hospital and concerned that she will be safe at home during the day.
--- NOTE | 2018-05-23 17:17 | Progress Note-Standard ---
Standard Progress Note Progress Notes/Assess & Plan Date Seen by a Provider: May 23, 2018 Time Seen by a Provider: 17:10 Progress/Assessment & Plan 63-year-old female admitted to the hospital with increasing shortness of breath and found to have near obstructing lesion in the right mainstem bronchus with hilar and mediastinal lymphadenopathy as well as extensive liver metastasis and adrenal masses. Bronchoscopy with biopsies showed small cell lung cancer. Status post chemotherapy with carboplatinum and paclitaxel regimen from 05/12/18 - 05/14/18. Patient tolerated the treatment well and has improved. She is on morphine ER 15 mg every 12 hours with oxycodone for breakthrough pain. She had increased shortness of breath last evening but no hypoxia with oxygen saturation in the low 90s. No fevers or chills. D-dimer was elevated. CT angiogram obtained last night showed no evidence of pulmonary embolism but 5 lobe reticulonodular infiltrates consistent with infection. Meropenem was restarted along with Diflucan. Sputum for Gram stain obtained on 05/21/2018 is growing gram-positive cocci. She is feeling better today and denied shortness of breath. Ambulated in hallway with physical therapy. Continues with cough productive of scanty sputum. Receiving bronchodilators by nebulizer every 4 hours. Continue physical therapy for strengthening and ambulation. Patient was started on G-CSF 300 g subcutaneous daily because of grade 3 neutropenia and I will continue this until ANC approximately 10,000. Obtain CBC and CMP tomorrow a.m. Will follow patient with you. Focused Exam Lactate Level 05/21/18 10:25: Lactic Acid Level 1.53 ADIEL PARRA May 23, 2018 17:17
--- NOTE | 2018-05-23 19:36 | Progress Note (SOAP) ---
Subjective Subjective/Events-last exam 63 yo F with new diagnosis of small cell lung Ca. Patient started on chemo during this admission. Patient states that she is feeling much better since admission. Tolerating ambulation and PO diet. Having some nausea and pain. BM last night. Review of Systems Date Seen by Provider: May 23, 2018 Time Seen by Provider: 11:00 Pulmonary: Dyspnea (with exertion) Cardiovascular: No: Chest Pain, Palpitations, Edema Gastrointestinal: Nausea, Abdominal Pain; No: Diarrhea, Constipation Musculoskeletal: neck pain Neurological: Weakness Focused Exam Lactate Level 05/21/18 10:25: Lactic Acid Level 1.53 Objective Exam Last Set of Vital Signs Vital Signs Date Time Temp Pulse Resp B/P (MAP) Pulse Ox O2 Delivery O2 Flow Rate FiO2 05/23/18 19:02 93 Nasal Cannula 2.00 05/23/18 16:00 97.0 93 18 122/70 (87) 05/23/18 08:22 100 Capillary Refill : Less Than 3 SecondsLess Than 3 Seconds I&O Intake and Output 05/23/18 00:00 Intake Total 410 ml Balance 410 ml Intake Oral 410 ml # Voids 6 # Bowel Movements 1 General: Alert, Oriented X3, No Acute Distress Lungs: Other (diminshed breath sounds bilaterally, normal work of breathing) Heart: Regular Rate, No Murmurs Abdomen: Normal Bowel Sounds, Soft, No Tenderness, No Hepatosplenomegaly, No Masses Extremities: No Edema, No Tenderness/Swelling Neuro: Normal Speech, Cranial Nerves 3-12 NL Psych/Mental Status: Mental Status NL, Mood NL Results/Procedures Lab Laboratory Tests 05/22/18 20:31: Glucometer 231H 05/23/18 05:10: Glucometer 90 05/23/18 11:02: Glucometer 328H 05/23/18 15:58: Glucometer 352H Microbiology 05/21/18 Blood Culture - Preliminary, Resulted No growth 05/21/18 Gram Stain - Final, Resulted 05/21/18 Sputum Culture - Preliminary, Resulted Gram Pos Mixed Bacterial Amelia 05/12/18 Urine Culture - Final, Complete NO GROWTH Assessment/Plan Assessment/Plan (1) Small cell lung cancer Status: Acute Assessment & Plan: - Dr Cavazos following patient and started on chemo during this admission (2) Pneumonia Status: Acute Assessment & Plan: - Post obstructive PNA related to lung mass, Will continue to monitor, improving Qualifiers: Qualified Codes: J18.1 - Lobar pneumonia, unspecified organism (3) Hyponatremia Status: Acute Assessment & Plan: - Likely SIADH given lung disease, patient on fluid restriction, Will continue to monitor, Mental status at baseline (4) Cancer, metastatic to bone Status: Acute (5) Hypoxia Status: Acute Assessment & Plan: - Will wean as tolerated (6) Hypertension Status: Chronic Assessment & Plan: - Controlled on meds Qualifiers: Qualified Codes: I10 - Essential (primary) hypertension (7) Diabetes mellitus Status: Chronic Assessment & Plan: Hold metformin due to contrast. Levemir started. SSI. Qualifiers: Qualified Codes: E11.65 - Type 2 diabetes mellitus with hyperglycemia (8) Liver enzyme elevation Status: Acute Assessment & Plan: AST/ALT stable since admission, bilirubin up. Suspect due to liver metastases. (9) Anxiety Status: Chronic Assessment & Plan: Home alprazolam had been continued, but she remains markedly anxious, will try longer acting benzo. 2/10 improved with lorazepam but still fairly anxious, increase to 2 mg TID prn. (10) COPD (chronic obstructive pulmonary disease) Status: Chronic Qualifiers: Qualified Codes: J44.9 - Chronic obstructive pulmonary disease, unspecified (11) DVT prophylaxis Status: Acute Assessment & Plan: Enoxaparin (12) Advance care planning Status: Acute Assessment & Plan: - Patient DNR and has done advance directives - Will plan to d/c home with home health Clinical Quality Measures DVT/VTE Risk/Contraindication: Risk Factor Score Per Nursin RFS Level Per Nursing on Admit: 4+=Very High VÍCTOR RENNER MD May 23, 2018 19:36
[2018-05-23] MEDS: inSUlin DETERMIR 1 UNIT/0.01 ML (LEVEMIR) CHARGE PER UNIT SQ SCH (21:17)
[2018-05-23] MEDS: MELATONIN 3 MG TABLET PO PRN (23:06)
[2018-05-24] VITALS: BP 137/67
[2018-05-24] MEDS: RT-ALBUTEROL/IPRATROPIUM 3 ML (DUONEB) VIAL INH SCH ×6 (01:38→23:23)
[2018-05-24] MEDS: MEROPENEM 500 MG in WATER (STERILE) FOR INJECTION 10 ML IV SCH ×4 (03:56→21:24)
[2018-05-24 05:27] LABS: BASOPHILS % (AUTO) 0 % (0-10); EOSINOPHILS % (AUTO) 1 % (0-10); HEMATOCRIT 29 % (35-52); LYMPHOCYTES # (AUTO) 1.7 X 10^3 (1.0-4.0); LYMPHOCYTES % (AUTO) 58 % (12-44); MEAN CORPUSCULAR HEMOGLOBIN 31 PG (25-34); MEAN CORPUSCULAR HGB CONC 34 G/DL (32-36); MEAN CORPUSCULAR VOLUME 90 FL (80-99); MEAN PLATELET VOLUME 9.5 FL (7.4-10.4); MONOCYTES # (AUTO) 0.4 X 10^3 (0.0-1.0); MONOCYTES % (AUTO) 15 % (0-12); NEUTROPHILS # (AUTO) 0.7 X 10^3 (1.8-7.8); NEUTROPHILS % (AUTO) 26 % (42-75); PLATELET COUNT 195 10^3/uL (130-400); RED CELL DISTRIBUTION WIDTH 15.1 % (10.0-14.5); WHITE BLOOD COUNT 2.9 10^3/uL (4.3-11.0)
[2018-05-24 05:51] LABS: ALANINE AMINOTRANSFERASE 106 U/L (0-55); ALBUMIN 2.9 GM/DL (3.2-4.5); ALKALINE PHOSPHATASE 617 U/L (40-136); BUN/CREATININE RATIO 15; CALCIUM 8.4 MG/DL (8.5-10.1); CARBON DIOXIDE 28 MMOL/L (21-32); CHLORIDE 87 MMOL/L (98-107); CREATININE SERUM 0.48 MG/DL (0.60-1.30); GFR ESTIMATED > 60; GLUCOSE 179 MG/DL (70-105); POTASSIUM 4.1 MMOL/L (3.6-5.0); TOTAL PROTEIN 5.5 GM/DL (6.4-8.2)
[2018-05-24] MEDS: inSUlin ASPART (NovoLOG) 1 UNIT/0.01 ML (CHARGE PER UNIT) SC SCH ×4 (05:56→22:20)
[2018-05-24 06:23] LABS: SODIUM 125 MMOL/L (135-145)
[2018-05-24] MEDS: PANTOPRAZOLE 40 MG (PROTONIX) TAB PO SCH (06:45)
[2018-05-24 08:00] VITALS: BP 129/68
[2018-05-24] MEDS: meTOproloL SUCCINATE 50 MG (TOPROL XL) TAB PO SCH (08:04)
[2018-05-24] MEDS: amLODIPine 5 MG (NORVASC) TAB PO SCH (08:04)
[2018-05-24] MEDS: fluCOnazole (DIFLUCAN) 100 MG TAB PO SCH (08:04)
[2018-05-24] MEDS: morphine ER 15 MG (MS CONTIN) TAB PO SCH ×2 (08:04→21:24)
[2018-05-24] MEDS: POLYETHYLENE GLYCOL 17 GM (MIRALAX) PACK PO SCH ×2 (08:05→21:00)
[2018-05-24] MEDS: LACTULOSE SYRUP 10GM/15ML (ENULOSE) 30ML UDC PO SCH ×2 (08:05→21:00)
[2018-05-24] MEDS: SENNA W/DOCUSATE (SENOKOT S) TABLET PO SCH (08:06)
--- NOTE | 2018-05-24 09:23 | Physical Therapy Daily Note ---
PT Daily Note-Current Subjective Pt is in recliner and agrees to PT. Mental Status Patient Orientation: Person, Place, Situation, Normal For Age Attachments: Oxygen (1.5L) Transfers Therapy Code Descriptions/Definitions Functional [place] Measure: 0=Not Assessed/NA 4=Minimal Assistance 1=Total Assistance 5=Supervision or Setup 2=Maximal Assistance 6=Modified [place] 3=Moderate Assistance 7=Complete [place] Therapy Quality Codes: 6 Independent with activity with or without an assistive device 5 Patient requires set up or clean up by helper. Patient completes activity by themselves 4 Supervision or touching assist (CGA). [place] provide cues , steadying assist 3 The helper provides less than half the effort to complete the activity 2 The helper provides more than half the effort to complete the activity 1 Dependent. The helper does all the effort to complete an activity 7 Patient refused to complete or attempt activity 9 The patient did not perform the activity before the current illness or injury 88 Not attempted due to Medical conditions or safety concerns Transfers (B, C, W/C) (FIM): 4 Scootin Sit to/from Stand: 4 Weight Bearing Right Lower Extremity: Right Weight Bearing/Tolerated Left Lower Extremity: Left Weight Bearing/Tolerated Gait Training Gait (FIM): 5 Distance (FIM): 3=150 ft Distance: 300' Gait Level of Assist: 5 Gait Persons Needed: 1 Gait Assistive Device: FWW Exercises Seated Therapy Exercises: Ankle pumps, Sit to stand (3 reps), Long arc quads, Hip flexion Seated Reps: 10 Assessment Current Status: Good Progress Pt able to perform sit<>stand transfers with CGA for safety. Pt amb 300' with FWW and O2 2L with SBA. Pt returned to recliner and performed 3 sit<>stand, AP, LAQ, hip flexion [id number]. Pt has all needs met and is in recliner. PT Short Term Goals Short Term Goals Time Frame: May 26, 2018 Transfers (B,C,W/C) (FIM): 6 Gait (FIM): 2 Distance (FIM): 6=453-69 ft Gait Distance Comment: 100' Gait Level of Assist: 5 Gait Assistive Device: FWW PT Plan Problem List Problem List: Activity Tolerance, Functional Strength, Safety, Balance, Gait, Transfer, Bed Mobility, ROM Treatment/Plan Treatment Plan: Continue Plan of Care Treatment Plan: Bed Mobility, Education, Functional Activity Finesse, Functional Strength, Gait, Safety, Therapeutic Exercise, Transfers Treatment Duration: May 28, 2018 Frequency: 6 times per week Estimated Hrs Per Day: .25 hour per day Patient and/or Family Agrees t: Yes Time/GCodes Time In: 830 Time Out: 844 Total Billed Treatment Time: 14 Total Billed Treatment 1 visit FA 14 min EDUARD CRARANZA PT May 24, 2018 09:23
--- NOTE | 2018-05-24 09:44 | NUR ---
PT NOTED TO HAVE SOME INCREASED CONFUSION THIS AM, DAUGHTER CONCERNED, THIS RN SPOKE TO JULIETA PARRA NURSE REGARDING PT, NEW TELEPHONE ORDERS RECEIVED TO OBTAIN MRI HEAD WITH AND WITHOUT CONTRAST. ORDERS ENTERED AND DAUGHTER NOTIFIED. DR RENNER ALSO ON FLOOR AND NOTIFIED.
[2018-05-24] MEDS: TBO-FILGRASTIM 300 MCG/0.5 ML (GRANIX) SQ SCH (09:47)
[2018-05-24] MEDS ORDERED: GADOBUTROL 7.5 MMOL/7.5 ML (GADAVIST) VIAL IV ONE (10:45)
--- NOTE | 2018-05-24 11:19 | Progress Note (SOAP) ---
Subjective Subjective/Events-last exam Patient more agitated this AM. She is having some confusion. Denies any shortness of breath. Still experiencing pain and has a headache this AM. Tolerating PO diet and ambulation. Review of Systems Date Seen by Provider: May 24, 2018 Time Seen by Provider: 09:45 HEENT: Head Aches Pulmonary: Cough Neurological: Confusion Objective Exam Last Set of Vital Signs Vital Signs Date Time Temp Pulse Resp B/P (MAP) Pulse Ox O2 Delivery O2 Flow Rate FiO2 05/24/18 08:10 97 High Flow N/C 2.00 100 05/24/18 08:00 97.4 95 18 129/68 (88) Capillary Refill : Less Than 3 SecondsLess Than 3 Seconds I&O Intake and Output 05/24/18 00:00 Intake Total 1650 ml Balance 1650 ml Intake Oral 1640 ml IV Total 10 ml # Voids 6 # Bowel Movements 2 General: Alert, No Acute Distress Lungs: Other (Diffuse wheezing and diminished breath sounds, normal work of breathing) Heart: Regular Rate, No Murmurs Abdomen: Normal Bowel Sounds, Soft, No Masses, Other (mild RUQ ttp, soft, no guarding ) Results/Procedures Lab Laboratory Tests 05/23/18 15:58: Glucometer 352H 05/23/18 20:56: Glucometer 310H 05/24/18 05:17: White Blood Count 2.9L, Red Blood Count 3.25L, Hemoglobin 10.0L, Hematocrit 29L , Mean Corpuscular Volume 90, Mean Corpuscular Hemoglobin 31, Mean Corpuscular Hemoglobin Concent 34, Red Cell Distribution Width 15.1H, Platelet Count 195, Mean Platelet Volume 9.5, Neutrophils (%) (Auto) 26L, Lymphocytes (%) (Auto) 58H , Monocytes (%) (Auto) 15H, Eosinophils (%) (Auto) 1, Basophils (%) (Auto) 0, Neutrophils # (Auto) 0.7L, Lymphocytes # (Auto) 1.7, Monocytes # (Auto) 0.4, Eosinophils # (Auto) 0.0, Basophils # (Auto) 0.0, Sodium Level 125*L, Potassium Level 4.1, Chloride Level 87L, Carbon Dioxide Level 28, Anion Gap 10, Blood Urea Nitrogen 7, Creatinine 0.48L, Estimat Glomerular Filtration Rate > 60, BUN/ Creatinine Ratio 15, Glucose Level 179H, Calcium Level 8.4L, Corrected Calcium 9.3, Total Bilirubin 1.0, Aspartate Amino Transf (AST/SGOT) 54H, Alanine Aminotransferase (ALT/SGPT) 106H, Alkaline Phosphatase 617H, Total Protein 5.5L , Albumin 2.9L Microbiology 05/21/18 Blood Culture - Preliminary, Resulted No growth 05/21/18 Gram Stain - Final, Resulted 05/21/18 Sputum Culture - Preliminary, Resulted Gram Pos Mixed Bacterial [place] 05/12/18 Urine Culture - Final, Complete NO GROWTH Assessment/Plan Assessment/Plan (1) Altered mental state Status: Acute Assessment & Plan: 05/24: Due to known metastatic cancer, recommend MRI vs hypoNatremia Qualifiers: Qualified Codes: R41.0 - Disorientation, unspecified (2) Small cell lung cancer Status: Acute Assessment & Plan: - Dr Cavazos following patient and started on chemo during this admission (3) Pneumonia Status: Acute Assessment & Plan: - Post obstructive PNA related to lung mass, Will continue to monitor, improving 05/24: Meropenem and fluconazole Qualifiers: Qualified Codes: J18.1 - Lobar pneumonia, unspecified organism (4) Hyponatremia Status: Acute Assessment & Plan: - Likely SIADH given lung disease, patient on fluid restriction, Will continue to monitor, Mental status at baseline 05/24: Discussed the importance of strictly restricting fluids, reviewed meds that could contribute to hypoNa (5) Cancer, metastatic to bone Status: Acute (6) Hypoxia Status: Acute Assessment & Plan: - Will wean as tolerated (7) Hypertension Status: Chronic Assessment & Plan: - Controlled on meds Qualifiers: Qualified Codes: I10 - Essential (primary) hypertension (8) Diabetes mellitus Status: Chronic Assessment & Plan: Hold metformin due to contrast. Levemir started. SSI. Qualifiers: Qualified Codes: E11.65 - Type 2 diabetes mellitus with hyperglycemia (9) Liver enzyme elevation Status: Acute Assessment & Plan: AST/ALT stable since admission, bilirubin up. Suspect due to liver metastases. (10) Anxiety Status: Chronic Assessment & Plan: Home alprazolam had been continued, but she remains markedly anxious, will try longer acting benzo. 05/15 improved with lorazepam but still fairly anxious, increase to 2 mg TID prn. (11) COPD (chronic obstructive pulmonary disease) Status: Chronic Qualifiers: Qualified Codes: J44.9 - Chronic obstructive pulmonary disease, unspecified (12) DVT prophylaxis Status: Acute Assessment & Plan: Enoxaparin (13) Advance care planning Status: Acute Assessment & Plan: - Patient DNR and has done advance directives - Will plan to d/c home with home health Clinical Quality Measures DVT/VTE Risk/Contraindication: Risk Factor Score Per Nursin RFS Level Per Nursing on Admit: 4+=Very High VÍCTOR RENNER MD May 24, 2018 11:19
[2018-05-24] MEDS: morphine INJ 10 MG/ML 1ML (SYR OR VIAL) IV PRN ×2 (11:22→15:27)
[2018-05-24] MEDS: predniSONE 10 MG TAB PO SCH (11:22)
--- NOTE | 2018-05-24 11:37 | Diagnostic Imaging Report ---
CLINICAL INDICATION: Patient with increased confusion and lung cancer. Patient has history of migraine headaches. Exam: MRI of the brain performed without and with 10 cc of Gadavist IV contrast. Sequences include axial DWI, ADC map, axial gradient echo, axial T2, axial FLAIR, axial T1, axial FSPGR post IV contrast, axial T1 post IV contrast, coronal T1 fat-sat post IV contrast, and sagittal T1 post IV contrast. Comparison: Head CT with and without IV contrast dated 05/11/2018. Findings: There is no evidence of acute cerebral infarct, intracranial hemorrhage, or gross mass effect. The brain parenchymal volume appears appropriate for patient's age. There is multiple focal and patchy areas of high T2 signal white matter changes seen throughout both cerebral hemispheres likely representing chronic small vessel ischemic disease. There is normal white-white matter distinction. There is no significant midline shift or herniation. The [place] vascular structures show no gross abnormality as visualized. There is no evidence of hydrocephalus. The basal cisterns are unremarkable. There are multiple small enhancing lesions scattered throughout the calvarium which do not represent lytic lesions on the comparison head CT. These findings are nonspecific. There is correlating low T1 and slight high T2 signal in these areas of enhancement. Otherwise, the skull, extracranial soft tissue, and orbits are unremarkable. The paranasal sinuses are unremarkable. Temporal bones show no significant abnormality. IMPRESSION: 1: There is nonspecific small areas of enhancement about the calvarium. These findings may represent intraosseous hemangiomas, but metastatic lesions can't be completely excluded. Comparison to more remote MRIs of the brain with contrast would help better evaluate. If none are available, then nuclear medicine whole-body bone scan may help better evaluate. 2: Otherwise, there is no other concern for metastatic disease or intracranial brain parenchymal enhancing mass. 3: The brain parenchyma is unremarkable for patient's age with chronic small vessel ischemic disease. Dictated by: Dictated on workstation # [id number]
--- NOTE | 2018-05-24 11:55 | NUR ---
DR PARRA IN ROOM TO SEE PATIENT, NEW ORDERS RECEIVED.
--- NOTE | 2018-05-24 13:55 | Occupational Ther Daily Note ---
OT Current Status-Daily Note Subjective Pt in room in recliner. Pt said, " I am going home tomorrow." Agree for OT treatment. Pain Numeric Pain Scale: 6 Location: Soft Tissue Location Body Site: Generalized Pain Description: Ache, Throbbing Mental Status/Objective Patient Orientation: Person, Place, Time, Situation, Normal For Age Therapy Code Descriptions/Definitions Functional [place] Measure: 0=Not Assessed/NA 4=Minimal Assistance 1=Total Assistance 5=Supervision or Setup 2=Maximal Assistance 6=Modified [place] 3=Moderate Assistance 7=Complete [place] Attachments: Central Line, Oxygen, Saline Lock ADL-Treatment Pt completed 30 reps x 2 sets x 2 lb wts, flexion/extension with both elbows & shoulders , 30 reps with red theraband with both arms in all plane of motion.& 30 reps using hand gripper to strengthen hand single stroke preformer of both hands.sit to stand Independently .Unsteady standing balance. Pt gets dizzy soon . Endurance fair. Fatigue soon. Eating (FIM): 7 Grooming (FIM): 6 Bathing (FIM): 5 Bathing Location: L Arm, R Arm, L Upper Leg, R Upper Leg, L Lower Leg ( including foot), R Lower Leg (including foot), Chest, Abdomen, Buttocks, Perineal Area Upper Body (FIM): 7 Lower Body Dressing (FIM): 5 Toileting (FIM): 7 Transfers (B, C, W/C) (FIM): 7 Toilet/Commode Transfer (FIM): 7 Tub Transfer(FIM): 0 Shower Transfer(FIM): 6 Education OT Patient Education: Correct positioning Teaching Recipient: Patient Teaching Methods: Demonstration Response to Teaching: Verbalize Understanding OT Short Term Goals Short Term Goals Transfers (B,C,W/C) (FIM): 6 1=Demonstrate adherence to instructed precautions during ADL tasks. 2=Patient will verbalize/demonstrate understanding of assistive devices/ modifications for ADL. 3=Patient will improve strength/tolerance for activity to enable patient to perform ADL's. OT Longterm Goals Pharmacy Ancillary Goals Time Frame: Jun 02, 2018 Eating (FIM): 7 Grooming(FIM): 6 Bathing(FIM): 5 Upper Body Dressing(FIM): 6 Lower Body Dressing(FIM): 6 Toileting(FIM): 6 Transfers (B,C,W/C) (FIM): 6 Toilet/Commode Transfer(FIM): 6 Shower Transfer(FIM): 5 Additional Goals: 1-Demonstrate ADL Tasks, 2-Verbalize Understanding, 3- ImproveStrength/Finesse 1=Demonstrate adherence to instructed precautions during ADL tasks. 2=Patient will verbalize/demonstrate understanding of assistive devices/ modifications for ADL. 3=Patient will improve strength/tolerance for activity to enable patient to perform ADL's. OT Education/Plan Problem List/Assessment Assessment: Decreased Activ Tolerance, Decreased Safety Aware, Decreased UE Strength, Impaired Funct Balance, Impaired Self-Care Skills Discharge Recommendations Plan/Recommendations: Continue POC Therapy D/C Recommendations: Home w/ Family Support, Occupational Therapy Home Care Equpiment Recommendations-D/C: Extended Bath Bench, Extended Shower Sprayer, Incoming Freight Clerk Patient/Family Goals To return home Independently with daughter. Treatment Plan/Plan of Care Treatment,Training & Education: Yes Patient would benefit from OT for education, treatment and training to promote independence in ADL's, mobility, safety and/or upper extremity function for ADL' s. Plan of Care: ADL Retraining, Functional Mobility, UE Funct Exercise/Act Treatment Duration: Jun 02, 2018 Frequency: 5 times per week Estimated Hrs Per Day: .5 hour per day Agreement: Yes Rehab Potential: Good Time/GCodes Start Time: 13:05 Stop Time: 13:30 Total Time Billed (hr/min): 25 Billed Treatment Time 1, FA 25 Min. Total 25 Minutes. SARTHAK FOLEY OT May 24, 2018 13:55
[2018-05-24] MEDS ORDERED: morphine INJ 10 MG/ML 1ML (SYR OR VIAL) IV PRN (15:45)
--- NOTE | 2018-05-24 15:45 | NUR ---
DR PARRA ON FLOOR NEW VERBAL ORDERS RECEIVED TO DECREASE MORPHINE TO 2 MG IV EVERY 3 HOURS PRN PAIN.
[2018-05-24 16:00] VITALS: BP 129/68
--- NOTE | 2018-05-24 16:25 | Progress Note-Standard ---
Standard Progress Note Progress Notes/Assess & Plan Date Seen by a Provider: May 24, 2018 Time Seen by a Provider: 16:20 Progress/Assessment & Plan 63-year-old female admitted to the hospital with increasing shortness of breath and found to have near obstructing lesion in the right mainstem bronchus with hilar and mediastinal lymphadenopathy as well as extensive liver metastasis and adrenal masses. Bronchoscopy with biopsies showed small cell lung cancer. Status post chemotherapy with carboplatinum and paclitaxel regimen from 05/12/18 - 05/14/18. Patient tolerated the treatment well with improvement in respiratory status. She is on morphine ER 15 mg every 12 hours with oxycodone 10 mg for breakthrough pain as needed. She has also been asking for IV morphine. She is somewhat confused at times. I will decrease the IV morphine to 2 mg every 6 hours as needed for breakthrough pain and DC this by tomorrow. More confusion today morning. Will restart low-dose Xanax. MRI of the head with no parenchymal lesions. Small enhancing lesions in the calvarium. Also has age-related vascular changes. Ambulating with physical therapy. Oxygen saturation mid 90s on 1.5-2 L per nasal cannula. Receiving bronchodilators by nebulizer every 4 hours. Continue physical therapy for strengthening and ambulation. Patient was started on G-CSF 300 g subcutaneous daily because of grade 3 neutropenia and I will continue this until ANC approximately 10,000. Obtain CBC and CMP tomorrow a.m. Home soon if stable. ADIEL PARRA May 24, 2018 16:25
[2018-05-24] MEDS: morphine INJ 4 MG/ML 1 ML (VIAL/SYRINGE) IV PRN ×2 (19:03→23:30)
--- NOTE | 2018-05-24 19:20 | NUR ---
SPO2 85% ON ROOM AIR @ REST. REPLACED O2 @ 2 LPM. SPO2 INCREASED TO 91%.
[2018-05-24] MEDS: MELATONIN 3 MG TABLET PO PRN (21:24)
[2018-05-24] MEDS: inSUlin DETERMIR 1 UNIT/0.01 ML (LEVEMIR) CHARGE PER UNIT SQ SCH (22:19)
[2018-05-25] VITALS: BP 126/62
[2018-05-25] MEDS: RT-ALBUTEROL/IPRATROPIUM 3 ML (DUONEB) VIAL INH SCH ×6 (03:26→23:20)
[2018-05-25] MEDS: morphine INJ 4 MG/ML 1 ML (VIAL/SYRINGE) IV PRN ×2 (03:45→07:25)
[2018-05-25] MEDS: MEROPENEM 500 MG in WATER (STERILE) FOR INJECTION 10 ML IV SCH ×4 (03:48→21:20)
[2018-05-25 05:44] LABS: BASOPHILS % (AUTO) 0 % (0-10); EOSINOPHILS % (AUTO) 1 % (0-10); HEMATOCRIT 29 % (35-52); HEMOGLOBIN 9.8 G/DL (11.5-16.0); LYMPHOCYTES # (AUTO) 2.3 X 10^3 (1.0-4.0); LYMPHOCYTES % (AUTO) 32 % (12-44); MEAN CORPUSCULAR HEMOGLOBIN 30 PG (25-34); MEAN CORPUSCULAR HGB CONC 33 G/DL (32-36); MEAN CORPUSCULAR VOLUME 91 FL (80-99); MEAN PLATELET VOLUME 9.8 FL (7.4-10.4); MONOCYTES % (AUTO) 14 % (0-12); NEUTROPHILS % (AUTO) 54 % (42-75); PLATELET COUNT 267 10^3/uL (130-400); RED CELL DISTRIBUTION WIDTH 15.4 % (10.0-14.5); WHITE BLOOD COUNT 7.4 10^3/uL (4.3-11.0)
[2018-05-25 05:50] LABS: PROTHROMBIN TIME PATIENT 12.7 SEC (12.2-14.7)
[2018-05-25] MEDS: inSUlin ASPART (NovoLOG) 1 UNIT/0.01 ML (CHARGE PER UNIT) SC SCH ×4 (06:00→23:00)
[2018-05-25 06:09] LABS: ANISOCYTOSIS SLIGHT; BAND NEUTROPHILS 23 %; BASOPHILS % (MANUAL) 0 %; EOSINOPHILS % (MANUAL) 0 %; LYMPHOCYTES % (MANUAL) 39 %; METAMYELOCYTES % 1 %; MONOCYTES % (MANUAL) 12 %; NEUTROPHILS % (MANUAL) 17 %; POIKILOCYTOSIS SLIGHT; POLYCHROMASIA SLIGHT; REACTIVE LYMPHOCYTES 8 %; SCHISTOCYTES SLIGHT
[2018-05-25] MEDS: PANTOPRAZOLE 40 MG (PROTONIX) TAB PO SCH (06:25)
[2018-05-25 06:30] LABS: ALANINE AMINOTRANSFERASE 97 U/L (0-55); ALBUMIN 2.8 GM/DL (3.2-4.5); ALKALINE PHOSPHATASE 583 U/L (40-136); BILIRUBIN,TOTAL 0.9 MG/DL (0.1-1.0); BUN/CREATININE RATIO 18; CALCIUM 8.5 MG/DL (8.5-10.1); CARBON DIOXIDE 28 MMOL/L (21-32); CHLORIDE 90 MMOL/L (98-107); CREATININE SERUM 0.44 MG/DL (0.60-1.30); GFR ESTIMATED > 60; GLUCOSE 127 MG/DL (70-105); POTASSIUM 3.9 MMOL/L (3.6-5.0); SODIUM 127 MMOL/L (135-145); TOTAL PROTEIN 5.2 GM/DL (6.4-8.2)
--- NOTE | 2018-05-25 07:04 | Pulmonary Progress Note ---
Subjective Time Seen by a Provider: 09:33 Subjective/Events-last exam Pt wants to go home. SOB is much improved. Sepsis Event Evaluation Height, Weight, BMI Height: 5'6.00" Weight: 129lbs. 9.6oz. 58.223836oq; 21.9 BMI Method:Stated Exam Exam Vital Signs Date Time Temp Pulse Resp B/P (MAP) Pulse Ox O2 Delivery O2 Flow Rate FiO2 05/25/18 06:40 97 2.00 05/25/18 03:26 96 Nasal Cannula 2.00 05/25/18 00:00 98.1 89 18 126/62 (83) 97 High Flow N/C 1.50 05/24/18 23:23 98 Nasal Cannula 2.00 05/24/18 20:00 96 High Flow N/C 2.00 05/24/18 19:20 85 Room Air 05/24/18 16:00 97.4 95 18 129/68 (88) 97 High Flow N/C 1.50 05/24/18 14:09 92 Nasal Cannula 2.00 05/24/18 08:10 97 High Flow N/C 2.00 100 05/24/18 08:00 97.4 95 18 129/68 (88) 97 High Flow N/C 1.50 05/24/18 07:16 96 Nasal Cannula 2.00 I & O 05/25/18 07:00 Intake Total 700 ml Output Total 300 ml Balance 400 ml Height & Weight Height: 5'6.00" Weight: 129lbs. 9.6oz. 58.476378hs; 21.9 BMI Method:Stated General Appearance: No Apparent Distress, WD/WN, Chronically ill HEENT: PERRL/EOMI, Normal ENT Inspection, Pharynx Normal Neck: Full Range of Motion, Normal Inspection, Non Tender, Supple, Carotid Bruit Respiratory: Chest Non Tender, Decreased Breath Sounds Cardiovascular: Regular Rate, Rhythm, No Gallop, No JVD, No Murmur, Normal Peripheral Pulses Capillary Refill: Less Than 3 Seconds Gastrointestinal: non tender, distended; No guarding, No rebound, No tenderness Extremity: Normal Capillary Refill, Normal Inspection, Normal Range of Motion, Non Tender, No Calf Tenderness, Pedal Edema Neurologic/Psychiatric: Alert, Oriented x3, No Motor/Sensory Deficits, Normal Mood/Affect Skin: Normal Color, Warm/Dry Lymphatic: No Adenopathy Results Lab Laboratory Tests 05/24/18 05:17 05/25/18 05:35 Assessment/Plan Assessment/Plan chronic respiratory failure- -SVNS to Q4 and Q2 PRN -Respiratory status is improving 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 Cavazos following and currently rx chemo PNeumonia -On Merrem and Diflucan Tobacco use -Education Anxiety -Morphine COPDAE -Oxygen -SVNs ODETTE FERNANDEZ DO May 25, 2018 07:04
[2018-05-25 08:00] VITALS: BP 126/62
[2018-05-25] MEDS: amLODIPine 5 MG (NORVASC) TAB PO SCH (08:12)
[2018-05-25] MEDS: meTOproloL SUCCINATE 50 MG (TOPROL XL) TAB PO SCH (08:12)
[2018-05-25] MEDS: morphine ER 15 MG (MS CONTIN) TAB PO SCH ×2 (08:13→21:20)
[2018-05-25] MEDS: fluCOnazole (DIFLUCAN) 100 MG TAB PO SCH (08:13)
[2018-05-25] MEDS: LACTULOSE SYRUP 10GM/15ML (ENULOSE) 30ML UDC PO SCH ×2 (08:14→21:00)
[2018-05-25] MEDS: POLYETHYLENE GLYCOL 17 GM (MIRALAX) PACK PO SCH ×2 (08:15→21:00)
[2018-05-25] MEDS: SENNA W/DOCUSATE (SENOKOT S) TABLET PO SCH (08:16)
[2018-05-25] MEDS: TBO-FILGRASTIM 300 MCG/0.5 ML (GRANIX) SQ SCH (08:17)
--- NOTE | 2018-05-25 08:22 | Diagnostic Imaging Report ---
INDICATION: Lower respiratory infection Portable chest 7:56 AM There is infiltrate present in the left lower lung that appears similar to study from 3 days earlier. Right IJ Port-A-Cath tip projects over the SVC. IMPRESSION: Left lower lobe pneumonia. No appreciable change from 05/22/2018. Dictated by: Dictated on workstation # [id number]
--- NOTE | 2018-05-25 11:47 | Physical Therapy Daily Note ---
PT Daily Note-Current Subjective Pt. states she thinks she will be discharged today. States she is feeling pretty well and has everything arranged for DC, FT care, HC, O2 concentrator, recliner and FWW. Pt. states she has helped her sister who used concentrator and feels confident with this. Pain Location: No Pain Reported Mental Status Patient Orientation: Normal For Age Attachments: Oxygen Transfers Therapy Code Descriptions/Definitions Functional [place] Measure: 0=Not Assessed/NA 4=Minimal Assistance 1=Total Assistance 5=Supervision or Setup 2=Maximal Assistance 6=Modified [place] 3=Moderate Assistance 7=Complete [place] Therapy Quality Codes: 6 Independent with activity with or without an assistive device 5 Patient requires set up or clean up by helper. Patient completes activity by themselves 4 Supervision or touching assist (CGA). [place] provide cues , steadying assist 3 The helper provides less than half the effort to complete the activity 2 The helper provides more than half the effort to complete the activity 1 Dependent. The helper does all the effort to complete an activity 7 Patient refused to complete or attempt activity 9 The patient did not perform the activity before the current illness or injury 88 Not attempted due to Medical conditions or safety concerns Transfers (B, C, W/C) (FIM): 5 Scootin Rollin Supine to/from Sit: 6 Sit to/from Stand: 5 Bed to/from Chair: 6 pt. exerting much effort for sit to stand from recliner. 2 pillows and folded thermal blanket was placed under pts on seat and sit to stand improved to SBA to Mod I. Pt. stating how much easier this was Weight Bearing Right Lower Extremity: Right Weight Bearing/Tolerated Left Lower Extremity: Left Weight Bearing/Tolerated Gait Training Gait (FIM): 2 Distance (FIM): 3=089-71 ft (100x2) Gait Level of Assist: 5 Gait Persons Needed: 1 Gait Assistive Device: FWW practiced use of extended O2 tubing for gait with pt demonstrating safety in turns managing tubing manually very well , no LOB Exercises Seated Therapy Exercises: Ankle pumps, Sit to stand, Long arc quads, Hip flexion, Hip abd/add Seated Reps: 12 Assessment Current Status: Good Progress PT Short Term Goals Short Term Goals Time Frame: May 26, 2018 Transfers (B,C,W/C) (FIM): 6 Gait (FIM): 2 Distance (FIM): 7=092-31 ft Gait Distance Comment: 100' Gait Level of Assist: 5 Gait Assistive Device: FWW PT Plan Treatment/Plan Treatment Plan: Continue Plan of Care Treatment Plan: Bed Mobility, Education, Functional Activity Finesse, Functional Strength, Gait, Safety, Therapeutic Exercise, Transfers Treatment Duration: May 28, 2018 Frequency: 6 times per week Estimated Hrs Per Day: .25 hour per day Patient and/or Family Agrees t: Yes Safety Risks/Education Patient Education: Gait Training, Transfer Techniques, Correct Positioning, Disease Process, Safety Issues Teaching Recipient: Patient Teaching Methods: Demonstration, Discussion Response to Teaching: Verbalize Understanding, Return Demonstration, Reinforcement Needed Time/GCodes Time In: 1055 Time Out: 1115 Total Billed Treatment Time: 20 Total Billed Treatment 1,GT20m G Codes Necessary: JAYCEE Welsh TOWEL DISTRIBUTOR May 25, 2018 11:47
--- NOTE | 2018-05-25 12:16 | Occupational Ther Daily Note ---
OT Current Status-Daily Note Subjective Pt in her hoom sitting in recliner, in a good mood. Alert & oriented x3 , very cooperative & agreed for OT Treatment Pain Numeric Pain Scale: 0-No Pain Location: No Pain Reported Mental Status/Objective Patient Orientation: Person, Place, Time, Situation, Normal For Age Therapy Code Descriptions/Definitions Functional [place] Measure: 0=Not Assessed/NA 4=Minimal Assistance 1=Total Assistance 5=Supervision or Setup 2=Maximal Assistance 6=Modified [place] 3=Moderate Assistance 7=Complete [place] Attachments: IV, Oxygen ADL-Treatment Pt participated in strengthening ex to BUE to strengthen both UE to participate in all self care tasks & to push up from recliner to stand with FWW. Pt needs CGA--Supervision in sit to stand as both legs are weak & unsteady standing balance, risk of fall if walking alone.. Pt completed 20 reps x 2 sets x 2 lb wts flexion/extention of both elbows & shoulders, 25 reps using red theraband with both UE in all planes of motion. 30 reps using hand gripper to strengthen hand wastewater plant civil engineer in both hands .Pt O2 dependent . Pt ambulate in her room with FWW under supervision of OT to prevent fall. Pt did good. Eating (FIM): 7 Grooming (FIM): 7 Bathing (FIM): 6 Bathing Location: L Arm, R Arm, L Upper Leg, R Upper Leg, L Lower Leg ( including foot), R Lower Leg (including foot), Chest, Abdomen, Buttocks, Perineal Area Upper Body (FIM): 7 Lower Body Dressing (FIM): 6 Toileting (FIM): 7 Transfers (B, C, W/C) (FIM): 6 Toilet/Commode Transfer (FIM): 6 Tub Transfer(FIM): 0 Shower Transfer(FIM): 6 Education OT Patient Education: Correct positioning Teaching Recipient: Patient Teaching Methods: Demonstration Response to Teaching: Verbalize Understanding OT Short Term Goals Short Term Goals Transfers (B,C,W/C) (FIM): 6 1=Demonstrate adherence to instructed precautions during ADL tasks. 2=Patient will verbalize/demonstrate understanding of assistive devices/ modifications for ADL. 3=Patient will improve strength/tolerance for activity to enable patient to perform ADL's. OT Alf Goals Alf Goals Time Frame: Jun 02, 2018 Eating (FIM): 7 Grooming(FIM): 6 Bathing(FIM): 5 Upper Body Dressing(FIM): 6 Lower Body Dressing(FIM): 6 Toileting(FIM): 6 Transfers (B,C,W/C) (FIM): 6 Toilet/Commode Transfer(FIM): 6 Shower Transfer(FIM): 5 Additional Goals: 1-Demonstrate ADL Tasks, 2-Verbalize Understanding, 3- ImproveStrength/Finesse 1=Demonstrate adherence to instructed precautions during ADL tasks. 2=Patient will verbalize/demonstrate understanding of assistive devices/ modifications for ADL. 3=Patient will improve strength/tolerance for activity to enable patient to perform ADL's. OT Education/Plan Problem List/Assessment Assessment: Decreased Activ Tolerance, Decreased Safety Aware, Decreased UE Strength, Dependent Transfers, Impaired Bed Mobility, Impaired Funct Balance, Impaired Self-Care Skills Discharge Recommendations Plan/Recommendations: Continue POC Equpiment Recommendations-D/C: Extended Bath Bench, Extended Shower Sprayer, Wire Inspector Treatment Plan/Plan of Care Treatment,Training & Education: Yes Patient would benefit from OT for education, treatment and training to promote independence in ADL's, mobility, safety and/or upper extremity function for ADL' s. Plan of Care: ADL Retraining, Functional Mobility, UE Funct Exercise/Act Treatment Duration: Jun 02, 2018 Frequency: 5 times per week Estimated Hrs Per Day: .5 hour per day Agreement: Yes Rehab Potential: Good Time/GCodes Start Time: 10:05 Stop Time: 10:31 Total Time Billed (hr/min): 26 Billed Treatment Time 1, FA 26 minutes. Total 26 min. SARTHAK FOLEY OT May 25, 2018 12:16
--- NOTE | 2018-05-25 13:58 | NUR ---
Discharge planning on-going and recommending Home Health Care for Nursing, Physical therapy, Occupational Therapy. Will need scripts for home oxygen and Front wheel walker. Will discuss with Dr. Russell if [facility] pharmacy can assist with her discharge scripts. Contacting [employer] for their availability for Bedside commode, assistant chief nursing officer, and Extended bath bench. Pt has had social security disability interview and requested urgent determination and financial services working on medicaid application. will follow and assist.
--- NOTE | 2018-05-25 14:12 | Progress Note-Standard ---
Standard Progress Note Progress Notes/Assess & Plan Date Seen by a Provider: May 25, 2018 Time Seen by a Provider: 14:04 Progress/Assessment & Plan 63-year-old female admitted to the hospital with increasing shortness of breath and found to have near obstructing lesion in the right mainstem bronchus with hilar and mediastinal lymphadenopathy as well as extensive liver metastasis and adrenal masses. Bronchoscopy with biopsies showed small cell lung cancer. Status post chemotherapy with carboplatinum and etoposide regimen from 05/12/18 - 05/14/18. Patient tolerated the treatment well with improvement in respiratory status. She is on morphine ER 15 mg every 12 hours with oxycodone 10 mg for breakthrough pain as needed. IV morphine discontinued this a.m. More alert today and denied any new problems. Lab work reviewed with WBC up to 7.4. Continue G-CSF today and recheck CBC tomorrow. Steroids have been discontinued. Patient feeling better and wanting to go home. Okay from oncology standpoint to discharge tomorrow. Will let pulmonary decide about need for oral antibiotics and antifungals. Patient will need home oxygen and bronchodilators/nebulizer. She will need a CBC and BMP on 06/01/2018. She has a follow-up scheduled at the cancer Center on 06/08/2018 at 0930 hours for evaluation and to start second cycle of chemotherapy. school services officer arranging home health, PT and OT. Patient to call if she is having any new or unusual symptoms prior to follow-up. ADIEL PARRA May 25, 2018 14:12
[2018-05-25] MEDS: ALPRAZolam 0.25 MG (XANAX) TAB PO PRN (14:17)
[2018-05-25 16:00] VITALS: BP 145/64
--- NOTE | 2018-05-25 16:13 | Progress Note (SOAP) ---
Subjective Subjective/Events-last exam Patient sitting up in up in chair, pain improved. She is anxious to go home. Review of Systems Date Seen by Provider: May 25, 2018 Time Seen by Provider: 10:00 Pulmonary: Cough Cardiovascular: Edema; No: Chest Pain Musculoskeletal: back pain Neurological: Weakness Objective Exam Last Set of Vital Signs Vital Signs Date Time Temp Pulse Resp B/P (MAP) Pulse Ox O2 Delivery O2 Flow Rate FiO2 05/25/18 15:15 92 Nasal Cannula 2.00 05/25/18 08:00 98.4 96 20 126/62 (83) 05/24/18 08:10 100 Capillary Refill : Less Than 3 SecondsLess Than 3 Seconds I&O Intake and Output 05/25/18 00:00 Intake Total 820 ml Balance 820 ml Intake Oral 800 ml IV Total 20 ml # Voids 7 General: Alert, Oriented X3, Cooperative, No Acute Distress Lungs: Other (end exp wheezing, normal work of breathing) Heart: Regular Rate, No Murmurs Abdomen: Normal Bowel Sounds, Soft, No Tenderness, No Masses Extremities: Other (2+ pitting edema, compression stockings in place) Neuro: Normal Speech, Strength at 5/5 X4 Ext, Cranial Nerves 3-12 NL Psych/Mental Status: Other (anxious) Results/Procedures Lab Laboratory Tests 05/24/18 16:51: Glucometer 227H 05/24/18 22:01: Glucometer 328H 05/25/18 05:35: White Blood Count 7.4, Red Blood Count 3.23L, Hemoglobin 9.8L, Hematocrit 29L, Mean Corpuscular Volume 91, Mean Corpuscular Hemoglobin 30, Mean Corpuscular Hemoglobin Concent 33, Red Cell Distribution Width 15.4H, Platelet Count 267, Mean Platelet Volume 9.8, Neutrophils (%) (Auto) 54, Lymphocytes (%) (Auto) 32, Monocytes (%) (Auto) 14H, Eosinophils (%) (Auto) 1, Basophils (%) (Auto) 0, Neutrophils # (Auto) 4.0, Lymphocytes # (Auto) 2.3, Monocytes # (Auto) 1.0, Eosinophils # (Auto) 0.0, Basophils # (Auto) 0.0, Neutrophils % (Manual) 17, Lymphocytes % (Manual) 39, Monocytes % (Manual) 12, Eosinophils % (Manual) 0, Basophils % (Manual) 0, Metamyelocytes % 1, Band Neutrophils 23, Reactive Lymphocytes 8, Polychromasia SLIGHT, Poikilocytosis SLIGHT, Anisocytosis SLIGHT , Schistocytes SLIGHT, Prothrombin Time 12.7, INR Comment 1.0, Sodium Level 127L , Potassium Level 3.9, Chloride Level 90L, Carbon Dioxide Level 28, Anion Gap 9 , Blood Urea Nitrogen 8, Creatinine 0.44L, Estimat Glomerular Filtration Rate > 60, BUN/Creatinine Ratio 18, Glucose Level 127H, Calcium Level 8.5, Corrected Calcium 9.5, Total Bilirubin 0.9, Aspartate Amino Transf (AST/SGOT) 59H, Alanine Aminotransferase (ALT/SGPT) 97H, Alkaline Phosphatase 583H, Total Protein 5.2L, Albumin 2.8L 05/25/18 11:18: Glucometer 227H 05/25/18 16:00: Glucometer 164H Microbiology 05/21/18 Blood Culture - Preliminary, Resulted No growth 05/21/18 Gram Stain - Final, Complete 05/21/18 Sputum Culture - Final, Complete Usual upper respiratory alexandra 05/12/18 Urine Culture - Final, Complete NO GROWTH Assessment/Plan Assessment/Plan (1) Altered mental state Status: Resolved Assessment & Plan: 05/24: Due to known metastatic cancer, recommend MRI vs hypoNatremia 05/25: Patient at baseline, MRI showed an area that needs to be followed up with PET scan Qualifiers: Qualified Codes: R41.0 - Disorientation, unspecified (2) Small cell lung cancer Status: Acute Assessment & Plan: - Dr Cavazos following patient and started on chemo during this admission (3) Pneumonia Status: Acute Assessment & Plan: - Post obstructive PNA related to lung mass, Will continue to monitor, improving 05/24: Meropenem and fluconazole 05/25: Will discuss with Dr Anaya antibiotics that he would like patient to continue at home Qualifiers: Qualified Codes: J18.1 - Lobar pneumonia, unspecified organism (4) Hyponatremia Status: Acute Assessment & Plan: - Likely SIADH given lung disease, patient on fluid restriction, Will continue to monitor, Mental status at baseline 05/24: Discussed the importance of strictly restricting fluids, reviewed meds that could contribute to hypoNa 05/25: Improving with fluid restriction, discussed the importance of following restriction after discharge (5) Cancer, metastatic to bone Status: Acute (6) Hypoxia Status: Acute Assessment & Plan: - Will wean as tolerated (7) Hypertension Status: Chronic Assessment & Plan: - Controlled on meds Qualifiers: Qualified Codes: I10 - Essential (primary) hypertension (8) Diabetes mellitus Status: Chronic Assessment & Plan: Hold metformin due to contrast. Levemir started. SSI. Qualifiers: Qualified Codes: E11.65 - Type 2 diabetes mellitus with hyperglycemia (9) Liver enzyme elevation Status: Acute Assessment & Plan: AST/ALT stable since admission, bilirubin up. Suspect due to liver metastases. (10) Anxiety Status: Chronic Assessment & Plan: Home alprazolam had been continued, but she remains markedly anxious, will try longer acting benzo. 05/15 improved with lorazepam but still fairly anxious, increase to 2 mg TID prn. (11) COPD (chronic obstructive pulmonary disease) Status: Chronic Qualifiers: Qualified Codes: J44.9 - Chronic obstructive pulmonary disease, unspecified (12) DVT prophylaxis Status: Acute Assessment & Plan: Enoxaparin (13) Advance care planning Status: Acute Assessment & Plan: - Patient DNR and has done advance directives - Will plan to d/c home with home health 05/25: Plan to d/c home tomorrow with home health, need O2 and walker order for home Clinical Quality Measures DVT/VTE Risk/Contraindication: Risk Factor Score Per Nursin RFS Level Per Nursing on Admit: 4+=Very High VÍCTOR RENNER MD May 25, 2018 16:13
--- NOTE | 2018-05-25 16:55 | NUR ---
PT TEARFUL C/O OF PAIN RATES PAIN AT 7 ON 0-10 SCALE, DR RENNER NOTIFIED AND NEW ORDERS RECEIVED TO START FENTANYL PATCH 25MCQ EVERY 72 HOURS. ORDERS READ BACK AND ENTERED. PT INFORMED.
[2018-05-25] MEDS ORDERED: fentaNYL PATCH 25 MCG (DURAGESIC) TD SCH (17:00)
[2018-05-25] MEDS: NYSTATIN ORAL SUSP 5 ML UDC PO SCH (17:08)
[2018-05-25] MEDS: MELATONIN 3 MG TABLET PO PRN (21:20)
[2018-05-25] MEDS: inSUlin DETERMIR 1 UNIT/0.01 ML (LEVEMIR) CHARGE PER UNIT SQ SCH (23:01)
[2018-05-26] VITALS: BP 120/55
[2018-05-26] MEDS: NYSTATIN ORAL SUSP 5 ML UDC PO SCH ×3 (00:36→12:22)
[2018-05-26] MEDS: RT-ALBUTEROL/IPRATROPIUM 3 ML (DUONEB) VIAL INH SCH ×4 (03:29→14:20)
[2018-05-26] MEDS: MEROPENEM 500 MG in WATER (STERILE) FOR INJECTION 10 ML IV SCH ×2 (04:44→08:44)
[2018-05-26 05:37] LABS: HEMATOCRIT 34 % (35-52); HEMOGLOBIN 11.2 G/DL (11.5-16.0); MEAN CORPUSCULAR HEMOGLOBIN 30 PG (25-34); MEAN CORPUSCULAR HGB CONC 33 G/DL (32-36); MEAN CORPUSCULAR VOLUME 92 FL (80-99); MEAN PLATELET VOLUME 9.7 FL (7.4-10.4); PLATELET COUNT 311 10^3/uL (130-400); RED CELL DISTRIBUTION WIDTH 15.9 % (10.0-14.5); WHITE BLOOD COUNT 18.5 10^3/uL (4.3-11.0)
[2018-05-26 05:40] LABS: BUN/CREATININE RATIO 16; CALCIUM 8.8 MG/DL (8.5-10.1); CARBON DIOXIDE 27 MMOL/L (21-32); CHLORIDE 90 MMOL/L (98-107); GFR ESTIMATED > 60; GLUCOSE 142 MG/DL (70-105); SODIUM 128 MMOL/L (135-145)
[2018-05-26] MEDS: PANTOPRAZOLE 40 MG (PROTONIX) TAB PO SCH (05:49)
[2018-05-26] MEDS: inSUlin ASPART (NovoLOG) 1 UNIT/0.01 ML (CHARGE PER UNIT) SC SCH ×2 (05:51→12:22)
[2018-05-26 07:56] LABS: ANISOCYTOSIS SLIGHT; BAND NEUTROPHILS 23 %; BASOPHILS % (MANUAL) 0 %; EOSINOPHILS % (MANUAL) 0 %; LYMPHOCYTES % (MANUAL) 25 %; METAMYELOCYTES % 2 %; MONOCYTES % (MANUAL) 10 %; MYELOCYTES % 5 %; NEUTROPHILS % (MANUAL) 35 %; POLYCHROMASIA SLIGHT
[2018-05-26 08:00] VITALS: BP 132/78
[2018-05-26] MEDS: amLODIPine 5 MG (NORVASC) TAB PO SCH (08:23)
[2018-05-26] MEDS: fluCOnazole (DIFLUCAN) 100 MG TAB PO SCH (08:23)
[2018-05-26] MEDS: SENNA W/DOCUSATE (SENOKOT S) TABLET PO SCH (08:23)
[2018-05-26] MEDS: morphine ER 15 MG (MS CONTIN) TAB PO SCH (08:23)
[2018-05-26] MEDS: meTOproloL SUCCINATE 50 MG (TOPROL XL) TAB PO SCH (08:23)
[2018-05-26] MEDS: LACTULOSE SYRUP 10GM/15ML (ENULOSE) 30ML UDC PO SCH (08:27)
[2018-05-26] MEDS: POLYETHYLENE GLYCOL 17 GM (MIRALAX) PACK PO SCH (08:28)
[2018-05-26] MEDS ORDERED: TBO-FILGRASTIM 480 MCG/0.8 ML (GRANIX) SQ SCH (09:00)
--- NOTE | 2018-05-26 09:07 | NUR ---
pt was on 2L NC and taken off O2 and sat dropped to 84% within 5 minutes. pt placed on 2L nc and sat was 92% pt qualified at rest and on exertion on 2L
--- NOTE | 2018-05-26 10:35 | Occupational Ther Daily Note ---
OT Current Status-Daily Note Subjective Pt seated in recliner with O2 on. Agreed for OT treatment . Pain Numeric Pain Scale: 5-Moderate Pain Location: Soft Tissue Location Body Site: Generalized Pain Description: Throbbing Mental Status/Objective Patient Orientation: Person, Place, Time Therapy Code Descriptions/Definitions Functional [place] Measure: 0=Not Assessed/NA 4=Minimal Assistance 1=Total Assistance 5=Supervision or Setup 2=Maximal Assistance 6=Modified [place] 3=Moderate Assistance 7=Complete [place] ADL-Treatment Pt participated in strengthening ex to BUE to participate in all self care activities , to push up from the EOB to stand with FWW & Ambulation holding FWW. Completed 30 reps x 2 sets x 2 lbs with BUE, 30 reps using red theraband in all planes of motion with BUE , & 40 reps holding hand gripper in both hands to strengthen hand ladies locker room attendant .Pt ambulate inside the room with O2 on & with fww. under supervision . Eating (FIM): 7 Grooming (FIM): 6 Upper Body (FIM): 7 Lower Body Dressing (FIM): 6 Toileting (FIM): 7 Transfers (B, C, W/C) (FIM): 7 Toilet/Commode Transfer (FIM): 7 Tub Transfer(FIM): 0 Education OT Patient Education: Correct positioning, Safety issues Teaching Recipient: Patient Teaching Methods: Demonstration Response to Teaching: Verbalize Understanding OT Short Term Goals Short Term Goals Transfers (B,C,W/C) (FIM): 6 1=Demonstrate adherence to instructed precautions during ADL tasks. 2=Patient will verbalize/demonstrate understanding of assistive devices/ modifications for ADL. 3=Patient will improve strength/tolerance for activity to enable patient to perform ADL's. OT Retirement Goals Retirement Goals Time Frame: Jun 02, 2018 Eating (FIM): 7 Grooming(FIM): 6 Bathing(FIM): 5 Upper Body Dressing(FIM): 6 Lower Body Dressing(FIM): 6 Toileting(FIM): 6 Transfers (B,C,W/C) (FIM): 6 Toilet/Commode Transfer(FIM): 6 Shower Transfer(FIM): 5 Additional Goals: 1-Demonstrate ADL Tasks, 2-Verbalize Understanding, 3- ImproveStrength/Finesse 1=Demonstrate adherence to instructed precautions during ADL tasks. 2=Patient will verbalize/demonstrate understanding of assistive devices/ modifications for ADL. 3=Patient will improve strength/tolerance for activity to enable patient to perform ADL's. OT Education/Plan Problem List/Assessment Assessment: Decreased Activ Tolerance, Decreased Safety Aware, Decreased UE Strength, Impaired Funct Balance, Impaired Self-Care Skills Discharge Recommendations Plan/Recommendations: Continue POC Therapy D/C Recommendations: Home w/ Family Support Equpiment Recommendations-D/C: Extended Bath Bench, Extended Shower Sprayer, Dog Food Dough Mixer Treatment Plan/Plan of Care Treatment,Training & Education: Yes Patient would benefit from OT for education, treatment and training to promote independence in ADL's, mobility, safety and/or upper extremity function for ADL' s. Plan of Care: ADL Retraining, Functional Mobility, UE Funct Exercise/Act Treatment Duration: Jun 02, 2018 Frequency: 5 times per week Estimated Hrs Per Day: .5 hour per day Agreement: Yes Rehab Potential: Good Time/GCodes Start Time: 09:30 Stop Time: 09:48 Total Time Billed (hr/min): 18 Billed Treatment Time 1, Ex 18 Min. Total 18 min. SARTHAK FOLEY OT May 26, 2018 10:35
--- NOTE | 2018-05-26 11:02 | NUR ---
PALLIATIVE CARE RN visited with the patient at the request of the patient's daughter who is an employee of the hospital. I was able to have a good conversation with the patient about her understanding of her health situation and what this means to her. Patient understands that she has CANCER in the lung and it is aggressive. She is also understanding that it has gotten into the liver. We discussed Palliative therapy vs curative treatment. She was able to acknowledge that her treatment is just to keep it slowed down. We discussed Home Health care vs Hospice care. Goals of care were discussed and she indicated to me that her main goal is to see her daughter graduate with her masters degree in 2 years. This is a lofty goal but one that can at least be strived for. In addition to the above points of conversation we discussed her need to accept help and to let other's, especially her daughter know when she is not feeling well, her pain is not controlled or any other changes in her health. She agreed that she is protective her kids and will work toward being more open. No needs at this time... patient is intended to discharge today to [employer] with [facility].
--- NOTE | 2018-05-26 11:23 | Discharge Summary ---
Diagnosis/Chief Complaint Date of Admission May 06, 2018 at 17:00 Date of Discharge 05/26/2018 Admission Diagnosis Admission Diagnosis Lung Mass Small Cell Lung Cancer Chronic Pain due to Cancer Hyponatremia Post obstructive PNA COPD IDDM HTN Elevated LFTs Mets to Liver and bone Discharge Diagnosis see above Problems/Diagnosis: (1) Altered mental state Assessment & Plan: 05/24: Due to known metastatic cancer, recommend MRI vs hypoNatremia 05/25: Patient at baseline, MRI showed an area that needs to be followed up with PET scan Qualifiers: Qualified Codes: R41.0 - Disorientation, unspecified Status: Resolved Resolution Date/Time: 05/25/18 @ 16:13 (2) Small cell lung cancer Assessment & Plan: - Dr Cavazos following patient and started on chemo during this admission Status: Acute (3) Pneumonia Assessment & Plan: - Post obstructive PNA related to lung mass, Will continue to monitor, improving 05/24: Meropenem and fluconazole 05/25: Will discuss with Dr Anaya antibiotics that he would like patient to continue at home Qualifiers: Qualified Codes: J18.1 - Lobar pneumonia, unspecified organism Status: Acute (4) Hyponatremia Assessment & Plan: - Likely SIADH given lung disease, patient on fluid restriction, Will continue to monitor, Mental status at baseline 05/24: Discussed the importance of strictly restricting fluids, reviewed meds that could contribute to hypoNa 05/25: Improving with fluid restriction, discussed the importance of following restriction after discharge Status: Acute (5) Cancer, metastatic to bone Status: Acute (6) Hypoxia Assessment & Plan: - Will wean as tolerated Status: Acute (7) Hypertension Assessment & Plan: - Controlled on meds Qualifiers: Qualified Codes: I10 - Essential (primary) hypertension Status: Chronic (8) Diabetes mellitus Assessment & Plan: Hold metformin due to contrast. Levemir started. SSI. Qualifiers: Qualified Codes: E11.65 - Type 2 diabetes mellitus with hyperglycemia Status: Chronic (9) Liver enzyme elevation Assessment & Plan: AST/ALT stable since admission, bilirubin up. Suspect due to liver metastases. Status: Acute (10) Anxiety Assessment & Plan: Home alprazolam had been continued, but she remains markedly anxious, will try longer acting benzo. 05/15 improved with lorazepam but still fairly anxious, increase to 2 mg TID prn. Status: Chronic (11) COPD (chronic obstructive pulmonary disease) Qualifiers: Qualified Codes: J44.9 - Chronic obstructive pulmonary disease, unspecified Status: Chronic (12) DVT prophylaxis Assessment & Plan: Enoxaparin Status: Acute (13) Advance care planning Assessment & Plan: - Patient DNR and has done advance directives - Will plan to d/c home with home health 05/25: Plan to d/c home tomorrow with home health, need O2 and walker order for home Status: Acute Discharge Summary-Simple/Stand Procedures Bronch with bx of lung mass Port Placement Consultations Dr Anaya: Pulmonology Dr Cavazos: Oncology Discharge Physical Examination Allergies: Coded Allergies: doxycycline (Unverified Allergy, Severe, TONGUE SWELLING, 10/20/16) levofloxacin (Unverified Allergy, Severe, TONGUE SWELLING, BLISTERS, ) sumatriptan (Verified Allergy, Unknown, 10/20/16) aspirin (Verified Adverse Reaction, Mild, advised not to take after throat surgery, 10/20/16) ibuprofen (Verified Adverse Reaction, Mild, advised not to take after throat surgery, 10/20/16) Vitals & I&Os Vital Sign - Last 12Hours Date Time Temp Pulse Resp B/P (MAP) Pulse Ox O2 Delivery O2 Flow Rate FiO2 05/26/18 10:56 90 Nasal Cannula 2.00 05/26/18 00:00 97.1 87 18 120/55 (76) 05/24/18 08:10 100 Intake and Output 05/26/18 00:00 Intake Total 700 ml Balance 700 ml General Appearance: Alert, Oriented X3, Cooperative, No Acute Distress HEENT: Mucous Memb Moist/[place] Respiratory: Other (Crackles at bases, diminished breath sounds, normal work of breathing) Cardiovascular: Regular Rate, No Murmurs Abdominal: Normal Bowel Sounds, Soft, No Tenderness, No Masses Extremities: Other (1+ pitting edema bilaterally LE) Skin: No Breakdown Neuro: Normal Speech, Strength at 5/5 X4 Ext Hospital Course See final discharge diagnosis. Discussion & Recommendations 63 yo F that was admitted with PNA and found to have large lung mass. At that time patient was scheduled to have bronchoscopy to biopsy mass. Biopsy reveal small cell lung cancer and Dr Cavazos was consulted. Patient was treated with multiple antibiotics during admission and was sent home to complete 5 additional days of antibiotics. During admission patient was started on her palliative chemotherapy treatment which she tolerated well. She was then given injection to help with return of bone marrow function and was discharged when ANC was within normal limits. Patient experienced increase pain during admission likely from metastatic disease and was started on multiple pain medications. Patient will have close follow up with Dr Cavazos in the cancer center. She will also follow up with PCP and Dr Anaya following discharge. She was discharged home with home health and was a new oxygen start order. Discharge Condition at discharge Guarded with poor prognosis Instructions to patient/family Please see electronic discharge instructions given to patient. Discharge Medications Reviewed and agree with Discharge Medication list on patient's Discharge Instruction sheet Clinical Quality Measures DVT/VTE Risk/Contraindication: Risk Factor Score Per Nursin RFS Level Per Nursing on Admit: 4+=Very High Copy Copies To 1: VÍCTOR RENNER MD, HOLLY R MD May 26, 2018 11:23
[2018-05-26] MEDS ORDERED: METO-370 PO (11:32)
[2018-05-26] MEDS ORDERED: AMLO5TAB9 PO (11:32)
[2018-05-26] MEDS ORDERED: FENT1PAT9 TD (11:32)
[2018-05-26] MEDS ORDERED: AMOX-358 PO (11:32)
[2018-05-26] MEDS ORDERED: MORP-33 PO (11:32)
[2018-05-26] MEDS ORDERED: OXYC10TA7 PO (11:32)
--- NOTE | 2018-05-26 11:38 | D/C HH Face to Face Order ---
D/C Face to Face Orders Instructions for Patient Via [employer], Patient Instructions/FollowUp: You have a hospital f/u Appt at [facility] on Wednesday @ 9AM with Dr Russell You will need to follow up with Dr Anaya in 2-3 weeks You will need to follow up with Oncology in 1 week Physician to follow Patient: Drew Discharge Diet for Home: ADA Diet Patient Problems: Small Cell Lung Ca COPD Oxygen Dependence Non Insulin Dependent DM Metatatic Disease to Bone and Liver Goals for Patient: - Improved [place] - Wound healing Patient Data-Allergies,Ht & Wt Patient Allergies: Coded Allergies: doxycycline (Unverified Allergy, Severe, TONGUE SWELLING, 10/20/16) levofloxacin (Unverified Allergy, Severe, TONGUE SWELLING, BLISTERS, ) sumatriptan (Verified Allergy, Unknown, 10/20/16) aspirin (Verified Adverse Reaction, Mild, advised not to take after throat surgery, 10/20/16) ibuprofen (Verified Adverse Reaction, Mild, advised not to take after throat surgery, 10/20/16) Height (Feet): 5 Height (Inches): 6.00 Weight (Pounds): 129 Weight (Ounces): 8.0 New Medications: Amoxicillin/Potassium Clav (Augmentin 875-125 Tablet) 1 Each Tablet 1 EACH PO BID for 3 Days, #6 TAB Fentanyl (Fentanyl Patch 50 MCG) 1 Each Patch.td72 50 MCG TD Q72H, #10 PATCH Oxycodone HCl (Oxycodone HCl) 10 Mg Tablet 10 MG PO Q6H for Pain, #84 TAB Amlodipine Besylate (Amlodipine Besylate) 5 Mg Tablet 10 MG PO DAILY, #30 TAB Metoprolol Succinate (Metoprolol Succinate) 50 Mg Tab.er.24h 100 MG PO DAILY, #30 TAB Morphine Sulfate (Morphine Sulfate ER) 15 Mg Tablet.er 15 MG PO Q12HR, #56 TAB Continued Medications: Albuterol Sulfate (Proair Hfa) 1 Puff Puff 2 PUFF IH Q4H PRN for SHORTNESS OF BREATH, PUFF 1 PUFF = 90 MCG Glipizide (Glipizide) 10 Mg Tablet 10 MG PO DAILY, TAB Loratadine (Loratadine) 10 Mg Tablet 10 MG PO DAILY, TAB Metformin HCl (Metformin HCl ER) 1,000 Mg Tab.er.24 1000 MG PO BID, TAB Omeprazole (Omeprazole) 40 Mg Capsule.dr 40 MG PO DAILY, CAP Discontinued Medications: Atorvastatin Calcium (Lipitor) 40 Mg Tablet 40 MG PO DAILY, TAB Home Health Need/Face to Face Date of Face to Face: May 26, 2018 Clinical Findings: Immune-compromised, Instability, Shortness of breath, Wound infection I have seen Pt [id number]: Yes Discharged To: Home Diagnosis/Conditions: See Above Patient is Homebound due to: Ham fall risk due to instabilty, Pain w/ ambulation, Shortness of breath/distress Homebound Status Due to the above stated illness, injury or surgical procedure (medical condition or diagnosis) and associated clinical findings, the patient is homebound because of his/her inability to leave home except with aid of a supportive device and/or person AND leaving the home requires a considerable and taxing effort or is medically contraindicated. Pt req the following assistanc: Aid of another person Home Health Nursing Orders Home Health Services Order: Nursing Services, Airline Dispatcher-Evaluate & Treat, Physical Therapy-Evaluate & Treat, Wound Care-Eval/Treat Home Health Infusion Therapy Line Start Date: May 22, 2018 Line Start Time: 2019 Line Type: [facility] Site Location: Chest Therapy Orders Therapy Orders: OT (must have SN or PT order), Physical Therapy, PT to assess for OT Therapy Specific Orders: Eval assistive deivces, Teach enviro modifications/ safety, Gait training, Increase strength/endurance Certify Stmt I certify that this patient is under my care and that I, a nurse practitioner or a physician; a family assistant working with me, had a face to face encounter that - meets the physician face to face encounter requirements with this patient as dated. VÍCTOR RUSSELL MD May 26, 2018 11:38
--- NOTE | 2018-05-26 12:05 | Physical Therapy Daily Note ---
PT Daily Note-Current Subjective Pt in recliner and agrees to PT. Pt and daughter both report that pt will be going home today. Mental Status Patient Orientation: Person, Place, Situation, Normal For Age Attachments: Oxygen (1.5L) Transfers Therapy Code Descriptions/Definitions Functional [place] Measure: 0=Not Assessed/NA 4=Minimal Assistance 1=Total Assistance 5=Supervision or Setup 2=Maximal Assistance 6=Modified [place] 3=Moderate Assistance 7=Complete [place] Therapy Quality Codes: 6 Independent with activity with or without an assistive device 5 Patient requires set up or clean up by helper. Patient completes activity by themselves 4 Supervision or touching assist (CGA). Cedar provide cues , steadying assist 3 The helper provides less than half the effort to complete the activity 2 The helper provides more than half the effort to complete the activity 1 Dependent. The helper does all the effort to complete an activity 7 Patient refused to complete or attempt activity 9 The patient did not perform the activity before the current illness or injury 88 Not attempted due to Medical conditions or safety concerns Transfers (B, C, W/C) (FIM): 5 Sit to/from Stand: 5 Weight Bearing Right Lower Extremity: Right Weight Bearing/Tolerated Left Lower Extremity: Left Weight Bearing/Tolerated Gait Training Gait (FIM): 5 Distance (FIM): 3=150 ft Distance: 450'x2 Gait Level of Assist: 5 Gait Persons Needed: 1 Gait Assistive Device: FWW Assessment Current Status: Good Progress Pt was able to perform sit<>stand transfer to FWW with SBA. Pt amb 450'x2 with FWW and SBA at O2 1.5L. Pt required sitting recovery period after 450'. Pt is now in room in recliner with all needs met. PT Short Term Goals Short Term Goals Time Frame: May 26, 2018 Transfers (B,C,W/C) (FIM): 6 Gait (FIM): 2 Distance (FIM): 1=358-20 ft Gait Distance Comment: 100' Gait Level of Assist: 5 Gait Assistive Device: FWW PT Plan Problem List Problem List: Activity Tolerance, Functional Strength, Safety, Gait, Transfer Treatment/Plan Treatment Plan: Discontinue PT Treatment Plan: Bed Mobility, Education, Functional Activity Finesse, Functional Strength, Gait, Safety, Therapeutic Exercise, Transfers Treatment Duration: May 28, 2018 Frequency: 6 times per week Estimated Hrs Per Day: .25 hour per day Patient and/or Family Agrees t: Yes Discharge Recommendations Therapy D/C Recommendations: Home w/ Family Support Time/GCodes Time In: 1101 Time Out: 1116 Total Billed Treatment Time: 15 Total Billed Treatment 1 visit GT 15 min EDUARD CARRANZA PT May 26, 2018 12:05
--- NOTE | 2018-05-26 12:10 | NUR ---
PTS BLOOD SUGAR IS 412. SPOKE WITH DR. RENNER AND INFORMED HER OF PTS BLOOD SUGAR. TELEPHONE ORDERS RECEIVED TO GIVE 9 UNITS OF NOVOLOG. WILL CONITNUE TO MONITOR PT.
[2018-05-26] MEDS: ALPRAZolam 0.25 MG (XANAX) TAB PO PRN (14:56)
--- NOTE | 2018-05-26 15:35 | NUR ---
JUSTIN BOWERS WENT OVER DC INSTRUCTIONS WITH PT AND PTS FAMILY. PORT DE-ACCESSED AT 1500. TECH TOOK PT OUT IN WHEELCHAIR WITH HER HOME O2 AND BELONGINGS.
--- NOTE | 2018-05-26 15:53 | NUR ---
Arrangements completed for pt discharge home. She will be accompanied by her daughter. Her scripts were sent to the [facility] pharmacy.She will receive home Health Services from [facility] and will receive penitentiary, Occupational and Physical therapies. She has been referred to the [facility].She qualified for Home Oxygen and received a portable concentrator and a Front Wheel Walker. No other needs identified.
--- NOTE | 2018-05-26 16:15 | NUR ---
Visited with pt upon being discharged. States she is happy to go home and feels confident about her care there. 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
[2018-05-28] MEDS ORDERED: FENTANYL PATCH REMOVAL TP SCH (16:59)
== END 2018-05-26 15:35 | disposition home health service (06) | DRG 166 ==
LOC: EDUNIT# 16:17 → ER 16:18 → EEVIPCON 17:00 → 4TH 17:00 → ICU 05-11 08:50 → 4TH 05-16 08:33
PROVIDERS: ADMIT Internal Medicine; ATTEND Family Medicine
PROC: 0B9K8ZX Drainage of Right Lung, Via Natural or Artificial Opening Endoscopic, Diagnostic (ICD-10-PCS; 2018-05-11)
PROC: 0BBK8ZX Excision of Right Lung, Via Natural or Artificial Opening Endoscopic, Diagnostic (ICD-10-PCS; 2018-05-11)
PROC: 07B74ZX Excision of Thorax Lymphatic, Percutaneous Endoscopic Approach, Diagnostic (ICD-10-PCS; 2018-05-11)
PROC: 0BDK8ZX Extraction of Right Lung, Via Natural or Artificial Opening Endoscopic, Diagnostic (ICD-10-PCS; principal; 2018-05-11 07:30)
PROC: 0JH60XZ Insertion of Tunneled Vascular Access Device into Chest Subcutaneous Tissue and Fascia, Open Approach (ICD-10-PCS; 2018-05-16)
PROC: 02HV33Z Insertion of Infusion Device into Superior Vena Cava, Percutaneous Approach (ICD-10-PCS; 2018-05-16)
DX: J18.1 Lobar pneumonia, unspecified organism (principal); C34.01 Malignant neoplasm of right main bronchus; C79.51 Secondary malignant neoplasm of bone; J44.0 Chronic obstructive pulmonary disease with (acute) lower respiratory infection; J96.21 Acute and chronic respiratory failure with hypoxia; C78.7 Secondary malignant neoplasm of liver and intrahepatic bile duct; C79.71 Secondary malignant neoplasm of right adrenal gland; C79.72 Secondary malignant neoplasm of left adrenal gland; K56.7 Ileus, unspecified; E22.2 Syndrome of inappropriate secretion of antidiuretic hormone; J98.11 Atelectasis; J44.1 Chronic obstructive pulmonary disease with (acute) exacerbation; R59.0 Localized enlarged lymph nodes; E11.65 Type 2 diabetes mellitus with hyperglycemia; E87.6 Hypokalemia; I49.1 Atrial premature depolarization; F17.210 Nicotine dependence, cigarettes, uncomplicated; R74.8 Abnormal levels of other serum enzymes; J30.2 Other seasonal allergic rhinitis; G43.909 Migraine, unspecified, not intractable, without status migrainosus; K21.9 Gastro-esophageal reflux disease without esophagitis; K22.70 Barrett's esophagus without dysplasia; M54.9 Dorsalgia, unspecified; F41.9 Anxiety disorder, unspecified; E83.41 Hypermagnesemia; Z85.820 Personal history of malignant melanoma of skin; Z85.828 Personal history of other malignant neoplasm of skin; E87.5 Hyperkalemia; Z82.49 Family history of ischemic heart disease and other diseases of the circulatory system; Z79.4 Long term (current) use of insulin
CPT/HCPCS: 36415; 70470; 70553; 71045; 71260; 71275; 74019; 74022; 74177; 74270; 76700; 78306; 80048; 80053; 81000; 82040; 82150; 82805; 82962; 83605; 83615; 83690; 83735; 83880; 84100; 84484; 85007; 85025; 85027; 85379; 85610; 87015; 87040; 87070; 87077; 87081; 87088; 87101; 87116; 87186; 87205; 87206; 88112; 88305; 88312; 88341; 88342; 93005; 93306; 94002; 94640; 94660; 94664; 94760; 94799; 96365; 96367; 96375; 96413; 96417; J1447

== ENCOUNTER 2018-06-02 20:34 | Emergency (ER) | payer SELFPAY ==
[~2018-06-02] VITALS: Ht 170.2 cm; Wt 57.6 kg
[~2018-06-02 20:34] MED LIST changes: +AMLO5TAB9 PO; +AMOX-358 PO; +ATOR40TA PO; +FENT1PAT9 TD; +GLIP10TA13 PO; +METF-479 PO; +METO-370 PO; +MORP-33 PO; +OMEP40CA36 PO; +OXYC10TA7 PO; +RT-ALBUINH IH
[2018-06-02 22:20] LABS: BASOPHILS # (AUTO) 0.1 10^3/uL (0.0-0.1); BASOPHILS % (AUTO) 1 % (0-10); EOSINOPHILS % (AUTO) 0 % (0-10); HEMATOCRIT 30 % (35-52); HEMOGLOBIN 9.8 G/DL (11.5-16.0); LYMPHOCYTES # (AUTO) 3.9 X 10^3 (1.0-4.0); LYMPHOCYTES % (AUTO) 26 % (12-44); MEAN CORPUSCULAR HEMOGLOBIN 30 PG (25-34); MEAN CORPUSCULAR HGB CONC 32 G/DL (32-36); MEAN CORPUSCULAR VOLUME 93 FL (80-99); MEAN PLATELET VOLUME 8.9 FL (7.4-10.4); MONOCYTES # (AUTO) 1.3 X 10^3 (0.0-1.0); MONOCYTES % (AUTO) 8 % (0-12); NEUTROPHILS # (AUTO) 9.6 X 10^3 (1.8-7.8); NEUTROPHILS % (AUTO) 65 % (42-75); PLATELET COUNT 766 10^3/uL (130-400); WHITE BLOOD COUNT 14.9 10^3/uL (4.3-11.0)
[2018-06-02 22:33] LABS: PROTHROMBIN TIME PATIENT 12.6 SEC (12.2-14.7)
[2018-06-02 22:38] LABS: ALANINE AMINOTRANSFERASE 44 U/L (0-55); ALBUMIN 3.1 GM/DL (3.2-4.5); ALKALINE PHOSPHATASE 466 U/L (40-136); BILIRUBIN,TOTAL 0.5 MG/DL (0.1-1.0); BUN/CREATININE RATIO 15; CALCIUM 8.9 MG/DL (8.5-10.1); CARBON DIOXIDE 25 MMOL/L (21-32); CHLORIDE 97 MMOL/L (98-107); CREATININE SERUM 0.53 MG/DL (0.60-1.30); GFR ESTIMATED > 60; MAGNESIUM 1.4 MG/DL (1.8-2.4); POTASSIUM 4.1 MMOL/L (3.6-5.0); SODIUM 133 MMOL/L (135-145)
[2018-06-02 22:40] LABS: ANISOCYTOSIS SLIGHT; BAND NEUTROPHILS 2 %; BASOPHILS % (MANUAL) 0 %; EOSINOPHILS % (MANUAL) 0 %; HYPOCHROMASIA SLIGHT; LYMPHOCYTES % (MANUAL) 24 %; MONOCYTES % (MANUAL) 3 %; NEUTROPHILS % (MANUAL) 71 %
[2018-06-02 22:42] LABS: ERYTHROCYTE SEDIMENTATION RATE > 140 MM/HR (0-30)
[2018-06-02] MEDS ORDERED: KCL 10 MEQ TAB (MICRO K) PO ONE (22:45)
[2018-06-02] MEDS ORDERED: FUROSEMIDE 40 MG/4 ML INJ (LASIX) IVP ONE (22:45)
[2018-06-02] MEDS ORDERED: fentaNYL INJECTION 100 MCG/2 ML AMP IVP STA (22:49)
[2018-06-02 22:53] LABS: TSH (THYROID ANALYZER) 1.79 UIU/ML (0.35-4.94)
[2018-06-02 23:17] LABS: GLUCOSE 173 MG/DL (70-105)
--- NOTE | 2018-06-02 23:42 | ED Lower Extremity ---
General Chief Complaint: Lower Extremity Stated Complaint: SWELLING IN BOTH LEGS Nursing Triage Note: PT PRESENTS TO THE ED WITH BILATERAL LEG SWELLING AND REDNESS THAT STARTED TO GET WORSE 48 HOURS AGO. PT REPORTS SEVERE PAIN IN LEGS THAT HAS REQUIRED MORE PAIN MEDS. PT HAS CANCER AND SOME SWELLING IS NORMAL. Nursing Sepsis Screen: No Definite Risk Allergies and Home Medications Allergies Coded Allergies: doxycycline (Unverified Allergy, Severe, TONGUE SWELLING, 06/02/18) levofloxacin (Unverified Allergy, Severe, TONGUE SWELLING, BLISTERS, ) sumatriptan (Verified Allergy, Unknown, 06/02/18) aspirin (Verified Adverse Reaction, Mild, advised not to take after throat surgery, 06/02/18) ibuprofen (Verified Adverse Reaction, Mild, advised not to take after throat surgery, 06/02/18) Home Medications Albuterol Sulfate 1 Puff Puff, 2 PUFF IH Q4H PRN for SHORTNESS OF BREATH, ( Reported) 1 PUFF = 90 MCG Amlodipine Besylate 5 Mg Tablet, 10 MG PO DAILY Prescribed by: VÍCTOR RENNER on 05/26/18 113 Amoxicillin/Potassium Clav 1 Each Tablet, 1 EACH PO BID Prescribed by: VÍCTOR RENNER on 05/26/18 113 Fentanyl 1 Each Patch.td72, 50 MCG TD Q72H Prescribed by: VÍCTOR RENNER on 05/26/18 113 Glipizide 10 Mg Tablet, 10 MG PO DAILY, (Reported) Loratadine 10 Mg Tablet, 10 MG PO DAILY, (Reported) Metformin HCl 1,000 Mg Tab.er.24, 1,000 MG PO BID, (Reported) Metoprolol Succinate 50 Mg Tab.er.24h, 100 MG PO DAILY Prescribed by: VÍCTOR RENNER on 05/26/18 113 Morphine Sulfate 15 Mg Tablet.er, 15 MG PO Q12HR Prescribed by: VÍCTOR RENNER on 05/26/18 113 Omeprazole 40 Mg Capsule.dr, 40 MG PO DAILY, (Reported) Oxycodone HCl 10 Mg Tablet, 10 MG PO Q6H Prescribed by: VÍCTOR RENNER on 05/26/18 113 Past Znvvxps-Pcnsps-Widnkn Hx Patient Social History Alcohol Use: Denies Use Recreational Drug Use: No (tobacco) Smoking Status: Former Smoker Type Used: Cigarettes Recent Foreign Travel: No Contact w/Someone Who Travel: No Recent Infectious Disease Expo: No Recent Hopitalizations: Yes (APRIL 2018- CANCER) Immunizations Up To Date Date of Pneumonia Vaccine: Jun 03, 2013 Date of Influenza Vaccine: Jan 13, 2016 Seasonal Allergies Seasonal Allergies: Yes Past Medical History Surgeries: Yes Gallbladder, Hysterectomy, Orthopedic Respiratory: Yes (NODULES ON R LUNG) Cardiac: No Neurological: Yes Headaches /Migraines Reproductive Disorders: No Female Reproductive Disorders: Denies 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 Sexually Transmitted Disease: No HIV/AIDS: No Gastrointestinal: Yes Gastroesophageal Reflux, Allan's Esophagus Musculoskeletal: Yes Degenerate Disk Disease, Chronic Back Pain Endocrine: Yes Diabetes, Non-Insulin dep Loss of Vision: Bilateral Hearing Impairment: Denies Cancer: Yes Skin, Melanoma Psychosocial: Yes Anxiety Integumentary: No Blood Disorders: No Adverse Reaction/Blood Tranf: No (N/A) Family Medical History Alcoholism 09 BROTHER 09 BROTHER Cancer pa-aunt (breast cancer) Cataract 03 FATHER Chest pain 03 FATHER 09 BROTHER Congenital heart disease 03 MOTHER Congestive heart failure 03 MOTHER Family history: Arthritis 03 FATHER Family history: Breast disease 09 BROTHER 09 SISTER pa-aunt Family history: Cardiovascular disease 03 FATHER 09 BROTHER 09 SISTER Family history: Coronary thrombosis 03 FATHER (WRONG DISEASE CHARTED) 09 BROTHER (WRONG DISEASE CHARTED) 09 SISTER (wrong disease chated) Family history: Diabetes mellitus 03 FATHER Family history: Glaucoma 03 FATHER History of - respiratory disease 03 MOTHER (COPD) 09 SISTER (COPD) Myocardial infarction 03 FATHER 09 BROTHER Seizure disorder NEPHEW ( FROM SEIZURE AT AGE 22 YRS.) No Family History of: Abdominal aortic aneurysm Berry's disease Cancer of colon No Pertinent Family Hx Physical Exam Vital Signs Vital Signs - First Documented 06/02/18 21:33 Temp 97.5 Pulse 103 Resp 26 B/P (MAP) 143/81 (101) Pulse Ox 96 O2 Flow Rate 2.00 Capillary Refill : Less Than 3 Seconds Height, Weight, BMI Height: 5'7.00" Weight: 127lbs. 9.0oz. 57.557497cc; 21.9 BMI Method:Stated Procedures/Interventions Date of ETT Placement: May 11, 2018 Time of ETT Placement: 724 Progress/Results/Core Measures Results/Orders Lab Results Laboratory Tests Test 06/02/18 22:16 Range/Units White Blood Count 14.9 H 4.3-11.0 10^3/uL Red Blood Count 3.27 L 4.35-5.85 10^6/uL Hemoglobin 9.8 L 11.5-16.0 G/DL Hematocrit 30 L 35-52 % Mean Corpuscular Volume 93 80-99 FL Mean Corpuscular Hemoglobin 30 25-34 PG Mean Corpuscular Hemoglobin Concent 32 32-36 G/DL Red Cell Distribution Width 15.0 H 10.0-14.5 % Platelet Count 766 H 130-400 10^3/uL Mean Platelet Volume 8.9 7.4-10.4 FL Neutrophils (%) (Auto) 65 42-75 % Lymphocytes (%) (Auto) 26 12-44 % Monocytes (%) (Auto) 8 0-12 % Eosinophils (%) (Auto) 0 0-10 % Basophils (%) (Auto) 1 0-10 % Neutrophils # (Auto) 9.6 H 1.8-7.8 X 10^3 Lymphocytes # (Auto) 3.9 1.0-4.0 X 10^3 Monocytes # (Auto) 1.3 H 0.0-1.0 X 10^3 Eosinophils # (Auto) 0.0 0.0-0.3 10^3/uL Basophils # (Auto) 0.1 0.0-0.1 10^3/uL Neutrophils % (Manual) 71 % Lymphocytes % (Manual) 24 % Monocytes % (Manual) 3 % Eosinophils % (Manual) 0 % Basophils % (Manual) 0 % Band Neutrophils 2 % Hypochromasia SLIGHT Basophilic Stippling SLIGHT Anisocytosis SLIGHT Erythrocyte Sedimentation Rate > 140 H 0-30 MM/HR Prothrombin Time 12.6 12.2-14.7 SEC INR Comment 1.0 0.8-1.4 Activated Partial Thromboplast Time 33 24-35 SEC Sodium Level 133 L 135-145 MMOL/L Potassium Level 4.1 3.6-5.0 MMOL/L Chloride Level 97 L 98-107 MMOL/L Carbon Dioxide Level 25 21-32 MMOL/L Anion Gap 11 5-14 MMOL/L Blood Urea Nitrogen 8 7-18 MG/DL Creatinine 0.53 L 0.60-1.30 MG/DL Estimat Glomerular Filtration Rate > 60 BUN/Creatinine Ratio 15 Glucose Level 173 H 70-105 MG/DL Calcium Level 8.9 8.5-10.1 MG/DL Corrected Calcium 9.6 8.5-10.1 MG/DL Magnesium Level 1.4 L 1.8-2.4 MG/DL Total Bilirubin 0.5 0.1-1.0 MG/DL Aspartate Amino Transf (AST/SGOT) 32 5-34 U/L Alanine Aminotransferase (ALT/SGPT) 44 0-55 U/L Alkaline Phosphatase 466 H 40-136 U/L B-Type Natriuretic Peptide 55.2 <100.0 PG/ML Total Protein 6.0 L 6.4-8.2 GM/DL Albumin 3.1 L 3.2-4.5 GM/DL TSH Branch Testing 1.79 0.35-4.94 UIU/ML My Orders Orders - SHALONDA CHAUDHRY DO Saline Lock/Iv-Start (06/02/18 21:53) O2 (06/02/18 21:53) Monitor-Rhythm Ecg Trace Only (06/02/18 21:53) BNP (06/02/18 21:53) Cbc With Automated Diff (06/02/18 21:53) Comprehensive Metabolic Panel (06/02/18 21:53) Erythrocyte Sedimentation Rate (06/02/18 21:53) Magnesium (06/02/18 21:53) Protime With Inr (06/02/18 21:53) Partial Thromboplastin Time (06/02/18 21:53) Thyroid Analyzer (06/02/18 21:53) Chest 1 View, Ap/Pa Only (06/02/18 21:53) Femur, Right, 2 Views (06/02/18 21:53) Pelvis (06/02/18 21:53) Manual Differential (06/02/18 22:16) Furosemide Injection (Lasix Injection) (06/02/18 22:45) Potassium Chloride (Tablet) (Klor Con Ta (06/02/18 22:45) Fentanyl Injection (Sublimaze Injection (06/02/18 22:49) Medications Given in ED Current Medications Medications Dose Ordered Sig/Js Route Start Time Stop Time Status Last Admin Dose Admin Furosemide 80 mg ONCE ONCE IVP 06/02/18 22:45 06/02/18 22:46 DC 06/02/18 22:56 80 MG Potassium Chloride 20 meq ONCE ONCE PO 06/02/18 22:45 06/02/18 22:46 DC 06/02/18 22:56 20 MEQ Vital Signs/I&O 06/02/18 21:33 Temp 97.5 Pulse 103 Resp 26 B/P (MAP) 143/81 (101) Pulse Ox 96 O2 Flow Rate 2.00 Blood Pressure Mean: 101 Departure Communication (Admissions) 0065--SPOKE WITH DR. MUNIZ, AGREES WITH PLAN OF CARE TO HAVE OUTPATIENT ULTRASOUND TOMORROW, AND FOLLOW WITH [facility] TOMORROW FOR FURTHER CARE. ADVISES NO ANTIBIOTICS Impression Primary Impression: Bilateral leg edema Additional Impression: Metastatic lung cancer (metastasis from lung to other site) Disposition: HOME, SELF-CARE Condition: Stable Departure-Patient Inst. Referrals: VÍCTOR RENNER MD (PCP/Family) Primary Care Physician ADIEL PARRA Patient Instructions: Dependent Edema (DC) Add. Discharge Instructions: ELEVATE LEGS MUCH POSSIBLE CALL IN AM TO SCHEDULE ULTRASOUND FOLLOW UP WITH DR. RENNER AND/OR DR. PARRA TOMORROW FOR FURTHER CARE All discharge instructions reviewed with patient and/or family. Voiced understanding. SHALONDA CHAUDHRY DO Jun 02, 2018 23:42
[2018-06-02 23:55] VITALS: BP 156/81
--- NOTE | 2018-06-02 23:55 | NUR ---
ORDER FOR OP US GIVEN.
--- NOTE | 2018-06-03 07:43 | Diagnostic Imaging Report ---
INDICATION: Bilateral leg pain and swelling. FINDINGS: AP pelvis. SI joints are symmetrical with mild sclerosis. Pubic symphysis in good alignment. There are no fractures. Femoral heads are in normal articulation. Good preservation of the joint spaces. No hypertrophic bony changes. IMPRESSION: Normal AP pelvis. Dictated by: Dictated on workstation # [id number]
--- NOTE | 2018-06-03 07:44 | Diagnostic Imaging Report ---
INDICATION: Bilateral leg swelling. Shortness of breath. History of cancer. No specific site given. Comparison with 05/25/2018. FINDINGS: Port-A-Cath on the right is unchanged. There is mild obstructive lung disease. Alveolar infiltrate left lower lobe is again noted and has increased in density with increasing consolidation since previous exam. There has been increase in bilateral interstitial infiltrates as well. With history of cancer, lymphangitic spread could not be excluded with this appearance. No pleural effusion. IMPRESSION: 1. Increasing consolidated infiltrate left lower lobe as well as increasing interstitial infiltrates bilaterally. Dictated by: Dictated on workstation # [id number]
--- NOTE | 2018-06-03 07:57 | Diagnostic Imaging Report ---
INDICATION: No known trauma. Bilateral leg pain and swelling. FINDINGS: Four views right femur. Femoral head is in normal articulation with the acetabulum. Articulating surfaces are smooth. There are no fractures. The femoral shaft appears normal. Knee shows good alignment with mild degenerative changes. No soft tissue abnormalities noted. IMPRESSION: Normal right femur. Dictated by: Dictated on workstation # [id number]
== END 2018-06-02 23:58 | disposition home or self-care (01) ==
LOC: EDUNIT# 20:34 → ER 20:37
DX: C34.90 Malignant neoplasm of unspecified part of unspecified bronchus or lung (principal); C79.9 Secondary malignant neoplasm of unspecified site; R60.0 Localized edema; G43.909 Migraine, unspecified, not intractable, without status migrainosus; K21.9 Gastro-esophageal reflux disease without esophagitis; E11.9 Type 2 diabetes mellitus without complications; F41.9 Anxiety disorder, unspecified; Z80.3 Family history of malignant neoplasm of breast; Z82.49 Family history of ischemic heart disease and other diseases of the circulatory system; Z85.820 Personal history of malignant melanoma of skin; Z87.19 Personal history of other diseases of the digestive system; Z88.1 Allergy status to other antibiotic agents; Z88.8 Allergy status to other drugs, medicaments and biological substances; Z88.6 Allergy status to analgesic agent; Z79.51 Long term (current) use of inhaled steroids; Z79.4 Long term (current) use of insulin; Z87.891 Personal history of nicotine dependence; Z90.710 Acquired absence of both cervix and uterus
CPT/HCPCS: 36415; 71045; 72170; 73552; 80053; 83735; 83880; 84443; 85007; 85027; 85610; 85652; 85730; 93041; 96374; 96375